=== PATIENT | male | born 1955 | race Caucasian/White ===

== ENCOUNTER → 2017-11-12 | Outpatient (CLI) | payer MEDICARE ==
--- NOTE | 2017-11-12 10:20 | US ---
EXAMINATION TYPE: US thyroid st tissue head/neck DATE OF EXAM: 11/12/2017 COMPARISON: NONE CLINICAL HISTORY: C73 Thyroid Cancer E89.0 Hypothyroid. History of thyroid CA and thyroidectomy GLAND SIZE: Right Lobe: Surgically absent cm Left Lobe: Surgically absent cm Isthmus Thickness: Surgically absent cm Bilateral neck scanned, no evidence of lymphadenopathy or residual thyroid tissue seen at this time. No local adenopathy is identified. IMPRESSION: Surgical absence of the thyroid gland with no residual soft tissue density in the thyroidectomy bed o r local adenopathy seen.
== END | disposition home or self-care (01) ==
LOC: RADUSWWP 09:23
PROVIDERS: ATTEND Internal Medicine Endocrinology, Diabetes & Metabolism
DX: E89.0 Postprocedural hypothyroidism (principal); Z90.89 Acquired absence of other organs; Z85.850 Personal history of malignant neoplasm of thyroid
CPT/HCPCS: 76536

== ENCOUNTER 2019-04-21 19:16 | Emergency (ER) | payer MEDICARE, BC ==
[2019-04-21] MEDS ORDERED: NITROGLYCERIN SL TABS 0.4 MG TAB SUBLINGUAL STA (19:48)
[2019-04-21] MEDS ORDERED: GLUCAGON 1 MG/ML VIAL IVP STA (19:48)
[2019-04-21] MEDS ORDERED: METOCLOPRAMIDE 5 MG/ML 2 ML VIAL IVP STA (19:52)
[2019-04-21] MEDS ORDERED: DIAZEPAM 5 MG/ML 2 ML INJ IVP STA (19:53)
--- NOTE | 2019-04-21 19:56 | ED ---
General Adult HPI - General Chief complaint: Skin/Abscess/Foreign Body Stated complaint: FB in throat Time Seen by Provider: 04/21/19 19:20 Source: patient, EMS, RN notes reviewed, old records reviewed Mode of arrival: EMS Limitations: no limitations - History of Present Illness Initial comments: This is a 63-year-old male who presents emergency department with past medical history significant for bypass surgery as well as Parkinson's. Patient states she was eating some pork today and he swallowed a piece of pork and ever since then he's been able to swallow even his saliva. Patient states she's never had any previous history of similar. Patient states she's never had any problems swallowing anything. She denies any difficulty breathing shortness of breath. Patient denies any chest pain. Patient is developmentally delayed and his guardian is his sister and she states that he is very accurate with his history however. Patient denies any abdominal pain. - Related Data Home Medications Medication Instructions Recorded Confirmed Ammonium Lactate Cream [Lac-Hydrin 1 applic TOPICAL DAILY PRN 04/21/19 04/21/19 12% Cream] Aspirin EC [Ecotrin Low Dose] 81 mg PO DAILY 04/21/19 04/21/19 Atorvastatin [Lipitor] 80 mg PO HS 04/21/19 04/21/19 Carbidopa/Levodopa [Sinemet CR 1 tab PO BID 04/21/19 04/21/19 50-200 mg] Cholecalciferol (Vitamin D3) 2,000 unit PO DAILY 04/21/19 04/21/19 [Vitamin D3] Divalproex [Depakote] 500 mg PO HS 04/21/19 04/21/19 Ergocalciferol [Vitamin D2] 50,000 unit PO Q30D 04/21/19 04/21/19 Folic Acid 1 mg PO HS 04/21/19 04/21/19 Isosorbide Mononitrate ER [Imdur] 90 mg PO DAILY 04/21/19 04/21/19 Metoprolol Tartrate [Lopressor] 50 mg PO BID 04/21/19 04/21/19 Multivitamins, Thera [Multivitamin 1 tab PO DAILY 04/21/19 04/21/19 (formulary)] Nitroglycerin Sl Tabs [Nitrostat] 0.4 mg SUBLINGUAL Q5M PRN 04/21/19 04/21/19 metFORMIN HCL 1,000 mg PO BID 04/21/19 04/21/19 Allergies Allergy/AdvReac Type Severity Reaction Status Date / Time No Known Allergies Allergy Verified 04/21/19 20:19 Review of Systems ROS Statement: Those systems with pertinent positive or pertinent negative responses have been documented in the HPI. ROS Other: All systems not noted in ROS Statement are negative. Past Medical History Additional Past Medical History / Comment(s): Parkisons History of Any Multi-Drug Resistant Organisms: Unobtainable Additional Past Surgical History / Comment(s): bypass x4 Past Psychological History: Unable to Obtain Smoking Status: Never smoker Past Alcohol Use History: Occasional Past Drug Use History: None Reported General Exam - General Exam Comments Initial Comments: GENERAL: Patient is well-developed and well-nourished. Patient is nontoxic and well- hydrated and is in mild distress. Patient is spitting up saliva. ENT: Neck is soft and supple. No significant lymphadenopathy is noted. Oropharynx is clear. Moist mucous membranes. Neck has full range of motion without eliciting any pain. EYES: The sclera were anicteric and conjunctiva were pink and moist. Extraocular movements were intact and pupils were equal round and reactive to light. Eyelids were unremarkable. PULMONARY: Unlabored respirations. Good breath sounds bilaterally. No audible rales rhonchi or wheezing was noted. CARDIOVASCULAR: There is a regular rate and rhythm without any murmurs gallops or rubs. ABDOMEN: Soft and nontender with normal bowel sounds. No palpable organomegaly was noted. There is no palpable pulsatile mass. SKIN: Skin is clear with no lesions or rashes and otherwise unremarkable. NEUROLOGIC: Patient is alert and oriented 3. Cranial nerves II through XII are grossly intact. Motor and sensory are also intact. Normal speech, volume and content. Symmetrical smile. MUSCULOSKELETAL: Normal extremities with adequate strength and full range of motion. PSYCHIATRIC: Normal psychiatric evaluation. Limitations: no limitations Course Vital Signs 04/21/19 19:18 Temperature 98.4 F Pulse Rate 99 Respiratory 17 Rate Blood Pressure 148/96 O2 Sat by Pulse 98 Oximetry Medical Decision Making - Medical Decision Making Patient was given Valium and glucagon Reglan and nitroglycerin shortly thereafter the patient vomited in the large piece of meat came up with it. Patient at that point and was able to swallow liquids and Jell-O and felt no sensation of a foreign body in the throat. Disposition Clinical Impression: Esophageal foreign body Disposition: HOME SELF-CARE Instructions (If sedation given, give patient instructions): Esophageal Foreign Body (ED) Is patient prescribed a controlled substance at d/c from ED?: No Referrals: Pb Person MD [STAFF PHYSICIAN] - 1-2 days Time of Disposition: 20:51
[2019-04-21 21:25] VITALS: BP 164/90; PULSE 89; RESP 18; TEMP 97.9
== END 2019-04-21 21:14 | disposition home or self-care (01) ==
LOC: EC 19:16 → EEVIPCON 19:16 → EC 21:14
DX: T18.128A Food in esophagus causing other injury, initial encounter (principal); G20 Parkinson's disease; Z95.1 Presence of aortocoronary bypass graft; Z79.82 Long term (current) use of aspirin; Z79.899 Other long term (current) drug therapy; X58.XXXA Exposure to other specified factors, initial encounter; Y93.89 Activity, other specified
CPT/HCPCS: 99284; 96374; 96375 ×2; J1610; J2765; J3360

== ENCOUNTER 2019-10-05 12:01 | Observation (INO) | payer MEDICARE, BC ==
--- NOTE | 2019-10-05 12:37 | ED ---
General Adult HPI - General Chief complaint: Fall Stated complaint: Weakness, fall Time Seen by Provider: 10/05/19 12:06 Source: EMS Mode of arrival: EMS Limitations: no limitations - History of Present Illness Initial comments: Dictation was produced using [employer] dictation software. please excuse any grammatical, word or spelling errors. This patient was cared for during a federal and state declared state of emergency secondary to Covid 19 Chief Complaint: 64-year-old male with mental delay presents after fall. History of Present Illness: 64-year-old male is currently a resident at [facility]. Patient fell out of bed today. Patient is a poor historian. Denies tripping. Patient states he does not have pain after the fall. Patient does take blood pressure medications. According to EMS patient also fell yesterday. Does take any and I coag relation medications. Chart review shows that he has a history of coronary artery disease, bypass grafting. Patient has no complaints at this time. He states he feels well. unable to obtain stated to patient's mental status PHYSICAL EXAM: General Impression: Alert and oriented x3, not in acute distress HEENT: Normocephalic atraumatic, extra-ocular movements intact, pupils equal and reactive to light bilaterally, mucous membranes moist. Cardiovascular: Heart regular rate and rhythm Chest: Able to complete full sentences, no retractions, no tachypnea Abdomen: abdomen soft, non-tender, non-distended, no organomegaly Musculoskeletal: Pulses present and equal in all extremities, no peripheral edema Motor: no focal deficits noted Neurological: CN II-XII grossly intact, no focal motor or sensory deficits noted Skin: Intact with no visualized rashes Psych: Normal affect and mood Rectal exam: No bleeding ED course: 64-year-old male past medical history of developmental delay and Parkinson's disease presents after fall. All signs upon arrival shows blood pre ssure 93/55, rest of vital signs within acceptable limits. Medications were reviewed. Patient has history of coronary artery disease, Parkinson's and hypertension. At this point is unclear what is causing patient's mildly depressed blood pressure. Lab data evaluation obtained. CBC unremarkable. Coag panel is unremarkable. Metabolic panel is unremarkable except there is a mild lactic acidosis 3.8. Urinalysis is unremarkable. Stool occult blood is negative. Brain CT, pelvis x-ray chest x-ray shows no traumatic injuries or acute processes. Patient reevaluated at bedside he is in stable medical condition. Considering patient has a lactic acidosis will have patient admitted to observation. At this point is not entirely clear what is causing patient's lactic acidemia. His likely sec ondary to dehydration. Patient vitals rechecked after some intravenous fluids with improvement. Discussed patient case with Dr. Clemons was went except patient's care. EKG interpretation: Ventricular rate 83, normal sinus rhythm, KS interval 146, QRS 88, QTc 413. No KS prolongation, no QTC prolongation, no ST or T-wave changes noted. No old EKG for comparison. Overall, this EKG is unremarkable - Related Data Home Medications Medication Instructions Recorded Confirmed Ammonium Lactate Cream [Lac-Hydrin 1 applic TOPICAL DAILY PRN 04/21/19 04/21/19 12% Cream] Aspirin EC [Ecotrin Low Dose] 81 mg PO DAILY 04/21/19 04/21/19 Atorvastatin [Lipitor] 80 mg PO HS 04/21/19 04/21/19 Carbidopa/Levodopa [Sinemet CR 1 tab PO BID 04/21/19 04/21/19 50-200 mg] Cholecalciferol (Vitamin D3) 2,000 unit PO DAILY 04/21/19 04/21/19 [Vitamin D3] Divalproex [Depakote] 500 mg PO HS 04/21/19 04/21/19 Ergocalciferol [Vitamin D2] 50,000 unit PO Q30D 04/21/19 04/21/19 Folic Acid 1 mg PO HS 04/21/19 04/21/19 Isosorbide Mononitrate ER [Imdur] 90 mg PO DAILY 04/21/19 04/21/19 Metoprolol Tartrate [Lopressor] 50 mg PO BID 04/21/19 04/21/19 Multivitamins, Thera [Multivitamin 1 tab PO DAILY 04/21/19 04/21/19 (formulary)] Nitroglycerin Sl Tabs [Nitrostat] 0.4 mg SUBLINGUAL Q5M PRN 04/21/19 04/21/19 metFORMIN HCL 1,000 mg PO BID 04/21/19 04/21/19 Allergies Allergy/AdvReac Type Severity Reaction Status Date / Time No Known Allergies Allergy Verified 04/21/19 20:19 Review of Systems ROS Statement: Those systems with pertinent positive or pertinent negative responses have been documented in the HPI. ROS Other: All systems not noted in ROS Statement are negative. Past Medical History Additional Past Medical History / Comment(s): Parkisons,developmental delays. History of Any Multi-Drug Resistant Organisms: Unobtainable Additional Past Surgical History / Comment(s): bypass x4 Past Psychological History: Unable to Obtain Smoking Status: Never smoker Past Alcohol Use History: Occasional Past Drug Use History: None Reported General Exam Limitations: no limitations Course Vital Signs 10/05/19 10/05/19 12:06 14:04 Temperature 98.1 F Pulse Rate 85 80 Respiratory 18 18 Rate Blood Pressure 93/55 102/65 O2 Sat by Pulse 98 100 Oximetry Medical Decision Making - Lab Data Result diagrams: 10/05/19 12:10/05/19 12:20 Lab Results 10/05/19 10/05/19 10/05/19 Range/Units 12:20 12:20 12:20 WBC 5.6 (3.8-10.6) k/uL RBC 4.71 (4.30-5.90) m/uL Hgb 12.9 L (13.0-17.5) gm/dL Hct 41.5 (39.0-53.0) % MCV 88.2 (80.0-100.0) fL MCH 27.3 (25.0-35.0) pg MCHC 31.0 (31.0-37.0) g/dL RDW 14.4 (11.5-15.5) % Plt Count 206 (150-450) k/uL Neutrophils % 74 % Lymphocytes % 15 % Monocytes % 6 % Eosinophils % 3 % Basophils % 1 % Neutrophils # 4.1 (1.3-7.7) k/uL Lymphocytes # 0.8 L (1.0-4.8) k/uL Monocytes # 0.3 (0-1.0) k/uL Eosinophils # 0.2 (0-0.7) k/uL Basophils # 0.1 (0-0.2) k/uL PT 10.8 (9.0-12.0) sec INR 1.1 (<1.2) APTT 26.5 (22.0-30.0) sec Sodium 139 (137-145) mmol/L Potassium 3.7 (3.5-5.1) mmol/L Chloride 104 (98-107) mmol/L Carbon Dioxide 24 (22-30) mmol/L Anion Gap 11 mmol/L BUN 15 (9-20) mg/dL Creatinine 0.52 L (0.66-1.25) mg/dL Est GFR (CKD-EPI)AfAm >90 (>60 ml/min/1.73 sqM) Est GFR (CKD-EPI)NonAf >90 (>60 ml/min/1.73 sqM) Glucose 125 H (74-99) mg/dL Plasma Lactic Acid Mal[place] (0.7-2.0) mmol/L Calcium 9.1 (8.4-10.2) mg/dL Magnesium 1.6 (1.6-2.3) mg/dL Total Bilirubin 0.8 (0.2-1.3) mg/dL AST 26 (17-59) U/L ALT 12 (4-49) U/L Alkaline Phosphatase 48 (38-126) U/L Total Protein 6.2 L (6.3-8.2) g/dL Albumin 3.5 (3.5-5.0) g/dL Urine Color Urine Appearance (Clear) Urine pH (5.0-8.0) Ur Specific [place] (1.001-1.035) Urine Protein (Negative) Urine Glucose (UA) (Negative) Urine Ketones (Negative) Urine Blood (Negative) Urine Nitrite (Negative) Urine Bilirubin (Negative) Urine Urobilinogen (<2.0) mg/dL Ur Leukocyte Esterase (Negative) Urine RBC (0-5) /hpf Urine WBC (0-5) /hpf Ur Squamous Epith Cells (0-4) /hpf Hyaline Casts (0-2) /lpf Urine Mucus (None) /hpf Stool Occult Blood (Negative) Blood Type Blood Type Confirm Blood Type Recheck Bld Type Recheck Status Antibody Screen Spec Expiration Date 10/05/19 10/05/19 10/05/19 Range/Units 12:20 12:20 13:07 WBC (3.8-10.6) k/uL RBC (4.30-5.90) m/uL Hgb (13.0-17.5) gm/dL Hct (39.0-53.0) % MCV (80.0-100.0) fL MCH (25.0-35.0) pg MCHC (31.0-37.0) g/dL RDW (11.5-15.5) % Plt Count (150-450) k/uL Neutrophils % % Lymphocytes % % Monocytes % % Eosinophils % % Basophils % % Neutrophils # (1.3-7.7) k/uL Lymphocytes # (1.0-4.8) k/uL Monocytes # (0-1.0) k/uL Eosinophils # (0-0.7) k/uL Basophils # (0-0.2) k/uL PT (9.0-12.0) sec INR (<1.2) APTT (22.0-30.0) sec Sodium (137-145) mmol/L Potassium (3.5-5.1) mmol/L Chloride (98-107) mmol/L Carbon Dioxide (22-30) mmol/L Anion Gap mmol/L BUN (9-20) mg/dL Creatinine (0.66-1.25) mg/dL Est GFR (CKD-EPI)AfAm (>60 ml/min/1.73 sqM) Est GFR (CKD-EPI)NonAf (>60 ml/min/1.73 sqM) Glucose (74-99) mg/dL Plasma Lactic Acid Malvin 3.8 H* (0.7-2.0) mmol/L Calcium (8.4-10.2) mg/dL Magnesium (1.6-2.3) mg/dL Total Bilirubin (0.2-1.3) mg/dL AST (17-59) U/L ALT (4-49) U/L Alkaline Phosphatase (38-126) U/L Total Protein (6.3-8.2) g/dL Albumin (3.5-5.0) g/dL Urine Color Urine Appearance (Clear) Urine pH (5.0-8.0) Ur Specific [place] (1.001-1.035) Urine Protein (Negative) Urine Glucose (UA) (Negative) Urine Ketones (Negative) Urine Blood (Negative) Urine Nitrite (Negative) Urine Bilirubin (Negative) Urine Urobilinogen (<2.0) mg/dL Ur Leukocyte Esterase (Negative) Urine RBC (0-5) /hpf Urine WBC (0-5) /hpf Ur Squamous Epith Cells (0-4) /hpf Hyaline Casts (0-2) /lpf Urine Mucus (None) /hpf Stool Occult Blood Negative (Negative) Blood Type Blood Type Confirm AB Positive Blood Type Recheck Bld Type Recheck Status Antibody Screen Spec Expiration Date 10/05/19 10/05/19 Range/Units 13:14 13:32 WBC (3.8-10.6) k/uL RBC (4.30-5.90) m/uL Hgb (13.0-17.5) gm/dL Hct (39.0-53.0) % MCV (80.0-100.0) fL MCH (25.0-35.0) pg MCHC (31.0-37.0) g/dL RDW (11.5-15.5) % Plt Count (150-450) k/uL Neutrophils % % Lymphocytes % % Monocytes % % Eosinophils % % Basophils % % Neutrophils # (1.3-7.7) k/uL Lymphocytes # (1.0-4.8) k/uL Monocytes # (0-1.0) k/uL Eosinophils # (0-0.7) k/uL Basophils # (0-0.2) k/uL PT (9.0-12.0) sec INR (<1.2) APTT (22.0-30.0) sec Sodium (137-145) mmol/L Potassium (3.5-5.1) mmol/L Chloride (98-107) mmol/L Carbon Dioxide (22-30) mmol/L Anion Gap mmol/L BUN (9-20) mg/dL Creatinine (0.66-1.25) mg/dL Est GFR (CKD-EPI)AfAm (>60 ml/min/1.73 sqM) Est GFR (CKD-EPI)NonAf (>60 ml/min/1.73 sqM) Glucose (74-99) mg/dL Plasma Lactic Acid Malvin (0.7-2.0) mmol/L Calcium (8.4-10.2) mg/dL Magnesium (1.6-2.3) mg/dL Total Bilirubin (0.2-1.3) mg/dL AST (17-59) U/L ALT (4-49) U/L Alkaline Phosphatase (38-126) U/L Total Protein (6.3-8.2) g/dL Albumin (3.5-5.0) g/dL Urine Color Yellow Urine Appearance Clear (Clear) Urine pH 6.0 (5.0-8.0) Ur Specific [place] 1.033 (1.001-1.035) Urine Protein 1+ H (Negative) Urine Glucose (UA) Negative (Negative) Urine Ketones Trace H (Negative) Urine Blood Negative (Negative) Urine Nitrite Negative (Negative) Urine Bilirubin Negative (Negative) Urine Urobilinogen 3.0 (<2.0) mg/dL Ur Leukocyte Esterase Negative (Negative) Urine RBC 1 (0-5) /hpf Urine WBC 1 (0-5) /hpf Ur Squamous Epith Cells <1 (0-4) /hpf Hyaline Casts 6 H (0-2) /lpf Urine Mucus Many H (None) /hpf Stool Occult Blood (Negative) Blood Type AB Positive Blood Type Confirm Blood Type Recheck No Previous Record Bld Type Recheck Status CABO Indicated Antibody Screen NEGATIVE Spec Expiration Date 10/08/20192 Disposition Clinical Impression: Lactic acidosis Disposition: ADMITTED IP TO THIS [facility] Condition: Fair Referrals: Pola Graves DO [Primary Care Provider] - 1-2 days Decision Time: 14:29
[2019-10-05 12:56] LABS: Basophils # (A) 0.1 k/uL (0-0.2); Basophils % (A) 1 %; Eosinophils # (A) 0.2 k/uL (0-0.7); Eosinophils % (A) 3 %; HCT 41.5 % (39.0-53.0); HGB 12.9 gm/dL (13.0-17.5); Lymphocytes # (A) 0.8 k/uL (1.0-4.8); Lymphocytes % (A) 15 %; MCH 27.3 pg (25.0-35.0); MCV 88.2 fL (80.0-100.0); Mean Platelet Volume 7.7; Monocytes # (A) 0.3 k/uL (0-1.0); Monocytes % (A) 6 %; Neutrophils # (A) 4.1 k/uL (1.3-7.7); Neutrophils % (A) 74 %; Platelet Count 206 k/uL (150-450); RBC 4.71 m/uL (4.30-5.90); RDW 14.4 % (11.5-15.5); WBC 5.6 k/uL (3.8-10.6)
[2019-10-05 13:09] LABS: ALT 12 U/L (4-49); AST 26 U/L (17-59); African American GFR (CKD) >90 (>60 ml/min/1.73 sqM); Albumin 3.5 g/dL (3.5-5.0); Alkaline Phosphatase 48 U/L (38-126); Anion Gap 11 mmol/L; Blood Urea Nitrogen 15 mg/dL (9-20); Calcium 9.1 mg/dL (8.4-10.2); Carbon Dioxide 24 mmol/L (22-30); Chloride 104 mmol/L (98-107); Glucose 125 mg/dL (74-99); Magnesium 1.6 mg/dL (1.6-2.3); Non-African American GFR(CKD) >90 (>60 ml/min/1.73 sqM); Potassium 3.7 mmol/L (3.5-5.1); Sodium 139 mmol/L (137-145); Total Bilirubin 0.8 mg/dL (0.2-1.3); Total Protein 6.2 g/dL (6.3-8.2)
--- NOTE | 2019-10-05 13:10 | XR ---
EXAMINATION TYPE: XR chest 1V portable DATE OF EXAM: 10/05/2019 COMPARISON: 09/24/2014 HISTORY: Weakness and fall TECHNIQUE: Single frontal view of the chest is obtained. FINDINGS: Chronic pleural parenchymal changes at the right costophrenic angle. There is no focal air space opacity, pleural effusion, or pneumothorax seen. Chronic parenchymal changes of the lungs. The cardiac silhouette size is within normal limits. Post CABG changes of the chest. The osseous struct ures are intact. Thoracic dextroscoliosis. IMPRESSION: Chronic changes with no acute process.
--- NOTE | 2019-10-05 13:11 | XR ---
EXAMINATION TYPE: XR pelvis AP view DATE OF EXAM: 10/05/2019 CLINICAL HISTORY: Pelvic pain after fall TECHNIQUE: A single AP view of the pelvis is obtained. COMPARISON: None. FINDINGS: There is no acute fracture/dislocation evident in the pelvis. The hip and sacroiliac join ts appear symmetric and demonstrate mild degenerative change. Vascular groove within the right acetab ulum. The overlying soft tissue appears unremarkable. IMPRESSION: There is no acute fracture or dislocation in the pelvis.
[2019-10-05 13:13] LABS: INR 1.1 (<1.2); Partial Thromboplastin Time 26.5 sec (22.0-30.0); Prothrombin Time 10.8 sec (9.0-12.0)
--- NOTE | 2019-10-05 13:31 | CT ---
EXAMINATION TYPE: CT brain wo con DATE OF EXAM: 10/05/2019 COMPARISON: None HISTORY: Weakness, fall CT DLP: 1188.4 mGycm Automated exposure control for dose reduction was used. TECHNIQUE: CT scan of the head is performed without contrast. FINDINGS: There is no acute intracranial hemorrhage or midline shift identified. There is diffuse v entricular and sulcal prominence consistent with diffuse age-related cerebral atrophy. There is are few areas of low-attenuation in the periventricular white matter most commonly related to chronic sma ll vessel ischemic change. The globes are intact. Mild mucosal thickening of the left maxillary sinu s. Subcentimeter possible polyp of the sphenoid sinus versus polypoid mucosal thickening Remaining pa ranasal sinuses and mastoid air cells are well aerated. Atherosclerosis is seen of the intracranial v asculature. IMPRESSION: No acute intracranial hemorrhage or midline shift. Age-related volume loss and mild mary en nonspecific white matter change.
[2019-10-05 13:51] LABS: Appearance,Urine Clear (Clear); Bilirubin,Urine Negative (Negative); Blood,Urine Negative (Negative); Color,Urine Yellow; Glucose,Urine (UA) Negative (Negative); Hyaline Casts,Urine 6 /lpf (0-2); Ketones,Urine Trace (Negative); Leukocyte Esterase,Urine Negative (Negative); Mucus,Urine Many /hpf; Nitrite,Urine Negative (Negative); Protein,Urine 1+ (Negative); RBC,Urine 1 /hpf (0-5); Specific Gravity,Urine 1.033 (1.001-1.035); Squamous Epithelial Cell,Urine <1 /hpf (0-4); WBC,Urine 1 /hpf (0-5)
[2019-10-05] MEDS ORDERED: NALOXONE 0.4 MG/ML 1 ML VIAL IV PRN (14:30)
[2019-10-05] MEDS ORDERED: ACETAMINOPHEN TAB 325 MG TAB PO PRN (14:30)
[2019-10-05] MEDS: SODIUM CHLORIDE 0.9% 1,000 ML IV SCH (15:33)
[2019-10-05] MEDS ORDERED: MELATONIN 3 MG TABLET PO PRN (17:31)
--- NOTE | 2019-10-05 17:35 | P.HPIM ---
History of Present Illness H&P Date: 10/05/19 Chief Complaint: fall Patient is a 64-year-old male with a history of coronary artery disease status post four-vessel bypass surgery and 2 stents, diabetes mellitus t ype 2, hypertension, dyslipidemia, cognitive delay with behavioral issues, and parkinsonism who presented to the ER via EMS from [facility] due to falls. On arrival to the ER his blood pressure was 93/55. Laboratory analysis showed a lactic acid of 3.8. Urinalysis and fecal occult blood were negative. CT brain showed no acute intracranial hemorrhage or midline shift. Pelvic x-ray showed no acute fracture or dislocation. Chest x-ray showed chronic changes with no acute process. Due to his elevated lactic acid he was given IV fluids and admitted. Patient seen and examined at bedside. He states that he is trying to get out of bed this morning and his legs felt weak and gave out. He fell to the floor and was unable to get up by himself. EMS was called and brought him to the [facility]. He reports that he also had a fall approximately 2 weeks ago with resulting bruising though did not need to go to the hospital at that time. He also reports that he has been having it increasing urinary frequency, no burning, no change in color, no blood in his urine. He denies any pain, cough, cold, fever, flu, or shortness breath. He denies any strokelike symptoms. History obtained from his sister who is his legal guardian, patient is a full code. She reports that he has been socializing with a woman who is known to consume alcohol [facility], and has been keeping unusual hours and staying up late. She feels as though he has been getting weaker. She is looking at get ting him into a more assisted living situation when COVID improves. She reports that she has parkinsonism symptoms have been progressing. He has issues with urinary incontinence that started approximately a year ago, they then got better were determined to be behavioral, and resumed about 2 months ago. Review of Systems Pertinent positives and negatives as discussed in HPI, a complete review of systems was performed and all other systems are negative as able to obtain from patient and sister Past Medical History Additional Past Medical History / Comment(s): Parkisons,developmental delay with behavioral issues, hypertension, diabetes mellitus, dyslipidemia, hypothyroidism, coronary artery disease, vitamin D deficiency, parkinsonism History of Any Multi-Drug Resistant Organisms: Unobtainable Additional Past Surgical History / Comment(s): Coronary artery bypass grafting 4, thyroidectomy, cardiac stenting 2 in 2009, esophageal foreign body removal Past Psychological History: Unable to Obtain Smoking Status: Never smoker Past Alcohol Use History: Occasional Past Drug Use History: None Reported - Past Family History Father Family Medical History: No Reported History Medications and Allergies Home Medications Medication Instructions Recorded Confirmed Type Aspirin EC [Ecotrin Low Dose] 81 mg PO DAILY@0730 04/21/19 10/05/19 History Atorvastatin [Lipitor] 80 mg PO HS@2100 04/21/19 10/05/19 History Carbidopa/Levodopa [Sinemet CR 1 tab PO BID@0730,1630 04/21/19 10/05/19 History 50-200 mg] Cholecalciferol (Vitamin D3) 2,000 unit PO DAILY@1630 04/21/19 10/05/19 History [Vitamin D3] Divalproex [Depakote] 500 mg PO HS@2100 04/21/19 10/05/19 History Ergocalciferol [Vitamin D2] 50,000 unit PO Q30D 04/21/19 10/05/19 History Folic Acid 1 mg PO DAILY@1630 04/21/19 10/05/19 History Isosorbide Mononitrate ER [Imdur] 90 mg PO DAILY@0730 04/21/19 10/05/19 History Metoprolol Tartrate [Lopressor] 50 mg PO BID@0730,2100 04/21/19 10/05/19 History Multivitamins, Thera [Multivitamin 1 tab PO DAILY@1600 04/21/19 10/05/19 History (formulary)] metFORMIN HCL 1,000 mg PO BID@0730,2100 04/21/19 10/05/19 History Levothyroxine Sodium [Synthroid] 175 mcg PO DAILY@0730 10/05/19 10/05/19 History Liraglutide [Victoza 3-Randell] 1.8 mg SQ DAILY@0800 10/05/19 10/05/19 History Allergies Allergy/AdvReac Type Severity Reaction Status Date / Time No Known Allergies Allergy Verified 04/21/19 20:19 Physical Exam Osteopathic Statement: *. No significant issues noted on an osteopathic structural exam other than those noted in the History and Physical/Consult. Vitals: Vital Signs Temp Pulse Pulse Resp BP BP Pulse Ox 10/05/19 16:41 98.7 F 85 16 123/75 98 10/05/19 15:43 81 16 114/67 98 10/05/19 14:04 80 18 102/65 100 10/05/19 12:06 98.1 F 85 18 93/55 98 Intake and Output 10/05/19 10/05/19 10/05/19 06:59 14:59 22:59 Other: Weight 108.862 kg General: non toxic, no distress, appears at stated age, normal weight Derm: no unusual rashes/lesions no unusual ecchymoses, warm, dry Head: atraumatic, normocephalic, symmetric Eyes: EOMI, no lid lag, anicteric sclera, pupils equal round reactive to light ENT: Nose and ears atraumatic, no thrush, no pharyngeal erythema Neck: No thyromegaly, no cervical lymphadenopathy, trachea midline, supple Mouth: no lip lesion, mucus membranes moist Cardiovascular: S1S2 reg, no murmur, positive posterior tibial pulse bilateral, no edema, capillary refill less than 2 seconds Lungs: CTA bilateral, no rhonchi, no rales , no accessory muscle use Abdominal: soft, nontender to palpation, no guarding, no appreciable organomegaly, normal bowel sounds Ext: no gross muscle atrophy, muscle strength 5 out of 5 in all 4 extremities grossly, no contractures, Neuro: CN II-XI grossly intact, light touch intact all 4 extremities, finger to nose poor, positive faint resting tremor, + mild cog wheel rigidity, hypophonia Psych: Alert, oriented to self and situation, flat affect Results CBC & Chem 7: 10/05/19 12:20 10/05/19 12:20 Labs: Abnormal Lab Results - Last 24 Hours (Table) 10/05/19 10/05/19 10/05/19 Range/Units 12:20 12:20 12:20 Hgb 12.9 L (13.0-17.5) gm/dL Lymphocytes # 0.8 L (1.0-4.8) k/uL Creatinine 0.52 L (0.66-1.25) mg/dL Glucose 125 H (74-99) mg/dL Plasma Lactic Acid Malvin 3.8 H* (0.7-2.0) mmol/L Total Protein 6.2 L (6.3-8.2) g/dL Urine Protein (Negative) Urine Ketones (Negative) Hyaline Casts (0-2) /lpf Urine Mucus (None) /hpf 10/05/19 Range/Units 13:32 Hgb (13.0-17.5) gm/dL Lymphocytes # (1.0-4.8) k/uL Creatinine (0.66-1.25) mg/dL Glucose (74-99) mg/dL Plasma Lactic Acid Malvin (0.7-2.0) mmol/L Total Protein (6.3-8.2) g/dL Urine Protein 1+ H (Negative) Urine Ketones Trace H (Negative) Hyaline Casts 6 H (0-2) /lpf Urine Mucus Many H (None) /hpf Chest x-ray: report reviewed Abdominal x-ray: report reviewed CT Scan - head: report reviewed Thrombosis Risk Factor Assmnt - DVT/VTE Prophylaxis DVT/VTE Prophylaxis: Mechanical Prophylaxis ordered Assessment and Plan Assessment: Generalized weakness with fall -Fall precautions -IV fluids -PT/OT evaluation -Pain control Lactic acidosis -Suspect secondary to medications and slight dehydration -Improved no need to continue to follow Diabetes mellitus type 2 -Hold oral medications -sliding-scale insulin -Check hemoglobin A1c History of hypertension now with hypotension -Lopressor decreased to 25 -Imdur decreased to 30 -Check orthostatic pressures Clinical dehydration -IV fluids Coronary artery disease -Aspirin, statin, Imdur, beta gissell Cognitive impairment with behavioral issues -Depakote Parkinsonism -Sinemet The patient is placed in observation with an anticipated less than 2 midnight s alia for evaluation of fall and generalized weakness Surrogate decision-maker: sister CODE STATUS:full DVT prophylaxis: SCDs Discussed with: Patient, sister, ED physician, nursing Anticipated discharge date: in AM Anticipated discharge place: [facility] with home health. A total of 65 minutes was spent on the care of this complex patient more than 50% of the time was spent in counseling and care coordination.
[2019-10-05 20:41] LABS: Glucose,Whole Blood 103 mg/dL (75-99)
[2019-10-05] MEDS: INSULIN ASPART (NovoLOG) 100 UNIT/ML VIAL SQ SCH (20:47)
[2019-10-05] MEDS: METOPROLOL TARTRATE 25 MG TAB PO SCH (20:53)
[2019-10-05] MEDS ORDERED: DIVALPROEX 500 MG TABLET.DR PO SCH (21:00)
[2019-10-05] MEDS ORDERED: ATORVASTATIN 80 MG TAB PO SCH (21:00)
[2019-10-06 02:34] LABS: Glucose,Whole Blood 70 mg/dL (75-99)
[2019-10-06 02:53] LABS: Glucose,Whole Blood 75 mg/dL (75-99)
[2019-10-06] MEDS: SODIUM CHLORIDE 0.9% 1,000 ML IV SCH ×2 (03:01→09:54)
[2019-10-06 07:18] LABS: Glucose,Whole Blood 81 mg/dL (75-99)
[2019-10-06] MEDS ORDERED: ASPIRIN 81 MG PO SCH (07:30)
[2019-10-06] MEDS ORDERED: LEVOTHYROXINE 88 MCG TAB PO SCH (07:30)
[2019-10-06] MEDS ORDERED: ISOSORBIDE MONONITRATE ER 30 MG TAB.ER.24H PO SCH (09:00)
[2019-10-06] MEDS: INSULIN ASPART (NovoLOG) 100 UNIT/ML VIAL SQ SCH ×3 (09:02→17:35)
[2019-10-06] MEDS: METOPROLOL TARTRATE 25 MG TAB PO SCH (09:46)
[2019-10-06] MEDS: CARBIDOPA-LEVODOPA ER 50-200MG 1 EACH TABLET.ER PO SCH ×2 (09:46→17:07)
[2019-10-06 11:29] LABS: Glucose,Whole Blood 102 mg/dL (75-99)
[2019-10-06 14:01] LABS: Hemoglobin A1C 6.1 % (4.0-6.0)
[2019-10-06 15:49] VITALS: BP 125/76; PULSE 80; RESP 16; TEMP 98.1
[2019-10-06] MEDS ORDERED: MULTIVITAMINS, THERA 1 EACH TAB PO SCH (16:00)
[2019-10-06] MEDS ORDERED: FOLIC ACID 1 MG TAB PO SCH (16:30)
--- NOTE | 2019-10-06 20:06 | P.DS ---
Providers Date of admission: 10/05/19 14:30 Expected date of discharge: 10/06/19 Attending physician: Adia Rice DO Primary care physician: Cooley Dickinson Hospital Course: Discharge Diagnosis: Generalized weakness with fall Lactic acidosis Diabetes mellitus type 2 with marginal blood sugars History of hypertension now with hypotension ( medication and dehydration induced) Clinical dehydration Coronary artery disease Cognitive impairment with behavioral issues Parkinsonism Hospital Course: Patient is a 64-year-old male with a history of coronary artery disease status post four-vessel bypass surgery and 2 stents, diabetes mellitus type 2, hypertension, dyslipidemia, cognitive delay with behavioral issues, and parkinsonism who presented to the ER via EMS from [facility] due to falls. On arrival to the ER his blood pressure was 93/55. Laboratory analysis showed a lactic acid of 3.8. Urinalysis and fecal occult blood were negative. CT brain showed no acute intracranial hemorrhage or midline shift. Pelvic x-ray showed no acute fracture or dislocation. Chest x-ray showed chronic changes with no acute process. Due to his elevated lactic acid he was given IV fluids and admitted. His lactic acidosis improved with fluid resuscitation. Due to his initial low blood pressures his Imdur and metoprolol were decreased and his blood pressure remained with a systolic approximately 120. His orthostatic vital signs were negative. His Victoza and metformin had been held and he still developed blood sugar of 70 at 3 in the morning and 81 at 7:15 in the morning. I suggested that he come off of his metformin and continue his Victoza. His blood sugars will continue to be monitored. Arrangements were made for home health. He was discharged in stable condition. Patient seen and examined at bedside. He complains of having some freezing and wanting to stay in the hospital. He denies pain, nausea, vomiting, or chest pain. Vital signs reviewed and stable. General: non toxic, no distress, appears at stated age Derm: warm, dry Head: atraumatic, normocephalic, symmetric Eyes: EOMI, no lid lag, anicteric sclera Mouth: no lip lesion, mucus membranes moist Cardiovascular: S1S2 reg, no murmur, positive posterior tibial pulse bilateral, Lungs: CTA bilateral, no rhonchi, no rales , no accessory muscle use Abdominal: soft, nontender to palpation, no guarding, no appreciable organomegaly Ext: no gross muscle atrophy, no edema, no contractures Neuro: , hypophonia, resting tremor Psych: Alert, oriented, flat affect A total of minutes of time were spent preparing this complex discharge summary . Patient Condition at Discharge: Fair Plan - Discharge Summary Discharge Rx Participant: No New Discharge Prescriptions: New RX: Isosorbide Mononitrate ER [Imdur] 30 mg PO DAILY #30 tab.er.24h RX: Metoprolol Tartrate [Lopressor] 25 mg PO BID #60 tab Continue RX: Divalproex [Depakote] 500 mg PO HS@2100 RX: Cholecalciferol (Vitamin D3) [Vitamin D3] 2,000 unit PO DAILY@1630 RX: Folic Acid 1 mg PO DAILY@1630 RX: Atorvastatin [Lipitor] 80 mg PO HS@2100 RX: Multivitamins, Thera [Multivitamin (formulary)] 1 tab PO DAILY@1600 RX: Ergocalciferol [Vitamin D2 (DRISDOL)] 50,000 unit PO Q30D RX: Carbidopa/Levodopa [Sinemet CR 50-200 mg] 1 tab PO BID@0730,1630 RX: Aspirin EC [Ecotrin Low Dose] 81 mg PO DAILY@0730 RX: Liraglutide [Victoza 3-Randell] 1.8 mg SQ DAILY@0800 RX: Levothyroxine Sodium [Synthroid] 175 mcg PO DAILY@0730 Discontinued RX: metFORMIN HCL 1,000 mg PO BID@729,2099 Isosorbide Mononitrate ER [Imdur] 90 mg PO DAILY@729 Metoprolol Tartrate [Lopressor] 50 mg PO BID@729,2099 Discharge Medication List RX: Aspirin EC [Ecotrin Low Dose] 81 mg PO DAILY@72904/21/19 [History] RX: Atorvastatin [Lipitor] 80 mg PO HS@209904/21/19 [History] RX: Carbidopa/Levodopa [Sinemet CR 50-200 mg] 1 tab PO BID@0730,1630 04/21/19 [History] RX: Cholecalciferol (Vitamin D3) [Vitamin D3] 2,000 unit PO DAILY@1630 04/21/19 [History] RX: Divalproex [Depakote] 500 mg PO HS@209904/21/19 [History] RX: Ergocalciferol [Vitamin D2 (DRISDOL)] 50,000 unit PO Q30D 04/21/19 [History] RX: Folic Acid 1 mg PO DAILY@1630 04/21/19 [History] RX: Multivitamins, Thera [Multivitamin (formulary)] 1 tab PO DAILY@1600 04/21/19 [History] RX: Levothyroxine Sodium [Synthroid] 175 mcg PO DAILY@0730 10/05/19 [History] RX: Liraglutide [Victoza 3-Randell] 1.8 mg SQ DAILY@0800 10/05/19 [History] RX: Isosorbide Mononitrate ER [Imdur] 30 mg PO DAILY #30 tab.er.24h 10/06/19 [Rx] RX: Metoprolol Tartrate [Lopressor] 25 mg PO BID #60 tab 10/06/19 [Rx] Follow up Appointment(s)/Referral(s): Pola Graves DO [Primary Care Provider] - 1-2 days Patient Instructions/Handouts: Lactic Acidosis (GEN) Activity/Diet/Wound Care/Special Instructions: Activity: As tolerated Diet: Carb consistent, heart healthy Special Instructions: [facility] has been referred and will evaluate within 24-48hrs after discharge. They can be reached at [phone]. Discharge Disposition: HOME WITH HOME HEALTH SERVICES
--- NOTE | 2019-10-13 13:14 | CDI ---
Date: 10.13.19 CDS/Wedding Planning Internship Name: Danika Morris Phone: If any questions, call Shayla Hester [employer] Operator at [phone] Patient Name: Kurt Jones Admit Date: 10.05.19 Discharge Date: 10.06.19 ATTENTION: The [facility] Coding Staff appreciate your assistance in clarifying documentation. Please respond to the clarification below the line at the bottom and electronically sign. The [facility] Coding staff will review the response and follow-up if needed. Please note: Queries are made part of the Legal Health Record. If you have any questions, please contact the [employer] Equipment Operator. Dear Dr. Rice You have dictated that in the diagnoses list - DM type 2 with marginal blood - Under hospital course of the discharge summary you have documented the following Blood sugars of 70 at 3 in morning and 81 at 7:15 in the morning. I suggested that he come off of his metformin and continue his Victoza would you please specify whether marginal is hyperglycemic or hypoglycemic Thank you for your kind consideration. This is not hypoglycemia, IE sugar is not less than 60 and patient without symptoms MTDD
== END 2019-10-06 18:00 | disposition home health service (06) ==
LOC: EC 12:01 → 4SSUR 14:30
PROVIDERS: ADMIT Internal Medicine; ATTEND Internal Medicine
DX: R53.1 Weakness (principal); R29.6 Repeated falls; E87.2 Acidosis; E11.9 Type 2 diabetes mellitus without complications; I10 Essential (primary) hypertension; I95.2 Hypotension due to drugs; T44.7X5A Adverse effect of beta-adrenoreceptor antagonists, initial encounter; T46.3X5A Adverse effect of coronary vasodilators, initial encounter; E86.0 Dehydration; I25.10 Atherosclerotic heart disease of native coronary artery without angina pectoris; G31.84 Mild cognitive impairment of uncertain or unknown etiology; R46.89 Other symptoms and signs involving appearance and behavior; G20 Parkinson's disease; R35.0 Frequency of micturition; R32 Unspecified urinary incontinence; E78.5 Hyperlipidemia, unspecified; E55.9 Vitamin D deficiency, unspecified; E89.0 Postprocedural hypothyroidism; Z79.899 Other long term (current) drug therapy; Z79.82 Long term (current) use of aspirin; Z79.84 Long term (current) use of oral hypoglycemic drugs; Z79.890 Hormone replacement therapy; Z95.1 Presence of aortocoronary bypass graft; Z95.5 Presence of coronary angioplasty implant and graft; Z87.828 Personal history of other (healed) physical injury and trauma; Z98.890 Other specified postprocedural states
CPT/HCPCS: 96361; 96360; 99285; 36415; 93005; 97116; 97162; 97535; 97166; 86900; 86901; 80053; 83605; 83735; 85025; 85610; 85730; 86850; 82272; 81001; 83036; 87635; 72170; 71045; 70450; G0378 ×2

== ENCOUNTER → 2019-10-28 | Outpatient (CLI) | payer MEDICARE, BC ==
--- NOTE | 2019-10-29 06:50 | MR ---
EXAMINATION TYPE: MR brain wo con DATE OF EXAM: 10/28/2019 COMPARISON: CT brain October 05, 2019. HISTORY: Confusion, ataxia, Parkinsons, R/O NPH TECHNIQUE: Multiplanar, multisequence imaging of the brain and brainstem is performed without IV cont rast. FINDINGS: Diffusion weighted images demonstrate no evidence of a recent infarct or other diffusion abnormality. There is no worrisome extra-axial fluid collection. There is diffuse ventricular and sulcal prominenc e greatest over the high bilateral frontal and parietal lobes. Scattered foci of T2 hyperintensity ar e seen throughout the superficial and deep white matter. Midline structures demonstrate normal morphology. The craniocervical junction appears within normal limits. Normal vascular flow voids are present. Dominant right vertebral artery with tortuous courses noted. Prominent Calcification along the anterior falx is redemonstrated. The visualized sinuses are clear and the globes are intact. IMPRESSION: Moderate diffuse cerebral atrophy greatest over the high bilateral frontal and parietal l obes. Mild to moderate chronic small vessel ischemic change. No hydrocephalus thought present.
== END | disposition home or self-care (01) ==
LOC: RADMRIMAIN 17:07
PROVIDERS: ATTEND Internal Medicine
DX: G31.9 Degenerative disease of nervous system, unspecified (principal); I67.82 Cerebral ischemia; R27.0 Ataxia, unspecified; R32 Unspecified urinary incontinence
CPT/HCPCS: 70551

== ENCOUNTER 2020-10-26 13:56 | Emergency (ER) | payer MEDICARE, BC ==
[2020-10-26 14:09] VITALS: TEMP 97.7
[2020-10-26] MEDS ORDERED: NITROGLYCERIN SL TABS 0.4 MG TAB SUBLINGUAL STA (14:49)
[2020-10-26] MEDS ORDERED: METOCLOPRAMIDE 5 MG/ML 2 ML VIAL IVP STA (14:49)
[2020-10-26] MEDS ORDERED: GLUCAGON 1 MG/ML VIAL IVP STA (14:49)
--- NOTE | 2020-10-26 14:55 | ED ---
General Adult HPI - General Chief complaint: ENT Stated complaint: Esophageal foreign body Time Seen by Provider: 10/26/20 14:09 Source: patient, family, EMS, RN notes reviewed Mode of arrival: EMS Limitations: no limitations - History of Present Illness Initial comments: Patient is a pleasant 65-year-old male presenting to the emergency department with family with concern for esophageal foreign body. Patient was eating fish at the time. Patient had difficulty finishing swallowing and has been spitting up since that time. No difficulty in breathing. Patient did have similar symptoms around a year and a half ago that improved with medications in the emergency department. - Related Data Home Medications Medication Instructions Recorded Confirmed Aspirin EC [Ecotrin Low Dose] 81 mg PO DAILY@0700 04/21/19 10/26/20 Atorvastatin [Lipitor] 80 mg PO HS@2100 04/21/19 10/26/20 Carbidopa/Levodopa [Sinemet CR 1 tab PO BID@0700,1900 04/21/19 10/26/20 50-200 mg] Folic Acid 1 mg PO DAILY@0704/21/19 10/26/20 Multivitamins, Thera [Multivitamin 1 tab PO DAILY@0700 04/21/19 10/26/20 (formulary)] Levothyroxine Sodium [Synthroid] 175 mcg PO DAILY@69910/05/19 10/26/20 Liraglutide [Victoza 3-Randell] 1.2 mg SQ FR@69910/05/19 10/26/20 Ammonium Lactate Cream [Lac-Hydrin 1 applic TOPICAL BID PRN 10/26/20 10/26/20 12% Cream] Cholecalciferol [Vitamin D3 (25 50 mcg PO DAILY@69910/26/20 10/26/20 Mcg = 1000 Iu)] Cyanocobalamin (Vitamin B-12) 1,000 mcg PO DAILY@69910/26/20 10/26/20 [Vitamin B-12] Divalproex [Depakote] 250 mg PO DAILY@69910/26/20 10/26/20 Isosorbide Mononitrate ER [Imdur] 30 mg PO DAILY@69910/26/20 10/26/20 Metoprolol Tartrate [Lopressor] 25 mg PO BID@0700,1900 10/26/20 10/26/20 metFORMIN HCL [Glucophage] 500 mg PO BID@0700,1600 10/26/20 10/26/20 Allergies Allergy/AdvReac Type Severity Reaction Status Date / Time No Known Allergies Allergy Verified 10/26/20 15:55 Review of Systems ROS Statement: Those systems with pertinent positive or pertinent negative responses have been documented in the HPI. ROS Other: All systems not noted in ROS Statement are negative. Constitutional: Denies: fever Eyes: Denies: eye pain ENT: Denies: ear pain Respiratory: Denies: dyspnea Cardiovascular: Denies: chest pain Endocrine: Denies: fatigue Gastrointestinal: Reports: as per HPI. Denies: abdominal pain Genitourinary: Denies: dysuria Musculoskeletal: Denies: back pain Skin: Denies: rash Neurological: Denies: weakness Past Medical History Additional Past Medical History / Comment(s): Parkisons,developmental delay with behavioral issues, hypertension, diabetes mellitus, dyslipidemia, hypothyroidism, coronary artery disease, vitamin D deficiency, parkinsonism History of Any Multi-Drug Resistant Organisms: Unobtainable Additional Past Surgical History / Comment(s): Coronary artery bypass grafting 4, thyroidectomy, cardiac stenting 2 in 2009, esophageal foreign body removal Past Psychological History: Unable to Obtain Past Alcohol Use History: Occasional Past Drug Use History: None Reported - Past Family History Father Family Medical History: No Reported History Mother History Unknown: Yes General Exam Limitations: no limitations General appearance: alert, in no apparent distress, other (Patient sitting upright in bed with occasional spitting up clear sputum) Head exam: Present: normocephalic Eye exam: Present: normal appearance ENT exam: Present: normal oropharynx Neck exam: Present: normal inspection Respiratory exam: Present: normal lung sounds bilaterally. Absent: respiratory distress Cardiovascular Exam: Present: regular rate, normal rhythm GI/Abdominal exam: Present: soft. Absent: tenderness Extremities exam: Present: normal inspection Neurological exam: Present: alert Psychiatric exam: Present: normal affect, normal mood Skin exam: Present: normal color Course Vital Signs 10/26/20 10/26/20 10/26/20 14:03 15:54 17:11 Temperature 97.7 F Pulse Rate 71 62 89 Respiratory 23 18 18 Rate Blood Pressure 111/85 153/90 119/60 O2 Sat by Pulse 100 96 96 Oximetry Medical Decision Making - Medical Decision Making Patient is feeling much better following medications. Patient is tolerating oral intake without difficulty and symptom-free and comfortable with discharge home. Disposition Clinical Impression: Esophageal foreign body Disposition: HOME SELF-CARE Condition: Stable Instructions (If sedation given, give patient instructions): Esophageal Foreign Body (ED) Additional Instructions: Clear liquid diet for the next 24 hours, soft diet following that. Please do follow-up with [facility] in the next day or 2 for recheck. Return for difficulty swallowing, difficulty breathing, worsening or changing symptoms, pain, or any other concerns. Is patient prescribed a controlled substance at d/c from ED?: No Referrals: Pola Graves DO [Primary Care Provider] - 1-2 days Radha Dang MD [STAFF PHYSICIAN] - 1-2 days Time of Disposition: 17:26
[2020-10-26 15:56] VITALS: RESP 18
[2020-10-26 17:13] VITALS: BP 119/60; PULSE 89
== END 2020-10-26 17:47 | disposition home or self-care (01) ==
LOC: EC 13:56
DX: T18.128A Food in esophagus causing other injury, initial encounter (principal); E03.9 Hypothyroidism, unspecified; E11.9 Type 2 diabetes mellitus without complications; E78.5 Hyperlipidemia, unspecified; I10 Essential (primary) hypertension; G20 Parkinson's disease; I25.10 Atherosclerotic heart disease of native coronary artery without angina pectoris; Z79.82 Long term (current) use of aspirin; Z79.84 Long term (current) use of oral hypoglycemic drugs; Z79.899 Other long term (current) drug therapy; Z95.1 Presence of aortocoronary bypass graft; Z95.5 Presence of coronary angioplasty implant and graft; Z79.890 Hormone replacement therapy
CPT/HCPCS: 99283; 96374; 96375; J1610; J2765

== ENCOUNTER 2021-01-04 06:45 | Day surgery (SDC) | payer MEDICARE, BC ==
[2021-01-02 08:45] VITALS: BMI 27.0
[~2021-01-04 06:45] MED LIST: LACTATED RINGERS 1,000 ML IV SCH
[2021-01-04 07:24] VITALS: TEMP 98
[2021-01-04] MEDS ORDERED: LIDOCAINE 1% INJ 10MG/ML (20 ML MDV) ONE (08:00)
[2021-01-04] MEDS ORDERED: PROPOFOL 10 MG/ML 20 ML VIAL IV ONE (08:00)
--- NOTE | 2021-01-04 08:16 | P.PCN ---
Date of Procedure: 01/04/21 Procedure(s) Performed: BRIEF HISTORY: Patient is a 65-year-old, pleasant, white male with history of Parkinson's scheduled for an upper endoscopy with possible dilation as a part of evaluation of intermittent dysphagia to solids.. PROCEDURE PERFORMED: Esophagogastroduodenoscopy with dilation. PREOPERATIVE DIAGNOSIS: Intermittent dysphagia to solids. IV sedation per anesthesia. PROCEDURE: After informed consent was obtained, the patient was brought into the endoscopy unit. IV sedation was administered by Anesthesia under continuous monitoring. Initially the Olympus GIF-140 video endoscope was inserted into the mouth. Esophagus intubated without any difficulty. It was gradually advanced into the stomach and duodenum and carefully examined. The bulb and the second part of the duodenum appeared normal. The scope at this time was withdrawn to the stomach, adequately insufflated with air, and upon careful examination, mucosa of the antrum, body, cardia and the fundus appeared normal. The scope was then withdrawn into the esophagus. The GE junction was located at 39 cm from the incisors. The esophagus appeared normal. In the proximal cervical esophagus at 18 cm from the incisors there was a circumferential esophageal Adjacent to an inlet patch area at this time the procedure with balloon dilation using 12-15 mm TTS balloon in a sequential fashion for 60 seconds. The patient tolerated the procedure well. IMPRESSION: 1. Proximal cervical esophageal web post dilation using 12-15 mm TTS balloon as described above. 2. Small hiatal hernia. RECOMMENDATIONS: The findings of this examination were discussed with the patient as well as his family. He was advised to be on a clear liquid diet for lunch today. Recommend a soft diet and. Follow up in office if he has recurrent symptoms.
[2021-01-04 08:28] LABS: Glucose,Whole Blood 97 mg/dL (75-99)
[2021-01-04 08:37] VITALS: BP 118/73; PULSE 56; RESP 18
== END 2021-01-04 09:10 | disposition home or self-care (01) ==
LOC: ORWHC2ENDO 06:45
PROVIDERS: ATTEND Internal Medicine Gastroenterology
DX: R13.10 Dysphagia, unspecified (principal); Q39.4 Esophageal web; K44.9 Diaphragmatic hernia without obstruction or gangrene; G20 Parkinson's disease; E11.9 Type 2 diabetes mellitus without complications; E07.9 Disorder of thyroid, unspecified; I25.10 Atherosclerotic heart disease of native coronary artery without angina pectoris; I10 Essential (primary) hypertension; E78.5 Hyperlipidemia, unspecified; Z95.1 Presence of aortocoronary bypass graft; Z95.5 Presence of coronary angioplasty implant and graft; Z79.890 Hormone replacement therapy; Z79.899 Other long term (current) drug therapy
CPT/HCPCS: 43249; J2001; J2704; C1726

== ENCOUNTER 2021-06-22 18:08 | Inpatient (IN) | payer MEDICARE, BC ==
--- NOTE | 2021-06-22 19:19 | ED ---
General Adult HPI - General Chief complaint: Weakness Stated complaint: Weakness Time Seen by Provider: 06/22/21 18:30 Source: patient, EMS Mode of arrival: EMS Limitations: no limitations - History of Present Illness Initial comments: Dictation was produced using [employer] dictation software. please excuse any grammatical, word or spelling errors. Chief Complaint: 58-year-old male past nuchal history of Parkinson's dementia, developmental delay presents via EMS from assisted living facility for MRI of the C-spine History of Present Illness: Patient is 66-year-old male. Patient is a poor historian. History of present illness obtained from nurse received report from EMS and [facility] assisted living facility staff. Patient allegedly has been having worsening weakness, ataxia and frequent falls over the last several weeks. Assisted living facility staff states that his weakness and frequent falls has increased significantly over the last 7 days. Patient is allegedly sent here per instruction by neurologist Dr. Mcdermott to come to the emergency department to get a stat MRI of the C-spine. No other details was noted with transfer documentation however they did leave a phone number to contact Dr. Mcdermott. Patient states he has some right knee pain. If the staff reports the patient at baseline is able to perform his activities of daily living however as of late he needs 24-hour care and assistance. The ROS documented in this emergency department record has been reviewed and confirmed by me. Those systems with pertinent positive or negative responses have been documented in the HPI. All other systems are other negative and/or noncontributory. PHYSICAL EXAM: General Impression: Alert and oriented x3, not in acute distress HEENT: Normocephalic atraumatic, extra-ocular movements intact, pupils equal and reactive to light bilaterally, mucous membranes moist. Cardiovascular: Heart regular rate and rhythm Chest: Able to complete full sentences, no retractions, no tachypnea Abdomen: abdomen soft, non-tender, non-distended, no organomegaly Musculoskeletal: Pulses present and equal in all extremities, no peripheral edema Right lower extremity: Palpatory tenderness to the anterior patella, no gross deformity Motor: no focal deficits noted Neurological: CN II-XII grossly intact, no focal motor or sensory deficits noted Skin: Intact with no visualized rashes Psych: Normal affect and mood ED course: 66-year-old male with history of developmental delay, Parkinson's disease presents to emergency department for alleged MRI of the C-spine and assessment for frequent falls and worsening weakness. Signs upon arrival are within acceptable limits. Patient is in no acute distress at the bedside. No obvious signs of traumatic injury. Message was left with [place] of neurology to speak with Dr. Mcdermott who was allegedly patient's neurologist. Pending call back. Dr. Rey Magallon called back at 7:25 PM. I spoke with him. He was last seen at the neurologist office approximately one month ago. He allegedly had EMG findings are concerning for a myelopathy. Initial plan was to perform MRI imaging earlier however patient's power of attorney at law currently resides in [place] preferred to do with the patient in [place] when those tests are performed. Dr. Mcdermott states that they will wait for a month until the power of attorney at law can arrive. The power of attorney at law is Sathya Zhao. Over the last week or so it is concerning that patient's symptoms increased significantly. Dr. Mcdermott was told by assisted living facility staff that patient is difficult to care for and ultimately patient was sent to the emergency department. Laboratory evaluation obtained. CBC, metabolic panel and covid [address] brain and C-spine are unremarkable. According to assisted living facility patient is outside of their capabilities care for him given that he needs 24-hour care. Patient likely will need acute rehabilitation or halfway placement. Weight is reasonable to admit patient with neurology consultation to determine the need for magnetic resonance imaging. At this point I do not believe that there is any strong indication to order emergently. - Related Data Home Medications Medication Instructions Recorded Confirmed Aspirin EC [Ecotrin Low Dose] 81 mg PO DAILY@0700 04/21/19 06/22/21 Atorvastatin [Lipitor] 80 mg PO DAILY@1900 04/21/19 06/22/21 Carbidopa/Levodopa [Sinemet CR 1 tab PO BID@0700,1400 04/21/19 06/22/21 50-200 mg] Folic Acid 1 mg PO DAILY@0700 04/21/19 06/22/21 Multivitamins, Thera [Multivitamin 1 tab PO DAILY@0700 04/21/19 06/22/21 (formulary)] Levothyroxine Sodium [Synthroid] 175 mcg PO DAILY@0800 10/05/1922 Ammonium Lactate Cream [Lac-Hydrin 1 applic TOPICAL BID PRN 10/26/20 06/22/21 12% Cream] Cholecalciferol [Vitamin D3 (25 50 mcg PO DAILY@69910/26/20 06/22/21 Mcg = 1000 Iu)] Cyanocobalamin (Vitamin B-12) 1,000 mcg PO DAILY@69910/26/20 06/22/21 [Vitamin B-12] Divalproex [Depakote] 250 mg PO DAILY@69910/26/20 06/22/21 Isosorbide Mononitrate ER [Imdur] 30 mg PO DAILY@69910/26/20 06/22/21 Metoprolol Tartrate [Lopressor] 25 mg PO BID@0700,1900 10/26/20 06/22/21 Acetaminophen [Tylenol] 500 mg PO Q4-6H PRN 06/22/21 06/22/21 Ascorbic Acid [Vitamin C] 1,000 mg PO DAILY@69906/22/21 06/22/21 Cetirizine HCl 10 mg PO DAILY@0706/22/21 06/22/21 Entacapone 200 mg PO DAILY@69906/22/21 06/22/21 Ibuprofen [Motrin] 600 mg PO Q6HR PRN 06/22/21 06/22/21 Loperamide HCl [Loperamide] 4 mg PO BID PRN 06/22/21 06/22/21 Mupirocin 2% Oint [Bactroban 2% 1 applic TOPICAL BID PRN 06/22/21 06/22/21 Oint] Selenium 200 mcg PO DAILY@69906/22/21 06/22/21 Sodium Chloride [Saline Nasal 2 spray EA NOSTRIL DIRECTED PRN 06/22/21 06/22/21 Raymond] Triamcinolone 0.1% Ointment 1 applic TOPICAL BID PRN 06/22/21 06/22/21 [Kenalog 0.1% Ointment] Zinc Gluconate [Zinc] 50 mg PO DAILY@0706/22/21 06/22/21 metFORMIN HCL ER [Glucophage XR] 250 mg PO DAILY@1200 06/22/21 06/22/21 Allergies Allergy/AdvReac Type Severity Reaction Status Date / Time No Known Allergies Allergy Verified 06/22/21 19:11 Review of Systems ROS Statement: Those systems with pertinent positive or pertinent negative responses have been documented in the HPI. ROS Other: All systems not noted in ROS Statement are negative. Past Medical History Past Medical History: Coronary Artery Disease (CAD), Cancer, Diabetes Mellitus, Hyperlipidemia, Hypertension, Thyroid Disorder Additional Past Medical History / Comment(s): Parkinson's ,developmental delay, hypothyroidism, coronary artery disease, vitamin D deficiency, Sister states Hx. of thyroid cancer. History of Any Multi-Drug Resistant Organisms: None Reported Past Surgical History: Coronary Bypass/CABG, Heart Catheterization With Stent Additional Past Surgical History / Comment(s): Coronary artery bypass grafting 4, thyroidectomy, cardiac stenting 2 in 2009, esophageal foreign body removal, Past Anesthesia/Blood Transfusion Reactions: No Reported Reaction Date of Last Stent Placement:: 2009 Past Psychological History: Anxiety Smoking Status: Never smoker Past Alcohol Use History: None Reported Past Drug Use History: None Reported - Past Family History Father Family Medical History: No Reported History Mother History Unknown: Yes Family Medical History: Coronary Artery Disease (CAD) Sister(s) Family Medical History: Cancer Additional Family Medical History / Comment(s): Breast Brother(s) Family Medical History: Cancer Additional Family Medical History / Comment(s): Prostate General Exam Limitations: no limitations Course Vital Signs 06/22/21 06/22/21 18:33 18:47 Temperature 97.8 F Pulse Rate 62 57 L Respiratory 18 18 Rate Blood Pressure 113/75 113/75 O2 Sat by Pulse 100 99 Oximetry Medical Decision Making - Lab Data Result diagrams: 06/22/21 19:30 06/22/21 19:30 Lab Results 06/22/21 06/22/21 06/22/21 Range/Units 19:30 19:30 19:30 WBC 6.3 (3.8-10.6) k/uL RBC 4.52 (4.30-5.90) m/uL Hgb 13.4 (13.0-17.5) gm/dL Hct 41.2 (39.0-53.0) % MCV 91.0 (80.0-100.0) fL MCH 29.7 (25.0-35.0) pg MCHC 32.6 (31.0-37.0) g/dL RDW 14.2 (11.5-15.5) % Plt Count 186 (150-450) k/uL MPV 7.6 Neutrophils % 64 % Lymphocytes % 22 % Monocytes % 7 % Eosinophils % 4 % Basophils % 1 % Neutrophils # 4.1 (1.3-7.7) k/uL Lymphocytes # 1.4 (1.0-4.8) k/uL Monocytes # 0.5 (0-1.0) k/uL Eosinophils # 0.3 (0-0.7) k/uL Basophils # 0.1 (0-0.2) k/uL Sodium 138 (137-145) mmol/L Potassium 3.9 (3.5-5.1) mmol/L Chloride 107 (98-107) mmol/L Carbon Dioxide 25 (22-30) mmol/L Anion Gap 6 mmol/L BUN 17 (9-20) mg/dL Creatinine 0.67 (0.66-1.25) mg/dL Est GFR (CKD-EPI)AfAm >90 (>60 ml/min/1.73 sqM) Est GFR (CKD-EPI)NonAf >90 (>60 ml/min/1.73 sqM) Glucose 104 H (74-99) mg/dL Calcium 9.4 (8.4-10.2) mg/dL Magnesium 1.8 (1.6-2.3) mg/dL Coronavirus (PCR) Not Detected (Not Detectd) Disposition Clinical Impression: Frequent falls Disposition: ADMITTED IP TO THIS [facility] Condition: Fair Referrals: Pola Graves DO [Primary Care Provider] - 1-2 days
[2021-06-22 19:40] LABS: Basophils # (A) 0.1 k/uL (0-0.2); Basophils % (A) 1 %; Eosinophils # (A) 0.3 k/uL (0-0.7); Eosinophils % (A) 4 %; HCT 41.2 % (39.0-53.0); HGB 13.4 gm/dL (13.0-17.5); Lymphocytes # (A) 1.4 k/uL (1.0-4.8); Lymphocytes % (A) 22 %; MCH 29.7 pg (25.0-35.0); MCHC 32.6 g/dL (31.0-37.0); Mean Platelet Volume 7.6; Monocytes # (A) 0.5 k/uL (0-1.0); Monocytes % (A) 7 %; Neutrophils # (A) 4.1 k/uL (1.3-7.7); Neutrophils % (A) 64 %; Platelet Count 186 k/uL (150-450); RBC 4.52 m/uL (4.30-5.90); RDW 14.2 % (11.5-15.5); WBC 6.3 k/uL (3.8-10.6)
[2021-06-22 19:49] LABS: African American GFR (CKD) >90 (>60 ml/min/1.73 sqM); Anion Gap 6 mmol/L; Blood Urea Nitrogen 17 mg/dL (9-20); Calcium 9.4 mg/dL (8.4-10.2); Carbon Dioxide 25 mmol/L (22-30); Chloride 107 mmol/L (98-107); Glucose 104 mg/dL (74-99); Magnesium 1.8 mg/dL (1.6-2.3); Non-African American GFR(CKD) >90 (>60 ml/min/1.73 sqM); Potassium 3.9 mmol/L (3.5-5.1); Sodium 138 mmol/L (137-145)
--- NOTE | 2021-06-22 20:09 | CT ---
EXAMINATION TYPE: CT brain andresine wo con DATE OF EXAM: 06/22/2021 COMPARISON: 10/05/2019 HISTORY: frequent falls CT DLP: 1435 mGycm Automated exposure control for dose reduction was used. TECHNIQUE: CT scan of the head and cervical spine are performed without contrast. FINDINGS: There is no acute intracranial hemorrhage, mass effect, or midline shift identified. The ventricles and sulci are within normal limits in size. The globes are intact and the visualized sin uses are clear. Cervical spine is visualized in its entirety from C1 through upper thoracic levels and demonstrates s atisfactory alignment without evidence of acute fracture or dislocation. Prevertebral soft tissue ap pears within normal limits. The C1-C2 articulation is unremarkable. There is moderate degenerative disease at the C5-6 and C6-7 levels. IMPRESSION: 1. There is no acute fracture or dislocation evident in the cervical spine. 2. No acute intracranial hemorrhage, mass effect, or midline shift is seen.
--- NOTE | 2021-06-22 20:16 | XR ---
Left knee HISTORY: Pain following trauma COMPARISON: None. TECHNIQUE: 3 views of the left knee were obtained. Findings: There is no fracture, dislocation, or focal intraosseous abnormality. There is no joint effusion. There is mild osteoarthritic change of the medial compartment and patellofemoral compartment. There is diffuse arteriovascular calcification. Pression: 1. No evidence of acute trauma. 2. Mild osteoarthritic changes described
[2021-06-22] MEDS ORDERED: NALOXONE 0.4 MG/ML 1 ML VIAL IV PRN (20:25)
[2021-06-23] MEDS: SODIUM CHLORIDE 0.9% 1,000 ML IV SCH ×2 (00:46→22:53)
--- NOTE | 2021-06-23 01:49 | P.HPIM ---
History of Present Illness H&P Date: 06/22/21 Chief Complaint: Patient transferred from assisted living due to 66-year-old male with Parkinson disease hypothyroidism hyperlipidemia Patient unable to provide any meaningful history. All he can say is call my sister , call my doc both numbers are provided in his chart. He reports right knee pain. Patient unable to provide any other meaningful history he denies any other symptoms or complaints. I attempted calling his sister no one was answering the phone. Further information is obtained by reviewing ER chart. Patient presented from assisted living facility transported by EMS for progressive weakness and frequent falling over the past few weeks. Seems like this has been getting worse over the past few days, patient neurologist was contacted who recommended stat MRI of the C-spine for which she was sent to our facility. ER was able to talk with patient neurologist who reported that last time patient seen was about a month ago, at that time EMG findings were concerning for myelopathy. For which MRI imaging of the spine was ordered however patient cou ld not perform that test as he was waiting for his power of contract attorney his sister to come back from [place] wanted to be with the patient when these tests are performed which everyone new at that time it would take a month.. However the neurologist was concerned due to symptoms progressing rapidly over the past week the neurologist recommended that the patient was transferred from the assisted living facility to the hospital to obtain a stat MRI of the spine Blood work in the ED pretty much overall was unremarkable Covid testing is negative CT of the brain and C-spine was performed no acute pathology. Patient admitted for neurology evaluation and MRI in the morning as we don't perform MRIs overnight Patient denies any saddle numbness or paresthesia he's not clear whether he can control his urine and bowel movement no however he indicated no issues he denies weakness in his lower extremities however he only complaint is he got pain in his right knee Review of Systems ROS unobtainable: due to mental status Past Medical History Past Medical History: Coronary Artery Disease (CAD), Cancer, Diabetes Mellitus, Hyperlipidemia, Hypertension, Thyroid Disorder Additional Past Medical History / Comment(s): Parkinson's ,developmental delay, hypothyroidism, coronary artery disease, vitamin D deficiency, Sister states Hx. of thyroid cancer. History of Any Multi-Drug Resistant Organisms: None Reported Past Surgical History: Coronary Bypass/CABG, Heart Catheterization With Stent Additional Past Surgical History / Comment(s): Coronary artery bypass grafting 4, thyroidectomy, cardiac stenting 2 in 2009, esophageal foreign body removal, Past Anesthesia/Blood Transfusion Reactions: No Reported Reaction Date of Last Stent Placement:: 2009 Past Psychological History: Anxiety Smoking Status: Never smoker Past Alcohol Use History: None Reported Past Drug Use History: None Reported - Past Family History Father Family Medical History: No Reported History Mother History Unknown: Yes Family Medical History: Coronary Artery Disease (CAD) Sister(s) Family Medical History: Cancer Additional Family Medical History / Comment(s): Breast Brother(s) Family Medical History: Cancer Additional Family Medical History / Comment(s): Prostate Medications and Allergies Home Medications Medication Instructions Recorded Confirmed Type Aspirin EC [Ecotrin Low Dose] 81 mg PO DAILY@0700 04/21/19 06/22/21 History Atorvastatin [Lipitor] 80 mg PO DAILY@189904/21/19 06/22/21 History Carbidopa/Levodopa [Sinemet CR 1 tab PO BID@0700,1400 04/21/19 06/22/21 History 50-200 mg] Folic Acid 1 mg PO DAILY@0700 04/21/19 06/22/21 History Multivitamins, Thera [Multivitamin 1 tab PO DAILY@0700 04/21/19 06/22/21 History (formulary)] Levothyroxine Sodium [Synthroid] 175 mcg PO DAILY@0800 10/05/19 06/22/21 History Ammonium Lactate Cream [Lac-Hydrin 1 applic TOPICAL BID PRN 10/26/20 06/22/21 History 12% Cream] Cholecalciferol [Vitamin D3 (25 50 mcg PO DAILY@0710/26/20 06/22/21 History Mcg = 1000 Iu)] Cyanocobalamin (Vitamin B-12) 1,000 mcg PO DAILY@0700 10/26/20 06/22/21 History [Vitamin B-12] Divalproex [Depakote] 250 mg PO DAILY@0710/26/20 06/22/21 History Isosorbide Mononitrate ER [Imdur] 30 mg PO DAILY@0710/26/20 06/22/21 History Metoprolol Tartrate [Lopressor] 25 mg PO BID@0700,1900 10/26/20 06/22/21 History Acetaminophen [Tylenol] 500 mg PO Q4-6H PRN 06/22/21 06/22/21 History Ascorbic Acid [Vitamin C] 1,000 mg PO DAILY@0700 06/22/21 06/22/21 History Cetirizine HCl 10 mg PO DAILY@0700 06/22/21 06/22/21 History Entacapone 200 mg PO DAILY@0700 06/22/21 06/22/21 History Ibuprofen [Motrin] 600 mg PO Q6HR PRN 06/22/21 06/22/21 History Loperamide HCl [Loperamide] 4 mg PO BID PRN 06/22/21 06/22/21 History Mupirocin 2% Oint [Bactroban 2% 1 applic TOPICAL BID PRN 06/22/21 06/22/21 History Oint] Selenium 200 mcg PO DAILY@0700 06/22/21 06/22/21 History Sodium Chloride [Saline Nasal 2 spray EA NOSTRIL DIRECTED PRN 06/22/21 06/22/21 History Strang] Triamcinolone 0.1% Ointment 1 applic TOPICAL BID PRN 06/22/21 06/22/21 History [Kenalog 0.1% Ointment] Zinc Gluconate [Zinc] 50 mg PO DAILY@0700 06/22/21 06/22/21 History metFORMIN HCL ER [Glucophage XR] 250 mg PO DAILY@1200 06/22/21 06/22/21 History Allergies Allergy/AdvReac Type Severity Reaction Status Date / Time No Known Allergies Allergy Verified 06/22/21 19:11 Physical Exam Vitals: Vital Signs Temp Pulse Resp BP Pulse Ox 06/22/21 21:40 76 16 135/75 98 06/22/21 20:47 72 16 147/71 98 06/22/21 19:47 76 18 138/89 98 06/22/21 18:47 57 L 18 113/75 99 06/22/21 18:33 97.8 F 62 18 113/75 100 Intake and Output 06/22/21 06/22/21 06/23/21 14:59 22:59 06:59 Other: Weight 86.183 kg Constitutional: No acute distress, pleasant cooperative Eyes: Anicteric sclerae, moist conjunctiva, Pupils equal round reactive to light ENMT: NC/AT Oropharynx clear, no erythema, or exudates Neck: Supple, FROM, no masses, or JVD No carotid bruits No thyromegaly Lungs: Clear to auscultation Clear to percussion Normal respiratory effort, no accessory muscle use Cardiovascular: Heart regular in rate and rhythm, however patient does have extra beats occasionally No murmurs, gallops, or rubs No peripheral edema Abdominal: Soft Nontender, no guarding, rebound or rigidity Abdomen moving with respiration Normoactive bowel sounds No hepatomegaly, No splenomegaly No palpable mass No abdominal wall hernia noted Skin: Normal temperature, tone, texture, turgor No induration No subcutaneous nodules No rash, lesions No ulcers Extremities: Right knee looks unremarkable no swelling no skin changes no erythema no tenderness to palpation, limited range of motion passive and active as patient resisting passive movement No digital cyanosis No clubbing Pedal pulses intact and symmetrical Radial pulses intact and symmetrical No calf tenderness Psychiatric: Alert and oriented to self and place Patient is slow to answer Neuro Muscles Strength 4/5 bilateral upper extremities, bilateral lower extremities are -3/5 Sensation to light touch grossly present throughout Cranial nerves II-XII grossly intact Lymphatics: no palpable cervical or supraclavicular , or inguinal lymph nodes Results CBC & Chem 7: 06/22/21 19:30 06/22/21 19:30 Labs: Abnormal Lab Results - Last 24 Hours (Table) 06/22/21 Range/Units 19:30 Glucose 104 H (74-99) mg/dL Assessment and Plan Assessment: Progressive weakness of the lower extremities concerning for myelopathy based on recent testing with EMG Patient neurologist recommending stat MRI of the spine which was ordered month ago however patient is waiting on his power of contract attorney to arrive from [place] to perform the test [facility] Rein and C-spine reviewed no acute pathology MRI of the spine in the morning, can't E performed overnight in our facility Chronic conditions Hypothyroid Parkinson disease Hypertension Hyperlipidemia Resume home medications Blood work overall unremarkable Patient is full code DVT prophylaxis heparin subcu 3 times a day Anticipated length of stay less than 2 midnights power of attorny ,patient sistergrace [phone] neurology Donovan Mcdermott [phone]
[2021-06-23] MEDS ORDERED: NON FORMULARY DRUG (Selenium [Selenium] 100 MCG Tablet) PO SCH (07:00)
[2021-06-23 07:37] LABS: Glucose,Whole Blood 97 mg/dL (75-99)
[2021-06-23] MEDS: INSULIN ASPART (NovoLOG) 100 UNIT/ML VIAL SQ SCH ×4 (08:52→21:35)
[2021-06-23] MEDS: ASPIRIN 81 MG PO SCH (09:20)
[2021-06-23] MEDS: METOPROLOL TARTRATE 25 MG TAB PO SCH ×2 (09:20→21:35)
[2021-06-23] MEDS: DIVALPROEX 250 MG TABLET.DR PO SCH (09:20)
[2021-06-23] MEDS: ISOSORBIDE MONONITRATE ER 30 MG TAB.ER.24H PO SCH (09:20)
[2021-06-23] MEDS: HEPARIN SODIUM,PORCINE/PF 5,000 UNIT/0.5 ML SYRINGE SQ SCH ×3 (09:20→23:29)
[2021-06-23] MEDS: CARBIDOPA-LEVODOPA ER 50-200MG 1 EACH TABLET.ER PO SCH ×2 (09:21→21:36)
[2021-06-23] MEDS: ENTACAPONE 200 MG TAB PO SCH (09:21)
[2021-06-23] MEDS: LEVOTHYROXINE 88 MCG TAB PO SCH ×2 (09:21→09:25)
[2021-06-23 12:24] LABS: Glucose,Whole Blood 89 mg/dL (75-99)
--- NOTE | 2021-06-23 12:33 | P.PN ---
Subjective Progress Note Date: 06/23/21 Principal diagnosis: falls patient still weak, the weakness has been progressing the last few weeks. Objective - Vital Signs Vital signs: Vital Signs Temp 98.1 F 06/23/21 08:00 Pulse 66 06/23/21 08:00 Resp 18 06/23/21 08:00 BP 168/96 06/23/21 08:00 Pulse Ox 96 06/23/21 08:00 Intake & Output 06/22/21 06/23/21 06/23/21 18:59 06:59 18:59 Weight 86.183 kg - Exam Constitutional: No acute distress, conversant, pleasant Eyes:Anicteric sclerae, moist conjunctiva, no lid-lag, PERRLA, ENMT: Oropharynx clear, no erythema, exudates Neck: Supple, FROM, no masses, or JVD, No carotid bruits, No thyromegaly Lungs: Clear to auscultation, Clear to percussion, Normal respiratory effort, no accessory muscle use Cardiovascular: Heart regular in rate and rhythm, No murmurs, gallops, or rubs, No peripheral edema Abdominal: Soft, Nontender, no guarding, rebound or rigidity, Normoactive bowel sounds, No hepatomegaly, No splenomegaly, No palpable mass Skin: Normal temperature, tone, texture, turgor, no induration, No subcutaneous nodules, No rash, lesions, No ulcers Extremities: No digital cyanosis, No clubbing, Pedal pulses intact and symmetrical, Radial pulses intact and symmetrical, No calf tenderness Psychiatric: Alert and oriented to person, place and time, appropriate affect, intact judgement Neuro: Muscles Strength 4+/5 in all 4 extremities, Sensation to light touch grossly present throughout, Cranial nerves II-XII grossly intact, no focal sensory deficits - Labs CBC & Chem 7: 06/22/21 19:30 06/22/21 19:30 Labs: Abnormal Lab Results - Last 24 Hours (Table) 06/22/21 Range/Units 19:30 Glucose 104 H (74-99) mg/dL Assessment and Plan Plan: Progressive weakness of the lower extremities concerning for myelopathy based on recent testing with EMG Continue with neurochecks Neurology consultation Awaiting MRI cervical, thoracic and lumbar spine. Chronic conditions Hypothyroid Parkinson disease Hypertension Hyperlipidemia Resume home medications Blood work overall unremarkable DVT prophylaxis heparin subcu 3 times a day power of attorny ,patient sister, grace [phone] neurology Donovan Mcdermott [phone]
[2021-06-23 17:08] LABS: Glucose,Whole Blood 81 mg/dL (75-99)
[2021-06-23 20:07] LABS: Glucose,Whole Blood 113 mg/dL (75-99)
[2021-06-23] MEDS: ATORVASTATIN 80 MG TAB PO SCH (21:36)
--- NOTE | 2021-06-23 22:40 | MR ---
EXAMINATION TYPE: MR cspine/tspine wo/w con DATE OF EXAM: 06/23/2021 COMPARISON: CT brain C-spine 06/22/2021 HISTORY: Myelopathy TECHNIQUE: Multiplanar, multisequence images of the lumbar spine is performed without and with IV contrast, util izing 8.5 mL intravenous Gadavist FINDINGS: T9 vertebral body wedging with high T2 signal surrounding a Schmorl's node. Postcontrast en hancement in this vertebral body suggests active inflammation. Remainder of the vertebral bodies demo nstrate normal height and alignment. The intervertebral discs demonstrate normal heights and hydratio n. The conus medullaris is normal in position and signal. The bone marrow signal intensity is other barnard within normal limits. No additional abnormal postcontrast enhancement. Disc osteophyte flexes at C5-C6 and C6-C7 in combination with ligamentum flavum hypertrophy/buckling result in moderate spinal canal stenosis. The osteophytes indent upon the anterior aspect of the spin al cord at these levels. No additional areas the cervical spine spine of significant spinal cord narr owing. There is multilevel varying degrees of neural foraminal stenosis throughout the cervical spine as well. Worse at C5-C6 and C6-C7 with at least moderate spinal canal stenosis. The thoracic spine demonstrates no evidence of significant spinal canal or neural foraminal stenosis. Postcontrast imaging demonstrates no abnormal enhancement. IMPRESSION: 1. Abnormal cord signal to suggest myelopathy. 2. C5-C6 and C6-C7 Moderate spinal canal stenosis secondary to disc osteophytes and ligamentum flavum buckling/hypertrophy. 3. T9 vertebral body acute Schmorl's node with reactive changes.
[2021-06-24 07:06] LABS: Glucose,Whole Blood 104 mg/dL (75-99)
[2021-06-24] MEDS: INSULIN ASPART (NovoLOG) 100 UNIT/ML VIAL SQ SCH ×4 (07:25→20:47)
[2021-06-24] MEDS: HEPARIN SODIUM,PORCINE/PF 5,000 UNIT/0.5 ML SYRINGE SQ SCH ×3 (08:28→23:58)
[2021-06-24] MEDS: CARBIDOPA-LEVODOPA ER 50-200MG 1 EACH TABLET.ER PO SCH ×2 (08:29→21:29)
[2021-06-24] MEDS: ASPIRIN 81 MG PO SCH (08:29)
[2021-06-24] MEDS: ENTACAPONE 200 MG TAB PO SCH (08:29)
[2021-06-24] MEDS: METOPROLOL TARTRATE 25 MG TAB PO SCH ×2 (08:29→21:29)
[2021-06-24] MEDS: DIVALPROEX 250 MG TABLET.DR PO SCH (08:29)
[2021-06-24] MEDS: ISOSORBIDE MONONITRATE ER 30 MG TAB.ER.24H PO SCH (08:29)
--- NOTE | 2021-06-24 08:57 | P.CNNES ---
History of Present Illness Consult date: 06/23/21 Requesting physician: Marty Puri Reason for Consult: Myelopathy History of Present Illness: Patient is a 66-year-old male came to the hospital by ambulance yesterday at 6:08 PM for evaluation of abnormal gait and falls. Patient apparently has history of Parkinson's dementia, developmental delays and resides in [facility]. Patient not able to provide much history. As per electronic medical records and ED report, patient apparently has been having worsening weakness, ataxia and frequent falls over the last several weeks. This has got worse in the last 7 days. Patient was allegedly sent here as per instructions from his neurologist Dr. Mcdermott to come to the emergency department to get a stat MRI of the cervical spine. Patient has been complaining of right knee pain. The staff has mentioned that patient at baseline is able to perform his activities of daily living however as of late, he needs 24 hour care and assistance. As per EMS flow sheet when they arrived patient was sitting at the table alert and oriented. Patient has history of Parkinson's and over the last 2 weeks he has increased issues with mobility. Staff has mentioned that it has gotten to the point that patient needs assistance standing. They stated he has multiple falls over last week. They have been in contact with his neurologist and he recommended the patient to be evaluated in the ER. Patient's vitals at the scene was blood pressure 132/62 pulse is 67 respiration 14 saturation 99%. Pat jonah's blood test shows normal CBC, Chem-7 and menard virus PCR negative. Patient's last hemoglobin A1c 6.1 on 10/05/2019. Computed tomography scan of the head showed no acute intracranial hemorrhage, mass effect or midline shift. I personally reviewed computed tomography scan of the head and agree with the findings. Computed tomography scan of the cervical spine showed no acute fracture or dislocation. Patient had a previous MRI of the brain without contrast on 10/29/2019 which revealed moderate diffuse cerebral atrophy, greatest over the high bilateral frontal and parietal lobes. Mild to moderate chronic small vessel ischemic change. No hydrocephalus thought present. Patient's home medications include Lipitor 80 mg, folic acid 1 mg, multivitamin, Sinemet CR 50/200 twice a day at 7 AM and 2 PM. Aspirin 81 mg levothyroxine, B12 1000 g orally daily, Depakote 250 mg daily Comtan 200 mg daily. Patient tells me that he has Parkinson's for one year, does not remember her name or his neurologist. He states he came to the hospital because of Parkinson's in his legs. He denies any headache. Complains of knee hurting. He states he has never smoked and does not drink alcohol. Patient tells me that he does not walk much. He has been using walker for the last few years. Maggy mckenzie tells me that he has 1 brother, 1 sister and another sister . Review of Systems As per mentioned in HPI. All other 14 point of review systems reviewed and unremarkable. Patient is not a good historian. Past Medical History Past Medical History: Coronary Artery Disease (CAD), Cancer, Diabetes Mellitus, Hyperlipidemia, Hypertension, Thyroid Disorder Additional Past Medical History / Comment(s): Parkinson's ,developmental delay, hypothyroidism, coronary artery disease, vitamin D deficiency, Sister states Hx. of thyroid cancer. History of Any Multi-Drug Resistant Organisms: None Reported Past Surgical History: Coronary Bypass/CABG, Heart Catheterization With Stent Additional Past Surgical History / Comment(s): Coronary artery bypass grafting 4, thyroidectomy, cardiac stenting 2 in 2009, esophageal foreign body removal, Past Anesthesia/Blood Transfusion Reactions: No Reported Reaction Date of Last Stent Placement:: 2009 Past Psychological History: Anxiety Smoking Status: Never smoker Past Alcohol Use History: None Reported Past Drug Use History: None Reported - Past Family History Father Family Medical History: No Reported History Mother History Unknown: Yes Family Medical History: Coronary Artery Disease (CAD) Sister(s) Family Medical History: Cancer Additional Family Medical History / Comment(s): Breast Brother(s) Family Medical History: Cancer Additional Family Medical History / Comment(s): Prostate Medications and Allergies Home Medications Medication Instructions Recorded Confirmed Type Aspirin EC [Ecotrin Low Dose] 81 mg PO DAILY@0700 04/21/19 06/22/21 History Atorvastatin [Lipitor] 80 mg PO DAILY@1900 04/21/19 06/22/21 History Carbidopa/Levodopa [Sinemet CR 1 tab PO BID@0700,1400 04/21/19 06/22/21 History 50-200 mg] Folic Acid 1 mg PO DAILY@0700 04/21/19 06/22/21 History Multivitamins, Thera [Multivitamin 1 tab PO DAILY@0700 19 02/10/22 History (formulary)] Levothyroxine Sodium [Synthroid] 175 mcg PO DAILY@79910/05/19 06/22/21 History Ammonium Lactate Cream [Lac-Hydrin 1 applic TOPICAL BID PRN 10/26/20 06/22/21 History 12% Cream] Cholecalciferol [Vitamin D3 (25 50 mcg PO DAILY@69910/26/20 06/22/21 History Mcg = 1000 Iu)] Cyanocobalamin (Vitamin B-12) 1,000 mcg PO DAILY@69910/26/20 06/22/21 History [Vitamin B-12] Divalproex [Depakote] 250 mg PO DAILY@69910/26/20 06/22/21 History Isosorbide Mononitrate ER [Imdur] 30 mg PO DAILY@69910/26/20 06/22/21 History Metoprolol Tartrate [Lopressor] 25 mg PO BID@0700,1900 10/26/20 06/22/21 History Acetaminophen [Tylenol] 500 mg PO Q4-6H PRN 06/22/21 06/22/21 History Ascorbic Acid [Vitamin C] 1,000 mg PO DAILY@69906/22/21 06/22/21 History Cetirizine HCl 10 mg PO DAILY@69906/22/21 06/22/21 History Entacapone 200 mg PO DAILY@69906/22/21 06/22/21 History Ibuprofen [Motrin] 600 mg PO Q6HR PRN 06/22/21 06/22/21 History Loperamide HCl [Loperamide] 4 mg PO BID PRN 06/22/21 06/22/21 History Mupirocin 2% Oint [Bactroban 2% 1 applic TOPICAL BID PRN 06/22/21 06/22/21 History Oint] Selenium 200 mcg PO DAILY@69906/22/21 06/22/21 History Sodium Chloride [Saline Nasal 2 spray EA NOSTRIL DIRECTED PRN 06/22/2103/03 History [place]] Triamcinolone 0.1% Ointment 1 applic TOPICAL BID PRN 06/22/21 06/22/21 History [Kenalog 0.1% Ointment] Zinc Gluconate [Zinc] 50 mg PO DAILY@0700 06/22/21 06/22/21 History metFORMIN HCL ER [Glucophage XR] 250 mg PO DAILY@1200 06/22/21 06/22/21 History Allergies Allergy/AdvReac Type Severity Reaction Status Date / Time No Known Allergies Allergy Verified 06/22/21 19:11 Physical Examination - Vital Signs Vital Signs: Vital Signs Temp Pulse Pulse Resp BP BP Pulse Ox 06/23/21 08:00 98.1 F 66 18 168/96 96 06/23/21 06:00 97.7 F 63 22 157/91 97 06/23/21 04:00 74 22 139/79 97 06/23/21 00:00 97.7 F 77 22 145/75 97 06/22/21 21:40 76 16 135/75 98 06/22/21 20:47 72 16 147/71 98 06/22/21 19:47 76 18 138/89 98 06/22/21 18:47 57 L 18 113/75 99 06/22/21 18:33 97.8 F 62 18 113/75 100 Intake and Output 06/22/21 06/23/21 06/23/21 22:59 06:59 14:59 Other: Weight 86.183 kg Patient is a young-looking elderly male, in no acute distress. Patient is alert awake, not very well oriented. He has developmental delays. Patient could not tell the current month. He states the year is 2001, could not tell what building he is in. He states that he lives in [facility]. Could not tell name of the current president. He knows his age and date of . Speech and language functions are normal. He could name knuckles, pen and glasses, although for earlobe, patient states "eardrum". He can repeat very well. Attention, concentration and fund of knowledge is limited. On cranial examination, pupils are round and reacting to light, visual husain are full on confrontation, extraocular muscles are intact with no nystagmus. Face is symmetric, tongue protrudes to the midline. Palatal elevation and sensation normal, hearing and shoulder shrug normal, facial sensation normal. Shoulder shrug normal. On muscle strength testing, there is no pronator drift and the strength is normal in arms and legs distally and proximally. His right ankle dorsiflexion appears slightly weak perhaps 5-and left peronei also appears possibly weak, although patient has difficulty with following instructions. Toe extension possible slightly weak. Deep tendon reflexes are 1 in the upper limbs, 2 at the knees, absent ankles and plantars are possibly upgoing. Sensory to touch is equal with no neglect. Cerebellar function showed no ataxia for [id number] testing. Tone is at least moderately increased. Patient appears obviously bradykinetic. No tremors were noted at rest or with posture or intention. Gait not checked. On general examination, there is no carotid bruit or murmur, S1-S2 audible. Abdomen is soft nontender. Chest is clear. Peripheral pulses are present. No edema. Results - Laboratory Findings CBC and BMP: 06/22/21 19:30 06/22/21 19:30 Abnormal Lab Findings: Abnormal Labs 06/22/21 19: Glucose 104 H Assessment and Plan Assessment: * 66-year-old male with history of developmental delays, Parkinson's disease, admitted for increased frequency of falls for the last few weeks, particularly in the last 7 days. Examination does reveal mild spasticity in the legs and evidence of Parkinson's, at least mild to moderate in degree. His falls partly could be related to Parkinson's as well. MRI of the cervical and thoracic spine revealed moderate spinal canal stenosis at C5 6 and C6 7. * Spinal stenosis * Parkinson's disease * Developmental delays * Coronary artery disease * Diabetes, hyperlipidemia and hypertension per electronic records. Plan: * Patient underwent MRI of the cervical and thoracic spine. It revealed abnormal cord signal to suggest myelopathy. C5-C6 and C6-C7 moderate spinal canal stenosis secondary to disc osteophyte and ligamentum flavum hypertrophy. T9 vertebral body acute Schmorl's node with reactive changes. I personally reviewed MRI of the cervical spine. There is definite evidence of spinal stenosis at C5-C6 level and C6-C7. On axial images, there is significant circumferential spinal stenosis at C5-C6, but at C6-C7 level, there is left paramedian disc bulge/protrusion producing significant spinal stenosis mainly on the left side of the spinal cord. * We will consult orthopedics spine for spinal stenosis. * Patient may need MRI of the lumbar spine as well. * We will check B12, folate, TSH, MMA, B6 and methylmalonic acid. * Patient has at least moderate parkinsonism. Continue Sinemet 50/100 twice a day. We will increase Comtan to 200 mg twice a day. Patient may need further optimizing patient in the dose of Sinemet. * Neurology will follow.
[2021-06-24 11:56] LABS: T4, Free (Free Thyroxine) 1.33 ng/dL (0.78-2.19)
[2021-06-24 12:13] LABS: Glucose,Whole Blood 152 mg/dL (75-99)
--- NOTE | 2021-06-24 14:02 | P.CNOR ---
History of Present Illness - [facility] Consult date: 06/24/21 Consult reason: neck pain History of present illness: 58-year-old male presented to the emergency department on recommendation from neurology secondary to EMG showing potential for myelopathy. The patient has a history of Parkinson's and hypothyroid. Upon evaluation patient the room is able answer questions but is not able to provide a very reliable history. He is sitting in a chair. He complains of no neck pain at this time. He states no pain radiating into his arms he states no pain radiating into his legs. He states he is not able to walk and he thinks that due to the Parkinson's but that has been for some time now. He denies any history of trauma. He denies any other symptoms at this time no perineal numbness or tingling no genital numbness or tingling no bowel or bladder issues he denies any fevers chills shortness of breath or chest pain at this time as well. Review of Systems Difficult to obtain but essentially negative 14 points review of systems completed and as stated in HPI, all other systems reviewed are negative. Constitutional: Reports as per HPI Past Medical History Past Medical History: Coronary Artery Disease (CAD), Cancer, Diabetes Mellitus, Hyperlipidemia, Hypertension, Thyroid Disorder Additional Past Medical History / Comment(s): Parkinson's ,developmental delay, hypothyroidism, coronary artery disease, vitamin D deficiency, Sister states Hx. of thyroid cancer. History of Any Multi-Drug Resistant Organisms: None Reported Past Surgical History: Coronary Bypass/CABG, Heart Catheterization With Stent Additional Past Surgical History / Comment(s): Coronary artery bypass grafting 4, thyroidectomy, cardiac stenting 2 in 2009, esophageal foreign body removal, Past Anesthesia/Blood Transfusion Reactions: No Reported Reaction Date of Last Stent Placement:: 2009 Past Psychological History: Anxiety Smoking Status: Never smoker Past Alcohol Use History: None Reported Past Drug Use History: None Reported - Past Family History Father Family Medical History: No Reported History Mother History Unknown: Yes Family Medical History: Coronary Artery Disease (CAD) Sister(s) Family Medical History: Cancer Additional Family Medical History / Comment(s): Breast Brother(s) Family Medical History: Cancer Additional Family Medical History / Comment(s): Prostate Medications and Allergies Home Medications Medication Instructions Recorded Confirmed Type Aspirin EC [Ecotrin Low Dose] 81 mg PO DAILY@0700 04/21/19 06/22/21 History Atorvastatin [Lipitor] 80 mg PO DAILY@1900 04/21/19 06/22/21 History Carbidopa/Levodopa [Sinemet CR 1 tab PO BID@0700,1400 04/21/19 06/22/21 History 50-200 mg] Folic Acid 1 mg PO DAILY@0700 04/21/19 06/22/21 History Multivitamins, Thera [Multivitamin 1 tab PO DAILY@0700 04/21/19 06/22/21 History (formulary)] Levothyroxine Sodium [Synthroid] 175 mcg PO DAILY@0800 10/05/19 06/22/21 History Ammonium Lactate Cream [Lac-Hydrin 1 applic TOPICAL BID PRN 10/26/20 06/22/21 History 12% Cream] Cholecalciferol [Vitamin D3 (25 50 mcg PO DAILY@0710/26/20 06/22/21 History Mcg = 1000 Iu)] Cyanocobalamin (Vitamin B-12) 1,000 mcg PO DAILY@0710/26/20 06/22/21 History [Vitamin B-12] Divalproex [Depakote] 250 mg PO DAILY@0710/26/20 06/22/21 History Isosorbide Mononitrate ER [Imdur] 30 mg PO DAILY@69910/26/20 06/22/21 History Metoprolol Tartrate [Lopressor] 25 mg PO BID@0700,1900 10/26/20 06/22/21 History Acetaminophen [Tylenol] 500 mg PO Q4-6H PRN 06/22/21 06/22/21 History Ascorbic Acid [Vitamin C] 1,000 mg PO DAILY@0706/22/21 06/22/21 History Cetirizine HCl 10 mg PO DAILY@0706/22/21 06/22/21 History Entacapone 200 mg PO DAILY@69906/22/21 06/22/21 History Ibuprofen [Motrin] 600 mg PO Q6HR PRN 06/22/21 06/22/21 History Loperamide HCl [Loperamide] 4 mg PO BID PRN 06/22/21 06/22/21 History Mupirocin 2% Oint [Bactroban 2% 1 applic TOPICAL BID PRN 06/22/21 06/22/21 History Oint] Selenium 200 mcg PO DAILY@0700 06/22/21 06/22/21 History Sodium Chloride [Saline Nasal 2 spray EA NOSTRIL DIRECTED PRN 06/22/21 History [place]] Triamcinolone 0.1% Ointment 1 applic TOPICAL BID PRN 06/22/21 06/22/21 History [Kenalog 0.1% Ointment] Zinc Gluconate [Zinc] 50 mg PO DAILY@0700 06/22/21 06/22/21 History metFORMIN HCL ER [Glucophage XR] 250 mg PO DAILY@1200 06/22/21 06/22/21 History Allergies Allergy/AdvReac Type Severity Reaction Status Date / Time No Known Allergies Allergy Verified 06/22/21 19:11 Physical Examination Osteopathic Statement: *. No significant issues noted on an osteopathic structural exam other than those noted in the History and Physical/Consult. PHYSICAL EXAMINATION: Vitals: Stable General: Awake, alert, appropriate for age, in no acute distress. HEENT: No unusual neck masses around region of lateral neck triangle, thyroid, supraclavicular groove. Extremities: Skin warm and dry without no acute lesions, coloration, temperature, skin intact, no tenderness or erythema. Integument: Intact Palpation: No tenderness to palpation cervical thoracic or lumbar spine POSTURAL and MUSCULO-SKELETAL EVALUATION: Overall symmetric appearance to bilateral upper extremities and lower extremities. He has difficulty with range of motion in his hips knees and ankles however he is able to move them passively and actively. Range of motion of neck does not cause any pain. He is able lift his arms and range her shou lders without pain. VASCULAR STATUS : Wrist Pulses: [2/4 bilateral radial and ulnar] Pedal Pulses: [2/4 bilateral DP and PT] Color: [Normal] Edema: [None] NEUROLOGIC EXAMINATION: Mental Status: Awake and alert, not fully oriented. Flat affect Cranial Nerves: I: Olfactory not tested. II: Visual acuity normal, no visual field deficit noted with confrontation. III,IV: Normal pupillary reflexes & intact extraocular movements without nystagmus. V,: Intact symmetrical facial sensation. VII: Intact symmetrical facial motor movement VIII: Hearing intact. IX,X: Intact gag, swallow, & normal voice. XI: Sternocleidomastoid, trapezius function intact. XII: Tongue midline with normal movements. Special Tests: L'hermitte's Sign: Absent Cubital percussion test: Absent Bilateral Millie-Tinel sign - Carpal region: Absent Bilateral Straight Leg Raising: Absent Bilateral Motor Exam (0-5/5, N/T) STRENGTH UPPER EXTREMITY Shoulder Abd (Not part of STEPHEN Motor score): RIGHT 4 minus LEFT 4- Elbow Flexors: RIGHT 4- LEFT 4- Elbow Extensor: RIGHT 4- LEFT 4- Wrrist Dorsiflexors: RIGHT 4- LEFT 4- Finger Abductor: RIGHT 4 LEFT 4 Magazine Supervisor: RIGHT 4-4 LEFT4- Global weakness in the upper extremities likely related to Parkinson's with tremor LOWER EXTREMITY Hip Flexor (Not part of STEPHEN Motor Score): RIGHT 4 LEFT 3 Knee Flexor: RIGHT 4 LEFT 3 Knee Extensor: RIGHT 4 LEFT 3 Ankle Dorsiflexion: RIGHT 3 LEFT 4 Ankle Plantarflexion: RIGHT 4 LEFT 4 EHL: RIGHT 3 LEFT 4 FHL: RIGHT 4 LEFT 4 Again Global weakness left lower tremor he seems weaker than the right lower extremity however REFLEXES Biecp: RIGHT [2] LEFT [2] Tricep: RIGHT [2] LEFT [2] Brachioradialis: RIGHT [2] LEFT [2] Patellar: RIGHT [2] LEFT [2] Achilles: RIGHT [2] LEFT [2] No hyperreflexia Pathological Reflexes Katz's: RIGHT [Absent] LEFT [Absent] Babinski: RIGHT [Absent] LEFT [Absent] Clonus: RIGHT [None] LEFT [None] SENSORY Pain and LT sense [Intact C5-T1 and L2-S1] Dermatomal deficit [None] Gait and Functional Evaluation: Ambulatory aids: Wheelchair or walker Romberg's test: Intact bilaterally. Hand and finger dexterity not intact bilaterally[]. Disdiadochokinesis examination positive bilaterally. Results MRI of the cervical thoracic and lumbar spine are reviewed. MRI of the cervical spine demonstrate spondylosis C5 6 C6 7 with severe disc desiccation at these levels. There is C5-C6 disc herniation with annular tear which is causing moderate to severe central stenosis. There is also central and foraminal stenosis C6-C7 which is related large disc bulge which is chronic. There is some facet hypertrophy and overgrowth causing stenosis as well. C2 3 3445. Within limits with no severe stenosis. There is mild cord signal change noted 56 and 67 which may suggest myelomalacia Thoracic spine service no acute stenotic lesions fractures or dislocations Lumbar spine: Pending - Labs Labs: Abnormal Lab Results - Last 24 Hours (Table) 06/23/21 06/24/21 06/24/21 Range/Units 20:06 07:04 09:44 POC Glucose (mg/dL) 113 H 104 H (75-99) mg/dL TSH 0.170 L (0.465-4.680) mIU/L 06/24/21 Range/Units 12:12 POC Glucose (mg/dL) 152 H (75-99) mg/dL TSH (0.465-4.680) mIU/L H & H 06/22/21 Range/Units 19:30 Hgb 13.4 (13.0-17.5) gm/dL Hct 41.2 (39.0-53.0) % Result Diagrams: 06/22/21 19:30 06/22/21 19:30 Assessment and Plan Assessment: 1. C5 6 C6 7 spondylosis with stenosis 2. Bilateral upper extremity and lower extremity weakness 3. Myelomalacia C5 6 C6 7 questionable myelopathy 4. History of Parkinson's disease with parkinsonian-like features 5. Complex medical patient Plan: Chart and clinical symptoms as well as MRI reviewed. While the patient does have stenosis C5-C6 C6 7 along with some myelomalacia he is really not showing any signs of myelopathy at this time there is no hyperreflexia there is no Adebayo's is no Babinski's is no clonus. He is showing weakness however in his upper extremities as well as his left lower extremity which could be related to the stenosis that he has his cervical spine. We will await MRI of lumbar spine to finalize imaging. I do not feel that the patient has the capacity to make the decision for surgical treatment at this time due to his Parkinson's. He can barely tell me his history. We will need to get in touch with family discussed with them if surgery or surgical intervention is something that they desire for him along with the patient to make an informed decision. In the meantime recommend Decadron if safe per medicine We will follow closely appreciated recommendations from neurology and medicine
--- NOTE | 2021-06-24 15:54 | P.PN ---
Subjective Progress Note Date: 06/24/21 Principal diagnosis: falls Feeling ok, still weak. No pain. No overnight events. Objective - Vital Signs Vital signs: Vital Signs Temp 97.8 F 06/24/21 12:28 Pulse 60 06/24/21 12:28 Resp 16 06/24/21 12:28 BP 98/57 06/24/21 12:28 Pulse Ox 94 L 06/24/21 12:28 Intake & Output 06/23/21 06/24/21 06/24/21 18:59 06:59 18:59 Weight 86.183 kg Other: Voiding Method Diaper # Voids 1 5 - Exam Constitutional: No acute distress, conversant, pleasant Eyes:Anicteric sclerae, moist conjunctiva, no lid-lag, PERRLA, ENMT: Oropharynx clear, no erythema, exudates Neck: Supple, FROM, no masses, or JVD, No carotid bruits, No thyromegaly Lungs: Clear to auscultation, Clear to percussion, Normal respiratory effort, no accessory muscle use Cardiovascular: Heart regular in rate and rhythm, No murmurs, gallops, or rubs, No peripheral edema Abdominal: Soft, Nontender, no guarding, rebound or rigidity, Normoactive bowel sounds, No hepatomegaly, No splenomegaly, No palpable mass Skin: Normal temperature, tone, texture, turgor, no induration, No subcutaneous nodules, No rash, lesions, No ulcers Extremities: No digital cyanosis, No clubbing, Pedal pulses intact and symmetrical, Radial pulses intact and symmetrical, No calf tenderness Psychiatric: Alert and oriented to person, place and time, appropriate affect, intact judgement Neuro: Muscles Strength 4+/5 in all 4 extremities, Sensation to light touch grossly present throughout, Cranial nerves II-XII grossly intact, no focal sensory deficits - Labs CBC & Chem 7: 06/22/21 19:30 06/22/21 19:30 Labs: Abnormal Lab Results - Last 24 Hours (Table) 06/23/21 06/24/21 06/24/21 Range/Units 20:06 07:04 09:44 POC Glucose (mg/dL) 113 H 104 H (75-99) mg/dL TSH 0.170 L (0.465-4.680) mIU/L 06/24/21 Range/Units 12:12 POC Glucose (mg/dL) 152 H (75-99) mg/dL TSH (0.465-4.680) mIU/L Assessment and Plan Plan: Progressive weakness of the lower extremities concerning for myelopathy based on recent testing with EMG MRI cervical, thoracic showing : Abnormal cord signal consistent with myelopathy, C5-C6/C6-C7 moderate spinal stenosis, T9 vertebral body acute SCHMORLS note with reactive changes. Lumbar spine MRI pending. Seen by neurology and ortho. Awaiting recommendations regarding possible surgery. Chronic conditions Hypothyroid Parkinson disease Hypertension Hyperlipidemia Resume home medications DVT prophylaxis heparin subcu 3 times a day power of attorny ,patient sistergrace [phone] neurology Donovan Mcdermott [phone]
[2021-06-24] MEDS: DEXAMETHASONE SOD PHOSPHATE 4 MG/ML 1 ML VIAL IVP SCH ×2 (16:26→23:58)
[2021-06-24 17:26] LABS: Glucose,Whole Blood 98 mg/dL (75-99)
[2021-06-24 19:13] LABS: Folate, Serum >20.00 ng/mL (4.40-31.00)
[2021-06-24 20:09] LABS: Glucose,Whole Blood 133 mg/dL (75-99)
[2021-06-24] MEDS: ATORVASTATIN 80 MG TAB PO SCH (21:29)
[2021-06-25] MEDS: LEVOTHYROXINE 88 MCG TAB PO SCH (06:03)
[2021-06-25 07:17] LABS: Glucose,Whole Blood 120 mg/dL (75-99)
[2021-06-25] MEDS: INSULIN ASPART (NovoLOG) 100 UNIT/ML VIAL SQ SCH ×4 (07:28→20:52)
[2021-06-25] MEDS: CARBIDOPA-LEVODOPA ER 50-200MG 1 EACH TABLET.ER PO SCH ×2 (09:04→20:04)
[2021-06-25] MEDS: HEPARIN SODIUM,PORCINE/PF 5,000 UNIT/0.5 ML SYRINGE SQ SCH ×3 (09:04→23:48)
[2021-06-25] MEDS: ASPIRIN 81 MG PO SCH (09:04)
[2021-06-25] MEDS: DIVALPROEX 250 MG TABLET.DR PO SCH (09:04)
[2021-06-25] MEDS: ENTACAPONE 200 MG TAB PO SCH ×3 (09:04→20:23)
[2021-06-25] MEDS: METOPROLOL TARTRATE 25 MG TAB PO SCH ×2 (09:04→20:04)
[2021-06-25] MEDS: DEXAMETHASONE SOD PHOSPHATE 4 MG/ML 1 ML VIAL IVP SCH ×3 (09:04→23:47)
[2021-06-25] MEDS: ISOSORBIDE MONONITRATE ER 30 MG TAB.ER.24H PO SCH (09:04)
--- NOTE | 2021-06-25 09:26 | P.PN ---
Subjective Progress Note Date: 06/24/21 This is a telemedicine neurology follow-up performed today on 06/24/2021. Patient is sitting in the chair, in no distress. He offers no complaints. No headache. Patient states the orthopedic surgery came to see the patient, not recommending surgery at this time. Patient denies any pain anywhere. No headache. Objective - Vital Signs Vital signs: Vital Signs Temp 97.6 F 06/25/21 05:00 Pulse 98 06/25/21 09:01 Resp 16 06/25/21 05:00 BP 138/85 06/25/21 09:01 Pulse Ox 99 06/25/21 09:01 Intake & Output 06/24/21 06/25/21 06/25/21 18:59 06:59 18:59 Other: Voiding Method Diaper Diaper Diaper # Voids 2 4 - Exam Patient is alert and awake. Speech is slow, but no aphasia. Patient continues to be bradykinetic. - Labs CBC & Chem 7: 06/22/21 19:30 06/22/21 19:30 Labs: Abnormal Lab Results - Last 24 Hours (Table) 06/24/21 06/24/21 06/24/21 Range/Units 09:44 09:44 12:12 POC Glucose (mg/dL) 152 H (75-99) mg/dL Hemoglobin A1c 6.3 H (0.0-6.0) % TSH 0.170 L (0.465-4.680) mIU/L 06/24/21 06/25/21 Range/Units 20:08 07:13 POC Glucose (mg/dL) 133 H 120 H (75-99) mg/dL Hemoglobin A1c (0.0-6.0) % TSH (0.465-4.680) mIU/L Assessment and Plan Assessment: * 66-year-old male with history of developmental delays, Parkinson's disease, admitted for increased frequency of falls for the last few weeks, particularly in the last 7 days. Examination does reveal mild spasticity in the legs and evidence of Parkinson's, at least moderate in degree. His falls partly could be related to Parkinson's as well. MRI of the cervical and thoracic spine revealed moderate spinal canal stenosis at C5 6 and C6 7. * Spinal stenosis * Parkinson's disease * Developmental delays * Coronary artery disease * Diabetes, hyperlipidemia and hypertension per electronic records. Plan: * Patient underwent MRI of the cervical and thoracic spine. It revealed abnormal cord signal to suggest myelopathy. C5-C6 and C6-C7 moderate spinal canal stenosis secondary to disc osteophyte and ligamentum flavum hypertrophy. T9 vertebral body acute Schmorl's node with reactive changes. I personally reviewed MRI of the cervical spine. There is definite evidence of spinal stenosis at C5-C6 level and C6-C7. On axial images, there is significant circumferential spinal stenosis at C5-C6, but at C6-C7 level, there is left paramedian disc bulge/protrusion producing significant spinal stenosis mainly on the left half side of the spinal cord. * Orthopedics spine input appreciated. * Await MRI of the lumbar spine as well. * B12 795, folate >20, RPR negative. TSH 0.170, which is slightly low. Free T4 normal 1.33. IM to address thyroid functions. MMA, B6 still pending. * Patient has at least moderate parkinsonism. Continue Sinemet CR 50/200 twice a day. We will increase Comtan to 200 mg 3 times a day. We will also add regular Sinemet 25/100 at 2 PM daily. * Neurology will follow.
[2021-06-25 12:20] LABS: Glucose,Whole Blood 147 mg/dL (75-99)
--- NOTE | 2021-06-25 14:30 | P.PN ---
Subjective Progress Note Date: 06/25/21 Principal diagnosis: falls Patient still with weakness, no changes. He was sitting eating lunch. No overnight events. Objective - Vital Signs Vital signs: Vital Signs Temp 97.6 F 06/25/21 05:00 Pulse 98 06/25/21 09:01 Resp 16 06/25/21 05:00 BP 138/85 06/25/21 09:01 Pulse Ox 99 06/25/21 09:01 Intake & Output 06/24/21 06/25/21 06/25/21 18:59 06:59 18:59 Intake Total 360 Balance 360 Intake: Oral 360 Other: Voiding Method Diaper Diaper Diaper # Voids 2 4 - Exam Constitutional: No acute distress, conversant, pleasant Eyes:Anicteric sclerae, moist conjunctiva, no lid-lag, PERRLA, ENMT: Oropharynx clear, no erythema, exudates Neck: Supple, FROM, no masses, or JVD, No carotid bruits, No thyromegaly Lungs: Clear to auscultation, Clear to percussion, Normal respiratory effort, no accessory muscle use Cardiovascular: Heart regular in rate and rhythm, No murmurs, gallops, or rubs, No peripheral edema Abdominal: Soft, Nontender, no guarding, rebound or rigidity, Normoactive bowel sounds, No hepatomegaly, No splenomegaly, No palpable mass Skin: Normal temperature, tone, texture, turgor, no induration, No subcutaneous nodules, No rash, lesions, No ulcers Extremities: No digital cyanosis, No clubbing, Pedal pulses intact and symmetrical, Radial pulses intact and symmetrical, No calf tenderness Psychiatric: Alert and oriented to person, place and time, appropriate affect, intact judgement Neuro: Muscles Strength 4+/5 in all 4 extremities, Sensation to light touch grossly present throughout, Cranial nerves II-XII grossly intact, no focal sensory deficits - Labs CBC & Chem 7: 06/22/21 19:30 06/22/21 19:30 Labs: Abnormal Lab Results - Last 24 Hours (Table) 06/24/21 06/24/21 06/25/21 Range/Units 09:44 20:08 07:13 POC Glucose (mg/dL) 133 H 120 H (75-99) mg/dL Hemoglobin A1c 6.3 H (0.0-6.0) % 06/25/21 Range/Units 12:18 POC Glucose (mg/dL) 147 H (75-99) mg/dL Hemoglobin A1c (0.0-6.0) % Assessment and Plan Plan: Progressive weakness of the lower extremities concerning for myelopathy based on recent testing with EMG MRI cervical, thoracic showing : Abnormal cord signal consistent with myelopathy, C5-C6/C6-C7 moderate spinal stenosis, T9 vertebral body acute SCHMORLS note with reactive changes. Lumbar spine MRI pending. Seen by neurology and ortho. Awaiting recommendations regarding possible surgery. Chronic conditions Hypothyroid Parkinson disease Hypertension Hyperlipidemia Resume home medications DVT prophylaxis heparin subcu 3 times a day power of attorny ,patient sistergrace [phone] neurology Donovan Mcdremott [phone]
[2021-06-25 14:33] VITALS: RESP 18
[2021-06-25] MEDS: CARBIDOPA-LEVODOPA 25-100 MG 1 EACH TAB PO SCH (14:39)
--- NOTE | 2021-06-25 14:57 | P.PN ---
<Clemente Griffin - Last Filed: 06/25/21 14:54> Subjective Progress Note Date: 06/25/21 Principal diagnosis: Cervical spondylosis This patient was seen at bedside this morning resting with sitting up in chair. Patient says he is having some left knee pain at this time. Patient denies any neck pain/arm pain at this time. Patient denies arm weakness. He is patient saying he would like to go for a walk currently. Rest of history is difficult to obtain due to patient's complex medical history. Patient denies chest pain, fever, shortness breath, nausea, vomiting, change in vision, loss of carmelita wel/bladder control. Objective - Vital Signs Vital signs: Vital Signs Temp 97.6 F 06/25/21 05:00 Pulse 98 06/25/21 09:01 Resp 16 06/25/21 05:00 BP 138/85 06/25/21 09:01 Pulse Ox 99 06/25/21 09:01 Intake & Output 06/24/21 06/25/21 06/25/21 18:59 06:59 18:59 Intake Total 360 Balance 360 Intake: Oral 360 Other: Voiding Method Diaper Diaper Diaper # Voids 2 4 - Exam NO CHANGES FROM EXAM FROM YESTERDAY, 06/24/2021 Vitals: Stable General: Awake, alert, appropriate for age, in no acute distress. HEENT: No unusual neck masses around region of lateral neck triangle, thyroid, supraclavicular groove. Extremities: Skin warm and dry without no acute lesions, coloration, temperature, skin intact, no tenderness or erythema. Integument: Intact Palpation: No tenderness to palpation cervical thoracic or lumbar spine POSTURAL and MUSCULO-SKELETAL EVALUATION: Overall symmetric appearance to bilateral upper extremities and lower extremities. He has difficulty with range of motion in his hips knees and ankles however he is able to move them passively and actively. Range of motion of neck does not cause any pain. He is able lift his arms and range her shoulders without pain. VASCULAR STATUS : Wrist Pulses: [2/4 bilateral radial and ulnar] Pedal Pulses: [2/4 bilateral DP and PT] Color: [Normal] Edema: [None] NEUROLOGIC EXAMINATION: Mental Status: Awake and alert, not fully oriented. Flat affect Cranial Nerves: I: Olfactory not tested. II: Visual acuity normal, no visual field deficit noted with confrontation. III,IV: Normal pupillary reflexes & intact extraocular movements without nystagmus. V,: Intact symmetrical facial sensation. VII: Intact symmetrical facial motor movement VIII: Hearing intact. IX,X: Intact gag, swallow, & normal voice. XI: Sternocleidomastoid, trapezius function intact. XII: Tongue midline with normal movements. Special Tests: L'hermitte's Sign: Absent Cubital percussion test: Absent Bilateral Millie-Tinel sign - Carpal region: Absent Bilateral Straight Leg Raising: Absent Bilateral Motor Exam (0-5/5, N/T) STRENGTH UPPER EXTREMITY Shoulder Abd (Not part of STEPHEN Motor score): RIGHT 4 minus LEFT 4- Elbow Flexors: RIGHT 4- LEFT 4- Elbow Extensor: RIGHT 4- LEFT 4- Wrrist Dorsiflexors: RIGHT 4- LEFT 4- Finger Abductor: RIGHT 4 LEFT 4 [employer]: RIGHT 4-4 LEFT4- Global weakness in the upper extremities likely related to Parkinson's with tremor LOWER EXTREMITY Hip Flexor (Not part of STEPHEN Motor Score): RIGHT 4 LEFT 3 Knee Flexor: RIGHT 4 LEFT 3 Knee Extensor: RIGHT 4 LEFT 3 Ankle Dorsiflexion: RIGHT 3 LEFT 4 Ankle Plantarflexion: RIGHT 4 LEFT 4 EHL: RIGHT 3 LEFT 4 FHL: RIGHT 4 LEFT 4 Again Global weakness left lower tremor he seems weaker than the right lower e xtremity however REFLEXES Biecp: RIGHT [2] LEFT [2] Tricep: RIGHT [2] LEFT [2] Brachioradialis: RIGHT [2] LEFT [2] Patellar: RIGHT [2] LEFT [2] Achilles: RIGHT [2] LEFT [2] No hyperreflexia Pathological Reflexes Katz's: RIGHT [Absent] LEFT [Absent] Babinski: RIGHT [Absent] LEFT [Absent] Clonus: RIGHT [None] LEFT [None] SENSORY Pain and LT sense [Intact C5-T1 and L2-S1] Dermatomal deficit [None] Gait and Functional Evaluation: Ambulatory aids: Wheelchair or walker Romberg's test: Intact bilaterally. Hand and finger dexterity not intact bilaterally[]. Disdiadochokinesis examination positive bilaterally. - Labs CBC & Chem 7: 06/22/21 19:30 06/22/21 19:30 Labs: Abnormal Lab Results - Last 24 Hours (Table) 06/24/21 06/24/21 06/25/21 Range/Units 09:44 20:08 07:13 POC Glucose (mg/dL) 133 H 120 H (75-99) mg/dL Hemoglobin A1c 6.3 H (0.0-6.0) % 06/25/21 Range/Units 12:18 POC Glucose (mg/dL) 147 H (75-99) mg/dL Hemoglobin A1c (0.0-6.0) % Assessment and Plan Assessment: Cervical spondylosis - Parkinson's Plan: 1. C5 to C6, C6 to C7 spinal stenosis - Patient stable at bedside this morning. At this time we do not recommend any emergent orthopedic surgical intervention. We will await lumbar spine MRI before proceeding with any potential intervention. We will manage conservatively now with pain medications. Patient not complaining of any neck pain/arm/pain/arm weakness. We will continue to follow patient while in hospital. We will contact patient's guardian (sister) over the phone to discuss findings of MRI and plan. 2. Multiple medical comorbdities; Parkinison's 3. Pain Management - Tylenol if necessary 4. DVT ppx - Heparin; Aspirin 5. GI ppx 6. Appreciate medical management Time with Patient: Less than 30 <Wali Schumacher - Last Filed: 06/25/21 16:03> Objective - Vital Signs Vital signs: Vital Signs Temp 98 F 06/25/21 13:00 Pulse 76 06/25/21 13:00 Resp 18 06/25/21 13:00 BP 114/70 06/25/21 13:00 Pulse Ox 97 06/25/21 13:00 Intake & Output 06/24/21 06/25/21 06/25/21 18:59 06:59 18:59 Intake Total 360 Balance 360 Intake: Oral 360 Other: Voiding Method Diaper Diaper Diaper # Voids 2 4 - Labs CBC & Chem 7: 06/22/21 19:30 06/22/21 19:30 Labs: Abnormal Lab Results - Last 24 Hours (Table) 06/24/21 06/24/21 06/25/21 Range/Units 09:44 20:08 07:13 POC Glucose (mg/dL) 133 H 120 H (75-99) mg/dL Hemoglobin A1c 6.3 H (0.0-6.0) % 06/25/21 Range/Units 12:18 POC Glucose (mg/dL) 147 H (75-99) mg/dL Hemoglobin A1c (0.0-6.0) %
--- NOTE | 2021-06-25 16:03 | P.PN ---
Progress Note - Text Progress Note Date: 06/25/21 Patient seen and examined. Spoke with patient's guardian and sister over the phone. Discussed different options for them including surgical and nonsurgical options. At this time she would like to pursue nonsurgical options as she does not feel that surgery is warranted. I agree he has 2 levels of stenosis however I do not feel this is causing his severe symptoms. We will attempt conservative measures medications as well as adjustments to his Parkinson's medications via medicine. She agreed with this and was comfortable with this plan.
[2021-06-25 17:37] LABS: Glucose,Whole Blood 120 mg/dL (75-99)
[2021-06-25] MEDS: ATORVASTATIN 80 MG TAB PO SCH (20:04)
[2021-06-25 20:50] LABS: Glucose,Whole Blood 187 mg/dL (75-99)
[2021-06-26] MEDS: LEVOTHYROXINE 88 MCG TAB PO SCH (06:07)
[2021-06-26 07:49] LABS: Glucose,Whole Blood 85 mg/dL (75-99)
[2021-06-26] MEDS: INSULIN ASPART (NovoLOG) 100 UNIT/ML VIAL SQ SCH ×4 (07:57→20:43)
[2021-06-26] MEDS: ENTACAPONE 200 MG TAB PO SCH ×3 (07:59→20:43)
[2021-06-26] MEDS: DEXAMETHASONE SOD PHOSPHATE 4 MG/ML 1 ML VIAL IVP SCH ×3 (08:04→23:30)
[2021-06-26] MEDS: ISOSORBIDE MONONITRATE ER 30 MG TAB.ER.24H PO SCH (08:04)
[2021-06-26] MEDS: METOPROLOL TARTRATE 25 MG TAB PO SCH ×2 (08:04→20:42)
[2021-06-26] MEDS: HEPARIN SODIUM,PORCINE/PF 5,000 UNIT/0.5 ML SYRINGE SQ SCH ×3 (08:05→23:30)
[2021-06-26] MEDS: DIVALPROEX 250 MG TABLET.DR PO SCH (08:05)
[2021-06-26] MEDS: ASPIRIN 81 MG PO SCH (08:05)
[2021-06-26] MEDS: CARBIDOPA-LEVODOPA ER 50-200MG 1 EACH TABLET.ER PO SCH ×2 (08:05→20:42)
--- NOTE | 2021-06-26 09:50 | P.PN ---
Subjective Progress Note Date: 06/25/21 This is a telemedicine neurology follow-up performed today on 06/25/2021. Patient is sitting in the chair, in no distress. He offers no complaints. No headache. Patient is awaiting MRI of the lumbar spine. Objective - Vital Signs Vital signs: Vital Signs Temp 97.6 F 06/25/21 05:00 Pulse 98 06/25/21 09:01 Resp 16 06/25/21 05:00 BP 138/85 06/25/21 09:01 Pulse Ox 99 06/25/21 09:01 Intake & Output 06/24/21 06/25/21 06/25/21 18:59 06:59 18:59 Intake Total 360 Balance 360 Intake: Oral 360 Other: Voiding Method Diaper Diaper Diaper # Voids 2 4 - Exam Patient is alert and awake. Speech is slow, but no aphasia. Patient continues to be bradykinetic. - Labs CBC & Chem 7: 06/22/21 19:30 06/22/21 19:30 Labs: Abnormal Lab Results - Last 24 Hours (Table) 06/24/21 06/24/21 06/25/21 Range/Units 09:44 20:08 07:13 POC Glucose (mg/dL) 133 H 120 H (75-99) mg/dL Hemoglobin A1c 6.3 H (0.0-6.0) % 06/25/21 Range/Units 12:18 POC Glucose (mg/dL) 147 H (75-99) mg/dL Hemoglobin A1c (0.0-6.0) % Assessment and Plan Assessment: * 66-year-old male with history of developmental delays, Parkinson's disease, admitted for increased frequency of falls for the last few weeks, particularly in the last 7 days. Examination does reveal mild spasticity in the legs and evidence of Parkinson's, at least moderate in degree. His falls partly could be related to Parkinson's as well. MRI of the cervical and thoracic spine revealed moderate spinal canal stenosis at C5 6 and C6 7. * Cervical Spinal stenosis * Parkinson's disease * Developmental delays * Coronary artery disease * Diabetes, hyperlipidemia and hypertension per electronic records. Plan: * Patient underwent MRI of the cervical and thoracic spine. It revealed abnormal cord signal to suggest myelopathy. C5-C6 and C6-C7 moderate spinal canal stenosis secondary to disc osteophyte and ligamentum flavum hypertrophy. T9 vertebral body acute Schmorl's node with reactive changes. I personally reviewed MRI of the cervical spine. There is definite evidence of spinal stenosis at C5-C6 level and C6-C7. On axial images, there is significant circumferential spinal stenosis at C5-C6, but at C6-C7 level, there is left paramedian disc bulge/protrusion producing significant spinal stenosis mainly on the left half side of the spinal cord. * Orthopedics spine input appreciated. * Await MRI of the lumbar spine as well. * B12 795, folate >20, RPR negative. TSH 0.170, which is slightly low. Free T4 normal 1.33. IM to address thyroid functions. MMA, B6 still pending. * Patient has at least moderate parkinsonism. Continue Sinemet CR 50/200 twice a day. We will increase Comtan to 200 mg 3 times a day. We will also add regular Sinemet 25/100 at 2 PM daily. * I discussed with patient's sister in detail about his Parkinson's, and the medications that I have it adjusted. Also we discussed about results of MRI o f the cervical spine. * Dr. Elmo He will resume neurology service in the morning.
[2021-06-26 12:08] LABS: Glucose,Whole Blood 116 mg/dL (75-99)
[2021-06-26] MEDS: CARBIDOPA-LEVODOPA 25-100 MG 1 EACH TAB PO SCH (13:25)
--- NOTE | 2021-06-26 16:35 | P.PN ---
Subjective Progress Note Date: 06/26/21 I am seeing the patient for the first time during this admission. and per patient's nurse there is no change in patient's condition. MRI L-spine is schedule today. Please refer to Dr. Aj's note for further details. Orthopedic team is on board and they discussed with family member and it was agreed to pursue nonsurgical route first. Objective - Vital Signs Vital signs: Vital Signs Temp 97.7 F 06/26/21 12:21 Pulse 58 L 06/26/21 12:21 Resp 18 06/26/21 12:21 BP 128/78 06/26/21 12:21 Pulse Ox 100 06/26/21 12:21 Intake & Output 06/25/21 06/26/21 06/26/21 18:59 06:59 18:59 Intake Total 860 710 Balance 860 710 Intake: Oral 860 710 Other: Voiding Method Diaper Toilet Diaper # Voids 3 3 - Exam GENERAL: The patient is lying in bed and is not in acute distress. NEUROLOGICAL: Higher mental function: The patient is awake, alert, oriented to self, place and time. Patient is following commands but is somewhat slow in responding to questions. Has hypophonia. No aphasia and no neglect. Cranial nerves: The pupils are round, equal and reactive to light. Visual husain are full to confrontation throughout. Extraocular movement is intact no nystagmus is noted. The facial strength is normal throughout. Tongue is midline and moved [id number] without any difficulty. No dysarthria is noted. Shoulder shrug is normal bilaterally. Motor: Gait is deferred. The strength is able to raise bilateral uppers without focal deficits while lower is limited because of knee pain and was able to lift above gravity (right > left). Increase tone in bilateral uppers. - Labs CBC & Chem 7: 06/22/21 19:30 06/22/21 19:30 Labs: Abnormal Lab Results - Last 24 Hours (Table) 06/25/21 06/25/21 06/26/21 Range/Units 17:36 20:44 12:06 POC Glucose (mg/dL) 120 H 187 H 116 H (75-99) mg/dL Assessment and Plan Assessment: * 66-year-old male with history of developmental delays, Parkinson's disease, admitted for increased frequency of falls for the last few weeks, particularly in the last 7 days. Examination does reveal mild spasticity in the legs and evidence of Parkinson's, at least moderate in degree. His falls partly could be related to Parkinson's as well. MRI of the cervical and thoracic spine revealed moderate spinal canal stenosis at C5 6 and C6 7. * Cervical Spinal stenosis * Parkinson's disease * Developmental delays * Coronary artery disease * Diabetes, hyperlipidemia and hypertension per electronic records. Plan: * Patient underwent MRI of the cervical and thoracic spine. It revealed abnormal cord signal to suggest myelopathy. C5-C6 and C6-C7 moderate spinal canal stenosis secondary to disc osteophyte and ligamentum flavum hypertrophy. T9 vertebral body acute Schmorl's node with reactive changes. Per Dr. Aj, there is definite evidence of spinal stenosis at C5-C6 level and C6-C7. On axial images, there is significant circumferential spinal stenosis at C5-C6, but at C6-C7 level, there is left paramedian disc bulge/protrusion producing significant spinal stenosis mainly on the left half side of the spinal cord. * Orthopedics team in on board and they are pursuing nonsurgical route and per note they discussed it with family member. * MRI of the lumbar spine: Is pending. * B12 795, folate >20, RPR negative. TSH 0.170, which is slightly low. Free T4 normal 1.33. IM to address thyroid functions. MMA, B6 still pending. * Patient has at least moderate parkinsonism. Continue Sinemet CR 50/[address] Aj increased Comtan to 200 mg 3 times a day and added regular Sinemet 25/100 at 2 PM daily. * PT and OT are consulted. * Will defer the rest of medical management to the primary team. * Upon discharge, the patient needs to follow-up with his neurologist within 1-2 weeks. The plan is discussed with the patient's nurse and primary team. Elmo He M.D. Neuro-Hospitalist Time with Patient: Less than 30
[2021-06-26 17:14] LABS: Glucose,Whole Blood 145 mg/dL (75-99)
--- NOTE | 2021-06-26 17:33 | P.PN ---
Subjective Progress Note Date: 06/26/21 (delayed charting seen at 1215) Principal diagnosis: weakness Patient is a 66-year-old male with a history of Parkinson's disease, hypothyroidism, dyslipidemia who presented at the direction of his outpatient neurologist. About a month ago he had had an EMG done which was concerning for myelopathy. The patient became progressively weak over the last week and the recommendations from his neurologist was for him to be transferred to the ER to obtain an MRI of the spine. In the ER he underwent an extensive evaluation. Blood work was essentially unremarkable, COVID-19 testing was negative, CT of the brain and cervical spine showed no acute pathology. X-ray of the knee showed no acute process with mild osteoarthritic changes. Orthopedics spine and neurology were consulted. He underwent a cervical and thoracic spine MRI which showed C5 6 and C6 7 and moderate spinal canal stenosis secondary to disc osteophyte and ligamentum flavum buckling. T9 vertebral body showed Schmorl's node. Ortho spine spoke with legal guardian who opted for conservatie treatment. Patient seen and examined at bedside. Continues to complain of left knee pain and weakness. Denies any headache or shortness of breath. General: chronically ill appearing, no distress, appears at stated age Derm: warm, dry Head: atraumatic, normocephalic, symmetric Eyes: EOMI, no lid lag, anicteric sclera Mouth: no lip lesion, mucus membranes moist Cardiovascular: S1S2 reg, no murmur, positive posterior tibial pulse bilateral, Lungs: Decreased bs bilateral, no rhonchi, no rales, no accessory muscle use Abdominal: soft, nontender to palpation, no guarding, no appreciable organomegaly Ext: no gross muscle atrophy, no edema, no contractures Neuro: CN II-XI grossly intact, no focal neuro deficits Psych: Alert, oriented X 3, appropriate affect Assessment: Bilateral Lower extremity weakness Developmental Delay Parkinsondisease Mechanical Falls Cervical spinal stenosis- moderate C-5/6 and C6/7 Hypothyroidism HLD Plan: - orthospine recs appreciated - L-spine MRI pending - Neuro recs appreciated B12, folate, RPR- slightly unremarkable TSH mildly low- recommend clos outpatinet follow-up -PT/OT recs - outpatient neurology follow-up - ASA, lipitor - Decadron - entacapone was increased (first new dose 06/26), carbidope/levodopa - anticipate home in AM if L-spine MRI is unremarkable Objective - Vital Signs Vital signs: Vital Signs Temp 97.7 F 06/26/21 12:21 Pulse 58 L 06/26/21 12:21 Resp 18 06/26/21 12:21 BP 128/78 06/26/21 12:21 Pulse Ox 100 06/26/21 12:21 Intake & Output 06/25/21 06/26/21 06/26/21 18:59 06:59 18:59 Intake Total 999 921 9943 Balance 963 184 6749 Intake: Oral 207 649 0543 Other: Voiding Method Diaper Toilet Diaper # Voids 3 4 - Labs CBC & Chem 7: 06/22/21 19:30 06/22/21 19:30 Labs: Abnormal Lab Results - Last 24 Hours (Table) 06/25/21 06/25/21 06/26/21 Range/Units 17:36 20:44 12:06 POC Glucose (mg/dL) 120 H 187 H 116 H (75-99) mg/dL 06/26/21 Range/Units 17:13 POC Glucose (mg/dL) 145 H (75-99) mg/dL
[2021-06-26 19:55] LABS: Glucose,Whole Blood 192 mg/dL (75-99)
[2021-06-26] MEDS: ATORVASTATIN 80 MG TAB PO SCH (20:42)
--- NOTE | 2021-06-26 21:28 | MR ---
EXAMINATION TYPE: MR lumbar spine wo/w con DATE OF EXAM: 06/26/2021 COMPARISON: None HISTORY: weakness CONTRAST: Standard multiplanar, multisequence MRI departmental protocol images were obtained without contrast a nd with 8.5 mL intravenous Gadavist gadolinium contrast. Multiplanar multiecho imaging of the lumbar spine without and with IV contrast. The lumbar vertebrae have normal alignment. Disc spaces are fairly normal for age. There is no compre ssion fracture. There is mild posterior disc bulging at L4-5 and L5-S1. The lumbar nerve roots appear fairly normal. There is mild left-sided L5-S1 neural foraminal narrowing due to facet arthropathy an d disc space narrowing. The sacroiliac joints are intact. There is no lumbar paraspinal mass. I see no focal bone destruction . The contrast images show no pathologic enhancement. IMPRESSION: Small posterior disc herniations at L4-5 and L5-S1. No spinal stenosis. Mild left-sided L5-S1 neural foraminal narrowing. No fracture.
[2021-06-27] MEDS: LEVOTHYROXINE 88 MCG TAB PO SCH (05:45)
[2021-06-27 07:11] LABS: Glucose,Whole Blood 89 mg/dL (75-99)
[2021-06-27] MEDS: INSULIN ASPART (NovoLOG) 100 UNIT/ML VIAL SQ SCH ×2 (07:33→14:05)
[2021-06-27] MEDS: DEXAMETHASONE SOD PHOSPHATE 4 MG/ML 1 ML VIAL IVP SCH (07:56)
[2021-06-27] MEDS: ASPIRIN 81 MG PO SCH (07:56)
[2021-06-27] MEDS: CARBIDOPA-LEVODOPA ER 50-200MG 1 EACH TABLET.ER PO SCH (07:56)
[2021-06-27] MEDS: HEPARIN SODIUM,PORCINE/PF 5,000 UNIT/0.5 ML SYRINGE SQ SCH (07:56)
[2021-06-27] MEDS: ENTACAPONE 200 MG TAB PO SCH (07:57)
[2021-06-27] MEDS: DIVALPROEX 250 MG TABLET.DR PO SCH (07:57)
[2021-06-27] MEDS: ISOSORBIDE MONONITRATE ER 30 MG TAB.ER.24H PO SCH (07:57)
[2021-06-27] MEDS: METOPROLOL TARTRATE 25 MG TAB PO SCH (09:25)
[2021-06-27 11:12] LABS: Glucose,Whole Blood 128 mg/dL (75-99)
[2021-06-27 11:25] VITALS: BP 116/65; PULSE 54; TEMP 97.7
[2021-06-27] MEDS: CARBIDOPA-LEVODOPA 25-100 MG 1 EACH TAB PO SCH (14:07)
[2021-06-27] MEDS ORDERED: ACETAMINOPHEN TAB 325 MG TAB PO PRN (14:15)
--- NOTE | 2021-06-27 14:25 | P.PN ---
Subjective Progress Note Date: 06/27/21 The patient is seen at bedside and he feels about the same. He denies of any new neurological problems. Objective - Vital Signs Vital signs: Vital Signs Temp 97.7 F 06/27/21 11:24 Pulse 54 L 06/27/21 11:24 Resp 18 06/27/21 11:24 BP 116/65 06/27/21 11:24 Pulse Ox 99 06/27/21 11:24 Intake & Output 06/26/21 06/27/21 06/27/21 18:59 06:59 18:59 Intake Total 2150 860 Balance 2150 860 Intake: Oral 2150 860 Other: Voiding Method Toilet Toilet Diaper Diaper # Voids 4 5 - Exam GENERAL: The patient is lying in bed and is not in acute distress. NEUROLOGICAL: Higher mental function: The patient is awake, alert, oriented to self, place and time. Patient is following commands but is slow in responding to questions (but appears more responsive today compared to yesterday). Has hypophonia. No aphasia and no neglect. Cranial nerves: The pupils are round, equal and reactive to light. Visual husain are full to confrontation throughout. Extraocular movement is intact no nystagmus is noted. The facial strength is normal throughout. Has mask-like face Tongue is midline and moved [id number] without any difficulty. No dysarthria is noted. Shoulder shrug is normal bilaterally. Motor: Gait is deferred. The strength is able to raise bilateral uppers without focal deficits while lower is limited because of knee pain and was able to lift above gravity (right > left). Increase tone in bilateral uppers. - Labs CBC & Chem 7: 06/22/21 19:30 06/22/21 19:30 Labs: Abnormal Lab Results - Last 24 Hours (Table) 06/26/21 06/26/21 06/27/21 Range/Units 17:13 19:45 11:10 POC Glucose (mg/dL) 145 H 192 H 128 H (75-99) mg/dL Assessment and Plan Assessment: * 66-year-old male with history of developmental delays, Parkinson's disease, admitted for increased frequency of falls for the last few weeks, particularly in the last 7 days. Examination does reveal mild spasticity in the legs and evidence of Parkinson's, at least moderate in degree. His falls partly could be related to Parkinson's as well. MRI of the cervical and thoracic spine revealed moderate spinal canal stenosis at C5 6 and C6 7. * Cervical Spinal stenosis * Parkinson's disease * Bilateral knee pain * Developmental delays * Coronary artery disease * Diabetes, hyperlipidemia and hypertension per electronic records. Plan: * MRI of the cervical and thoracic spine. It revealed abnormal cord signal to suggest myelopathy. C5-C6 and C6-C7 moderate spinal canal stenosis secondary to disc osteophyte and ligamentum flavum hypertrophy. T9 vertebral body acute Schmorl's node with reactive changes. Per Dr. Aj, there is definite evidence of spinal stenosis at C5-C6 level and C6-C7. On axial images, there is significant circumferential spinal stenosis at C5-C6, but at C6-C7 level, there is left paramedian disc bulge/protrusion producing significant spinal stenosis mainly on the left half side of the spinal cord. * Orthopedics team in on board and they are pursuing nonsurgical route and per note they discussed it with family member. * MRI of the lumbar spine: Is reported as small posterior disc herniation at L4-L5 and L5-S1. No spinal stenosis. Mild left sided L5-S1 neural foraminal narrowing. No fracture. * B12 795, folate >20, RPR negative. MMA <0.10. TSH 0.170, which is slightly low. Free T4 normal 1.33. B6: 9. * Patient has at least moderate parkinsonism. Continue Sinemet CR 50/[address] Aj increased Comtan to 200 mg 3 times a day and added regular Sinemet 25/100 at 2 PM daily. * PT and OT are consulted. * Regarding knee pain will defer work-up/management to the primary team. * Will defer the rest of medical management to the primary team. * Upon discharge, the patient needs to follow-up with his neurologist within 1-2 weeks. The plan is discussed with the patient's nurse and primary team. There is no further neurological work-up. Elmo He M.D. Neuro-Hospitalist Time with Patient: Less than 30
--- NOTE | 2021-06-27 15:56 | P.PN ---
Subjective Progress Note Date: 06/27/21 Principal diagnosis: Cervical spondylosis This patient was seen at bedside this morning resting with sitting up in chair. Patient says he is having some left knee pain at this time. Patient denies any neck pain/arm pain at this time. Patient denies arm weakness. Patient says he is ready to be discharged. Rest of history is difficult to obtain due to patient's complex medical history. Patient denies chest pain, fever, shortness breath, nausea, vomiting, change in vision, loss of bowel/bladder control. Objective - Vital Signs Vital signs: Vital Signs Temp 97.7 F 06/27/21 11:24 Pulse 54 L 06/27/21 11:24 Resp 18 06/27/21 11:24 BP 116/65 06/27/21 11:24 Pulse Ox 99 06/27/21 11:24 Intake & Output 06/26/21 06/27/21 06/27/21 18:59 06:59 18:59 Intake Total 2150 860 Balance 2150 860 Intake: Oral 2150 860 Other: Voiding Method Toilet Toilet Diaper Diaper # Voids 4 5 - Exam Vitals: Stable General: Awake, alert, appropriate for age, in no acute distress. HEENT: No unusual neck masses around region of lateral neck triangle, thyroid, supraclavicular groove. Extremities: Skin warm and dry without no acute lesions, coloration, temperature, skin intact, no tenderness or erythema. Integument: Intact Palpation: No tenderness to palpation cervical thoracic or lumbar spine POSTURAL and MUSCULO-SKELETAL EVALUATION: Overall symmetric appearance to bilateral upper extremities and lower extremities. He has difficulty with range of motion in his hips knees and ankles however he is able to move them passively and actively. Range of motion of neck does not cause any pain. He is able lift his arms and range her shoulders without pain. VASCULAR STATUS : Wrist Pulses: [2/4 bilateral radial and ulnar] Pedal Pulses: [2/4 bilateral DP and PT] Color: [Normal] Edema: [None] NEUROLOGIC EXAMINATION: Mental Status: Awake and alert, not fully oriented. Flat affect Cranial Nerves: I: Olfactory not tested. II: Visual acuity normal, no visual field deficit noted with confrontation. III,IV: Normal pupillary reflexes & intact extraocular movements without nystagmus. V,: Intact symmetrical facial sensation. VII: Intact symmetrical facial motor movement VIII: Hearing intact. IX,X: Intact gag, swallow, & normal voice. XI: Sternocleidomastoid, trapezius function intact. XII: Tongue midline with normal movements. Special Tests: L'hermitte's Sign: Absent Cubital percussion test: Absent Bilateral Millie-Tinel sign - Carpal region: Absent Bilateral Straight Leg Raising: Absent Bilateral Motor Exam (0-5/5, N/T) STRENGTH UPPER EXTREMITY Shoulder Abd (Not part of STEPHEN Motor score): RIGHT 4 minus LEFT 4- Elbow Flexors: RIGHT 4- LEFT 4- Elbow Extensor: RIGHT 4- LEFT 4- Wrrist Dorsiflexors: RIGHT 4- LEFT 4- Finger Abductor: RIGHT 4 LEFT 4 Vest Backer: RIGHT 4-4 LEFT4- Global weakness in the upper extremities likely related to Parkinson's with t remor LOWER EXTREMITY Hip Flexor (Not part of STEPHEN Motor Score): RIGHT 4 LEFT 3 Knee Flexor: RIGHT 4 LEFT 3 Knee Extensor: RIGHT 4 LEFT 3 Ankle Dorsiflexion: RIGHT 3 LEFT 4 Ankle Plantarflexion: RIGHT 4 LEFT 4 EHL: RIGHT 3 LEFT 4 FHL: RIGHT 4 LEFT 4 Again Global weakness left lower tremor he seems weaker than the right lower extremity however REFLEXES Biecp: RIGHT [2] LEFT [2] Tricep: RIGHT [2] LEFT [2] Brachioradialis: RIGHT [2] LEFT [2] Patellar: RIGHT [2] LEFT [2] Achilles: RIGHT [2] LEFT [2] No hyperreflexia Pathological Reflexes Katz's: RIGHT [Absent] LEFT [Absent] Babinski: RIGHT [Absent] LEFT [Absent] Clonus: RIGHT [None] LEFT [None] SENSORY Pain and LT sense [Intact C5-T1 and L2-S1] Dermatomal deficit [None] Gait and Functional Evaluation: Ambulatory aids: Wheelchair or walker Romberg's test: Intact bilaterally. Hand and finger dexterity not intact bilaterally[]. Disdiadochokinesis examination positive bilaterally. - Labs CBC & Chem 7: 06/22/21 19:30 06/22/21 19:30 Labs: Abnormal Lab Results - Last 24 Hours (Table) 06/26/21 06/26/21 06/27/21 Range/Units 17:13 19:45 11:10 POC Glucose (mg/dL) 145 H 192 H 128 H (75-99) mg/dL Assessment and Plan Assessment: Cervical spondylosis - Parkinson's Plan: 1. C5 to C6, C6 to C7 spinal stenosis; L4-L5 & L5-S1 disc herniation - Patient stable at bedside this morning. At this time we do not recommend any emergent orthopedic surgical intervention. We will manage conservatively now with pain medications. Patient not complaining of any neck pain/arm/pain/arm weakness. Patient stable for discharge from orthopedic standpoint. Orthopedics is signing off at this time. Please do not hesitate to contact us for any further questions. Recommend follow up in outpatient setting. 2. Multiple medical comorbdities; Parkinison's 3. Pain Management - Tylenol if necessary 4. DVT ppx - Heparin; Aspirin 5. GI ppx 6. Appreciate medical management Time with Patient: Less than 30
--- NOTE | 2021-06-27 17:47 | P.DS ---
Providers Date of admission: 06/24/21 13:13 Expected date of discharge: 06/27/21 Attending physician: Julien Whyte MD Consults: 06/22/21 20:26 Consult Physician Routine Consulting Provider: Holly Aj Consult Reason/Comments: myelopathy Do you want consulting provider notified?: Yes Primary care physician: [place] Hospital Course: Discharge Diagnosis: Bilateral Upper and Lower extremity weakness Cervical spinal stenosis- moderate C-5/6 and C6/7, Myelomalacia c5/6/7 with possible myelopathy Developmental Delay Parkinson's disease Mechanical Falls Hypothyroidism HLD Diabetes- A1C 6.3 Hospital Course: Patient is a 66-year-old male with a history of Parkinson's disease, hypothyroidism, dyslipidemia who presented at the direction of his outpatient neurologist. About a month ago he had had an EMG done which was concerning for myelopathy. The patient became progressively weak over the last week and the recommendations from his neurologist was for him to be transferred to the ER to obtain an MRI of the spine. In the ER he underwent an extensive evaluation. Blood work was essentially unremarkable, COVID-19 testing was negative, CT of the brain and cervical spine showed no acute pathology. X-ray of the knee showed no acute process with mild osteoarthritic changes. Orthopedics spine and neurology were consulted. He underwent a cervical and thoracic spine MRI which showed C5 6 and C6 7 and moderate spinal canal stenosis secondary to disc osteophyte and ligamentum flavum buckling. T9 vertebral body showed Schmorl's node. Ortho spine spoke with legal guardian who opted for conservatie treatment. Patient was started on steroids. His entacapone was increase to three times d aily. His weakness improved. He was seen by PT/OT and his Adult [facility] felt they could manage him with home health and guardian was in agreement. He will complete a steroid taper. He'll follow-up with Dr. Schumacher in 2-4 weeks. He will follow-up with his neurologist. He was also noted to have a slightly depressed TSH however with his weakness was determined to keep his levothyroxine dose the same. He'll follow-up with his primary care in 1-2 days. Patient seen and examined at bedside. Left knee pain was better with ambulation with PT/OT. No chest pain, no shortness of breath, wants to stay one more day, we explained why he could not. Vital signs reviewed and stable. General: non toxic, no distress, appears at stated age Derm: warm, dry Head: atraumatic, normocephalic, symmetric Eyes: EOMI, no lid lag, anicteric sclera Mouth: no lip lesion, mucus membranes moist Cardiovascular: S1S2 reg, no murmur, positive posterior tibial pulse bilateral, Lungs: CTA bilateral, no rhonchi, no rales , no accessory muscle use Abdominal: soft, nontender to palpation, no guarding, no appreciable organomegaly Ext: no gross muscle atrophy, no edema, no contractures Neuro: CN II-XI grossly intact, b/l LE weakness, no tremors Psych: Alert, oriented to self and situation, flat affect A total of 45 minutes of time were spent preparing this complex discharge summary . Patient Condition at Discharge: Fair Plan - Discharge Summary Discharge Rx Participant: No New Discharge Prescriptions: New Carbidopa-Levodopa 25-100 mg [Sinemet 25-100 mg] 1 each PO DAILY@1400 #30 tab Entacapone [Comtan] 200 mg PO TID #90 tab Dexamethasone [Decadron] 4 mg PO DIRECTED #30 tablet Continue Folic Acid 1 mg PO DAILY@0700 Atorvastatin [Lipitor] 80 mg PO DAILY@1900 Multivitamins, Thera [Multivitamin (formulary)] 1 tab PO DAILY@0700 Carbidopa/Levodopa [Sinemet CR 50-200 mg] 1 tab PO BID@0700,1400 Aspirin EC [Ecotrin Low Dose] 81 mg PO DAILY@0700 Levothyroxine Sodium [Synthroid] 175 mcg PO DAILY@0800 Cyanocobalamin (Vitamin B-12) [Vitamin B-12] 1,000 mcg PO DAILY@0700 Metoprolol Tartrate [Lopressor] 25 mg PO BID@0700,1900 Isosorbide Mononitrate ER [Imdur] 30 mg PO DAILY@0700 Divalproex [Depakote] 250 mg PO DAILY@0700 Triamcinolone 0.1% Ointment [Kenalog 0.1% Ointment] 1 applic TOPICAL BID PRN PRN Reason: Skin Irritation Mupirocin 2% Oint [Bactroban 2% Oint] 1 applic TOPICAL BID PRN PRN Reason: Skin Irritation Ibuprofen [Motrin] 600 mg PO Q6HR PRN PRN Reason: Pain Acetaminophen [Tylenol] 500 mg PO Q4-6H PRN PRN Reason: Fever And/ Or Pain Ascorbic Acid [Vitamin C] 1,000 mg PO DAILY@0700 metFORMIN HCL ER [Glucophage XR] 250 mg PO DAILY@1200 Ammonium Lactate Cream [Lac-Hydrin 12% Cream] 1 applic TOPICAL BID PRN PRN Reason: DRY SKIN ON FEET Cholecalciferol [Vitamin D3 (25 Mcg = 1000 Iu)] 50 mcg PO DAILY@0700 Sodium Chloride [Saline Nasal Astatula] 2 spray EA NOSTRIL DIRECTED PRN PRN Reason: Allergy Symptoms Loperamide HCl [Loperamide] 4 mg PO BID PRN PRN Reason: Diarrhea Selenium 200 mcg PO DAILY@0700 Cetirizine HCl 10 mg PO DAILY@0700 Discontinued Zinc Gluconate [Zinc] 50 mg PO DAILY@0700 Entacapone 200 mg PO DAILY@0700 Discharge Medication List Aspirin EC [Ecotrin Low Dose] 81 mg PO DAILY@0700 04/21/19 [History] Atorvastatin [Lipitor] 80 mg PO DAILY@1900 04/21/19 [History] Carbidopa/Levodopa [Sinemet CR 50-200 mg] 1 tab PO BID@0700,1400 04/21/19 [History] Folic Acid 1 mg PO DAILY@0700 04/21/19 [History] Multivitamins, Thera [Multivitamin (formulary)] 1 tab PO DAILY@0700 04/21/19 [History] Levothyroxine Sodium [Synthroid] 175 mcg PO DAILY@0800 10/05/19 [History] Ammonium Lactate Cream [Lac-Hydrin 12% Cream] 1 applic TOPICAL BID PRN 10/26/20 [History] Cholecalciferol [Vitamin D3 (25 Mcg = 1000 Iu)] 50 mcg PO DAILY@0710/26/20 [History] Cyanocobalamin (Vitamin B-12) [Vitamin B-12] 1,000 mcg PO DAILY@0710/26/20 [History] Divalproex [Depakote] 250 mg PO DAILY@0710/26/20 [History] Isosorbide Mononitrate ER [Imdur] 30 mg PO DAILY@0710/26/20 [History] Metoprolol Tartrate [Lopressor] 25 mg PO BID@0700,1900 10/26/20 [History] Acetaminophen [Tylenol] 500 mg PO Q4-6H PRN 06/22/21 [History] Ascorbic Acid [Vitamin C] 1,000 mg PO DAILY@0700 06/22/21 [History] Cetirizine HCl 10 mg PO DAILY@0700 06/22/21 [History] Ibuprofen [Motrin] 600 mg PO Q6HR PRN 06/22/21 [History] Loperamide HCl [Loperamide] 4 mg PO BID PRN 06/22/21 [History] Mupirocin 2% Oint [Bactroban 2% Oint] 1 applic TOPICAL BID PRN 06/22/21 [History] Selenium 200 mcg PO DAILY@0700 06/22/21 [History] Sodium Chloride [Saline Nasal Astatula] 2 spray EA NOSTRIL DIRECTED PRN 06/22/21 [History] Triamcinolone 0.1% Ointment [Kenalog 0.1% Ointment] 1 applic TOPICAL BID PRN 06/22/21 [History] metFORMIN HCL ER [Glucophage XR] 250 mg PO DAILY@1200 06/22/21 [History] Carbidopa-Levodopa 25-100 mg [Sinemet 25-100 mg] 1 each PO DAILY@1400 #30 tab 06/27/21 [Rx] Dexamethasone [Decadron] 4 mg PO DIRECTED #30 tablet 06/27/21 [Rx] Entacapone [Comtan] 200 mg PO TID #90 tab 06/27/21 [Rx] Follow up Appointment(s)/Referral(s): Pola Graves DO [Primary Care Provider] - 1-2 days [facility], [NON-STAFF] - 1 Week Wali Schumacher DO [Doctor of Osteopathic Medicine] - 2 Weeks (2-4 weeks) Patient Instructions/Handouts: Fall Prevention (DC) Activity/Diet/Wound Care/Special Instructions: Activity: as tolerated with assistance fall precautions Diet: carb consistent Special Instructions: neurology Donovan Mcdermott [phone] follow-up in 1-2 weeks [facility] - [id number], [place] [address] nurse to arrange Wheel chair van transport at time of d/c. - bill to go to guardian Discharge Disposition: TRANSFER TO SNF/ECF
== END 2021-06-27 17:12 | DRG 552 ==
LOC: EC 18:08 → 6NMEDSUR 20:25 → 5NMEDONC 06-23 01:42 → OBSVTOIN 06-24 13:13
PROVIDERS: ADMIT Internal Medicine; ATTEND Internal Medicine
DX: M47.12 Other spondylosis with myelopathy, cervical region (principal); G95.89 Other specified diseases of spinal cord; M50.023 Cervical disc disorder at C6-C7 level with myelopathy; M48.02 Spinal stenosis, cervical region; M48.04 Spinal stenosis, thoracic region; M51.44 Schmorl's nodes, thoracic region; F89 Unspecified disorder of psychological development; Z20.822 Contact with and (suspected) exposure to COVID-19; M25.78 Osteophyte, vertebrae; M50.223 Other cervical disc displacement at C6-C7 level; I25.10 Atherosclerotic heart disease of native coronary artery without angina pectoris; I10 Essential (primary) hypertension; Z79.84 Long term (current) use of oral hypoglycemic drugs; E11.9 Type 2 diabetes mellitus without complications; E89.0 Postprocedural hypothyroidism; F02.80 Dementia in other diseases classified elsewhere, unspecified severity, without behavioral disturbance, psychotic disturbance, mood disturbance, and anxiety; R29.6 Repeated falls; G20 Parkinson's disease; E78.5 Hyperlipidemia, unspecified; F41.9 Anxiety disorder, unspecified; Z79.82 Long term (current) use of aspirin; Z79.890 Hormone replacement therapy; Z79.899 Other long term (current) drug therapy; Z82.49 Family history of ischemic heart disease and other diseases of the circulatory system; Z85.850 Personal history of malignant neoplasm of thyroid; Z91.81 History of falling; Z95.1 Presence of aortocoronary bypass graft; Z95.5 Presence of coronary angioplasty implant and graft
CPT/HCPCS: 36415; 70450; 72125; 72156; 72157; 72158; 80048; 82607; 82746; 83036; 83735; 83921; 84207; 84439; 84443; 85025; 86780; 87635; 99285

== ENCOUNTER 2021-07-29 12:45 | Inpatient (IN) | payer MEDICARE, BC ==
--- NOTE | 2021-07-29 14:01 | XR ---
EXAMINATION TYPE: XR chest 2V DATE OF EXAM: 07/29/2021 COMPARISON: Chest x-ray October 05, 2019 HISTORY: Increased weakness. TECHNIQUE: Frontal and lateral views of the chest are obtained. FINDINGS: Low lung volumes and chronic parenchymal changes bilaterally redemonstrated. Overlying daria rnal wires and mediastinal clips again seen. There is no suspicious new focal air space opacity, pleu ral effusion, or pneumothorax seen. The cardiac silhouette size remains within normal limits. Underl brian scoliosis is present. IMPRESSION: No acute process. No significant change from prior.
[2021-07-29 14:06] LABS: INR 1.2 (<1.2); Partial Thromboplastin Time 26.3 sec (22.0-30.0); Prothrombin Time 12.7 sec (9.0-12.0)
[2021-07-29 14:10] LABS: Basophils % (A) 0 %; Eosinophils % (A) 1 %; HCT 46.8 % (39.0-53.0); HGB 14.8 gm/dL (13.0-17.5); Lymphocytes # (A) 0.4 k/uL (1.0-4.8); Lymphocytes % (A) 8 %; MCH 29.4 pg (25.0-35.0); MCHC 31.7 g/dL (31.0-37.0); MCV 92.8 fL (80.0-100.0); Mean Platelet Volume 7.3; Monocytes # (A) 0.3 k/uL (0-1.0); Monocytes % (A) 6 %; Neutrophils # (A) 3.8 k/uL (1.3-7.7); Neutrophils % (A) 84 %; Platelet Count 201 k/uL (150-450); RBC 5.04 m/uL (4.30-5.90); WBC 4.6 k/uL (3.8-10.6)
--- NOTE | 2021-07-29 14:11 | XR ---
EXAMINATION TYPE: XR knee complete bilateral DATE OF EXAM: 07/29/2021 CLINICAL HISTORY: Bilateral pain after fall injury. TECHNIQUE: Three views of the bilateral knees are obtained. COMPARISON: Right knee x-ray June 22, 2021 FINDINGS: There is no acute fracture/dislocation evident in either knee. Tricompartment degenerative changes greater in the left knee lateral tibial femoral compartment with advanced narrowing and mode rate spurring is present. There is asymmetric mild to moderate narrowing and spurring left patellofem oral compartment versus opposite right side. Posterior arteriovascular calcification the right knee i s seen. There are clips in the left knee from prior venous harvesting. IMPRESSION: There is no acute fracture or dislocation in either knee.
[2021-07-29 14:15] LABS: ALT 34 U/L (4-49); AST 31 U/L (17-59); African American GFR (CKD) >90 (>60 ml/min/1.73 sqM); Albumin 3.1 g/dL (3.5-5.0); Alkaline Phosphatase 59 U/L (38-126); Anion Gap 6 mmol/L; Blood Urea Nitrogen 27 mg/dL (9-20); Calcium 8.2 mg/dL (8.4-10.2); Carbon Dioxide 21 mmol/L (22-30); Chloride 108 mmol/L (98-107); Glucose 117 mg/dL (74-99); Magnesium 1.6 mg/dL (1.6-2.3); Non-African American GFR(CKD) >90 (>60 ml/min/1.73 sqM); Potassium 3.2 mmol/L (3.5-5.1); Sodium 135 mmol/L (137-145); Total Bilirubin 0.7 mg/dL (0.2-1.3); Total Protein 5.9 g/dL (6.3-8.2)
--- NOTE | 2021-07-29 14:29 | ED ---
General Adult HPI - General Chief complaint: Weakness Stated complaint: Weakness Time Seen by Provider: 07/29/21 13:08 Source: patient, EMS, RN notes reviewed, old records reviewed Mode of arrival: EMS Limitations: no limitations - History of Present Illness Initial comments: 66-year-old male presents from assisted living facility for evaluation of weak ness and fall. Patient was waiting to the bathroom, fell onto his knees. He is complaining of knee pain. The history is somewhat difficult to obtain. There was no head trauma. No loss consciousness. Patient denies chest pain or abdominal pain. Denies fever. Denies vomiting or diarrhea. He has a history of Parkinson's. - Related Data Home Medications Medication Instructions Recorded Confirmed Aspirin EC [Ecotrin Low Dose] 81 mg PO DAILY@0700 04/21/19 06/22/21 Atorvastatin [Lipitor] 80 mg PO DAILY@1900 04/21/19 06/22/21 Carbidopa/Levodopa [Sinemet CR 1 tab PO BID@0700,1400 04/21/19 06/22/21 50-200 mg] Folic Acid 1 mg PO DAILY@0700 04/21/19 06/22/21 Multivitamins, Thera [Multivitamin 1 tab PO DAILY@0700 04/21/19 06/22/21 (formulary)] Levothyroxine Sodium [Synthroid] 175 mcg PO DAILY@0800 10/05/19 06/22/21 Ammonium Lactate Cream [Lac-Hydrin 1 applic TOPICAL BID PRN 10/26/20 06/22/21 12% Cream] Cholecalciferol [Vitamin D3 (25 50 mcg PO DAILY@0710/26/20 06/22/21 Mcg = 1000 Iu)] Cyanocobalamin (Vitamin B-12) 1,000 mcg PO DAILY@0700 10/26/20 06/22/21 [Vitamin B-12] Divalproex [Depakote] 250 mg PO DAILY@0700 10/26/20 06/22/21 Isosorbide Mononitrate ER [Imdur] 30 mg PO DAILY@0700 10/26/20 06/22/21 Metoprolol Tartrate [Lopressor] 25 mg PO BID@0700,1900 10/26/20 06/22/21 Acetaminophen [Tylenol] 500 mg PO Q4-6H PRN 06/22/21 06/22/21 Ascorbic Acid [Vitamin C] 1,000 mg PO DAILY@0700 06/22/21 06/22/21 Cetirizine HCl 10 mg PO DAILY@0700 06/22/21 06/22/21 Ibuprofen [Motrin] 600 mg PO Q6HR PRN 06/22/21 06/22/21 Loperamide HCl [Loperamide] 4 mg PO BID PRN 06/22/21 06/22/21 Mupirocin 2% Oint [Bactroban 2% 1 applic TOPICAL BID PRN 06/22/21 06/22/21 Oint] Selenium 200 mcg PO DAILY@0700 06/22/21 06/22/21 Sodium Chloride [Saline Nasal 2 spray EA NOSTRIL DIRECTED PRN 06/22/21 [place]] Triamcinolone 0.1% Ointment 1 applic TOPICAL BID PRN 06/22/21 06/22/21 [Kenalog 0.1% Ointment] metFORMIN HCL ER [Glucophage XR] 250 mg PO DAILY@1200 06/22/21 06/22/21 Previous Rx's Medication Instructions Recorded Carbidopa-Levodopa 25-100 mg 1 each PO DAILY@1400 #30 tab 06/27/21 [Sinemet 25-100 mg] Dexamethasone [Decadron] 4 mg PO DIRECTED #30 tablet 06/27/21 Entacapone [Comtan] 200 mg PO TID #90 tab 06/27/21 Allergies Allergy/AdvReac Type Severity Reaction Status Date / Time No Known Allergies Allergy Verified 07/29/21 14:57 Review of Systems ROS Statement: Those systems with pertinent positive or pertinent negative responses have been documented in the HPI. ROS Other: All systems not noted in ROS Statement are negative. Past Medical History Past Medical History: Coronary Artery Disease (CAD), Cancer, Diabetes Mellitus, Hyperlipidemia, Hypertension, Thyroid Disorder Additional Past Medical History / Comment(s): Parkinson's ,developmental delay, hypothyroidism, coronary artery disease, vitamin D deficiency, Sister states Hx. of thyroid cancer. History of Any Multi-Drug Resistant Organisms: None Reported Past Surgical History: Coronary Bypass/CABG, Heart Catheterization With Stent Additional Past Surgical History / Comment(s): Coronary artery bypass grafting 4, thyroidectomy, cardiac stenting 2 in 2009, esophageal foreign body removal, Past Anesthesia/Blood Transfusion Reactions: No Reported Reaction Date of Last Stent Placement:: 2009 Past Psychological History: Anxiety Smoking Status: Never smoker Past Alcohol Use History: None Reported Past Drug Use History: None Reported - Past Family History Father Family Medical History: No Reported History Mother History Unknown: Yes Family Medical History: Coronary Artery Disease (CAD) Sister(s) Family Medical History: Cancer Additional Family Medical History / Comment(s): Breast Brother(s) Family Medical History: Cancer Additional Family Medical History / Comment(s): Prostate General Exam Limitations: no limitations General appearance: alert, in no apparent distress Head exam: Present: atraumatic, normocephalic Eye exam: Present: normal appearance ENT exam: Present: normal exam Neck exam: Present: normal inspection. Absent: tenderness, meningismus Respiratory exam: Present: normal lung sounds bilaterally. Absent: respiratory distress Cardiovascular Exam: Present: regular rate, normal rhythm GI/Abdominal exam: Present: soft. Absent: distended, tenderness, guarding Extremities exam: Present: tenderness (Minimal tenderness over the bilateral anterior knees), normal capillary refill. Absent: joint swelling Neurological exam: Present: alert. Absent: motor sensory deficit Psychiatric exam: Present: flat affect Skin exam: Present: warm, dry, intact, cyanosis, diaphoretic Course Vital Signs 07/29/21 12:47 Temperature 98.5 F Pulse Rate 80 Respiratory 16 Rate Blood Pressure 103/68 O2 Sat by Pulse 95 Oximetry EKG Findings - EKG Comments: EKG Findings:: EKG: Sinus rhythm with frequent PVC rate of 82, NV interval 150, QRS duration 106, QTC [address] segment elevation. Medical Decision Making - Medical Decision Making I did discuss the patient's condition at length with his sister was his legal guardian. She states that he had been doing well but has progressed and is unable to ambulate without significant assistance. I feel this patient could benefit from a neurology consultation regarding his Parkinson's and the possibility of placement for higher level of assistance. Laboratory testing as far is essentially unremarkable. Chest x-ray as well as x-rays of the bilateral knees are negative for acute findings. - Lab Data Result diagrams: 07/29/21 13:27 07/29/21 13:27 Lab Results 07/29/21 07/29/21 07/29/21 Range/Units 13:27 13:27 13:27 WBC 4.6 (3.8-10.6) k/uL RBC 5.04 (4.30-5.90) m/uL Hgb 14.8 (13.0-17.5) gm/dL Hct 46.8 (39.0-53.0) % MCV 92.8 (80.0-100.0) fL MCH 29.4 (25.0-35.0) pg MCHC 31.7 (31.0-37.0) g/dL RDW 15.0 (11.5-15.5) % Plt Count 201 (150-450) k/uL MPV 7.3 Neutrophils % 84 % Lymphocytes % 8 % Monocytes % 6 % Eosinophils % 1 % Basophils % 0 % Neutrophils # 3.8 (1.3-7.7) k/uL Lymphocytes # 0.4 L (1.0-4.8) k/uL Monocytes # 0.3 (0-1.0) k/uL Eosinophils # 0.0 (0-0.7) k/uL Basophils # 0.0 (0-0.2) k/uL PT 12.7 H (9.0-12.0) sec INR 1.2 H (<1.2) APTT 26.3 (22.0-30.0) sec Sodium 135 L (137-145) mmol/L Potassium 3.2 L (3.5-5.1) mmol/L Chloride 108 H (98-107) mmol/L Carbon Dioxide 21 L (22-30) mmol/L Anion Gap 6 mmol/L BUN 27 H (9-20) mg/dL Creatinine 0.70 (0.66-1.25) mg/dL Est GFR (CKD-EPI)AfAm >90 (>60 ml/min/1.73 sqM) Est GFR (CKD-EPI)NonAf >90 (>60 ml/min/1.73 sqM) Glucose 117 H (74-99) mg/dL Plasma Lactic Acid [place] (0.7-2.0) mmol/L Calcium 8.2 L (8.4-10.2) mg/dL Magnesium 1.6 (1.6-2.3) mg/dL Total Bilirubin 0.7 (0.2-1.3) mg/dL AST 31 (17-59) U/L ALT 34 (4-49) U/L Alkaline Phosphatase 59 (38-126) U/L Total Protein 5.9 L (6.3-8.2) g/dL Albumin 3.1 L (3.5-5.0) g/dL 07/29/21 Range/Units 13:27 WBC (3.8-10.6) k/uL RBC (4.30-5.90) m/uL Hgb (13.0-17.5) gm/dL Hct (39.0-53.0) % MCV (80.0-100.0) fL MCH (25.0-35.0) pg MCHC (31.0-37.0) g/dL RDW (11.5-15.5) % Plt Count (150-450) k/uL MPV Neutrophils % % Lymphocytes % % Monocytes % % Eosinophils % % Basophils % % Neutrophils # (1.3-7.7) k/uL Lymphocytes # (1.0-4.8) k/uL Monocytes # (0-1.0) k/uL Eosinophils # (0-0.7) k/uL Basophils # (0-0.2) k/uL PT (9.0-12.0) sec INR (<1.2) APTT (22.0-30.0) sec Sodium (137-145) mmol/L Potassium (3.5-5.1) mmol/L Chloride (98-107) mmol/L Carbon Dioxide (22-30) mmol/L Anion Gap mmol/L BUN (9-20) mg/dL Creatinine (0.66-1.25) mg/dL Est GFR (CKD-EPI)AfAm (>60 ml/min/1.73 sqM) Est GFR (CKD-EPI)NonAf (>60 ml/min/1.73 sqM) Glucose (74-99) mg/dL Plasma Lactic Acid [place] 1.5 (0.7-2.0) mmol/L Calcium (8.4-10.2) mg/dL Magnesium (1.6-2.3) mg/dL Total Bilirubin (0.2-1.3) mg/dL AST (17-59) U/L ALT (4-49) U/L Alkaline Phosphatase (38-126) U/L Total Protein (6.3-8.2) g/dL Albumin (3.5-5.0) g/dL Disposition Clinical Impression: Frequent falls, Parkinsons disease, Generalized weakness Disposition: ADMITTED IP TO THIS HOSP Condition: Stable Is patient prescribed a controlled substance at d/c from ED?: No Referrals: Trip Islas MD [Primary Care Provider] - 1-2 days Time of Disposition: 15:00
[2021-07-29] MEDS ORDERED: HYDROcodone/APAP 5-325MG 1 EACH TAB PO STA (14:46)
[2021-07-29] MEDS ORDERED: NALOXONE 0.4 MG/ML 1 ML VIAL IV PRN (14:57)
[2021-07-29] MEDS: SODIUM CHLORIDE 0.9% 1,000 ML IV SCH ×2 (15:05→15:17)
[2021-07-29 15:32] LABS: Appearance,Urine Clear (Clear); Bilirubin,Urine Negative (Negative); Blood,Urine Negative (Negative); Color,Urine Dark Yellow; Glucose,Urine (UA) Negative (Negative); Hyaline Casts,Urine 19 /lpf (0-2); Ketones,Urine Trace (Negative); Leukocyte Esterase,Urine Negative (Negative); Mucus,Urine Many /hpf; Nitrite,Urine Negative (Negative); Protein,Urine 1+ (Negative); RBC,Urine <1 /hpf (0-5); Specific Gravity,Urine 1.038 (1.001-1.035); WBC,Urine 1 /hpf (0-5)
[2021-07-29] MEDS ORDERED: AMMONIUM LACTATE 12% CREAM 140 GM TUBE TOPICAL PRN (16:01)
[2021-07-29] MEDS ORDERED: TRIAMCINOLONE ACET 0.1% OINTMENT 15 GM TUBE TOPICAL PRN (16:01)
[2021-07-29] MEDS ORDERED: LOPERAMIDE 2 MG CAP PO PRN (16:01)
[2021-07-29] MEDS ORDERED: LACTULOSE 20 GM/30 ML CUP PO PRN (16:03)
[2021-07-29] MEDS ORDERED: ONDANSETRON 4 MG/2 ML VIAL IVP PRN (16:03)
[2021-07-29] MEDS ORDERED: CALCIUM CARBONATE 500 MG CHEWABLE PO PRN (16:03)
[2021-07-29] MEDS ORDERED: MELATONIN 3 MG TABLET PO PRN (16:03)
--- NOTE | 2021-07-29 16:04 | P.HPIM ---
History of Present Illness H&P Date: 07/29/21 Chief Complaint: Fall History of presenting complaint: This is a 66-year-old patient who follows with Dr. Islas. Chronic stable medical conditions include CAD with history of bypass and stent, diabetes, hypertension, hyperlipidemia, Parkinson's, hypothyroid vitamin D deficiency. Patient's had thyroid cancer with thyroidectomy. Patient has underlying intellectual disability. Does use a walker to get about. His sister Farrah is POA. Patient is a resident of [facility] Patient was sent in because as reported by the [facility] informed them that patient been having increasing weakness due to his Parkinson's final resulting in a fall today. Patient fell on his knees in the bathroom and with the help of the staff is able to get into a wheelchair. Did not hit his head. No chest pain or palpitation. Sometimes gets dizzy on standing up. No fever no chills. No urinary symptoms. Appetite is fair. Review of systems: GEN.: Tired EYES: None HEENT: None NECK: None RESPIRATORY: None CARDIOVASCULAR: None GASTROINTESTINAL: None GENITOURINARY: None MUSCULOSKELETAL: Joint pains LYMPHATICS: None HEMATOLOGICAL: None PSYCHIATRY: Bit forgetful NEUROLOGICAL: Uses a walker Past medical history to include: CAD with history of bypass and stent, diabetes, hyperlipidemia, hypertension, thyroid cancer with thyroidectomy now hypothyroid, Parkinson's disease, developmental delay vitamin D deficiency Social history: Lives at [facility]. No smoking or alcohol. Does use a walker. POA: Sister Farrah Family history: Breast cancer Physical examination: VITAL SIGNS: 98.5, 80, 16, 103/68, 95% room air] GENERAL: BMI 26.4, sitting in bed, awake. EYES: Pupils equal. Conjunctiva normal. HEENT: External appearance of nose and ears normal, oral cavity grossly normal some loss of muscles on the temporal. NECK: JVD not raised; masses not palpable. HEART: First and second heart sounds are normal; no edema. LUNGS: Respiratory rate normal; clear to auscultation. ABDOMEN: Soft, nontender, liver spleen not palpable, no masses palpable. PSYCH: [Patient is able to answer simple questions l. MUSCULOSKELETAL:No Clubbing/cyanosis;muscles-grossly intact NEUROLOGICAL: Cranial nerves grossly intact; no facial asymmetry, power and sensation grossly intact. Speaks in a monotone. Bradykinesia. LYMPHATICS: No lymph nodes palpable in the axilla and neck INVESTIGATIONS, reviewed in the clinical context: White count 4.6 hemoglobin 14.8 platelets 201 sodium 135 potassium 3.2 BUN 27 creatinine 0.7 Albumin 3.1 UA positive for ketones trace EKG tracing personally reviewed by me-normal sinus rhythm with PVCs Chest x-ray film personally reviewed by me-possible atelectasis Assessment and plan: -Idiopathic Parkinson's disease with acute exacerbation. Patient has been progressively getting weak over the last few weeks. Not resulting in a fall. Will increase Sinemet 25/100 to 3 times a day. [place] 200 mg 3 times a day -Chronic gait dysfunction secondary to Parkinson's disease PT OT. Fall precautions -Rule out orthostatic -Essential hypertension Lopressor 25 mg twice a day -Hypothyroid from prior thyroidectomy for thyroid cancer Synthroid 175 g a day. Check TSH -CAD with a prior history of bypass and stent Lopressor. Aspirin 81 mg a day -Diabetes mellitus type 2 -Hyperlipidemia -Developmental delay -Power of commonwealth attorney: Sister./Farrah Increase Sinemet to 3 times a day. Resume home medications. Fall precautions. PT OT. Consult neurology. Subcu Lovenox for DVT prophylaxis. Given the complexity and severity of patient's condition expect the patient to be in the hospital at least for 2 overnights - Past Medical History Past Medical History: Coronary Artery Disease (CAD), Cancer, Diabetes Mellitus, Hyperlipidemia, Hypertension, Thyroid Disorder Additional Past Medical History / Comment(s): Parkinson's ,developmental delay, hypothyroidism, coronary artery disease, vitamin D deficiency, Sister states Hx. of thyroid cancer. History of Any Multi-Drug Resistant Organisms: None Reported Past Surgical History: Coronary Bypass/CABG, Heart Catheterization With Stent Additional Past Surgical History / Comment(s): Coronary artery bypass grafting 4, thyroidectomy, cardiac stenting 2 in 2009, esophageal foreign body removal, Past Anesthesia/Blood Transfusion Reactions: No Reported Reaction Date of Last Stent Placement:: 2009 Past Psychological History: Anxiety Smoking Status: Never smoker Past Alcohol Use History: None Reported Past Drug Use History: None Reported - Past Family History Father Family Medical History: No Reported History Mother History Unknown: Yes Family Medical History: Coronary Artery Disease (CAD) Sister(s) Family Medical History: Cancer Additional Family Medical History / Comment(s): Breast Brother(s) Family Medical History: Cancer Additional Family Medical History / Comment(s): Prostate Medications and Allergies Home Medications Medication Instructions Recorded Confirmed Type Aspirin EC [Ecotrin Low Dose] 81 mg PO DAILY@0704/21/19 07/29/21 History Folic Acid 1 mg PO DAILY@0704/21/19 07/29/21 History Multivitamins, Thera [Multivitamin 1 tab PO DAILY@0704/21/19 07/29/21 History (formulary)] Levothyroxine Sodium [Synthroid] 175 mcg PO DAILY@0810/05/19 07/29/21 History Ammonium Lactate Cream [Lac-Hydrin 1 applic TOPICAL BID PRN 10/26/20 07/29/21 History 12% Cream] Cholecalciferol [Vitamin D3 (25 50 mcg PO DAILY@69910/26/20 07/29/21 History Mcg = 1000 Iu)] Cyanocobalamin (Vitamin B-12) 1,000 mcg PO DAILY@69910/26/20 07/29/21 History [Vitamin B-12] Divalproex [Depakote] 250 mg PO DAILY@0710/26/20 07/29/21 History Isosorbide Mononitrate ER [Imdur] 30 mg PO DAILY@0710/26/20 07/29/21 History Metoprolol Tartrate [Lopressor] 25 mg PO BID@0700,1900 10/26/20 07/29/21 History Acetaminophen [Tylenol] 500 mg PO Q4-6H PRN 06/22/21 07/29/21 History Ascorbic Acid [Vitamin C] 1,000 mg PO DAILY@0706/22/21 07/29/21 History Cetirizine HCl 10 mg PO DAILY@69906/22/21 07/29/21 History Ibuprofen [Motrin] 600 mg PO Q6HR PRN 06/22/21 07/29/21 History Loperamide HCl [Loperamide] 4 mg PO BID PRN 06/22/21 07/29/21 History Mupirocin 2% Oint [Bactroban 2% 1 applic TOPICAL BID PRN 06/22/21 07/29/21 History Oint] Selenium 200 mcg PO DAILY@0700 06/22/21 07/29/21 History Sodium Chloride [Saline Nasal 2 spray EA NOSTRIL DIRECTED PRN 06/22/21 07/29/21 History [place]] Triamcinolone 0.1% Ointment 1 applic TOPICAL BID PRN 06/22/21 07/29/21 History [Kenalog 0.1% Ointment] Atorvastatin [Lipitor] 40 mg PO HS@1900 07/29/21 07/29/21 History Carbidopa-Levodopa 25-100 mg 1 tab PO DAILY@1400 07/29/21 07/29/21 History [Sinemet 25-100 mg] Entacapone [Comtan] 200 mg PO TID@0700,1400,1900 07/29/21 07/29/21 History Zinc 50 mg PO DAILY@0700 07/29/21 07/29/21 History Allergies Allergy/AdvReac Type Severity Reaction Status Date / Time No Known Allergies Allergy Verified 07/29/21 14:57 Physical Exam Vitals: Vital Signs Temp Pulse Resp BP Pulse Ox 07/29/21 15:16 87 17 102/66 94 L 07/29/21 12:47 98.5 F 80 16 103/68 95 Intake and Output 07/29/21 07/29/21 07/29/21 06:59 14:59 22:59 Other: Weight 90.718 kg Results CBC & Chem 7: 07/29/21 13:27 07/29/21 13:27 Labs: Abnormal Lab Results - Last 24 Hours (Table) 07/29/21 07/29/21 07/29/21 Range/Units 13:27 13:27 13:27 Lymphocytes # 0.4 L (1.0-4.8) k/uL PT 12.7 H (9.0-12.0) sec INR 1.2 H (<1.2) Sodium (137-145) mmol/L Potassium (3.5-5.1) mmol/L Chloride (98-107) mmol/L Carbon Dioxide (22-30) mmol/L BUN (9-20) mg/dL Glucose (74-99) mg/dL Calcium (8.4-10.2) mg/dL Total Protein (6.3-8.2) g/dL Albumin (3.5-5.0) g/dL Ur Specific [place] 1.038 H (1.001-1.035) Urine Protein 1+ H (Negative) Urine Ketones Trace H (Negative) Hyaline Casts 19 H (0-2) /lpf Urine Mucus Many H (None) /hpf 07/29/21 Range/Units 13:27 Lymphocytes # (1.0-4.8) k/uL PT (9.0-12.0) sec INR (<1.2) Sodium 135 L (137-145) mmol/L Potassium 3.2 L (3.5-5.1) mmol/L Chloride 108 H (98-107) mmol/L Carbon Dioxide 21 L (22-30) mmol/L BUN 27 H (9-20) mg/dL Glucose 117 H (74-99) mg/dL Calcium 8.2 L (8.4-10.2) mg/dL Total Protein 5.9 L (6.3-8.2) g/dL Albumin 3.1 L (3.5-5.0) g/dL Ur Specific [place] (1.001-1.035) Urine Protein (Negative) Urine Ketones (Negative) Hyaline Casts (0-2) /lpf Urine Mucus (None) /hpf
[2021-07-29] MEDS: ENOXAPARIN 40 MG/0.4 ML SYRINGE SQ SCH (17:04)
[2021-07-29] MEDS: CARBIDOPA-LEVODOPA 25-100 MG 1 EACH TAB PO SCH (20:09)
[2021-07-29] MEDS: METOPROLOL TARTRATE 25 MG TAB PO SCH (20:10)
[2021-07-29] MEDS: ATORVASTATIN 40 MG TAB PO SCH (20:10)
[2021-07-29] MEDS: ENTACAPONE 200 MG TAB PO SCH (20:58)
[2021-07-30] MEDS ORDERED: NON FORMULARY DRUG (Selenium [Selenium] 100 MCG Tablet) PO SCH (07:00)
[2021-07-30] MEDS: CYANOCOBALAMIN 500 MCG TAB PO SCH (08:29)
[2021-07-30] MEDS: ENTACAPONE 200 MG TAB PO SCH ×3 (08:29→19:58)
[2021-07-30] MEDS: CARBIDOPA-LEVODOPA 25-100 MG 1 EACH TAB PO SCH ×2 (08:29→15:17)
[2021-07-30] MEDS: CHOLECALCIFEROL 25 MCG (1000 IU) TABLET PO SCH (08:30)
[2021-07-30] MEDS: LEVOTHYROXINE 88 MCG TAB PO SCH (08:30)
[2021-07-30] MEDS: FOLIC ACID 1 MG TAB PO SCH (08:30)
[2021-07-30] MEDS: ENOXAPARIN 40 MG/0.4 ML SYRINGE SQ SCH (08:30)
[2021-07-30] MEDS: ASCORBIC ACID 500 MG TAB PO SCH (08:30)
[2021-07-30] MEDS: ASPIRIN 81 MG PO SCH (08:30)
[2021-07-30] MEDS: MULTIVITAMINS, THERA 1 EACH TAB PO SCH (08:30)
[2021-07-30] MEDS: METOPROLOL TARTRATE 25 MG TAB PO SCH ×2 (08:30→19:57)
[2021-07-30] MEDS: ZINC SULFATE 220 MG CAP PO SCH (08:30)
[2021-07-30] MEDS: ISOSORBIDE MONONITRATE ER 30 MG TAB.ER.24H PO SCH (08:30)
[2021-07-30] MEDS: DIVALPROEX 250 MG TABLET.DR PO SCH (08:32)
[2021-07-30] MEDS: CARBIDOPA-LEVODOPA ER 50-200MG 1 EACH TABLET.ER PO SCH ×2 (11:02→22:34)
[2021-07-30] MEDS: ACETAMINOPHEN TAB 500 MG TAB PO PRN ×2 (11:05→15:18)
--- NOTE | 2021-07-30 11:36 | P.CNNES ---
History of Present Illness Consult date: 07/30/21 Requesting physician: Alec Giordano Reason for Consult: generalized weakness, parkinson's disease and inablility to ambulate History of Present Illness: This is a 66-year-old gentleman with medical history of Parkinson's disease, developed elderly, cervical and thoracic spinal stenosis and possible myelopathy, bilateral knee pain, coronary artery disease, diabetes, hypertension, hyperlipidemia who presented emergency department on 07/29/2021 for generalized weakness or falls. Patient is known to our neurology team and we've seen the patient last month in our hospital because of recurrent falls. On last visit which was a month ago, we recommended to continue sinement CR 50/200 twice a day and added the regular Sinemet 25/100 at 2 PM daily as well as Comtan 200mg tab three times daily added. But I don't see that patient is on Sinement CR 50/200 on EMR. Of note he was evaluated by our team last month for his falls were felt possibly due to Parkinson's as well as is a cervical and thoracic abnormality. Patient had MRI of the cervical and the thoracic spine which revealed the cervical and thoracic spondylosis and possible abnormal cord signal to suggest myelopathy. Orthopedic the was on board and that they decided not to pursue any surgical route and they discussed that with the family. Patient also had MRI lumbar spine and the patient had some small posterior disc herniation at the L4-L5 L5- S1 and mild left L5-S1 neuroforaminal narrowing. Was recommended to continue sintiment CR 50/200 twice a day and added the regular Sinemet 25/100 at 2 PM daily as well as Comtan 200mg tab three times daily added. Please refer to our notes for further details. Some of the current workup in our facility consisted of: Potassium 3.2, sodium is 135, creatinine is 0.7, serum glucose is 117, calcium is 8.2, AST and ADLs within normal limits, Plasma-Lyte gasping is 1.5 Urinalysis is negative for urinary tract infection. Other labs were reviewed. Review of Systems Review of system: The 12 point system was reviewed and apparent positive and negative per HPI. Past Medical History Past Medical History: Coronary Artery Disease (CAD), Cancer, Diabetes Mellitus, Hyperlipidemia, Hypertension, Thyroid Disorder Additional Past Medical History / Comment(s): Parkinson's ,developmental delay, hypothyroidism, coronary artery disease, vitamin D deficiency, Sister states Hx. of thyroid cancer. History of Any Multi-Drug Resistant Organisms: None Reported Past Surgical History: Coronary Bypass/CABG, Heart Catheterization With Stent Additional Past Surgical History / Comment(s): Coronary artery bypass grafting 4, thyroidectomy, cardiac stenting 2 in 2009, esophageal foreign body removal, Past Anesthesia/Blood Transfusion Reactions: No Reported Reaction Date of Last Stent Placement:: 2009 Past Psychological History: Anxiety Additional Psychological History / Comment(s): Intellectual Disability. Smoking Status: Never smoker Past Alcohol Use History: None Reported Past Drug Use History: None Reported - Past Family History Father Family Medical History: No Reported History Mother History Unknown: Yes Family Medical History: Coronary Artery Disease (CAD) Sister(s) Family Medical History: Cancer Additional Family Medical History / Comment(s): Breast Brother(s) Family Medical History: Cancer Additional Family Medical History / Comment(s): Prostate Medications and Allergies Home Medications Medication Instructions Recorded Confirmed Type Aspirin EC [Ecotrin Low Dose] 81 mg PO DAILY@0704/21/19 07/29/21 History Folic Acid 1 mg PO DAILY@69904/21/19 07/29/21 History Multivitamins, Thera [Multivitamin 1 tab PO DAILY@69904/21/19 07/29/21 History (formulary)] Levothyroxine Sodium [Synthroid] 175 mcg PO DAILY@0810/05/19 07/29/21 History Ammonium Lactate Cream [Lac-Hydrin 1 applic TOPICAL BID PRN 10/26/20 07/29/21 History 12% Cream] Cholecalciferol [Vitamin D3 (25 50 mcg PO DAILY@69910/26/20 07/29/21 History Mcg = 1000 Iu)] Cyanocobalamin (Vitamin B-12) 1,000 mcg PO DAILY@0710/26/20 07/29/21 History [Vitamin B-12] Divalproex [Depakote] 250 mg PO DAILY@69910/26/20 07/29/21 History Isosorbide Mononitrate ER [Imdur] 30 mg PO DAILY@0700 10/26/20 07/29/21 History Metoprolol Tartrate [Lopressor] 25 mg PO BID@0700,1900 10/26/20 07/29/21 History Acetaminophen [Tylenol] 500 mg PO Q4-6H PRN 06/22/21 07/29/21 History Ascorbic Acid [Vitamin C] 1,000 mg PO DAILY@0700 06/22/21 07/29/21 History Cetirizine HCl 10 mg PO DAILY@0700 06/22/21 07/29/21 History Ibuprofen [Motrin] 600 mg PO Q6HR PRN 06/22/21 07/29/21 History Loperamide HCl [Loperamide] 4 mg PO BID PRN 06/22/21 07/29/21 History Mupirocin 2% Oint [Bactroban 2% 1 applic TOPICAL BID PRN 06/22/21 07/29/21 History Oint] Selenium 200 mcg PO DAILY@0700 06/22/21 07/29/21 History Sodium Chloride [Saline Nasal 2 spray EA NOSTRIL DIRECTED PRN 06/22/21 07/29/21 History [place]] Triamcinolone 0.1% Ointment 1 applic TOPICAL BID PRN 06/22/21 07/29/21 History [Kenalog 0.1% Ointment] Atorvastatin [Lipitor] 40 mg PO HS@1900 07/29/21 07/29/21 History Carbidopa-Levodopa 25-100 mg 1 tab PO DAILY@1400 07/29/21 07/29/21 History [Sinemet 25-100 mg] Entacapone [Comtan] 200 mg PO TID@0700,1400,1900 07/29/21 07/29/21 History Zinc 50 mg PO DAILY@0700 07/29/21 07/29/21 History Allergies Allergy/AdvReac Type Severity Reaction Status Date / Time No Known Allergies Allergy Verified 07/29/21 14:57 Physical Examination - Vital Signs Vital Signs: Vital Signs Temp Pulse Pulse Resp BP BP Pulse Ox 07/30/21 08:00 97.4 F L 72 18 114/69 94 L 07/30/21 02:30 16 07/30/21 02:00 98.4 F 64 16 120/72 97 07/29/21 20:07 85 16 117/75 95 07/29/21 15:16 87 17 102/66 94 L 07/29/21 12:47 98.5 F 80 16 103/68 95 Intake and Output 07/29/21 07/30/21 07/30/21 22:59 06:59 14:59 Other: # Bowel Movements 1 Weight 90.718 kg GENERAL: The patient is lying in bed and is not in acute distress. CHEST: The heart rate is regular rate rhythm. No murmurs to auscultation. LUNG: Clear to auscultation bilaterally no wheezing noted throughout. Not labored breathing. ABDOMEN/GI: Bowel sounds present in all 4 quadrants. No tenderness to palpation throughout. NEUROLOGICAL: Higher mental function: The patient is awake, alert, oriented to self. He stated he was in the hospital but did not know name. He correctly stated the month but stated the year is in . He is mildly slow to respond. Patient is following commands. No aphasia and no neglect. Cranial nerves: The pupils are round, equal and reactive to light. Visual husain are full to confrontation throughout. Extraocular movement is intact no nystagmus is noted. Facial sensation is normal to touch throughout. The facial strength is normal throughout. Hearing is moderately decreased bilaterally to hand rub. Tongue is midline and moved [id number] without any difficulty. No dysarthria is noted. Shoulder shrug is normal bilaterally. Motor: The strength is lifting all extremities above gravity and no drift noted. Has increased tone over bilateral wrist and elbow that is moderate in severity. Otherwise normal bulk. Cerebellum: Normal finger to nose heel to ivory bilaterally. Sensation: Sensation is normal to touch throughout. Reflexes (right/left): 2+ throughout. Plantars are mute bilaterally. Results - Laboratory Findings CBC and BMP: 07/29/21 13:27 07/29/21 13:27 Abnormal Lab Findings: Abnormal Labs 07/29/21 07/29/21 07/29/21 13:27 13:27 13:27 Lymphocytes # 0.4 L PT 12.7 H INR 1.2 H Sodium Potassium Chloride Carbon Dioxide BUN Glucose Calcium Total Protein Albumin Ur Specific [place] 1.038 H Urine Protein 1+ H Urine Ketones Trace H Hyaline Casts 19 H Urine Mucus Many H 07/29/21 13:27 Lymphocytes # PT INR Sodium 135 L Potassium 3.2 L Chloride 108 H Carbon Dioxide 21 L BUN 27 H Glucose 117 H Calcium 8.2 L Total Protein 5.9 L Albumin 3.1 L Ur Specific [place] Urine Protein Urine Ketones Hyaline Casts Urine Mucus Assessment and Plan Assessment: Recurrent falls: Seems due to Parkinson's (since it appears undermedicated and did not received sinement CR 50/200 twice a day which can worsen his Parkison's). Cannot rule out possibility of a component of his and cervical/thoracic spondylosis and possible myelopathy (patient had extensive testing by our team about a month ago). Cervical and thoracic spinal stenosis and possible myelopathy and orthopedic team decided medical management. Parkinson's disease Developemental delay Bilateral knee pain History of coronary artery disease Diabetes mellitus History of hypertension and is normotensive History of hyperlipidemia Plan: Continue sinement CR 50/200 twice a day and added the regular Sinemet 25/100 at 2 PM daily as well as Comtan 200mg tab three times daily TSH is ordered by the primary team is pending I ordered orthostatic vitals PT and OT is consulted Every 4 hours neuro checks Patient is on fall precaution I'll not repeat any imaging of his back since he had MRI of the cervical tho racic and lumbar last month. We'll defer the rest of the medical management to the primary team The plan is discussed with the Primary attending. Thank you for the consultation Elmo He M.D. Neuro-hospitalist Time with Patient: Greater than 30
--- NOTE | 2021-07-30 17:19 | P.PN ---
Progress Note - Text Progress Note Date: 07/30/21 Chief Complaint: Fall History of presenting complaint: This is a 66-year-old patient who follows with Dr. Islas. Chronic stable medical conditions include CAD with history of bypass and stent, diabetes, hypertension, hyperlipidemia, Parkinson's, hypothyroid vitamin D deficiency. Patient's had thyroid cancer with thyroidectomy. Patient has underlying intellectual disability. Does use a walker to get about. His sister Farrah is POA. Patient is a resident of [facility] Patient was sent in because as reported by the EMS [facility] informed them that patient been having increasing weakness due to his Parkinson's final resulting in a fall today. Patient fell on his knees in the bathroom and with the help of the staff is able to get into a wheelchair. Did not hit his head. No chest pain or palpitation. Sometimes gets dizzy on standing up. No fever no chills. No urinary symptoms. Appetite is fair. Admitted with Parkinson's disease exacerbation. July 30: Discussed with Dr. He from neurology. Apparently on last admission patient was discharged on Sinemet twice daily. Patient being put back on that dose. PTOT consulted. Eating about 35%. Active Medications Acetaminophen (Acetaminophen Tab 500 Mg Tab) 500 mg PO Q4H PRN PRN Reason: Fever and/ or Pain Last Admin: 07/30/21 15:18 Dose: 500 mg Documented by: Ascorbic Acid (Ascorbic Acid 500 Mg Tab) 1,000 mg PO DAILY@0700 [facility] Last Admin: 07/30/21 08:30 Dose: 1,000 mg Documented by: Aspirin (Aspirin 81 Mg) 81 mg PO DAILY@0700 [facility] Last Admin: 07/30/21 08:30 Dose: 81 mg Documented by: Atorvastatin Calcium (Atorvastatin 40 Mg Tab) 40 mg PO HS@1900 [facility] Last Admin: 07/29/21 20:10 Dose: 40 mg Documented by: Calcium Carbonate/Glycine (Calcium Carbonate 500 Mg Chewable) 1,000 mg PO Q4HR PRN PRN Reason: Dyspepsia Carbidopa/Levodopa (Carbidopa-Levodopa Er 50-200mg 1 Each Tablet.Er) 1 each PO BID [facility] Last Admin: 07/30/21 11:02 Dose: 1 each Documented by: Carbidopa/Levodopa (Carbidopa-Levodopa 25-100 Mg 1 Each Tab) 1 each PO DAILY @1400 [facility] Last Admin: 07/30/21 15:17 Dose: 1 each Documented by: Cholecalciferol (Cholecalciferol 25 Mcg (1000 Iu) Tablet) 50 mcg PO DAILY@0700 [facility] Last Admin: 07/30/21 08:30 Dose: 50 mcg Documented by: Cyanocobalamin (Cyanocobalamin 500 Mcg Tab) 1,000 mcg PO DAILY@0700 [facility] Last Admin: 07/30/21 08:29 Dose: 1,000 mcg Documented by: Divalproex Sodium (Divalproex 250 Mg Tablet.Dr) 250 mg PO DAILY@0700 [facility] Last Admin: 07/30/21 08:32 Dose: 250 mg Documented by: Enoxaparin Sodium (Enoxaparin 40 Mg/0.4 Ml Syringe) 40 mg SQ DAILY [facility] Last Admin: 07/30/21 08:30 Dose: 40 mg Documented by: Entacapone (Entacapone 200 Mg Tab) 200 mg PO TID@0700,1400,1900 [facility] Last Admin: 07/30/21 15:17 Dose: 200 mg Documented by: Folic Acid (Folic Acid 1 Mg Tab) 1 mg PO DAILY@0700 [facility] Last Admin: 07/30/21 08:30 Dose: 1 mg Documented by: Sodium Chloride (Saline 0.9%) 1,000 mls @ 75 mls/hr IV .[id number] [facility] Last Admin: 07/29/21 15:17 Dose: 75 mls/hr Documented by: Isosorbide Mononitrate (Isosorbide Mononitrate Er 30 Mg Tab.Er.24h) 30 mg PO DAILY@0700 [facility] Last Admin: 07/30/21 08:30 Dose: 30 mg Documented by: Lactic Acid (Ammonium Lactate 12% Cream 140 Gm Tube) 1 applic TOPICAL BID PRN; Protocol PRN Reason: DRY SKIN ON FEET Lactulose (Lactulose 20 Gm/30 Ml Cup) 20 gm PO DAILY PRN PRN Reason: Constipation Levothyroxine Sodium (Levothyroxine 88 Mcg Tab) 176 mcg PO DAILY@0800 [facility] Last Admin: 07/30/21 08:30 Dose: 176 mcg Documented by: Loperamide HCl (Loperamide 2 Mg Cap) 4 mg PO BID PRN PRN Reason: Diarrhea Melatonin (Melatonin 3 Mg Tablet) 3 mg PO HS PRN PRN Reason: Insomnia Metoprolol Tartrate (Metoprolol Tartrate 25 Mg Tab) 25 mg PO BID@0700,1900 [facility] Last Admin: 07/30/21 08:30 Dose: 25 mg Documented by: Multivitamins (Multivitamins, Thera 1 Each Tab) 1 each PO DAILY@0700 [facility] Last Admin: 07/30/21 08:30 Dose: 1 each Documented by: Naloxone HCl (Naloxone 0.4 Mg/Ml 1 Ml Vial) 0.2 mg IV Q2M PRN PRN Reason: Opioid Reversal Ondansetron HCl (Ondansetron 4 Mg/2 Ml Vial) 4 mg IVP Q8HR PRN PRN Reason: Nausea And Vomiting Triamcinolone Acetonide (Triamcinolone Acet 0.1% Ointment 15 Gm Tube) 1 applic TOPICAL BID PRN; Protocol PRN Reason: Skin Irritation Zinc Sulfate (Zinc Sulfate 220 Mg Cap) 220 mg PO DAILY@0700 [facility] Last Admin: 07/30/21 08:30 Dose: 220 mg Documented by: Past medical history to include: CAD with history of bypass and stent, diabetes, hyperlipidemia, hypertension, thyroid cancer with thyroidectomy now hypothyroid, Parkinson's disease, developmental delay vitamin D deficiency Social history: Lives at [facility]. No smoking or alcohol. Does use a walker. POA: Sister Farrah Family history: Breast cancer Physical examination: VITAL SIGNS: 97.9, 77, 18, 115/70, 95% room air GENERAL: Reclining in bed, awake, comfortable EYES: Pupils equal. Conjunctiva normal. HEENT: External appearance of nose and ears normal, oral cavity grossly normal some loss of muscles on the temporal. NECK: JVD not raised; masses not palpable. HEART: First and second heart sounds are normal; no edema. LUNGS: Respiratory rate normal; clear to auscultation. ABDOMEN: Soft, nontender, liver spleen not palpable, no masses palpable. PSYCH: [Patient is able to answer simple questions l. MUSCULOSKELETAL:No Clubbing/cyanosis;muscles-grossly intact NEUROLOGICAL: Cranial nerves grossly intact; no facial asymmetry, power and sensation grossly intact. Speaks in a monotone. Bradykinesia. INVESTIGATIONS, reviewed in the clinical context: White count 4.6 hemoglobin 14.8 platelets 201 sodium 135 potassium 3.2 BUN 27 creatinine 0.7 Albumin 3.1 UA positive for ketones trace EKG tracing personally reviewed by me-normal sinus rhythm with PVCs Chest x-ray film personally reviewed by me-possible atelectasis Assessment and plan: -Idiopathic Parkinson's disease with acute exacerbation. Patient has been progressively getting weak over the last few weeks. Patient was discharged on Sinemet twice daily. Only receiving once a day at home. Change Sinemet 25/100 to 3 times a day. [place] 200 mg 3 times a day. PTOT. -Chronic gait dysfunction secondary to Parkinson's disease PT OT. Fall precautions -Rule out orthostatic -Essential hypertension Lopressor 25 mg twice a day -Hypothyroid from prior thyroidectomy for thyroid cancer Synthroid 175 g a day. Check TSH -CAD with a prior history of bypass and stent Lopressor. Aspirin 81 mg a day -Diabetes mellitus type 2 -Hyperlipidemia -Developmental delay -Power of admitted attorneys: Sister./Farrah Discussed with Dr. He from neurology. Sinemet changed to 3 times a day. Other medications to continue. PTOT. Follow -
[2021-07-30] MEDS: ATORVASTATIN 40 MG TAB PO SCH (19:58)
[2021-07-30] MEDS: SODIUM CHLORIDE 0.9% 1,000 ML IV SCH (22:35)
[2021-07-31 07:05] LABS: African American GFR (CKD) >90 (>60 ml/min/1.73 sqM); Anion Gap 1 mmol/L; Blood Urea Nitrogen 14 mg/dL (9-20); Carbon Dioxide 27 mmol/L (22-30); Chloride 111 mmol/L (98-107); Glucose 103 mg/dL (74-99); Non-African American GFR(CKD) >90 (>60 ml/min/1.73 sqM); Potassium 3.2 mmol/L (3.5-5.1); Sodium 139 mmol/L (137-145)
[2021-07-31] MEDS: ASCORBIC ACID 500 MG TAB PO SCH (08:01)
[2021-07-31] MEDS: CYANOCOBALAMIN 500 MCG TAB PO SCH (08:01)
[2021-07-31] MEDS: ISOSORBIDE MONONITRATE ER 30 MG TAB.ER.24H PO SCH (08:01)
[2021-07-31] MEDS: ZINC SULFATE 220 MG CAP PO SCH (08:01)
[2021-07-31] MEDS: ASPIRIN 81 MG PO SCH (08:01)
[2021-07-31] MEDS: METOPROLOL TARTRATE 25 MG TAB PO SCH ×2 (08:02→20:45)
[2021-07-31] MEDS: FOLIC ACID 1 MG TAB PO SCH (08:02)
[2021-07-31] MEDS: DIVALPROEX 250 MG TABLET.DR PO SCH (08:02)
[2021-07-31] MEDS: CHOLECALCIFEROL 25 MCG (1000 IU) TABLET PO SCH (08:02)
[2021-07-31] MEDS: ENOXAPARIN 40 MG/0.4 ML SYRINGE SQ SCH (08:03)
[2021-07-31] MEDS: CARBIDOPA-LEVODOPA ER 50-200MG 1 EACH TABLET.ER PO SCH ×2 (08:03→20:47)
[2021-07-31] MEDS: ENTACAPONE 200 MG TAB PO SCH ×3 (08:03→18:18)
[2021-07-31] MEDS: MULTIVITAMINS, THERA 1 EACH TAB PO SCH (08:03)
[2021-07-31] MEDS: LEVOTHYROXINE 88 MCG TAB PO SCH (08:04)
[2021-07-31] MEDS: SODIUM CHLORIDE 0.9% 1,000 ML IV SCH ×2 (08:07→20:47)
[2021-07-31] MEDS: CARBIDOPA-LEVODOPA 25-100 MG 1 EACH TAB PO SCH (13:04)
[2021-07-31] MEDS: ACETAMINOPHEN TAB 500 MG TAB PO PRN ×2 (13:07→20:51)
[2021-07-31] MEDS ORDERED: POTASSIUM CHLORIDE ER 20 MEQ TAB.ER PO STA (15:43)
--- NOTE | 2021-07-31 15:48 | P.PN ---
Progress Note - Text Progress Note Date: 07/31/21 Chief Complaint: Fall History of presenting complaint: This is a 66-year-old patient who follows with Dr. Islas. Chronic stable medical conditions include CAD with history of bypass and stent, diabetes, hypertension, hyperlipidemia, Parkinson's, hypothyroid vitamin D deficiency. Patient's had thyroid cancer with thyroidectomy. Patient has underlying intellectual disability. Does use a walker to get about. His sister Farrah is POA. Patient is a resident of [facility] Patient was sent in because as reported by the EMS [facility] informed them that patient been having increasing weakness due to his Parkinson's final resulting in a fall today. Patient fell on his knees in the bathroom and with the help of the staff is able to get into a wheelchair. Did not hit his head. No chest pain or palpitation. Sometimes gets dizzy on standing up. No fever no chills. No urinary symptoms. Appetite is fair. Admitted with Parkinson's disease exacerbation. July 30: Discussed with Dr. He from neurology. Apparently on last admission patient was discharged on Sinemet twice daily. Patient being put back on that dose. PTOT consulted. Eating about 35%. July 31: Patient is requiring maximal assist. Oral intake fair. Will discuss with neurology. If further adjustment needed. Active Medications Acetaminophen (Acetaminophen Tab 500 Mg Tab) 500 mg PO Q4H PRN PRN Reason: Fever and/ or Pain Last Admin: 07/31/21 13:07 Dose: 500 mg Documented by: Ascorbic Acid (Ascorbic Acid 500 Mg Tab) 1,000 mg PO DAILY@0700 [facility] Last Admin: 07/31/21 08:01 Dose: 1,000 mg Documented by: Aspirin (Aspirin 81 Mg) 81 mg PO DAILY@0700 [facility] Last Admin: 07/31/21 08:01 Dose: 81 mg Documented by: Atorvastatin Calcium (Atorvastatin 40 Mg Tab) 40 mg PO HS@1900 [facility] Last Admin: 07/30/21 19:58 Dose: 40 mg Documented by: Calcium Carbonate/Glycine (Calcium Carbonate 500 Mg Chewable) 1,000 mg PO Q4HR PRN PRN Reason: Dyspepsia Carbidopa/Levodopa (Carbidopa-Levodopa Er 50-200mg 1 Each Tablet.Er) 1 each PO BID [facility] Last Admin: 07/31/21 08:03 Dose: 1 each Documented by: Carbidopa/Levodopa (Carbidopa-Levodopa 25-100 Mg 1 Each Tab) 1 each PO DAILY@1400 [facility] Last Admin: 07/31/21 13:04 Dose: 1 each Documented by: Cholecalciferol (Cholecalciferol 25 Mcg (1000 Iu) Tablet) 50 mcg PO DAILY@0700 [facility] Last Admin: 07/31/21 08:02 Dose: 50 mcg Documented by: Cyanocobalamin (Cyanocobalamin 500 Mcg Tab) 1,000 mcg PO DAILY@0700 [facility] Last Admin: 07/31/21 08:01 Dose: 1,000 mcg Documented by: Divalproex Sodium (Divalproex 250 Mg Tablet.Dr) 250 mg PO DAILY@0700 [facility] Last Admin: 07/31/21 08:02 Dose: 250 mg Documented by: Enoxaparin Sodium (Enoxaparin 40 Mg/0.4 Ml Syringe) 40 mg SQ DAILY [facility] Last Admin: 07/31/21 08:03 Dose: 40 mg Documented by: Entacapone (Entacapone 200 Mg Tab) 200 mg PO TID@0700,1400,1900 [facility] Last Admin: 07/31/21 13:04 Dose: 200 mg Documented by: Folic Acid (Folic Acid 1 Mg Tab) 1 mg PO DAILY@0700 [facility] Last Admin: 07/31/21 08:02 Dose: 1 mg Documented by: Sodium Chloride (Saline 0.9%) 1,000 mls @ 75 mls/hr IV .[id number] [facility] Last Admin: 07/31/21 08:07 Dose: 75 mls/hr Documented by: Isosorbide Mononitrate (Isosorbide Mononitrate Er 30 Mg Tab.Er.24h) 30 mg PO DAILY@0700 [facility] Last Admin: 07/31/21 08:01 Dose: 30 mg Documented by: Lactic Acid (Ammonium Lactate 12% Cream 140 Gm Tube) 1 applic TOPICAL BID PRN; Protocol PRN Reason: DRY SKIN ON FEET Lactulose (Lactulose 20 Gm/30 Ml Cup) 20 gm PO DAILY PRN PRN Reason: Constipation Levothyroxine Sodium (Levothyroxine 88 Mcg Tab) 176 mcg PO DAILY@0800 [facility] Last Admin: 07/31/21 08:04 Dose: 176 mcg Documented by: Loperamide HCl (Loperamide 2 Mg Cap) 4 mg PO BID PRN PRN Reason: Diarrhea Melatonin (Melatonin 3 Mg Tablet) 3 mg PO HS PRN PRN Reason: Insomnia Metoprolol Tartrate (Metoprolol Tartrate 25 Mg Tab) 25 mg PO BID@0700,1900 [facility] Last Admin: 07/31/21 08:02 Dose: 25 mg Documented by: Multivitamins (Multivitamins, Thera 1 Each Tab) 1 each PO DAILY@0700 [facility] Last Admin: 07/31/21 08:03 Dose: 1 each Documented by: Naloxone HCl (Naloxone 0.4 Mg/Ml 1 Ml Vial) 0.2 mg IV Q2M PRN PRN Reason: Opioid Reversal Ondansetron HCl (Ondansetron 4 Mg/2 Ml Vial) 4 mg IVP Q8HR PRN PRN Reason: Nausea And Vomiting Triamcinolone Acetonide (Triamcinolone Acet 0.1% Ointment 15 Gm Tube) 1 applic TOPICAL BID PRN; Protocol PRN Reason: Skin Irritation Zinc Sulfate (Zinc Sulfate 220 Mg Cap) 220 mg PO DAILY@0700 [facility] Last Admin: 07/31/21 08:01 Dose: 220 mg Documented by: Past medical history to include: CAD with history of bypass and stent, diabetes, hyperlipidemia, hypertension, thyroid cancer with thyroidectomy now hypothyroid, Parkinson's disease, developmental delay vitamin D deficiency Social history: Lives at [facility]. No smoking or alcohol. Does use a walker. POA: Sister Farrah Family history: Breast cancer Physical examination: VITAL SIGNS: 98, 57, 17, 122.72, 97% room air GENERAL: Reclining in bed, awake, comfortable EYES: Pupils equal. Conjunctiva normal. HEENT: External appearance of nose and ears normal, oral cavity grossly normal some loss of muscles on the temporal. NECK: JVD not raised; masses not palpable. HEART: First and second heart sounds are normal; no edema. LUNGS: Respiratory rate normal; clear to auscultation. ABDOMEN: Soft, nontender, liver spleen not palpable, no masses palpable. PSYCH: [Patient is able to answer simple questions l. MUSCULOSKELETAL:No Clubbing/cyanosis;muscles-grossly intact NEUROLOGICAL: Cranial nerves grossly intact; no facial asymmetry, power and sensation grossly intact. Speaks in a monotone. Bradykinesia. INVESTIGATIONS, reviewed in the clinical context: July 31: Potassium 3.2 creatinine 0.58 TSH: 0.355 White count 4.6 hemoglobin 14.8 platelets 201 sodium 135 potassium 3.2 BUN 27 creatinine 0.7 Albumin 3.1 UA positive for ketones trace EKG tracing personally reviewed by me-normal sinus rhythm with PVCs Chest x-ray film personally reviewed by me-possible atelectasis Assessment and plan: -Idiopathic Parkinson's disease with acute exacerbation. Patient has been progressively getting weak over the last few weeks. Patient was discharged on Sinemet twice daily. Only receiving once a day at home.: Was told to respond Sinemet 25/100 to 3 times a day. [place] 200 mg 3 times a day. PTOT. -Chronic gait dysfunction secondary to Parkinson's disease PT OT. Fall precautions -Rule out orthostatic -Essential hypertension Lopressor 25 mg twice a day -Hypothyroid from prior thyroidectomy for thyroid cancer: Uncontrolled with over replacement. Decrease Synthroid 137 g a day. -CAD with a prior history of bypass and stent Lopressor. Aspirin 81 mg a day -Hyperlipidemia Lipitor 40 mg daily at bedtime -Developmental delay -Power of energy attorney: Sister./Farrah Patient is requiring maximum assist. We will discuss with neurology. Cutback Synthroid to 137 g.
--- NOTE | 2021-07-31 16:19 | EEG ---
ELECTROENCEPHALOGRAM REPORT DATE OF SERVICE: 07/31/2021 PREAMBLE: This is a 66-year-old male with Parkinson's disease, generalized weakness, came with a fall. This study is performed to evaluate for any epileptiform activity. EEG FINDINGS: This is a 21-channel digital EEG recorded with video competent, utilizing 10/20 international system with referential and bipolar montages. Background consists of moderately well developed, poorly regulated, mixed frequencies of theta, intermixed with 2 hertz low-amplitude delta activity. Background does not seem to be reactive to eye opening or closing. Photic driving response was not seen. Hyperventilation was not done. Different stages of sleep were not clearly seen. No focal or generalized epileptiform activity was seen. EKG channel showed no obvious arrhythmia. IMPRESSION: This is an abnormal EEG due to background slowing of moderate degree. This is suggestive of generalized cerebral dysfunction as can be seen with toxic metabolic encephalopathy or related to diffuse structural brain abnormality. No epileptiform activity was seen. MMODL / IJN: [id number] /
[2021-07-31] MEDS: ATORVASTATIN 40 MG TAB PO SCH (18:18)
[2021-07-31 20:28] LABS: Glucose,Whole Blood 138 mg/dL (75-99)
[2021-08-01] MEDS: LEVOTHYROXINE 137 MCG TAB PO SCH (05:24)
[2021-08-01 07:08] LABS: Glucose,Whole Blood 143 mg/dL (75-99)
[2021-08-01] MEDS: ENOXAPARIN 40 MG/0.4 ML SYRINGE SQ SCH (07:32)
[2021-08-01] MEDS: CARBIDOPA-LEVODOPA ER 50-200MG 1 EACH TABLET.ER PO SCH ×2 (07:32→20:04)
[2021-08-01] MEDS: FOLIC ACID 1 MG TAB PO SCH (07:33)
[2021-08-01] MEDS: CHOLECALCIFEROL 25 MCG (1000 IU) TABLET PO SCH (07:33)
[2021-08-01] MEDS: ZINC SULFATE 220 MG CAP PO SCH (07:33)
[2021-08-01] MEDS: ASPIRIN 81 MG PO SCH (07:33)
[2021-08-01] MEDS: CYANOCOBALAMIN 500 MCG TAB PO SCH (07:33)
[2021-08-01] MEDS: ASCORBIC ACID 500 MG TAB PO SCH (07:33)
[2021-08-01] MEDS: DIVALPROEX 250 MG TABLET.DR PO SCH (07:33)
[2021-08-01] MEDS: ISOSORBIDE MONONITRATE ER 30 MG TAB.ER.24H PO SCH (07:33)
[2021-08-01] MEDS: MULTIVITAMINS, THERA 1 EACH TAB PO SCH (07:33)
[2021-08-01] MEDS: ENTACAPONE 200 MG TAB PO SCH ×3 (07:33→20:04)
[2021-08-01] MEDS: METOPROLOL TARTRATE 25 MG TAB PO SCH ×2 (07:34→19:58)
[2021-08-01] MEDS ORDERED: Potassium Replacement Protocol 1 EACH MISC MISCELLANE PRN (09:54)
--- NOTE | 2021-08-01 11:11 | P.PN ---
Subjective Progress Note Date: 07/31/21 Patient initially seen by Dr. Elmo He. Please refer to his note for details. Patient is a 66-year-old male with history of Parkinson's disease, developmental delay, came to the hospital because of a fall. Patient's sister is his guardian. Patient is also known to me from previous admission to the hospital. Patient has history of Parkinson's disease. Patient also has significant cervical spina l stenosis. Patient at present is laying comfortably in the bed, offers no complaints. Objective - Vital Signs Vital signs: Vital Signs Temp 98.0 F 07/31/21 14:00 Pulse 57 L 07/31/21 14:00 Resp 17 07/31/21 14:00 BP 122/72 07/31/21 14:00 Pulse Ox 97 07/31/21 14:00 Intake & Output 07/30/21 07/31/21 07/31/21 18:59 06:59 18:59 Intake Total 1560 Balance 1560 Intake: Oral 1560 Other: # Voids 3 5 3 # Bowel Movements 1 1 2 - Exam Patient is alert and awake. Speech and language functions appears normal. Detail testing deferred. Detail cognitive function testing deferred. Patient speaks with low volume. Muscle strength is normal in the arms and legs distally and proximally except hip flexion which is 4+ bilaterally. Tone is moderately increased in the arms bilaterally. Reflexes are (right/left) biceps 1/1, brachioradialis 0/trace, knee 3/2+, ankles 1/1 and plantar is up on the right whereas flat on the left. Gait deferred. - Labs CBC & Chem 7: 07/29/21 13:27 07/31/21 06:06 Labs: Abnormal Lab Results - Last 24 Hours (Table) 07/31/21 Range/Units 06:06 Potassium 3.2 L (3.5-5.1) mmol/L Chloride 111 H (98-107) mmol/L Creatinine 0.58 L (0.66-1.25) mg/dL Glucose 103 H (74-99) mg/dL Calcium 8.0 L (8.4-10.2) mg/dL Assessment and Plan Assessment: Recurrent falls, likely multifactorial: Patient has at least moderate Parkinsonism, also has significant cervical spondylosis with some myelopathy, which may be the cause of the falls. Patient was suboptimally treated as per Dr. He's note. Patient had extensive testing by our team about a month ago. Cervical and thoracic spinal stenosis and possible myelopathy and orthopedic team decided medical management. Parkinson's disease Developemental delay Bilateral knee pain History of coronary artery disease Diabetes mellitus History of hypertension and is normotensive History of hyperlipidemia Plan: Continue sinement CR 50/200 twice a day and added the regular Sinemet 25/100 at 2 PM daily as well as Comtan 200mg tab three times daily Patient's previous workup revealed B12 795, folate > 20, RPR negative. Methylmalonic acid normal <0.10. Vitamin B6 is 9 (5-50). TSH is normal now 0.355. MRI lumbar spine from 06/26/2021 showed small posterior disc herniation at L4 5 and L5-S1. No spinal stenosis. Mild left-sided L5-S1 neural foraminal narrowing. MRI of cervical spine from 06/23/2021 showed abnormal cord signal to suggest myelopathy. I think there is a typographical error, as there should be "no abnormal cord signal to suggest myelopathy". At C5-C6 and C6-C7 moderate spinal canal stenosis secondary to disc osteophyte and ligamentum flavum buckling/hypertrophy. On my review, there is definite evidence of spinal stenosis at C5-C6 and C6-C7 levels. There is left paramedian disc bulge/protrusion producing significant spinal stenosis mainly on the left half side of the spinal cord. Orthopedic surgery recommended medical management. MRI of thoracic spine 06/23/2021 showed T9 vertebral body acute Schmorl's node with reactive changes. No significant spinal stenosis. Check orthostatic vitals PT and OT is consulted Patient is on fall precaution. Patient probably will remain in fall risk due to the reasons mentioned above.
[2021-08-01 11:47] LABS: Glucose,Whole Blood 133 mg/dL (75-99)
[2021-08-01] MEDS ORDERED: POTASSIUM CHLORIDE ER 20 MEQ TAB.ER PO STA (12:49)
[2021-08-01] MEDS: CARBIDOPA-LEVODOPA 25-100 MG 1 EACH TAB PO SCH (13:05)
--- NOTE | 2021-08-01 15:46 | P.PN ---
Progress Note - Text Progress Note Date: 08/01/21 Chief Complaint: Fall History of presenting complaint: This is a 66-year-old patient who follows with Dr. Islas. Chronic stable medical conditions include CAD with history of bypass and stent, diabetes, hypertension, hyperlipidemia, Parkinson's, hypothyroid vitamin D deficiency. Patient's had thyroid cancer with thyroidectomy. Patient has underlying intellectual disability. Does use a walker to get about. His sister Farrah is POA. Patient is a resident of [facility] Patient was sent in because as reported by the EMS [facility] informed them that patient been having increasing weakness due to his Parkinson's final resulting in a fall today. Patient fell on his knees in the bathroom and with the help of the staff is able to get into a wheelchair. Did not hit his head. No chest pain or palpitation. Sometimes gets dizzy on standing up. No fever no chills. No urinary symptoms. Appetite is fair. Admitted with Parkinson's disease exacerbation. July 30: Discussed with Dr. He from neurology. Apparently on last admission patient was discharged on Sinemet twice daily. Patient being put back on that dose. PTOT consulted. Eating about 35%. July 31: Patient is requiring maximal assist. Oral intake fair. Will discuss with neurology. If further adjustment needed. August 01: Patient still requiring full assist. Dose of Sinemet adjusted by Dr. Moulton. PTOT on the case. Patient also cervical canal stenosis. Was seen by orthopedics on last admission. No intervention. Will need rehab Active Medications Acetaminophen (Acetaminophen Tab 500 Mg Tab) 500 mg PO Q4H PRN PRN Reason: Fever and/ or Pain Last Admin: 07/31/21 20:51 Dose: 500 mg Documented by: Ascorbic Acid (Ascorbic Acid 500 Mg Tab) 1,000 mg PO DAILY@0700 [facility] Last Admin: 08/01/21 07:33 Dose: 1,000 mg Documented by: Aspirin (Aspirin 81 Mg) 81 mg PO DAILY@0700 [facility] Last Admin: 08/01/21 07:33 Dose: 81 mg Documented by: Atorvastatin Calcium (Atorvastatin 40 Mg Tab) 40 mg PO HS@1900 [facility] Last Admin: 07/31/21 18:18 Dose: 40 mg Documented by: Calcium Carbonate/Glycine (Calcium Carbonate 500 Mg Chewable) 1,000 mg PO Q4HR PRN PRN Reason: Dyspepsia Carbidopa/Levodopa (Carbidopa-Levodopa Er 50-200mg 1 Each Tablet.Er) 1 each PO BID [facility] Last Admin: 08/01/21 07:32 Dose: 1 each Documented by: Carbidopa/Levodopa (Carbidopa-Levodopa 25-100 Mg 1 Each Tab) 1 each PO BID@0800,1400 [facility] Last Admin: 08/01/21 13:05 Dose: 1 each Documented by: Cholecalciferol (Cholecalciferol 25 Mcg (1000 Iu) Tablet) 50 mcg PO DAILY@0700 [facility] Last Admin: 08/01/21 07:33 Dose: 50 mcg Documented by: Cyanocobalamin (Cyanocobalamin 500 Mcg Tab) 1,000 mcg PO DAILY@0700 [facility] Last Admin: 08/01/21 07:33 Dose: 1,000 mcg Documented by: Divalproex Sodium (Divalproex 250 Mg Tablet.Dr) 250 mg PO DAILY@0700 [facility] Last Admin: 08/01/21 07:33 Dose: 250 mg Documented by: Enoxaparin Sodium (Enoxaparin 40 Mg/0.4 Ml Syringe) 40 mg SQ DAILY [facility] Last Admin: 08/01/21 07:32 Dose: 40 mg Documented by: Entacapone (Entacapone 200 Mg Tab) 200 mg PO TID@0700,1400,1900 [facility] Last Admin: 08/01/21 13:05 Dose: 200 mg Documented by: Folic Acid (Folic Acid 1 Mg Tab) 1 mg PO DAILY@0700 [facility] Last Admin: 08/01/21 07:33 Dose: 1 mg Documented by: Sodium Chloride (Saline 0.9%) 1,000 mls @ 75 mls/hr IV .[id number] [facility] Last Admin: 07/31/21 20:47 Dose: 75 mls/hr Documented by: Isosorbide Mononitrate (Isosorbide Mononitrate Er 30 Mg Tab.Er.24h) 30 mg PO DAILY@0700 [facility] Last Admin: 08/01/21 07:33 Dose: 30 mg Documented by: Lactic Acid (Ammonium Lactate 12% Cream 140 Gm Tube) 1 applic TOPICAL BID PRN; Protocol PRN Reason: DRY SKIN ON FEET Lactulose (Lactulose 20 Gm/30 Ml Cup) 20 gm PO DAILY PRN PRN Reason: Constipation Levothyroxine Sodium (Levothyroxine 137 Mcg Tab) 137 mcg PO DAILY@0630 [facility] Last Admin: 08/01/21 05:24 Dose: 137 mcg Documented by: Loperamide HCl (Loperamide 2 Mg Cap) 4 mg PO BID PRN PRN Reason: Diarrhea Melatonin (Melatonin 3 Mg Tablet) 3 mg PO HS PRN PRN Reason: Insomnia Metoprolol Tartrate (Metoprolol Tartrate 25 Mg Tab) 25 mg PO BID@0700,1900 [facility] Last Admin: 08/01/21 07:34 Dose: Not Given Documented by: Miscellaneous Information (Potassium Replacement Protocol 1 Each Misc) 1 each MISCELLANE DAILY PRN; Protocol PRN Reason: Per Protocol Multivitamins (Multivitamins, Thera 1 Each Tab) 1 each PO DAILY@0700 [facility] Last Admin: 08/01/21 07:33 Dose: 1 each Documented by: Naloxone HCl (Naloxone 0.4 Mg/Ml 1 Ml Vial) 0.2 mg IV Q2M PRN PRN Reason: Opioid Reversal Ondansetron HCl (Ondansetron 4 Mg/2 Ml Vial) 4 mg IVP Q8HR PRN PRN Reason: Nausea And Vomiting Triamcinolone Acetonide (Triamcinolone Acet 0.1% Ointment 15 Gm Tube) 1 applic TOPICAL BID PRN; Protocol PRN Reason: Skin Irritation Zinc Sulfate (Zinc Sulfate 220 Mg Cap) 220 mg PO DAILY@0700 [facility] Last Admin: 08/01/21 07:33 Dose: 220 mg Documented by: Past medical history to include: CAD with history of bypass and stent, diabetes, hyperlipidemia, hypertension, thyroid cancer with thyroidectomy now hypothyroid, Parkinson's disease, developmental delay vitamin D deficiency Social history: Lives at [facility]. No smoking or alcohol. Does use a walker. POA: Sister Farrah Family history: Breast cancer Physical examination: VITAL SIGNS: 97.8, 53, 18, 105/66, 96% room air GENERAL: Reclining in chair, awake, comfortable EYES: Pupils equal. Conjunctiva normal. HEENT: External appearance of nose and ears normal, oral cavity grossly normal some loss of muscles on the temporal. NECK: JVD not raised; masses not palpable. HEART: First and second heart sounds are normal; no edema. LUNGS: Respiratory rate normal; clear to auscultation. ABDOMEN: Soft, nontender, liver spleen not palpable, no masses palpable. PSYCH: [Patient is able to answer simple questions l. MUSCULOSKELETAL:No Clubbing/cyanosis;muscles-grossly intact NEUROLOGICAL: Cranial nerves grossly intact; no facial asymmetry, power and sensation grossly intact. Speaks in a monotone. Bradykinesia. INVESTIGATIONS, reviewed in the clinical context: July 31: Potassium 3.2 creatinine 0.58 TSH: 0.355 White count 4.6 hemoglobin 14.8 platelets 201 sodium 135 potassium 3.2 BUN 27 creatinine 0.7 Albumin 3.1 UA positive for ketones trace EKG tracing personally reviewed by me-normal sinus rhythm with PVCs Chest x-ray film personally reviewed by me-possible atelectasis Assessment and plan: -Idiopathic Parkinson's disease with acute exacerbation. Patient has been progressively getting weak over the last few weeks. Patient was discharged on Sinemet twice daily. Only receiving once a day at home.: Slow to respond Sinemet ER 50/200 twice a day. Sinemet 25/100 added at 8 AM and 2 PM. [place] 200 mg 3 times a day. PTOT. -Chronic gait dysfunction secondary to Parkinson's disease PT OT. Fall precautions -Rule out orthostatic -Essential hypertension Lopressor 25 mg twice a day -Hypothyroid from prior thyroidectomy for thyroid cancer: Uncontrolled with over replacement. Decrease Synthroid 137 g a day. -CAD with a prior history of bypass and stent Lopressor. Aspirin 81 mg a day -Hyperlipidemia Lipitor 40 mg daily at bedtime -Developmental delay -Power of internal communications specialist: Sister./Farrah Discussed with Dr. Moulton. Dose of Sinemet adjusted. PTOT. Patient will need inpatient rehab. Likely DC tomorrow.
[2021-08-01 16:35] LABS: Glucose,Whole Blood 171 mg/dL (75-99)
[2021-08-01] MEDS: SODIUM CHLORIDE 0.9% 1,000 ML IV SCH (17:40)
[2021-08-01] MEDS: ATORVASTATIN 40 MG TAB PO SCH (20:04)
[2021-08-01 21:26] LABS: Glucose,Whole Blood 142 mg/dL (75-99)
[2021-08-02] MEDS: SODIUM CHLORIDE 0.9% 1,000 ML IV SCH (02:20)
[2021-08-02 04:20] VITALS: RESP 17
[2021-08-02] MEDS: LEVOTHYROXINE 137 MCG TAB PO SCH (06:05)
[2021-08-02 06:54] LABS: Glucose,Whole Blood 98 mg/dL (75-99)
[2021-08-02 07:22] VITALS: BP 145/81; PULSE 54; TEMP 97.7
[2021-08-02] MEDS: ASPIRIN 81 MG PO SCH (07:34)
[2021-08-02] MEDS: ENOXAPARIN 40 MG/0.4 ML SYRINGE SQ SCH (07:34)
[2021-08-02] MEDS: ENTACAPONE 200 MG TAB PO SCH ×2 (07:34→13:57)
[2021-08-02] MEDS: ASCORBIC ACID 500 MG TAB PO SCH (07:34)
[2021-08-02] MEDS: CHOLECALCIFEROL 25 MCG (1000 IU) TABLET PO SCH (07:34)
[2021-08-02] MEDS: ISOSORBIDE MONONITRATE ER 30 MG TAB.ER.24H PO SCH (07:35)
[2021-08-02] MEDS: DIVALPROEX 250 MG TABLET.DR PO SCH (07:35)
[2021-08-02] MEDS: CARBIDOPA-LEVODOPA 25-100 MG 1 EACH TAB PO SCH ×2 (07:35→13:57)
[2021-08-02] MEDS: CYANOCOBALAMIN 500 MCG TAB PO SCH (07:35)
[2021-08-02] MEDS: ZINC SULFATE 220 MG CAP PO SCH (07:35)
[2021-08-02] MEDS: MULTIVITAMINS, THERA 1 EACH TAB PO SCH (07:35)
[2021-08-02] MEDS: CARBIDOPA-LEVODOPA ER 50-200MG 1 EACH TABLET.ER PO SCH (07:35)
[2021-08-02] MEDS: FOLIC ACID 1 MG TAB PO SCH (07:35)
--- NOTE | 2021-08-02 09:35 | P.PN ---
Subjective Progress Note Date: 08/01/21 08/01/2021: Patient is laying comfortably in the bed. Offers no complaints. Denies headache. No numbness or tingling. 07/31/2021: Patient initially seen by Dr. Elmo He. Please refer to his note for details. Patient is a 66-year-old male with history of Parkinson's disease, developmental delay, came to the hospital because of a fall. Patient's sister is his guardian. Patient is also known to me from previous admission to the hospital. Patient has history of Parkinson's disease. Patient also has significant cervical spinal stenosis. Patient at present is laying comfortably in the bed, offers no complaints. Objective - Vital Signs Vital signs: Vital Signs Temp 97.7 F 08/02/21 07:21 Pulse 54 L 08/02/21 07:21 Resp 17 08/02/21 07:21 BP 145/81 08/02/21 07:21 Pulse Ox 97 08/02/21 07:21 Intake & Output 08/01/21 08/02/21 08/02/21 18:59 06:59 18:59 Intake Total 480 Output Total 700 Balance -220 Intake: Oral 480 Output: Urine 700 Other: Voiding Method Diaper # Voids 5 # Bowel Movements 0 - Exam Patient was sleeping, on waking up, did become slightly more alert and awake. Speech and language functions appears normal. Detail testing deferred. Detail cognitive function testing deferred. Patient speaks with low volume. Muscle strength is normal in the arms and legs distally and proximally except hip flexion which is 4+ bilaterally. Tone is mild to moderately increased in the arms bilaterally. Reflexes are (right/left) biceps 1/1, brachioradialis 0/trace, knee 3/2+, ankles 1/1 and plantar is up on the right whereas flat on the left. Gait deferred. - Labs CBC & Chem 7: 07/29/21 13:27 08/02/21 05:29 Labs: Abnormal Lab Results - Last 24 Hours (Table) 08/01/21 08/01/21 08/01/21 Range/Units 11:44 16:32 21:15 POC Glucose (mg/dL) 133 H 171 H 142 H (75-99) mg/dL Assessment and Plan Assessment: Recurrent falls, likely multifactorial: Patient has at least moderate Parkinsonism, also has significant cervical spondylosis with some myelopathy, which may be the cause of the falls. Patient was suboptimally treated as per Dr. He's note. Patient had extensive testing by our team about a month ago. Cervical and thoracic spinal stenosis and possible myelopathy and orthopedic team decided medical management. Parkinson's disease Developemental delay Bilateral knee pain History of coronary artery disease Diabetes mellitus History of hypertension and is normotensive History of hyperlipidemia Plan: Continue sinement CR 50/200 twice a day. Increase regular Sinemet 25/100, twice a day at 8 AM and 2 PM daily. Continue Comtan 200mg tab three times daily Patient's previous workup revealed B12 795, folate > 20, RPR negative. Methylmalonic acid normal <0.10. Vitamin B6 is 9 (5-50). TSH is normal now 0.355. MRI lumbar spine from 06/26/2021 showed small posterior disc herniation at L4 5 and L5-S1. No spinal stenosis. Mild left-sided L5-S1 neural foraminal narrowing. MRI of cervical spine from 06/23/2021 showed abnormal cord signal to suggest myelopathy. I think there is a typographical error, as there should be "no abnormal cord signal to suggest myelopathy". At C5-C6 and C6-C7 moderate spinal canal stenosis secondary to disc osteophyte and ligamentum flavum buckling/hypertrophy. On my review, there is definite evidence of spinal stenosis at C5-C6 and C6-C7 levels. There is left paramedian disc bulge/ protrusion producing significant spinal stenosis mainly on the left half side of the spinal cord. Orthopedic surgery recommended medical management. MRI of thoracic spine 06/23/2021 showed T9 vertebral body acute Schmorl's node with reactive changes. No significant spinal stenosis. Check orthostatic vitals PT and OT is consulted Patient is on fall precaution. Patient probably will remain in fall risk due to the reasons mentioned above.
[2021-08-02] MEDS: METOPROLOL TARTRATE 25 MG TAB PO SCH (09:38)
[2021-08-02] MEDS: ACETAMINOPHEN TAB 500 MG TAB PO PRN (09:58)
[2021-08-02] MEDS ORDERED: POTASSIUM CHLORIDE ER 20 MEQ TAB.ER PO STA (10:32)
[2021-08-02 11:28] LABS: Glucose,Whole Blood 221 mg/dL (75-99)
[2021-08-02] MEDS ORDERED: INSULIN ASPART (NovoLOG) 100 UNIT/ML VIAL SQ SCH (12:30)
[2021-08-02 13:52] VITALS: BMI 26.4
--- NOTE | 2021-08-02 14:40 | P.DS ---
Providers Date of admission: 07/29/21 14:57 Expected date of discharge: 08/02/21 Attending physician: Ed Leyva Consults: 07/29/21 14:57 Consult Physician Routine Consulting Provider: Elmo He Consult Reason/Comments: Generalized weakness, Parkinson's, and inability to ambulate Do you want consulting provider notified?: Yes Primary care physician: Trip Islas [facility] Course: Chief Complaint: Fall History of presenting complaint: This is a 66-year-old patient who follows with Dr. Islas. Chronic stable medical conditions include CAD with history of bypass and stent, diabetes, hypertension, hyperlipidemia, Parkinson's, hypothyroid vitamin D deficiency. Patient's had thyroid cancer with thyroidectomy. Patient has underlying intellectual disability. Does use a walker to get about. His sister Farrah is POA. Patient is a resident of [facility] Patient was sent in because as reported by the EMS [facility] informed them that patient been having increasing weakness due to his Parkinson's final resulting in a fall today. Patient fell on his knees in the bathroom and with the help of the staff is able to get into a wheelchair. Did not hit his head. No chest pain or palpitation. Sometimes gets dizzy on standing up. No fever no chills. No urinary symptoms. Appetite is fair. Admitted with Parkinson's disease exacerbation. Patient has known cervical spinal stenosis with some myelopathy. Has been seen by orthopedics previously. TSH was low at has dose of Synthroid was cut back. Dose of Sinemet was adjusted by neurology. Seen by PTOT. August 02: Patient cleared by neurology for DC. Patient will go to rehab today.. Patient to follow-up with his neurologist. Oral intake good. Discussion and discharge planning more than 35 minutes Past medical history to include: CAD with history of bypass and stent, diabetes, hyperlipidemia, hypertension, thyroid cancer with thyroidectomy now hypothyroid, Parkinson's disease, developmental delay vitamin D deficiency Social history: Lives at [facility]. No smoking or alcohol. Does use a walker. POA: Sister Farrah Family history: Breast cancer Physical examination: VITAL SIGNS: 97.7, 54, 17, 145/781, 97% room air GENERAL: Reclining in bed, awake, comfortable EYES: Pupils equal. Conjunctiva normal. HEENT: External appearance of nose and ears normal, oral cavity grossly normal some loss of muscles on the temporal. NECK: JVD not raised; masses not palpable. HEART: First and second heart sounds are normal; no edema. LUNGS: Respiratory rate normal; clear to auscultation. ABDOMEN: Soft, nontender, liver spleen not palpable, no masses palpable. PSYCH: [Patient is able to answer simple questions l. MUSCULOSKELETAL:No Clubbing/cyanosis;muscles-grossly intact NEUROLOGICAL: Cranial nerves grossly intact; no facial asymmetry, power and sensation grossly intact. Speaks in a monotone. Bradykinesia. INVESTIGATIONS, reviewed in the clinical context: COVID 19: Not detected July 31: Potassium 3.2 creatinine 0.58 TSH: 0.355 White count 4.6 hemoglobin 14.8 platelets 201 sodium 135 potassium 3.2 BUN 27 creatinine 0.7 Albumin 3.1 UA positive for ketones trace EKG tracing personally reviewed by me-normal sinus rhythm with PVCs Chest x-ray film personally reviewed by me-possible atelectasis Assessment and plan: -Idiopathic Parkinson's disease with acute exacerbation. Patient has been progressively getting weak over the last few weeks. Patient was discharged on Sinemet twice daily. Only receiving once a day at home.: Slow to respond Sinemet ER 50/200 twice a day. Sinemet 25/100 added at 8 AM and 2 PM. [place] 200 mg 3 times a day. PTOT. -Chronic gait dysfunction secondary to Parkinson's disease PT OT. Fall precautions -Essential hypertension Lopressor 25 mg twice a day -Hypothyroid from prior thyroidectomy for thyroid cancer: Uncontrolled with over replacement. Decrease Synthroid 137 g a day. -CAD with a prior history of bypass and stent Lopressor. Aspirin 81 mg a day -Hyperlipidemia Lipitor 40 mg daily at bedtime -Developmental delay -Power of knocker off: Sister./Farrah Disposition: Inpatient rehab/[place] Plan - Discharge Summary Discharge Rx Participant: Yes New Discharge Prescriptions: New Lactulose [Cephulac] 20 gm PO DAILY PRN ml PRN Reason: Constipation Melatonin 3 mg PO HS PRN tablet PRN Reason: Insomnia Carbidopa-Levodopa 25-100 mg [Sinemet 25-100 mg] 1 each PO BID@0800,1400 tab Carbidopa-Levodopa ER 50-200Mg [Sinemet CR 50-200 mg] 1 each PO BID tab Levothyroxine Sodium [Synthroid] 137 mcg PO DAILY@0630 tab Calcium Carbonate [Tums] 1,000 mg PO Q4HR PRN PRN Reason: Dyspepsia Continue Folic Acid 1 mg PO DAILY@0700 Multivitamins, Thera [Multivitamin (formulary)] 1 tab PO DAILY@0700 Aspirin EC [Ecotrin Low Dose] 81 mg PO DAILY@0700 Cyanocobalamin (Vitamin B-12) [Vitamin B-12] 1,000 mcg PO DAILY@0700 Metoprolol Tartrate [Lopressor] 25 mg PO BID@0700,1900 Isosorbide Mononitrate ER [Imdur] 30 mg PO DAILY@0700 Divalproex [Depakote] 250 mg PO DAILY@0700 Triamcinolone 0.1% Ointment [Kenalog 0.1% Ointment] 1 applic TOPICAL BID PRN PRN Reason: Skin Irritation Mupirocin 2% Oint [Bactroban 2% Oint] 1 applic TOPICAL BID PRN PRN Reason: Skin Irritation Ibuprofen [Motrin] 600 mg PO Q6HR PRN PRN Reason: Pain Acetaminophen [Tylenol] 500 mg PO Q4-6H PRN PRN Reason: Fever And/ Or Pain Ascorbic Acid [Vitamin C] 1,000 mg PO DAILY@0700 Entacapone [Comtan] 200 mg PO TID@0700,1400,1900 Ammonium Lactate Cream [Lac-Hydrin 12% Cream] 1 applic TOPICAL BID PRN PRN Reason: DRY SKIN ON FEET Cholecalciferol [Vitamin D3 (25 Mcg = 1000 Iu)] 50 mcg PO DAILY@0700 Loperamide HCl [Loperamide] 4 mg PO BID PRN PRN Reason: Diarrhea Selenium 200 mcg PO DAILY@0700 Atorvastatin [Lipitor] 40 mg PO HS@1900 Discontinued Levothyroxine Sodium [Synthroid] 175 mcg PO DAILY@0800 Carbidopa-Levodopa 25-100 mg [Sinemet 25-100 mg] 1 tab PO DAILY@1400 Sodium Chloride [Saline Nasal [place]] 2 spray EA NOSTRIL DIRECTED PRN PRN Reason: Allergy Symptoms Cetirizine HCl 10 mg PO DAILY@0700 Zinc 50 mg PO DAILY@0700 Discharge Medication List Aspirin EC [Ecotrin Low Dose] 81 mg PO DAILY@0700 04/21/19 [History] Folic Acid 1 mg PO DAILY@0700 04/21/19 [History] Multivitamins, Thera [Multivitamin (formulary)] 1 tab PO DAILY@0704/21/19 [History] Ammonium Lactate Cream [Lac-Hydrin 12% Cream] 1 applic TOPICAL BID PRN 10/26/20 [History] Cholecalciferol [Vitamin D3 (25 Mcg = 1000 Iu)] 50 mcg PO DAILY@0710/26/20 [History] Cyanocobalamin (Vitamin B-12) [Vitamin B-12] 1,000 mcg PO DAILY@69910/26/20 [History] Divalproex [Depakote] 250 mg PO DAILY@69910/26/20 [History] Isosorbide Mononitrate ER [Imdur] 30 mg PO DAILY@69910/26/20 [History] Metoprolol Tartrate [Lopressor] 25 mg PO BID@0700,189910/26/20 [History] Acetaminophen [Tylenol] 500 mg PO Q4-6H PRN 06/22/21 [History] Ascorbic Acid [Vitamin C] 1,000 mg PO DAILY@69906/22/21 [History] Ibuprofen [Motrin] 600 mg PO Q6HR PRN 06/22/21 [History] Loperamide HCl [Loperamide] 4 mg PO BID PRN 06/22/21 [History] Mupirocin 2% Oint [Bactroban 2% Oint] 1 applic TOPICAL BID PRN 06/22/21 [History] Selenium 200 mcg PO DAILY@69906/22/21 [History] Triamcinolone 0.1% Ointment [Kenalog 0.1% Ointment] 1 applic TOPICAL BID PRN 06/22/21 [History] Atorvastatin [Lipitor] 40 mg PO HS@189907/29/21 [History] Entacapone [Comtan] 200 mg PO TID@0700,1400,0 07/29/21 [History] Calcium Carbonate [Tums] 1,000 mg PO Q4HR PRN 08/02/21 [Rx] Carbidopa-Levodopa 25-100 mg [Sinemet 25-100 mg] 1 each PO BID@0800,1400 tab 08/02/21 [Rx] Carbidopa-Levodopa ER 50-200Mg [Sinemet CR 50-200 mg] 1 each PO BID tab 08/02/21 [Rx] Lactulose [Cephulac] 20 gm PO DAILY PRN ml 08/02/21 [Rx] Levothyroxine Sodium [Synthroid] 137 mcg PO DAILY@0630 tab 08/02/21 [Rx] Melatonin 3 mg PO HS PRN tablet 08/02/21 [Rx] Follow up Appointment(s)/Referral(s): neurologist-dr norris [Other] - 1 Week [facility] [place], [NON-STAFF] - As Needed [facility], [NON-STAFF] - As Needed Trip Islas MD [Primary Care Provider] - As Needed
== END 2021-08-02 14:45 | DRG 57 ==
LOC: SUPCPDRO 12:45 → EC 12:45 → 5NMEDONC 14:57 → 4SSUR 21:25
PROVIDERS: ADMIT Hospitalist; ATTEND Hospitalist
DX: G20 Parkinson's disease (principal); M47.12 Other spondylosis with myelopathy, cervical region; M47.14 Other spondylosis with myelopathy, thoracic region; M48.02 Spinal stenosis, cervical region; M48.04 Spinal stenosis, thoracic region; M51.26 Other intervertebral disc displacement, lumbar region; Z20.822 Contact with and (suspected) exposure to COVID-19; M46.92 Unspecified inflammatory spondylopathy, cervical region; I10 Essential (primary) hypertension; I25.10 Atherosclerotic heart disease of native coronary artery without angina pectoris; K59.00 Constipation, unspecified; E11.9 Type 2 diabetes mellitus without complications; F79 Unspecified intellectual disabilities; R29.6 Repeated falls; E55.9 Vitamin D deficiency, unspecified; E78.5 Hyperlipidemia, unspecified; R26.9 Unspecified abnormalities of gait and mobility; E89.0 Postprocedural hypothyroidism; F41.9 Anxiety disorder, unspecified; G47.00 Insomnia, unspecified; W19.XXXA Unspecified fall, initial encounter; Z79.82 Long term (current) use of aspirin; Z79.890 Hormone replacement therapy; Z79.899 Other long term (current) drug therapy; Z80.3 Family history of malignant neoplasm of breast; Z82.49 Family history of ischemic heart disease and other diseases of the circulatory system; Z85.3 Personal history of malignant neoplasm of breast; Z85.850 Personal history of malignant neoplasm of thyroid; Z95.1 Presence of aortocoronary bypass graft; Z95.5 Presence of coronary angioplasty implant and graft; Z79.84 Long term (current) use of oral hypoglycemic drugs; Z80.42 Family history of malignant neoplasm of prostate
CPT/HCPCS: 36415; 71046; 80048; 80053; 81001; 83605; 83735; 84132; 84443; 85025; 85610; 85730; 87635; 93005; 94760; 95816; 96372; 99285

== ENCOUNTER → 2021-09-26 | Outpatient (CLI) | payer MEDICARE, BC ==
[2021-09-26 12:14] LABS: African American GFR (CKD) >90 (>60 ml/min/1.73 sqM); Blood Urea Nitrogen 16 mg/dL (9-20); Non-African American GFR(CKD) >90 (>60 ml/min/1.73 sqM)
--- NOTE | 2021-09-27 07:11 | CT ---
EXAMINATION TYPE: CT chest w con DATE OF EXAM: 09/26/2021 COMPARISON: Chest x-ray September 06, 2021. No prior CT or PET CT at this institution. HISTORY: lung ca history of. CT DLP: 383.2 mGycm. Automated Exposure Control for Dose Reduction was Utilized. TECHNIQUE: CT scan of the thorax is performed following with IV Contrast, patient injected with 100 mL of Isovue 300. FINDINGS: LUNGS: Somewhat irregular small partially calcified nodules in the posterior right upper lung with ad ditional more rounded 9 mm posterior right upper lobe nodule axial image 19. Scattered irregular part ially calcified anterior mid to lower lung nodules bilaterally. Small posterior calcified left basila r nodules. No pleural effusion or pneumothorax bilaterally. Focal anterior right basilar linear scarr ing with right-sided volume loss. No pleural effusion or pneumothorax seen bilaterally. MEDIASTINUM: There are no greater than 1 cm hilar or mediastinal lymph nodes. No cardiomegaly or p ericardial effusion is seen. Post-CABG changes with mediastinal clips and sternal wires. Enlarged ma in pulmonary artery is 3.2 cm consistent with underlying pulmonary hypertension/31. Descending aorta measures up to 4.1 cm in diameter. Thyroid gland hypoplastic or surgically absent. Correlate clinical ly. OTHER: Underlying scoliosis with multilevel spurring in the spine. IMPRESSION: Chronic changes without acute pulmonary process. Partially calcified irregular small nodu les bilaterally favoring posttreatment change or product of old granulomatous disease. There is one m ore concerning 9 mm round noncalcified posterior right upper lobe nodule. Correlation with old outsid e CT and/or PET/CT is advised otherwise PET/CT follow-up recommended to further evaluate.
== END | disposition home or self-care (01) ==
LOC: RADCTMAIN 11:14
PROVIDERS: ATTEND Internal Medicine Critical Care Medicine
DX: R91.8 Other nonspecific abnormal finding of lung field (principal); Z85.118 Personal history of other malignant neoplasm of bronchus and lung
CPT/HCPCS: 82565; 84520; 71260; 36415; Q9967

== ENCOUNTER → 2021-10-06 | Outpatient (CLI) | payer MEDICARE, BC ==
--- NOTE | 2021-10-10 06:18 | PE ---
EXAMINATION TYPE: PET CT fusion skull to thigh DATE OF EXAM: 10/06/2021 COMPARISON: Chest CT September 26, 2021 HISTORY: Abnormal CT, solitary pulmonary nodule. History of thyroid cancer 2009. TECHNIQUE: Following the intravenous administration of 12.21 mCi of F-18 FDG, whole body images are performed from the skull base to the midthigh. Images are reviewed on the computer in the coronal, a xial, and sagittal planes. Reconstructed rotating images are created on independent workstation and reviewed on the computer. A localization and attenuation correction CT is performed in conjunction with the PET scan. Blood glucose level equals 83. SCAN: Initial Scan FINDINGS: SKULL BASE AND NECK: No areas of abnormal hypermetabolic uptake. CHEST, MEDIASTINUM, AND HILAR REGION: Redemonstration of some scattered small calcified bilateral pul monary nodules with additional 8 mm round right upper lung nodule axial image 69 that is ametabolic. No areas of abnormal hypermetabolic uptake throughout the thorax. ABDOMEN AND PELVIS: Normal excretion. No adrenal masses. No areas of abnormal hypermetabolic uptake. OSSEOUS STRUCTURES: No areas of abnormal hypermetabolic uptake. OTHER CT: Mild calcified plaque bilateral carotid bulb level. Post-CABG changes with sternal wires an d mediastinal clips. Enlarged prostate consistent with BPH. Large fat-containing right inguinal herni a. Scoliotic curvature in the spine. IMPRESSION: No abnormal hypermetabolic uptake in the 8 to 9 mm noncalcified round right upper lung pu lmonary nodule. No abnormal hypermetabolic uptake to suggest malignancy throughout the body. Consider follow-up CT in 6-12 months time to document stability of noncalcified pulmonary nodule.
== END | disposition home or self-care (01) ==
LOC: RADPETMAIN 15:45
PROVIDERS: ATTEND Internal Medicine Critical Care Medicine
DX: R91.1 Solitary pulmonary nodule (principal); Z85.850 Personal history of malignant neoplasm of thyroid
CPT/HCPCS: 78815; A9552

== ENCOUNTER 2023-02-26 12:23 | Emergency (ER) | payer MEDICARE, BC ==
--- NOTE | 2023-02-26 18:37 | ED ---
General Adult HPI - General Chief complaint: Psychiatric Symptoms Stated complaint: mental health evaluation Time Seen by Provider: 02/26/23 18:05 Source: patient, RN notes reviewed, old records reviewed Mode of arrival: ambulatory Limitations: no limitations - History of Present Illness Initial comments: This is a 67-year-old male who presents emergency Department with his guardian regarding gives all the history. The guardian is also his sister. Patient is brought in today because he is becoming more violent with staff and normally he is very defiant but never physically defiant or abuse. Patient had a fall on was sent to another hospital had a CAT scan was kept overnight had a repeat CAT scan in the morning there was nothing seen so he was sent home patient started becoming more aggressive towards staff he was sent back to that same facility and had a third CAT scan again that was negative and that occurred yesterday. Patient primary medical care doctor wanted the patient to come to the emergency department to have a psychiatric evaluation because the symptoms are also just since he hit his head. Patient denies any fever chills. - Related Data Home Medications Medication Instructions Recorded Confirmed Aspirin EC [Ecotrin Low Dose] 81 mg PO DAILY@0704/21/19 07/29/21 Folic Acid 1 mg PO DAILY@69904/21/19 07/29/21 Multivitamins, Thera [Multivitamin 1 tab PO DAILY@69904/21/19 07/29/21 (formulary)] Ammonium Lactate Cream [Lac-Hydrin 1 applic TOPICAL BID PRN 10/26/20 07/29/21 12% Cream] Cholecalciferol [Vitamin D3 (25 50 mcg PO DAILY@69910/26/20 07/29/21 Mcg = 1000 Iu)] Cyanocobalamin (Vitamin B-12) 1,000 mcg PO DAILY@69910/26/20 07/29/21 [Vitamin B-12] Divalproex [Depakote] 250 mg PO DAILY@69910/26/20 07/29/21 Isosorbide Mononitrate ER [Imdur] 30 mg PO DAILY@69910/26/20 07/29/21 Metoprolol Tartrate [Lopressor] 25 mg PO BID@0700,1900 10/26/20 07/29/21 Acetaminophen [Tylenol] 500 mg PO Q4-6H PRN 06/22/21 07/29/21 Ascorbic Acid [Vitamin C] 1,000 mg PO DAILY@0700 06/22/21 07/29/21 Ibuprofen [Motrin] 600 mg PO Q6HR PRN 06/22/21 07/29/21 Loperamide HCl [Loperamide] 4 mg PO BID PRN 06/22/21 07/29/21 Mupirocin 2% Oint [Bactroban 2% 1 applic TOPICAL BID PRN 06/22/21 07/29/21 Oint] Selenium 200 mcg PO DAILY@0700 06/22/21 07/29/21 Triamcinolone 0.1% Ointment 1 applic TOPICAL BID PRN 06/22/21 07/29/21 [Kenalog 0.1% Ointment] Atorvastatin [Lipitor] 40 mg PO HS@1900 07/29/21 07/29/21 Entacapone [Comtan] 200 mg PO TID@0700,1400,1900 07/29/21 07/29/21 Previous Rx's Medication Instructions Recorded Calcium Carbonate [Tums] 1,000 mg PO Q4HR PRN 08/02/21 Carbidopa-Levodopa 25-100 mg 1 each PO BID@0800,1400 tab 08/02/21 [Sinemet 25-100 mg] Carbidopa-Levodopa ER 50-200Mg 1 each PO BID tab 08/02/21 [Sinemet CR 50-200 mg] Lactulose [Cephulac] 20 gm PO DAILY PRN ml 08/02/21 Levothyroxine Sodium [Synthroid] 137 mcg PO DAILY@0630 tab 08/02/21 Melatonin 3 mg PO HS PRN tablet 08/02/21 Allergies Allergy/AdvReac Type Severity Reaction Status Date / Time No Known Allergies Allergy Verified 02/26/23 12:27 Review of Systems ROS Statement: Those systems with pertinent positive or pertinent negative responses have been documented in the HPI. ROS Other: All systems not noted in ROS Statement are negative. Past Medical History Past Medical History: Coronary Artery Disease (CAD), Cancer, Diabetes Mellitus, Hyperlipidemia, Hypertension, Thyroid Disorder Additional Past Medical History / Comment(s): Parkinson's ,developmental delay, hypothyroidism, coronary artery disease, vitamin D deficiency, Sister states Hx. of thyroid cancer. History of Any Multi-Drug Resistant Organisms: None Reported Past Surgical History: Coronary Bypass/CABG, Heart Catheterization With Stent Additional Past Surgical History / Comment(s): Coronary artery bypass grafting 4, thyroidectomy, cardiac stenting 2 in 2009, esophageal foreign body removal, Past Anesthesia/Blood Transfusion Reactions: No Reported Reaction Date of Last Stent Placement:: 2009 Past Psychological History: Anxiety Smoking Status: Never smoker Past Alcohol Use History: None Reported Past Drug Use History: None Reported - Past Family History Father Family Medical History: No Reported History Mother History Unknown: Yes Family Medical History: Coronary Artery Disease (CAD) Sister(s) Family Medical History: Cancer Additional Family Medical History / Comment(s): Breast Brother(s) Family Medical History: Cancer Additional Family Medical History / Comment(s): Prostate General Exam - General Exam Comments Initial Comments: GENERAL: Patient is well-developed and well-nourished. Patient is nontoxic and well- hydrated and is in no acute distress. ENT: Neck is soft and supple. No significant lymphadenopathy is noted. Oropharynx is clear. Moist mucous membranes. Neck has full range of motion without eliciting any pain. EYES: The sclera were anicteric and conjunctiva were pink and moist. Extraocular movements were intact and pupils were equal round and reactive to light. Eyelids were unremarkable. PULMONARY: Unlabored respirations. Good breath sounds bilaterally. No audible rales rhonchi or wheezing was noted. CARDIOVASCULAR: There is a regular rate and rhythm without any murmurs gallops or rubs. ABDOMEN: Soft and nontender with normal bowel sounds. SKIN: Skin is clear with no lesions or rashes and otherwise unremarkable. NEUROLOGIC: Patient is alert and oriented 1. Cranial nerves II through XII are grossly intact. Motor and sensory are also intact. Normal speech, volume and content. Symmetrical smile. MUSCULOSKELETAL: Normal extremities with adequate strength and full range of motion. LYMPHATICS: No significant lymphadenopathy is noted PSYCHIATRIC: Difficult to assess because of his long-standing mental disability Limitations: no limitations Course Vital Signs 02/26/23 02/26/23 12:27 18:00 Temperature 97.5 F L 97.8 F Pulse Rate 51 L 69 Respiratory 16 18 Rate Blood Pressure 146/80 153/81 O2 Sat by Pulse 98 98 Oximetry Medical Decision Making - Medical Decision Making Was pt. sent in by a medical professional or institution (, PA, CLINICAL OB, urgent care, hospital, or fci...) When possible be specific @ -No Did you speak to anyone other than the patient for history (EMS, parent, family, police, friend...)? What history was obtained from this source @ -Sister gave all of the history Did you review nursing and triage notes (agree or disagree)? Why? @ -I reviewed and agree with nursing and triage notes Were old charts reviewed (outside hosp., previous admission, EMS record, old EKG, old radiological studies, urgent care reports/EKG's, fci records)? Report findings @ -No old charts were reviewed Differential Diagnosis (chest pain, altered mental status, abdominal pain women, abdominal pain men, vaginal bleeding, weakness, fever, dyspnea, syncope, headache, dizziness, GI bleed, back pain, seizure, CVA, palpatations, mental health, musculoskeletal)? @ -Differential Mental Health Depression, anxiety, bipolar, psychosis, schizophrenia, borderline personality, situational depression, adjustment disorder, behavioral disorder, brain tumor, malingering, substance abuse, encephalopathy, medication reaction, dementia, hypothyroidism, degenerative neurologic disorder, lupus.... This is not meant to be all-inclusive list EKG interpreted by me (3pts min.). @ -As above X-rays interpreted by me (1pt min.). @ -None done CT interpreted by me (1pt min.). @ -None done U/S interpreted by me (1pt. min.). @ -None done What testing was considered but not performed or refused? (CT, X-rays, U/S, labs)? Why? @ -None What meds were considered but not given or refused? Why? @ -None Did you discuss the management of the patient with other professionals (professionals i.e. , PA, CLINICAL OB, lab, RT, psych nurse, addiction social worker, religion teacher, teacher, commissioned fire officer, child welfare caseworker)? Give summary @ -No Was smoking cessation discussed for >3mins.? @ -No Was critical care preformed (if so, how long)? @ -No Were there social determinants of health that impacted care today? How? (Homelessness, low income, unemployed, alcoholism, drug addiction, transportation, low edu. Level, literacy, decrease access to med. care, [facility], rehab)? @ -No Was there de-escalation of care discussed even if they declined (Discuss DNR or withdrawal of care, Hospice)? DNR status @ -No What co-morbidities impacted this encounter? (DM, HTN, Smoking, COPD, CAD, Cancer, CVA, ARF, Chemo, Hep., AIDS, mental health diagnosis, sleep apnea, morbid obesity)? @ -None Was patient admitted / discharged? Hospital course, mention meds given and route, prescriptions, significant lab abnormalities, going to OR and other pertinent info. @ -Patient needs to be admitted for psychiatric purposes and will be transferred out because we are not a geriatric psych facility and we have no beds at this time Undiagnosed new problem with uncertain prognosis? @ -No Drug Therapy requiring intensive monitoring for toxicity (Heparin, Nitro, Insulin, Cardizem)? @ -No Were any procedures done? @ -No Diagnosis/symptom? @ -Mood disorder Acute, or Chronic, or Acute on Chronic? @ -Acute Uncomplicated (without systemic symptoms) or Complicated (systemic symptoms)? @ -Complicated Side effects of treatment? @ -No Exacerbation, Progression, or Severe Exacerbation? @ -No Poses a threat to life or bodily function? How? (Chest pain, [place], [place], pneumonia, PE, COPD, DKA, ARF, appy, cholecystitis, CVA, Diverticulitis, Homicidal, Suicidal, threat to staff... and all critical care pts) @ -No Disposition Clinical Impression: Mood disorder Disposition: TRANSFER TO PSYCH HOSP/UNIT Referrals: Trip Islas MD [Primary Care Provider] - 1-2 days Time of Disposition: 19:40
[2023-02-26 19:45] LABS: Basophils # (A) 0.1 k/uL (0-0.2); Basophils % (A) 1 %; Eosinophils # (A) 0.1 k/uL (0-0.7); Eosinophils % (A) 1 %; HCT 47.3 % (39.0-53.0); HGB 15.3 gm/dL (13.0-17.5); Lymphocytes # (A) 1.3 k/uL (1.0-4.8); Lymphocytes % (A) 18 %; MCH 29.7 pg (25.0-35.0); MCHC 32.4 g/dL (31.0-37.0); MCV 91.8 fL (80.0-100.0); Mean Platelet Volume 7.4; Monocytes # (A) 0.6 k/uL (0-1.0); Monocytes % (A) 8 %; Neutrophils # (A) 5.1 k/uL (1.3-7.7); Neutrophils % (A) 71 %; Platelet Count 189 k/uL (150-450); RBC 5.16 m/uL (4.30-5.90); RDW 13.5 % (11.5-15.5); WBC 7.2 k/uL (3.8-10.6)
[2023-02-26 20:00] LABS: ALT 12 U/L (4-49); AST 30 U/L (17-59); African American GFR (CKD) >90 (>60 ml/min/1.73 sqM); Albumin 4.3 g/dL (3.5-5.0); Alkaline Phosphatase 59 U/L (38-126); Anion Gap 9 mmol/L; Blood Urea Nitrogen 19 mg/dL (9-20); Calcium 9.9 mg/dL (8.4-10.2); Carbon Dioxide 23 mmol/L (22-30); Chloride 108 mmol/L (98-107); Glucose 91 mg/dL (74-99); Non-African American GFR(CKD) >90 (>60 ml/min/1.73 sqM); Potassium 4.3 mmol/L (3.5-5.1); Sodium 140 mmol/L (137-145); Total Bilirubin 0.9 mg/dL (0.2-1.3)
[2023-02-26 20:44] LABS: Appearance,Urine Clear (Clear); Bilirubin,Urine Negative (Negative); Blood,Urine Negative (Negative); Color,Urine Dark Yellow; Glucose,Urine (UA) Negative (Negative); Ketones,Urine Trace (Negative); Leukocyte Esterase,Urine Negative (Negative); Nitrite,Urine Negative (Negative); PH, Urine 5.5 (5.0-8.0); Protein,Urine Negative (Negative); Specific Gravity,Urine 1.026 (1.001-1.035); Urobilinogen,Urine <2.0 mg/dL (<2.0)
[2023-02-27 02:10] LABS: Amphetamine Screen,Urine Not Detected (NotDetected); Barbiturate Screen,Urine Not Detected (NotDetected); Benzodiazepines Screen,Urine Not Detected (NotDetected); Cocaine Screen,Urine Not Detected (NotDetected); Methadone Screen, Urine Not Detected (NotDetected); Opiate Screen,Urine Not Detected (NotDetected); Oxycodone Screen, Urine Not Detected (NotDetected); Phencyclidine Screen,Urine Not Detected (NotDetected); Tricyclic Antidepressant,Urine Not Detected (NotDetected); Urn Cannabinoid Scrn Not Detected (NotDetected)
[2023-02-27] MEDS ORDERED: LOPERAMIDE 2 MG CAP PO PRN (10:46)
[2023-02-27] MEDS ORDERED: DOCUSATE 100 MG CAP PO PRN (10:46)
[2023-02-27] MEDS ORDERED: MELATONIN 5 MG TABLET PO PRN (10:46)
[2023-02-27] MEDS ORDERED: methocarbamoL 750 MG TAB PO PRN (10:46)
[2023-02-27] MEDS ORDERED: ACETAMINOPHEN TAB 325 MG TAB PO PRN (10:46)
[2023-02-27] MEDS ORDERED: LORATADINE 10 MG TAB PO SCH (19:00)
[2023-02-27] MEDS ORDERED: DIVALPROEX 500 MG TABLET.DR PO SCH (19:00)
[2023-02-27] MEDS ORDERED: ATORVASTATIN 40 MG TAB PO SCH (19:00)
[2023-02-27] MEDS: CARBIDOPA-LEVODOPA ER 50-200MG 1 EACH TABLET.ER PO SCH (20:49)
[2023-02-27] MEDS: METOPROLOL TARTRATE 12.5 MG TAB PO SCH (20:49)
[2023-02-27] MEDS: CARBIDOPA-LEVODOPA 25-100 MG 1 EACH TAB PO SCH (20:56)
[2023-02-28] MEDS: METOPROLOL TARTRATE 12.5 MG TAB PO SCH (06:55)
[2023-02-28] MEDS ORDERED: ASCORBIC ACID 500 MG TAB PO SCH (07:00)
[2023-02-28] MEDS ORDERED: CYANOCOBALAMIN 500 MCG TAB PO SCH (07:00)
[2023-02-28] MEDS ORDERED: CLOPIDOGREL 75 MG TAB PO SCH (07:00)
[2023-02-28] MEDS ORDERED: LEVOTHYROXINE 100 MCG TAB PO SCH (07:00)
[2023-02-28] MEDS ORDERED: ASPIRIN 81 MG PO SCH (07:00)
[2023-02-28] MEDS ORDERED: CHOLECALCIFEROL 25 MCG (1000 IU) TABLET PO SCH (07:00)
[2023-02-28] MEDS ORDERED: FOLIC ACID 1 MG TAB PO SCH (07:00)
[2023-02-28] MEDS ORDERED: ENTACAPONE 200 MG TAB PO SCH (07:00)
[2023-02-28] MEDS ORDERED: ISOSORBIDE MONONITRATE ER 30 MG TAB.ER.24H PO SCH (07:00)
[2023-02-28 07:20] VITALS: TEMP 98
[2023-02-28] MEDS: CARBIDOPA-LEVODOPA 25-100 MG 1 EACH TAB PO SCH (09:04)
[2023-02-28 10:35] VITALS: BP 124/69; PULSE 102; RESP 20
== END 2023-02-28 10:18 ==
LOC: EC 12:23
DX: F39 Unspecified mood [affective] disorder (principal); E11.9 Type 2 diabetes mellitus without complications; E78.5 Hyperlipidemia, unspecified; I25.10 Atherosclerotic heart disease of native coronary artery without angina pectoris; I10 Essential (primary) hypertension; F41.9 Anxiety disorder, unspecified; Z79.899 Other long term (current) drug therapy; Z79.82 Long term (current) use of aspirin; Z20.822 Contact with and (suspected) exposure to COVID-19
CPT/HCPCS: 36415; 80053; 80306; 81003; 82075; 85025; 87635; 99285

== ENCOUNTER 2023-04-02 20:36 | Emergency (ER) | payer MEDICARE, BC ==
[2023-04-02 20:50] VITALS: RESP 16; TEMP 98.3
--- NOTE | 2023-04-02 21:24 | ED ---
Fall HPI - General Chief Complaint: Fall Stated Complaint: Right hip injury Time Seen by Provider: 04/02/23 20:37 Source: patient, EMS, RN notes reviewed Mode of arrival: EMS - History of Present Illness Initial Comments: Patient is a 67-year-old male presented ER with chief complaint of a fall. She has a past medical history significant for Parkinson's. Most HPI is provided by EMS. Patient was at work and found down by coworkers. Coworkers lifted him into a chair and called EMS. Patient denies loss of consciousness, blood thinners, other injuries. - Related Data Home Medications Medication Instructions Recorded Confirmed Aspirin EC [Ecotrin Low Dose] 81 mg PO DAILY@0700 04/21/19 02/26/23 Folic Acid 1 mg PO DAILY@0700 04/21/19 02/26/23 Multivitamins, Thera [Multivitamin 1 tab PO DAILY@0700 04/21/19 02/26/23 (formulary)] Cholecalciferol [Vitamin D3 (25 50 mcg PO DAILY@0700 10/26/20 02/26/23 Mcg = 1000 Iu)] Cyanocobalamin (Vitamin B-12) 1,000 mcg PO DAILY@0700 10/26/20 02/26/23 [Vitamin B-12] Isosorbide Mononitrate ER [Imdur] 30 mg PO DAILY@0700 10/26/20 02/26/23 Metoprolol Tartrate [Lopressor] 12.5 mg PO BID@0700,1900 10/26/20 02/26/23 Ascorbic Acid [Vitamin C] 1,000 mg PO DAILY@0700 06/22/21 02/26/23 Loperamide HCl [Loperamide] 4 mg PO BID PRN 06/22/21 02/26/23 Mupirocin 2% Oint [Bactroban 2% 1 applic TOPICAL BID PRN 06/22/21 02/26/23 Oint] Atorvastatin [Lipitor] 40 mg PO HS@1900 07/29/21 02/26/23 Entacapone [Comtan] 200 mg PO BID@0700,1200 07/29/21 02/26/23 Acetaminophen [Tylenol Arthritis] 650 mg PO Q8H PRN 02/26/23 02/26/23 Carbidopa-Levodopa 25-100 mg 1 tab PO BID@0800,1400 02/26/23 02/26/23 [Sinemet 25-100 mg] Carbidopa-Levodopa ER 50-200Mg 1 tab PO BID@0700,1200 02/26/23 02/26/23 [Sinemet CR 50-200 mg] Cetirizine HCl 10 mg PO DAILY@1900 02/26/23 02/26/23 Clopidogrel [Plavix] 75 mg PO DAILY@0700 02/26/23 02/26/23 Divalproex Sodium [Depakote] 500 mg PO DAILY@1900 02/26/23 02/26/23 Docusate [Colace] 100 mg PO BID PRN 02/26/23 02/26/23 Levothyroxine Sodium [Synthroid] 175 mcg PO DAILY@0700 02/26/23 02/26/23 Melatonin [Melatonin ER] 10 mg PO HS PRN 02/26/23 02/26/23 Menthol [Biofreeze] 1 applic TOPICAL QID PRN 02/26/23 02/26/23 Miconazole 2% Powder 1 applic TOPICAL BID@0700,1900 02/26/23 02/26/23 Nitroglycerin Sl Tabs [Nitrostat] 0.4 mg SUBLINGUAL Q5M PRN 02/26/23 02/26/23 Sodium Chloride [[place]] 2 spray EA NOSTRIL DAILY PRN 02/26/23 02/26/23 Triamcinolone 0.1% Cream [Kenalog 1 applicatio TOPICAL BID PRN 02/26/23 02/26/23 0.1% Cream] methocarbamoL [Robaxin-750] 750 mg PO Q8H PRN 02/26/23 02/26/23 Allergies Allergy/AdvReac Type Severity Reaction Status Date / Time No Known Allergies Allergy Verified 02/26/23 20:24 Review of Systems ROS Statement: Those systems with pertinent positive or pertinent negative responses have been documented in the HPI. ROS Other: All systems not noted in ROS Statement are negative. Past Medical History Past Medical History: Coronary Artery Disease (CAD), Cancer, Diabetes Mellitus, Hyperlipidemia, Hypertension, Thyroid Disorder Additional Past Medical History / Comment(s): Parkinson's ,developmental delay, hypothyroidism, coronary artery disease, vitamin D deficiency, Sister states Hx. of thyroid cancer. History of Any Multi-Drug Resistant Organisms: None Reported Past Surgical History: Coronary Bypass/CABG, Heart Catheterization With Stent Additional Past Surgical History / Comment(s): Coronary artery bypass grafting 4, thyroidectomy, cardiac stenting 2 in 2009, esophageal foreign body removal, Past Anesthesia/Blood Transfusion Reactions: No Reported Reaction Date of Last Stent Placement:: 2009 Past Psychological History: Anxiety Smoking Status: Never smoker Past Alcohol Use History: None Reported Past Drug Use History: None Reported - Past Family History Father Family Medical History: No Reported History Mother History Unknown: Yes Family Medical History: Coronary Artery Disease (CAD) Sister(s) Family Medical History: Cancer Additional Family Medical History / Comment(s): Breast Brother(s) Family Medical History: Cancer Additional Family Medical History / Comment(s): Prostate General Exam Limitations: no limitations General appearance: alert, in no apparent distress Eye exam: Present: normal appearance, PERRL, EOMI. Absent: scleral icterus, conjunctival injection, periorbital swelling Pupils: Present: normal accommodation Neck exam: Present: normal inspection. Absent: tenderness, meningismus, lymphadenopathy Respiratory exam: Present: normal lung sounds bilaterally. Absent: respiratory distress, wheezes, rales, rhonchi, stridor Cardiovascular Exam: Present: regular rate, normal rhythm, normal heart sounds. Absent: systolic murmur, diastolic murmur, rubs, gallop, clicks GI/Abdominal exam: Present: soft, normal bowel sounds. Absent: distended, tenderness, guarding, rebound, rigid Extremities exam: Present: other (right LE held in internal rotation. There is ecchymosis and significant swelling noted by greater trochanter. 2+ dorsalis pedis pulse. intact senation) Psychiatric exam: Present: normal affect, normal mood Skin exam: Present: warm, dry, intact, normal color. Absent: rash Course Vital Signs 04/02/23 04/02/23 20:37 23:02 Temperature 98.3 F Pulse Rate 59 L 57 L Respiratory 16 16 Rate Blood Pressure 130/78 107/66 O2 Sat by Pulse 98 95 Oximetry Medical Decision Making - Medical Decision Making Was pt. sent in by a medical professional or institution (, PA, [facility], urgent care, hospital, or care home...) When possible be specific @ -No Did you speak to anyone other than the patient for history (EMS, parent, family, police, friend...)? What history was obtained from this source @ -EMS Did you review nursing and triage notes (agree or disagree)? Why? @ -I reviewed and agree with nursing and triage notes Were old charts reviewed (outside hosp., previous admission, EMS record, old EKG, old radiological studies, urgent care reports/EKG's, care home records)? Report findings @ -No old charts were reviewed Differential Diagnosis (chest pain, altered mental status, abdominal pain women, abdominal pain men, vaginal bleeding, weakness, fever, dyspnea, syncope, headache, dizziness, GI bleed, back pain, seizure, CVA, palpatations, mental health, musculoskeletal)? @ -Differential Musculoskeletal: Muscular strain, contusion, ligament sprain, fracture, arthritis, septic arthritis, bursitis, cellulitis, muscle spasm, nerve compression, DVT, arterial occlusion, herpes zoster, electrolyte abnormality, tumor.... This is not meant to be in all inclusive list EKG interpreted by me (3pts min.). @ -None X-rays interpreted by me (1pt min.). @ -Right hip x-ray shows no acute fractures or dislocations. CT interpreted by me (1pt min.). @ - CT brain C-spine shows no acute intracranial process. U/S interpreted by me (1pt. min.). @ -None done What testing was considered but not performed or refused? (CT, X-rays, U/S, labs)? Why? @ -None What meds were considered but not given or refused? Why? @ -I offered the patient pain medication but he stated his pain was 5/10 and he was fine. Did you discuss the management of the patient with other professionals (professionals i.e. , PA, [facility], lab, RT, psych nurse, social media project manager, rn otolaryngology, teacher, contact officer, human services case manager)? Give summary @ -No Was smoking cessation discussed for >3mins.? @ -No Was critical care preformed (if so, how long)? @ -No Were there social determinants of health that impacted care today? How? (Homelessness, low income, unemployed, alcoholism, drug addiction, transportation, low edu. Level, literacy, decrease access to med. care, skilled nursing, rehab)? @ -Resident at nursing home care facility Was there de-escalation of care discussed even if they declined (Discuss DNR or withdrawal of care, Hospice)? DNR status @ -No What co-morbidities impacted this encounter? (DM, HTN, Smoking, COPD, CAD, Cancer, CVA, ARF, Chemo, Hep., AIDS, mental health diagnosis, sleep apnea, morbid obesity)? @ -Parkinson's disease and mental health Was patient admitted / discharged? Hospital course, mention meds given and route, prescriptions, significant lab abnormalities, going to OR and other pertinent info. @ -Discharge. X-rays obtained in the ER for hip showed no acute fractures or dislocations. CT brain C-spine showed no acute intracranial processes. On reevaluation, patient was able to ambulate. He'll be discharged back to long- term care facility with follow-up to PCP. I discussed with the patient's family to ice and use [id number] analgesics for pain control. Patient expressed understanding and agreement with care plan. Undiagnosed new problem with uncertain prognosis? @ -No Drug Therapy requiring intensive monitoring for toxicity (Heparin, Nitro, Insulin, Cardizem)? @ -No Were any procedures done? @ -No Diagnosis/symptom? @ -Hip contusion Acute, or Chronic, or Acute on Chronic? @ -Acute Uncomplicated (without systemic symptoms) or Complicated (systemic symptoms)? @ -Uncomplicated Side effects of treatment? @ -No Exacerbation, Progression, or Severe Exacerbation? @ -No Poses a threat to life or bodily function? How? (Chest pain, [place], [place], pneumonia, PE, COPD, DKA, ARF, appy, cholecystitis, CVA, Diverticulitis, Homicidal, Suicidal, threat to staff... and all critical care pts) @ -No - Radiology Data Radiology results: report reviewed, image reviewed Disposition Clinical Impression: Fall, Contusion of right hip Disposition: HOME SELF-CARE Condition: Stable Additional Instructions: Please return to the Emergency Department if symptoms worsen or any other concerns. Is patient prescribed a controlled substance at d/c from ED?: No Referrals: Trip Islas MD [Primary Care Provider] - 1-2 days Time of Disposition: 22:39
--- NOTE | 2023-04-02 21:26 | XR ---
EXAMINATION TYPE: XR Hip RT and AP Pelvis DATE OF EXAM: 04/02/2023 9:01 PM CLINICAL INDICATION:Male, 67 years old with history of pain; PH[facility] COMPARISON: None. TECHNIQUE: XR Hip RT and AP Pelvis; hip was examined in the frontal and lateral projections and a AP pelvis. FINDINGS: No evidence for acute process, joint dislocation or significant soft tissue swelling. Osteo phyte formation of the superior acetabulum of the hip. IMPRESSION: 1. No evidence for acute process. 2. Mild hip osteoarthrosis. 3. Poor evaluation of the left hip due to rotation.
[2023-04-02] MEDS ORDERED: LITHIUM CARBONATE 300 MG CAP PO ONE (21:30)
--- NOTE | 2023-04-02 21:31 | CT ---
EXAMINATION TYPE: CT brain cspine wo con CT DLP: 1494.9 mGycm, Automated exposure control for dose reduction was used. DATE OF EXAM: 04/02/2023 9:19 PM COMPARISON: 10/05/2019, 06/22/2021 CLINICAL INDICATION:Male, 67 years old with history of pain; FALL TECHNIQUE: Brain: Multiple axial CT images of the brain were obtained without IV contrast. Cspine: Axial CT images from the skull base to the inferior aspect of T2 we obtained without intraven ous contrast. Coronal and sagittal reformatted images were also reviewed. FINDINGS: Brain: Extra-axial spaces: No abnormal extra-axial fluid collections. Ventricular system: Within normal limits Cerebral parenchyma: No acute intraparenchymal hemorrhage or mass effect. The trujillo-white junction is well differentiated. Cerebellum: Unremarkable. Mass effect: No evidence of midline shift. Intracranial vasculature: Atherosclerotic calcifications of the intracranial vessels. Soft tissues: Normal. Calvarium/osseous structures: No depressed skull fracture. Paranasal sinuses and mastoid air cells: Clear. Visualized orbits: Orbital contents are intact. Cervical spine: Fracture: None. Osseous structures: Fixation hardware C5-C6 and C7. The C7 screws anteriorly are not flush with the a nterior aspect of the vertebral body. Multilevel degenerative disc disease changes with endplate spur ring and disc osteophyte complex's. Vertebral alignment: Within normal limits. Spinal canal/Neural Foramina: No evidence of significant spinal canal narrowing. No evidence for sign ificant neural foraminal stenosis. Neck soft tissues: Prevertebral soft tissues are within normal limits. Other: The airway is patent. The lung apices are clear. Atherosclerosis of the carotid bifurcations. IMPRESSION: 1. No acute intracranial process. 2. No evidence of cervical spine fracture. 3. Mild multilevel degenerative disc disease. 4. Fixation hardware in the C7 vertebral body appears to have pulled back from the anterior aspect o f the vertebral bodies. Correlate with post procedural imaging for position stability/loosening.
[2023-04-02 23:23] VITALS: BP 107/66; PULSE 57
== END 2023-04-02 23:56 | disposition home or self-care (01) ==
LOC: EC 20:36
DX: S70.01XA Contusion of right hip, initial encounter (principal); E03.9 Hypothyroidism, unspecified; E11.9 Type 2 diabetes mellitus without complications; E78.5 Hyperlipidemia, unspecified; I10 Essential (primary) hypertension; I25.10 Atherosclerotic heart disease of native coronary artery without angina pectoris; Z79.02 Long term (current) use of antithrombotics/antiplatelets; Z79.890 Hormone replacement therapy; Z79.899 Other long term (current) drug therapy; Z95.5 Presence of coronary angioplasty implant and graft; Z95.1 Presence of aortocoronary bypass graft; W01.0XXA Fall on same level from slipping, tripping and stumbling without subsequent striking against object, initial encounter
CPT/HCPCS: 70450; 72125; 73502; 99284

== ENCOUNTER 2023-08-30 08:05 | Day surgery (SDC) | payer MEDICARE, BC ==
[2023-08-29 09:58] VITALS: BMI 24.4
[2023-08-30] MEDS: LACTATED RINGERS 1,000 ML IV ONE (08:30)
[2023-08-30 08:55] LABS: Glucose,Whole Blood 58 mg/dL (70-110)
[2023-08-30] MEDS: DEXTROSE 50% SYRINGE 50 ML IVP ONE (09:01)
[2023-08-30 09:13] VITALS: RESP 16; TEMP 97.1
[2023-08-30] MEDS ORDERED: PROPOFOL 10 MG/ML 20 ML VIAL IV ONE (09:14)
[2023-08-30] MEDS ORDERED: ePHEDrine 50 MG/ML 1 ML VIAL ONE (09:14)
--- NOTE | 2023-08-30 09:44 | P.PCN ---
Date of Procedure: 08/30/23 Procedure(s) Performed: BRIEF HISTORY: Patient is a 68-year-old pleasant White male scheduled for an elective colonoscopy as a part of Evaluation of chronic intermittent diarrhea for the last 2 years duration. PROCEDURE PERFORMED: Colonoscopy with random biopsies PREOPERATIVE DIAGNOSIS: Chronic intermittent diarrhea IV sedation per Anesthesia. PROCEDURE: After informed consent was obtained, the patient, was brought into the endoscopy unit. IV sedation was administered by Anesthesia under continuous monitoring. Digital rectal examination was normal. Initially the Olympus CF-160 flexible video colonoscope was then inserted in the rectum, gradually advanced into the cecum without any difficulty. Careful examination was performed as the scope was gradually being withdrawn. Ileocecal valve and the appendiceal orifice were visualized and appeared normal. Prep was Fair.. Mucosa of the cecum, a scending colon,Appeared normal. In the transverse colon there was a 3-4 mm sessile polyp that was removed by cold biopsy. Rest of the transverse colon, descending colon, sigmoid colon, and rectum appeared normal. Random biopsies were done from ascending and descending colon to evaluate for microscopic/collagenous colitis.Retroflexion was performed in the rectum and no lesions were seen. The patient tolerated the procedure well. IMPRESSION: 3 mm transverse colon polyp status post cold by cold biopsy Rest of the colon appeared normal RECOMMENDATIONS: Findings of this examination were discussed with the patient As well as his family. He was advised to follow with the biopsies are loose. In office in 3-4 weeks
[2023-08-30 10:02] LABS: Glucose,Whole Blood 96 mg/dL (70-110)
[2023-08-30 10:44] VITALS: BP 111/58; PULSE 71
== END 2023-08-30 10:40 | disposition home or self-care (01) ==
LOC: ORWHC2ENDO 08:05
PROVIDERS: ATTEND Internal Medicine Gastroenterology
DX: D12.3 Benign neoplasm of transverse colon (principal); I25.10 Atherosclerotic heart disease of native coronary artery without angina pectoris; I10 Essential (primary) hypertension; E78.5 Hyperlipidemia, unspecified; I48.0 Paroxysmal atrial fibrillation; E11.9 Type 2 diabetes mellitus without complications; E07.9 Disorder of thyroid, unspecified; F03.94 Unspecified dementia, unspecified severity, with anxiety; Z95.5 Presence of coronary angioplasty implant and graft; Z79.890 Hormone replacement therapy; Z79.82 Long term (current) use of aspirin; Z79.899 Other long term (current) drug therapy; Z98.890 Other specified postprocedural states
CPT/HCPCS: 88305; 45380; J2704

== ENCOUNTER 2023-11-19 08:34 | Inpatient (IN) | payer MEDICARE, BC ==
--- NOTE | 2023-11-19 08:49 | ED ---
General Adult HPI - General Chief complaint: Syncope Stated complaint: Synope Time Seen by Provider: 11/19/23 08:36 Source: patient, EMS, RN notes reviewed Mode of arrival: EMS Limitations: no limitations - History of Present Illness Initial comments: Patient is a 68-year-old male presenting to the emergency department from [facility] home for syncopal episode. Patient was found unresponsive in his wheelchair, this reportedly lasted around 5 minutes. Patient states he feels fine and has no complaints. Patient is unclear why he is here. Patient does not recall syncopal episode. Patient reportedly has also been a little bit confused over the past couple of days. - Related Data Home Medications Medication Instructions Recorded Confirmed Aspirin EC [Ecotrin Low Dose] 81 mg PO DAILY@0700 04/21/19 11/19/23 Folic Acid 1 mg PO DAILY@0700 04/21/19 11/19/23 Multivitamins, Thera [Multivitamin 1 tab PO DAILY@0700 04/21/19 11/19/23 (formulary)] Cholecalciferol [Vitamin D3 (25 50 mcg PO DAILY@0700 10/26/20 11/19/23 Mcg = 1000 Iu)] Isosorbide Mononitrate ER [Imdur] 30 mg PO DAILY@00 10/26/20 11/19/23 Ascorbic Acid [Vitamin C] 1,000 mg PO DAILY@0700 06/22/21 11/19/23 Atorvastatin [Lipitor] 40 mg PO HS@1900 07/29/21 11/19/23 Carbidopa-Levodopa 25-100 mg 1 tab PO BID@0700,1700 02/26/23 11/19/23 [Sinemet 25-100 mg] Carbidopa-Levodopa ER 50-200Mg 1 tab PO BID@0700,1200 02/26/23 11/19/23 [Sinemet CR 50-200 mg] Cetirizine HCl 10 mg PO HS@1900 02/26/23 11/19/23 Citalopram Hydrobromide [CeleXA] 10 mg PO HS@1900 08/29/23 11/19/23 Donepezil HCl [Aricept] 10 mg PO DAILY@0700 08/29/23 11/19/23 Levothyroxine Sodium [Synthroid] 150 mcg PO DAILY@0700 08/29/23 11/19/23 Acetaminophen Tab [Tylenol Tab] 1,000 mg PO Q6H PRN 11/19/23 11/19/23 Bismuth Subsalicylate 524 mg PO Q30M PRN MDD 8 doses 11/19/23 11/19/23 [Pepto-Bismol] Cholestyramine/Aspartame 4 gm PO AC-TID PRN 11/19/23 11/19/23 [Cholestyramine Light Packet] Cough Drops 1 lozenge PO DIRECTED 11/19/23 11/19/23 Loperamide [Imodium] 2 - 4 mg PO DIRECTED PRN MDD 4 11/19/23 11/19/23 caps Melatonin 10 mg PO HS PRN 11/19/23 11/19/23 Nitroglycerin Sl Tabs [Nitrostat] 0.4 mg SUBLINGUAL Q5M PRN 11/19/23 11/19/23 Psyllium Husk (with Sugar) [Fiber 1 tsp PO BID@0700,1600 11/19/23 11/19/23 Powder] QUEtiapine FUMARATE [SEROquel] 200 mg PO HS@1700 11/19/23 11/19/23 Sodium Chloride [Blackgum [place]] 2 spray EA NOSTRIL DIRECTED PRN 11/19/23 11/19/23 guaiFENesin-DM 100-10MG/5ML 10 ml PO QID PRN 11/19/23 11/19/23 [Robitussin DM] Allergies Allergy/AdvReac Type Severity Reaction Status Date / Time No Known Allergies Allergy Verified 11/19/23 11:24 Review of Systems ROS Statement: Those systems with pertinent positive or pertinent negative responses have been documented in the HPI. ROS Other: All systems not noted in ROS Statement are negative. Constitutional: Denies: fever Eyes: Denies: eye pain ENT: Denies: ear pain Respiratory: Denies: cough, dyspnea Cardiovascular: Denies: chest pain Endocrine: Denies: fatigue Gastrointestinal: Denies: abdominal pain Neurological: Denies: headache, weakness Past Medical History Past Medical History: Coronary Artery Disease (CAD), Cancer, Dementia, Diabetes Mellitus, Hyperlipidemia, Hypertension, Thyroid Disorder Additional Past Medical History / Comment(s): Parkinson's, developmental delay, vitamin D deficiency, thyroid CA, diet controlled DM (since weight loss) History of Any Multi-Drug Resistant Organisms: None Reported Past Surgical History: Coronary Bypass/CABG, Heart Catheterization With Stent Additional Past Surgical History / Comment(s): 4 vessel CABG, thyroidectomy, cardiac stenting 2 in 2009, esophageal foreign body removal Past Anesthesia/Blood Transfusion Reactions: No Reported Reaction Date of Last Stent Placement:: 2009 Past Psychological History: Anxiety Smoking Status: Never smoker Past Alcohol Use History: None Reported Past Drug Use History: None Reported - Past Family History Father Family Medical History: No Reported History Mother History Unknown: Yes Family Medical History: Coronary Artery Disease (CAD) Sister(s) Family Medical History: Cancer Additional Family Medical History / Comment(s): Breast Brother(s) Family Medical History: Cancer Additional Family Medical History / Comment(s): Prostate General Exam Limitations: altered mental status General appearance: alert, in no apparent distress Head exam: Present: atraumatic, normocephalic Eye exam: Present: normal appearance, PERRL, EOMI ENT exam: Present: normal oropharynx Neck exam: Present: normal inspection. Absent: tenderness, meningismus Respiratory exam: Present: normal lung sounds bilaterally Cardiovascular Exam: Present: regular rate, normal rhythm GI/Abdominal exam: Present: soft. Absent: tenderness, guarding Extremities exam: Present: normal inspection, full ROM. Absent: tenderness Neurological exam: Present: alert, CN II-XII intact. Absent: motor sensory deficit Expanded Neurological exam: Present: protecting the airway Patient oriented to: Present: person, place. Absent: time Speech: Present: fluid speech Cranial nerves: EOM's Intact: Normal Motor strength exam: RUE: 5, LUE: 5, RLE: 5, LLE: 5 Eye Response: (4) open spontaneously Motor Response: (6) obeys commands Verbal Response: (4) confused conversation Psychiatric exam: Present: flat affect Skin exam: Present: normal color Course Vital Signs 11/19/23 11/19/23 08:35 11:08 Temperature 97.6 F Pulse Rate 60 58 L Respiratory 16 16 Rate Blood Pressure 95/63 135/80 O2 Sat by Pulse 98 96 Oximetry EKG Findings - EKG Results: EKG: interpreted by ERMD, sinus rhythm, normal axis, normal QRS, normal ST/T EKG shows: bradycardia Medical Decision Making - Medical Decision Making Was pt. sent in by a medical professional or institution (BERTRAM Burgos, FUR CUTTING MACHINE OPERATOR, urgent care, hospital, or skilled nursing...) When possible be specific @ -Patient sent from [facility] home Did you speak to anyone other than the patient for history (EMS, parent, family, police, friend...)? What history was obtained from this source @ -EMS helps provide history as patient is a poor historian and does not recall the events Did you review nursing and triage notes (agree or disagree)? Why? @ -I reviewed and agree with nursing and triage notes Were old charts reviewed (outside hosp., previous admission, EMS record, old EKG, old radiological studies, urgent care reports/EKG's, skilled nursing records)? Report findings @ -No old charts were reviewed Differential Diagnosis (chest pain, altered mental status, abdominal pain women, abdominal pain men, vaginal bleeding, weakness, fever, dyspnea, syncope, headache, dizziness, GI bleed, back pain, seizure, CVA, palpatations, mental health, musculoskeletal)? @ -Differential Syncope: Valvular disease, hypertrophic cardiomyopathy, pulmonary embolism, tamponade, tachycardia, bradycardia, [place], hypovolemia, hemorrhage, dissection, anemia, intracranial hemorrhage, seizure, hypoglycemia, carbon monoxide poisoning, this is not meant to be an all-inclusive list. EKG interpreted by me (3pts min.). @ -As above X-rays interpreted by me (1pt min.). @ -Chest x-ray shows no acute process. Postoperative changes. CT interpreted by me (1pt min.). @ -CT scan of the brain does not reveal acute abnormality. U/S interpreted by me (1pt. min.). @ -None done What testing was considered but not performed or refused? (CT, X-rays, U/S, labs)? Why? @ -None What meds were considered but not given or refused? Why? @ -None Did you discuss the management of the patient with other professionals (professionals i.e. BERTRAM Burgos, FUR CUTTING MACHINE OPERATOR, lab, RT, psych nurse, social media community manager, side show entertainer, teacher, eeo officer, comp field case manager)? Give summary @ -[facility], Dr. Jett who will admit covering Dr. Leyva, who admits for Dr. Sanchez Was smoking cessation discussed for >3mins.? @ -No Was critical care preformed (if so, how long)? @ -31 minutes critical care time provided Were there social determinants of health that impacted care today? How? (Homelessness, low income, unemployed, alcoholism, drug addiction, transportation, low edu. Level, literacy, decrease access to med. care, longterm, r ehab)? @ -No Was there de-escalation of care discussed even if they declined (Discuss DNR or withdrawal of care, Hospice)? DNR status @ -No What co-morbidities impacted this encounter? (DM, HTN, Smoking, COPD, CAD, Cancer, CVA, ARF, Chemo, Hep., AIDS, mental health diagnosis, sleep apnea, morbid obesity)? @ -History of cardiac disease Was patient admitted / discharged? Hospital course, mention meds given and route, prescriptions, significant lab abnormalities, going to OR and other pertinent info. @ -Patient reevaluated and resting comfortably in bed. Patient and family are updated on results and plan. Patient will be admitted with cardiac consult. Heparin started. Admission orders written. Undiagnosed new problem with uncertain prognosis? @ -No Drug Therapy requiring intensive monitoring for toxicity (Heparin, Nitro, Insulin, Cardizem)? @ -Heparin drip Were any procedures done? @ -No Diagnosis/symptom? @ -Syncope, non-ST elevation myocardial infarction Acute, or Chronic, or Acute on Chronic? @ -Acute, acute Uncomplicated (without systemic symptoms) or Complicated (systemic symptoms)? @ -Default Side effects of treatment? @ -No Exacerbation, Progression, or Severe Exacerbation? @ -No Poses a threat to life or bodily function? How? (Chest pain, [place], [place], pneumonia, PE, COPD, DKA, ARF, appy, cholecystitis, CVA, Diverticulitis, Homicidal, Suicidal, threat to staff... and all critical care pts) @ -Threat to cardiac function - Lab Data Result diagrams: 11/19/23 08:47 11/19/23 08:47 Lab Results 11/19/23 11/19/23 11/19/23 Range/Units 08:47 08:47 08:47 WBC 7.6 (3.8-10.6) k/uL RBC 4.85 (4.30-5.90) m/uL Hgb 13.9 (13.0-17.5) gm/dL Hct 44.6 (39.0-53.0) % MCV 91.9 (80.0-100.0) fL MCH 28.6 (25.0-35.0) pg MCHC 31.1 (31.0-37.0) g/dL RDW 15.0 (11.5-15.5) % Plt Count 168 (150-450) k/uL MPV 7.6 Neutrophils % 77 % Lymphocytes % 12 % Monocytes % 6 % Eosinophils % 4 % Basophils % 1 % Neutrophils # 5.8 (1.3-7.7) k/uL Lymphocytes # 0.9 L (1.0-4.8) k/uL Monocytes # 0.4 (0-1.0) k/uL Eosinophils # 0.3 (0-0.7) k/uL Basophils # 0.1 (0-0.2) k/uL PT 12.4 (10.0-12.5) sec INR 1.2 H (<1.2) APTT 26.3 (22.0-30.0) sec Sodium 139 (137-145) mmol/L Potassium 4.4 (3.5-5.1) mmol/L Chloride 110 H (98-107) mmol/L Carbon Dioxide 23 (22-30) mmol/L Anion Gap 6 mmol/L BUN 15 (9-20) mg/dL Creatinine 0.60 L (0.66-1.25) mg/dL Est GFR (CKD-EPI)AfAm >90 (>60 ml/min/1.73 sqM) Est GFR (CKD-EPI)NonAf >90 (>60 ml/min/1.73 sqM) Glucose 119 H (74-99) mg/dL Calcium 9.0 (8.4-10.2) mg/dL Magnesium 1.8 (1.6-2.3) mg/dL Total Bilirubin 0.9 (0.2-1.3) mg/dL AST 33 (17-59) U/L ALT 8 (4-49) U/L Alkaline Phosphatase 62 (38-126) U/L Troponin I (0.000-0.034) ng/mL Total Protein 6.1 L (6.3-8.2) g/dL Albumin 3.3 L (3.5-5.0) g/dL Urine Color Urine Appearance (Clear) Urine pH (5.0-8.0) Ur Specific [place] (1.001-1.035) Urine Protein (Negative) Urine Glucose (UA) (Negative) Urine Ketones (Negative) Urine Blood (Negative) Urine Nitrite (Negative) Urine Bilirubin (Negative) Urine Urobilinogen (<2.0) mg/dL Ur Leukocyte Esterase (Negative) Urine RBC (0-5) /hpf Urine WBC (0-5) /hpf 11/19/23 11/19/23 Range/Units 08:47 09:37 WBC (3.8-10.6) k/uL RBC (4.30-5.90) m/uL Hgb (13.0-17.5) gm/dL Hct (39.0-53.0) % MCV (80.0-100.0) fL MCH (25.0-35.0) pg MCHC (31.0-37.0) g/dL RDW (11.5-15.5) % Plt Count (150-450) k/uL MPV Neutrophils % % Lymphocytes % % Monocytes % % Eosinophils % % Basophils % % Neutrophils # (1.3-7.7) k/uL Lymphocytes # (1.0-4.8) k/uL Monocytes # (0-1.0) k/uL Eosinophils # (0-0.7) k/uL Basophils # (0-0.2) k/uL PT (10.0-12.5) sec INR (<1.2) APTT (22.0-30.0) sec Sodium (137-145) mmol/L Potassium (3.5-5.1) mmol/L Chloride (98-107) mmol/L Carbon Dioxide (22-30) mmol/L Anion Gap mmol/L BUN (9-20) mg/dL Creatinine (0.66-1.25) mg/dL Est GFR (CKD-EPI)AfAm (>60 ml/min/1.73 sqM) Est GFR (CKD-EPI)NonAf (>60 ml/min/1.73 sqM) Glucose (74-99) mg/dL Calcium (8.4-10.2) mg/dL Magnesium (1.6-2.3) mg/dL Total Bilirubin (0.2-1.3) mg/dL AST (17-59) U/L ALT (4-49) U/L Alkaline Phosphatase (38-126) U/L Troponin I 0.401 H* (0.000-0.034) ng/mL Total Protein (6.3-8.2) g/dL Albumin (3.5-5.0) g/dL Urine Color Colorless Urine Appearance Clear (Clear) Urine pH 6.0 (5.0-8.0) Ur Specific [place] 1.009 (1.001-1.035) Urine Protein Negative (Negative) Urine Glucose (UA) Negative (Negative) Urine Ketones Negative (Negative) Urine Blood Small H (Negative) Urine Nitrite Negative (Negative) Urine Bilirubin Negative (Negative) Urine Urobilinogen <2.0 (<2.0) mg/dL Ur Leukocyte Esterase Negative (Negative) Urine RBC 2 (0-5) /hpf Urine WBC 1 (0-5) /hpf Disposition Clinical Impression: Syncope, NSTEMI (non-ST elevated myocardial infarction) Disposition: ADMITTED IP TO THIS [facility] Condition: Serious Is patient prescribed a controlled substance at d/c from ED?: No Referrals: Alex Elizabeth MD [Primary Care Provider] - 1-2 days Time of Disposition: 12:06
[2023-11-19 09:07] LABS: Basophils # (A) 0.1 k/uL (0-0.2); Basophils % (A) 1 %; Eosinophils # (A) 0.3 k/uL (0-0.7); Eosinophils % (A) 4 %; HCT 44.6 % (39.0-53.0); HGB 13.9 gm/dL (13.0-17.5); Lymphocytes # (A) 0.9 k/uL (1.0-4.8); Lymphocytes % (A) 12 %; MCH 28.6 pg (25.0-35.0); MCHC 31.1 g/dL (31.0-37.0); MCV 91.9 fL (80.0-100.0); Mean Platelet Volume 7.6; Monocytes # (A) 0.4 k/uL (0-1.0); Monocytes % (A) 6 %; Neutrophils # (A) 5.8 k/uL (1.3-7.7); Neutrophils % (A) 77 %; Platelet Count 168 k/uL (150-450); RBC 4.85 m/uL (4.30-5.90); WBC 7.6 k/uL (3.8-10.6)
[2023-11-19 09:16] LABS: INR 1.2 (<1.2); Partial Thromboplastin Time 26.3 sec (22.0-30.0); Prothrombin Time 12.4 sec (10.0-12.5)
[2023-11-19 09:31] LABS: ALT 8 U/L (4-49); African American GFR (CKD) >90 (>60 ml/min/1.73 sqM); Albumin 3.3 g/dL (3.5-5.0); Anion Gap 6 mmol/L; Blood Urea Nitrogen 15 mg/dL (9-20); Carbon Dioxide 23 mmol/L (22-30); Chloride 110 mmol/L (98-107); Glucose 119 mg/dL (74-99); Non-African American GFR(CKD) >90 (>60 ml/min/1.73 sqM); Sodium 139 mmol/L (137-145); Total Bilirubin 0.9 mg/dL (0.2-1.3); Total Protein 6.1 g/dL (6.3-8.2)
[2023-11-19 09:38] LABS: AST 33 U/L (17-59); Alkaline Phosphatase 62 U/L (38-126); Magnesium 1.8 mg/dL (1.6-2.3); Potassium 4.4 mmol/L (3.5-5.1)
[2023-11-19 10:15] LABS: Appearance,Urine Clear (Clear); Bilirubin,Urine Negative (Negative); Blood,Urine Small (Negative); Color,Urine Colorless; Glucose,Urine (UA) Negative (Negative); Ketones,Urine Negative (Negative); Leukocyte Esterase,Urine Negative (Negative); Nitrite,Urine Negative (Negative); Protein,Urine Negative (Negative); RBC,Urine 2 /hpf (0-5); Specific Gravity,Urine 1.009 (1.001-1.035); Urobilinogen,Urine <2.0 mg/dL (<2.0); WBC,Urine 1 /hpf (0-5)
--- NOTE | 2023-11-19 10:16 | CT ---
EXAMINATION TYPE: CT brain wo con CT DLP: 1227.4 mGycm, Automated exposure control for dose reduction was used. DATE OF EXAM: 11/19/2023 10:09 AM COMPARISON: CT brain C-spine 04/02/2023, 06/22/2021 CLINICAL INDICATION:Male, 68 years old with history of syncope, Syncope TECHNIQUE: Brain: Multiple axial CT images of the brain were obtained without IV contrast. . Coronal and sagitta l reformats reviewed. FINDINGS: Brain: Extra-axial spaces: No abnormal extra-axial fluid collections. Anterior falx calcifications. Ventricular system: Within normal limits Cerebral parenchyma: Cerebral atrophy. No acute intraparenchymal hemorrhage or mass effect. The trujillo -white junction is well differentiated. Scattered hypoattenuating areas are seen within the periventr icular white matter. Cerebellum: Unremarkable. Mass effect: No evidence of midline shift. Intracranial vasculature: Atherosclerotic calcifications of the intracranial vessels. Soft tissues: Normal. Calvarium/osseous structures: No depressed skull fracture. Paranasal sinuses and mastoid air cells: Clear Visualized orbits: Orbital contents are intact. IMPRESSION: 1. No acute intracranial process. 2. Nonspecific white matter changes, likely secondary to chronic small vessel ischemic disease.
[2023-11-19] MEDS: SODIUM CHLORIDE 0.9% 1,000 ML IV STA (10:22)
--- NOTE | 2023-11-19 11:40 | XR ---
EXAMINATION TYPE: XR chest 2V DATE OF EXAM: 11/19/2023 10:12 AM CLINICAL INDICATION:Male, 68 years old with history of syncope; COMPARISON: Chest radiographs from 07/29/2021. TECHNIQUE: XR chest 2V Frontal view of the chest. FINDINGS: Lungs/Pleura: There is flattening of the diaphragm with increased lucency of the lungs. No evidence o f pneumothorax, pleural effusion or focal consolidation. Pulmonary vascularity: Unremarkable. Heart/mediastinum: Cardiomediastinal silhouette is unremarkable. Musculoskeletal: Multiple level degenerative disc disease changes seen throughout the spine. Midline sternotomy wires are noted. Other findings: None IMPRESSION: Chronic changes without acute pulmonary process. No significant change from prior.
[2023-11-19] MEDS: CARBIDOPA-LEVODOPA ER 50-200MG 1 EACH TABLET.ER PO STA (11:49)
[2023-11-19] MEDS ORDERED: HEPARIN SODIUM 1,000 UN/ML (10ML VL) IV PRN (12:00)
[2023-11-19] MEDS ORDERED: NITROGLYCERIN SL TABS 0.4 MG TAB SUBLINGUAL PRN (12:08)
[2023-11-19] MEDS: ASPIRIN 81 MG PO STA (12:08)
[2023-11-19] MEDS: HEPARIN SOD,PORK IN 0.45% NACL 25,000 UNIT in 0.45% NACL 1 250ML.BAG IV SCH (12:09)
[2023-11-19] MEDS ORDERED: CHOLESTYRAMINE (WITH SUGAR) 4 GM PACKET PO PRN (12:10)
[2023-11-19] MEDS ORDERED: ACETAMINOPHEN TAB 500 MG TAB PO PRN (12:10)
[2023-11-19] MEDS ORDERED: guaiFENesin-DM 100-10MG/5ML 10 ML CUP PO PRN (12:10)
[2023-11-19] MEDS: HEPARIN SODIUM 1,000 UN/ML (10ML VL) IV ONE (12:12)
[2023-11-19] MEDS: NITROGLYCERIN OINT 1 INCH/GM PACKET TOPICAL SCH (12:15)
[2023-11-19] MEDS: COUGH PO SCH (12:25)
--- NOTE | 2023-11-19 12:58 | P.HPIM ---
History of Present Illness H&P Date: 11/19/23 History of Presenting Illness: Patient is a very pleasant 68-year-old male with a past medical history of Lewy body dementia, Parkinson's disease, developmental delay, thyroid cancer status post thyroidectomy, and CAD status post CABG x 4 in 2007 followed by stenting x 2 in 2009, occluded stent in 2021 resulting in Rotablator procedure and placement of a third stent. Patient follows with Dr. Alisha Rivera [facility]. He presented to the hospital from [facility] assisted [facility] after a report of syncopal episode. Per patient's sister at bedside patient was in wheelchair being taken down to dining room by staff when he suddenly slumped over in the wheelchair and was unconscious lasting approximately 5 minutes and EMS was called for transfer to the hospital. Upon awakening patient was at baseline mentation with no reported postictal episode, no evidence of biting tongue or involuntary loss of bowel or bladder. Patient currently denies having any complaints at this time with the exception of feeling hungry. He denies having any headache, lightheadedness, dizziness, chest pain, palpitations, shortness of breath, or experiencing any numbness/tingling/weakness in his extremities. On arrival to our facility, patient underwent evaluation in the emergency department. Vital signs upon arrival show blood pressure 95/63, heart rate 60, respiratory rate 16, temp 97.6 F, and SpO2 of 98% on room air. EKG was completed showing sinus bradycardia at 59 bpm with no noted T wave or ST abnormalities showing no signs of acute ischemia upon personal review and interpretation. CT brain showing nonspecific white matter changes consistent with chronic small vessel ischemic disease but negative for acute intracranial process. Chest x-ray showing chronic changes with flattening of the diaphragm and increased lucency of the lungs but negative for acute cardiopulmonary process. Labs were completed and reviewed. CBC was unremarkable. Coagulation profile showing slightly elevated INR of 1.2 otherwise normal findings. BMP wilbur wing hyperchloremia with chloride of 110 and glucose of 119. Magnesium was 1.8. Liver profile unremarkable with the exception of low albumin of 3.3. Troponin was elevated at 0.401. Patient was started on heparin infusion for treatment of NSTEMI and admitted under our services with consultation to cardiology. Review of systems: Pertinent positives and negatives as discussed in HPI, a complete review of systems was performed and all other systems are negative. Physical exam: Vital signs reviewed and stable. General: Nontoxic, no distress and appears stated age. Derm: Skin warm and dry, normal coloration for ethnicity. Head: Atraumatic, normocephalic and symmetric. Eyes: EOMs intact, no lid lag, and anicteric sclera Mouth: no lip lesions, mucus membranes moist Cardiovascular: regular rate and rhythm with normal S1S2, soft systolic murmur, positive posterior tibial pulses bilaterally, and cap refill < 2 seconds. Lungs: Respirations even, regular, and unlabored on room air. Lungs CTA bilate rally, no rhonchi, no rales, no wheezing, and no accessory muscle usage. Abdominal: soft, nontender to palpation, no guarding, no appreciable organomegaly Ext: ROM intact. No gross muscle atrophy, no edema, no contractures Neuro: Speech clear, face symmetrical and CN II-XII grossly intact with no noted focal neuro deficits Psych: Alert and oriented. Appropriate and pleasant affect. Assessment and Plan of Care: NSTEMI Syncopal episode History of CAD status post CABG x 4 followed by stenting -Cardiology consulted, appreciate recommendations -Continue low-dose heparin infusion at 12 units/kg/h with close monitoring of PTT for goal therapeutic range of 44 to 79 seconds. -Telemetry monitoring -Trend troponins -Cardiac diet, NPO at midnight -Continue cardiac medication regimen with aspirin 81 mg daily, atorvastatin 40 mg nightly, and isosorbide mononitrate 30 mg daily. -Obtain records from [facility], request for records was sent by ED secretary receptionist -Echocardiogram. Lewy body dementia Parkinson's disease Developmental delay Provide safe and supportive care with assistance and redirection as needed. Patient to continue daily medication regimen with carbidopa levodopa 75-300 mg twice daily, Celexa 10 mg nightly, Aricept 10 mg daily, and Seroquel 200 mg nigh tly. Hypothyroidism, surgically induced status post total thyroidectomy secondary to thyroid cancer Continue daily medication regimen with levothyroxine 150 mcg daily. Data and imaging reviewed: As stated above in HPI The patient is admitted with an anticipated greater than 2 midnight stay for evaluation of NSTEMI CODE STATUS: Full code DVT prophylaxis: Heparin Discussed with: Patient, patient's sister/guardian at bedside, and ED physician. Anticipated discharge date: Pending clinical course Anticipated discharge place: Return to alf/assisted living facility ([facility]) Patient was seen independently by Nurse Practitioner. This document was prepared using [email or web address] dictation software. Please allow for errors in pattern perforating machine operator while rare they do occur. .I reviewed the documentation as provided by the TALITA above, who is the original author of this note. I agree with the documented assessment and plan, with the following changes: none Past Medical History Past Medical History: Coronary Artery Disease (CAD), Cancer, Dementia, Diabetes Mellitus, Hyperlipidemia, Hypertension, Thyroid Disorder Additional Past Medical History / Comment(s): Parkinson's, developmental delay, vitamin D deficiency, thyroid CA, diet controlled DM (since weight loss) History of Any Multi-Drug Resistant Organisms: None Reported Past Surgical History: Coronary Bypass/CABG, Heart Catheterization With Stent Additional Past Surgical History / Comment(s): 4 vessel CABG, thyroidectomy, cardiac stenting 2 in 2009, esophageal foreign body removal Past Anesthesia/Blood Transfusion Reactions: No Reported Reaction Date of Last Stent Placement:: 2009 Past Psychological History: Anxiety Smoking Status: Never smoker Past Alcohol Use History: None Reported Past Drug Use History: None Reported - Past Family History Father Family Medical History: No Reported History Mother History Unknown: Yes Family Medical History: Coronary Artery Disease (CAD) Sister(s) Family Medical History: Cancer Additional Family Medical History / Comment(s): Breast Brother(s) Family Medical History: Cancer Additional Family Medical History / Comment(s): Prostate Medications and Allergies Home Medications Medication Instructions Recorded Confirmed Type Aspirin EC [Ecotrin Low Dose] 81 mg PO DAILY@69904/21/19 11/19/23 History Folic Acid 1 mg PO DAILY@69904/21/19 11/19/23 History Multivitamins, Thera [Multivitamin 1 tab PO DAILY@69904/21/19 11/19/23 History (formulary)] Cholecalciferol [Vitamin D3 (25 50 mcg PO DAILY@69910/26/20 11/19/23 History Mcg = 1000 Iu)] Isosorbide Mononitrate ER [Imdur] 30 mg PO DAILY@69910/26/20 11/19/23 History Ascorbic Acid [Vitamin C] 1,000 mg PO DAILY@69906/22/21 11/19/23 History Atorvastatin [Lipitor] 40 mg PO HS@0 07/29/21 11/19/23 History Carbidopa-Levodopa 25-100 mg 1 tab PO BID@0700,1700 02/26/23 11/19/23 History [Sinemet 25-100 mg] Carbidopa-Levodopa ER 50-200Mg 1 tab PO BID@0700,1200 02/26/23 11/19/23 History [Sinemet CR 50-200 mg] Cetirizine HCl 10 mg PO HS@1900 02/26/23 11/19/23 History Citalopram Hydrobromide [CeleXA] 10 mg PO HS@1900 08/29/23 11/19/23 History Donepezil HCl [Aricept] 10 mg PO DAILY@0700 08/29/23 11/19/23 History Levothyroxine Sodium [Synthroid] 150 mcg PO DAILY@0700 08/29/23 11/19/23 History Acetaminophen Tab [Tylenol] 1,000 mg PO Q6H PRN 11/19/23 11/19/23 History Bismuth Subsalicylate 524 mg PO Q30M PRN MDD 8 doses 11/19/23 11/19/23 History [Pepto-Bismol] Cholestyramine/Aspartame 4 gm PO AC-TID PRN 11/19/23 11/19/23 History [Cholestyramine Light Packet] Cough Drops 1 lozenge PO DIRECTED 11/19/23 11/19/23 History Loperamide [Imodium] 2 - 4 mg PO DIRECTED PRN MDD 4 11/19/23 11/19/23 History caps Melatonin 10 mg PO HS PRN 11/19/23 11/19/23 History Nitroglycerin Sl Tabs [Nitrostat] 0.4 mg SUBLINGUAL Q5M PRN 11/19/23 11/19/23 History Psyllium Husk (with Sugar) [Fiber 1 tsp PO BID@0700,1600 11/19/23 11/19/23 History Powder] QUEtiapine FUMARATE [SEROquel] 200 mg PO HS@1700 11/19/23 11/19/23 History Sodium Chloride [[place]] 2 spray EA NOSTRIL DIRECTED PRN 11/19/23 11/19/23 History guaiFENesin-DM 100-10MG/5ML 10 ml PO QID PRN 11/19/23 11/19/23 History [Robitussin DM] Allergies Allergy/AdvReac Type Severity Reaction Status Date / Time No Known Allergies Allergy Verified 11/19/23 11:24 Physical Exam Vitals: Vital Signs Temp Pulse Resp BP Pulse Ox 11/19/23 11:08 58 L 16 135/80 96 11/19/23 08:35 97.6 F 60 16 95/63 98 Intake and Output 11/18/23 11/19/23 11/19/23 22:59 06:59 14:59 Other: Weight 77.111 kg Results CBC & Chem 7: 11/21/23 10:27 11/21/23 10:51 Labs: Abnormal Lab Results - Last 24 Hours (Table) 11/19/23 11/19/23 11/19/23 Range/Units 08:47 08:47 08:47 Lymphocytes # 0.9 L (1.0-4.8) k/uL INR 1.2 H (<1.2) Chloride 110 H (98-107) mmol/L Creatinine 0.60 L (0.66-1.25) mg/dL Glucose 119 H (74-99) mg/dL Troponin I (0.000-0.034) ng/mL Total Protein 6.1 L (6.3-8.2) g/dL Albumin 3.3 L (3.5-5.0) g/dL Urine Blood (Negative) 11/19/23 11/19/23 Range/Units 08:47 09:37 Lymphocytes # (1.0-4.8) k/uL INR (<1.2) Chloride (98-107) mmol/L Creatinine (0.66-1.25) mg/dL Glucose (74-99) mg/dL Troponin I 0.401 H* (0.000-0.034) ng/mL Total Protein (6.3-8.2) g/dL Albumin (3.5-5.0) g/dL Urine Blood Small H (Negative)
[2023-11-19] MEDS: CARBIDOPA-LEVODOPA 25-100 MG 1 EACH TAB PO SCH (18:01)
[2023-11-19] MEDS: QUEtiapine 200 MG TAB PO SCH (18:01)
[2023-11-19] MEDS: CITALOPRAM HYDROBROMIDE 10 MG TAB PO SCH (18:17)
[2023-11-19] MEDS: LORATADINE 10 MG TAB PO SCH (18:17)
[2023-11-19] MEDS: ATORVASTATIN 40 MG TAB PO SCH (18:17)
[2023-11-20] MEDS: CHOLECALCIFEROL 25 MCG (1000 IU) TABLET PO SCH (07:48)
[2023-11-20] MEDS: ASCORBIC ACID 500 MG TAB PO SCH (07:48)
[2023-11-20] MEDS: FOLIC ACID 1 MG TAB PO SCH (07:49)
[2023-11-20] MEDS: DONEPEZIL 10 MG TAB PO SCH (07:49)
[2023-11-20] MEDS: LEVOTHYROXINE 75 MCG TAB PO SCH (07:49)
[2023-11-20] MEDS: ISOSORBIDE MONONITRATE ER 30 MG TAB.ER.24H PO SCH (07:50)
[2023-11-20] MEDS: ASPIRIN 81 MG PO SCH (08:06)
[2023-11-20] MEDS: CARBIDOPA-LEVODOPA ER 50-200MG 1 EACH TABLET.ER PO SCH (08:07)
[2023-11-20] MEDS ORDERED: ASPIRIN 325 MG TAB PO SCH (09:00)
--- NOTE | 2023-11-20 09:40 | P.CRDCN ---
History of Present Illness History of present illness: HISTORY OF PRESENT ILLNESS: This is a 68-year-old male with a past medical history significant for Lewy body dementia, Parkinson's disease, developmental delay, thyroid cancer with previous thyroidectomy, and coronary artery disease with previous four-vessel CABG in 2007, stenting x 2 in 2009, and occluded stent in 2021 resulting in Rotablator procedure and placement of an additional stent. Patient follows in the office with Dr. Iverson at [facility]. We have been asked to see the patient in consultation for syncope and elevated troponins. Patient examined at the bedside in the emergency room. Patient is a poor historian. There is no family present. Apparently the patient was at his assisted living facility when he was being wheeled down to the dining room in his wheelchair by staff when he slumped over and was out for approximately 5 minutes. The patient does not remember this event. He currently denies any chest pain or pressure. He denies any shortness of breath. The patient is alert and oriented but is slow to respond to questioning. Patient's vital signs are stable. He appears to be resting comfortably at the time of examination and has no complaints. DIAGNOSTICS: - EKG reveals sinus mechanism with no signs of acute ischemia - Chest xray chronic changes without acute pulmonary process. - Laboratory data: WBC 7.6. Hemoglobin 13.9. Platelet count 168. Sodium 139. Potassium 4.4. BUN 15. Creatinine 0.60. Magnesium 1.8. Troponin 0.401. 0.307. 0.331. - Current home cardiac medications include aspirin 81 mg daily, for Lipitor 40 mg at night, Imdur 30 mg daily. REVIEW OF SYSTEMS: At the time of my exam: CONSTITUTIONAL: Denies fever or chills. HEENT: Denies blurred vision, vision changes, or eye pain. Denies hemoptysis CARDIOVASCULAR: Denies chest pain. Denies orthopnea. Denies PND. Denies palpitations RESPIRATORY: Denies shortness of breath. GASTROINTESTINAL: Denies abdominal pain. Denies nausea or vomiting. HEMATOLOGIC: Denies bleeding disorders. GENITOURINARY: Denies any blood in urine. SKIN: Denies pruitis. Denies rash. PHYSICAL EXAM: VITAL SIGNS: Reviewed. GENERAL: Well-developed in no acute distress. HEENT: Head is normocephalic. Pupils are equal, round. Sclerae anicteric. Mucous membranes of the mouth are moist. Neck supple. No JVD or thyromegaly LUNGS: Respirations even and unlabored. Lungs essentially clear to auscultation bilaterally. HEART: Regular rate and rhythm. S1 and S2 heard. ABDOMEN: Soft. Nondistended. Nontender. EXTREMITIES: Normal range of motion. No clubbing or cyanosis. Peripheral pulses intact. No lower extremity edema NEUROLOGIC: Awake and alert. ASSESSMENT: Syncope Elevated troponins, flat, of unclear significance, non-STEMI unlikely History of CAD with previous four-vessel CABG in 2007 with subsequent stenting, most recently in 2021 Hyperlipidemia History of Parkinson's disease History of Lewy body dementia History of developmental delay History of thyroid cancer with previous thyroidectomy PLAN: Patient with elevated troponins of unclear significance. Non-STEMI is unlikely. We will continue with IV heparin for an additional 24 hours and obtain 2D echo to assess cardiac structure and function Resume home cardiac medications Continue telemetry monitoring Continue with medical management at this time. No plans for cardiac catheterization. Further recommendations pending patient course Patient to follow-up postdischarge with his primary reduction plant supervisor at [facility] Nurse practitioner note has been reviewed by physician. Signing provider agrees with the documented findings, assessment, and plan of care documented by HOSE TENDER as a scribe. Past Medical History Past Medical History: Coronary Artery Disease (CAD), Cancer, Dementia, Diabetes Mellitus, Hyperlipidemia, Hypertension, Thyroid Disorder Additional Past Medical History / Comment(s): Parkinson's, developmental delay, vitamin D deficiency, thyroid CA, diet controlled DM (since weight loss) History of Any Multi-Drug Resistant Organisms: None Reported Past Surgical History: Coronary Bypass/CABG, Heart Catheterization With Stent Additional Past Surgical History / Comment(s): 4 vessel CABG, thyroidectomy, cardiac stenting 2 in 2009, esophageal foreign body removal Past Anesthesia/Blood Transfusion Reactions: No Reported Reaction Date of Last Stent Placement:: 2009 Past Psychological History: Anxiety Smoking Status: Never smoker Past Alcohol Use History: None Reported Past Drug Use History: None Reported - Past Family History Father Family Medical History: No Reported History Mother History Unknown: Yes Family Medical History: Coronary Artery Disease (CAD) Sister(s) Family Medical History: Cancer Additional Family Medical History / Comment(s): Breast Brother(s) Family Medical History: Cancer Additional Family Medical History / Comment(s): Prostate Medications and Allergies Home Medications Medication Instructions Recorded Confirmed Type Aspirin EC [Ecotrin Low Dose] 81 mg PO DAILY@0700 04/21/19 11/19/23 History Folic Acid 1 mg PO DAILY@0700 04/21/19 11/19/23 History Multivitamins, Thera [Multivitamin 1 tab PO DAILY@0700 04/21/19 11/19/23 History (formulary)] Cholecalciferol [Vitamin D3 (25 50 mcg PO DAILY@00 10/26/20 11/19/23 History Mcg = 1000 Iu)] Isosorbide Mononitrate ER [Imdur] 30 mg PO DAILY@00 10/26/20 11/19/23 History Ascorbic Acid [Vitamin C] 1,000 mg PO DAILY@0700 06/22/21 11/19/23 History Atorvastatin [Lipitor] 40 mg PO HS@1900 07/29/21 11/19/23 History Carbidopa-Levodopa 25-100 mg 1 tab PO BID@0700,1700 02/26/23 11/19/23 History [Sinemet 25-100 mg] Carbidopa-Levodopa ER 50-200Mg 1 tab PO BID@0700,1200 02/26/23 11/19/23 History [Sinemet CR 50-200 mg] Cetirizine HCl 10 mg PO HS@1900 02/26/23 11/19/23 History Citalopram Hydrobromide [CeleXA] 10 mg PO HS@1900 08/29/23 11/19/23 History Donepezil HCl [Aricept] 10 mg PO DAILY@0700 08/29/23 11/19/23 History Levothyroxine Sodium [Synthroid] 150 mcg PO DAILY@0700 08/29/23 11/19/23 History Acetaminophen Tab [Tylenol Tab] 1,000 mg PO Q6H PRN 11/19/23 11/19/23 History Bismuth Subsalicylate 524 mg PO Q30M PRN MDD 8 doses 11/19/23 11/19/23 History [Pepto-Bismol] Cholestyramine/Aspartame 4 gm PO AC-TID PRN 11/19/23 11/19/23 History [Cholestyramine Light Packet] Cough Drops 1 lozenge PO DIRECTED 11/19/23 11/19/23 History Loperamide [Imodium] 2 - 4 mg PO DIRECTED PRN MDD 4 11/19/23 11/19/23 History caps Melatonin 10 mg PO HS PRN 11/19/23 11/19/23 History Nitroglycerin Sl Tabs [Nitrostat] 0.4 mg SUBLINGUAL Q5M PRN 11/19/23 11/19/23 History Psyllium Husk (with Sugar) [Fiber 1 tsp PO BID@0700,1600 11/19/23 11/19/23 History Powder] QUEtiapine FUMARATE [SEROquel] 200 mg PO HS@1700 11/19/23 11/19/23 History Sodium Chloride [[place]] 2 spray EA NOSTRIL DIRECTED PRN 11/19/23 11/19/23 History guaiFENesin-DM 100-10MG/5ML 10 ml PO QID PRN 11/19/23 11/19/23 History [Robitussin DM] Allergies Allergy/AdvReac Type Severity Reaction Status Date / Time No Known Allergies Allergy Verified 11/19/23 11:24 Physical Exam Vitals: Vital Signs Temp Pulse Resp BP Pulse Ox 11/20/23 07:51 93 14 152/86 98 11/20/23 06:00 65 18 141/76 97 11/20/23 04:00 54 L 18 110/74 96 11/20/23 02:00 63 18 145/88 96 11/20/23 00:00 60 18 107/67 96 11/19/23 23:00 58 L 18 105/76 96 11/19/23 20:00 73 18 97/82 95 11/19/23 18:33 98 16 124/89 96 11/19/23 16:00 90 16 146/85 97 11/19/23 13:30 71 16 141/110 97 11/19/23 11:08 58 L 16 135/80 96 11/19/23 08:35 97.6 F 60 16 95/63 98 Intake and Output 11/19/23 11/20/23 11/20/23 22:59 06:59 14:59 Intake Total 68.01 Balance 68.01 Intake: Intake, IV Titration 68.01 Amount Heparin Sod,Pork in 0.45% 68.01 NaCl 25,000 unit In 0.45 % NaCl 1 250ml.bag @ 12 UNITS/KG/HR 9.253 mls/hr IV .Q24H [facility] Rx#: [id number] Results 11/19/23 08:47 11/19/23 08:47 Cardiac Enzymes 11/19/23 11/19/23 11/19/23 Range/Units 08:47 08:47 14:03 AST 33 (17-59) U/L Troponin I 0.401 H* 0.307 H* (0.000-0.034) ng/mL 11/19/23 Range/Units 18:36 AST (17-59) U/L Troponin I 0.331 H* (0.000-0.034) ng/mL Coagulation 11/19/23 11/19/23 Range/Units 08:47 18:36 PT 12.4 (10.0-12.5) sec APTT 26.3 55.3 H (22.0-30.0) sec CBC 11/19/23 Range/Units 08:47 WBC 7.6 (3.8-10.6) k/uL RBC 4.85 (4.30-5.90) m/uL Hgb 13.9 (13.0-17.5) gm/dL Hct 44.6 (39.0-53.0) % Plt Count 168 (150-450) k/uL Comprehensive Metabolic Panel 11/19/23 Range/Units 08:47 Sodium 139 (137-145) mmol/L Potassium 4.4 (3.5-5.1) mmol/L Chloride 110 H (98-107) mmol/L Carbon Dioxide 23 (22-30) mmol/L BUN 15 (9-20) mg/dL Creatinine 0.60 L (0.66-1.25) mg/dL Glucose 119 H (74-99) mg/dL Calcium 9.0 (8.4-10.2) mg/dL AST 33 (17-59) U/L ALT 8 (4-49) U/L Alkaline Phosphatase 62 (38-126) U/L Total Protein 6.1 L (6.3-8.2) g/dL Albumin 3.3 L (3.5-5.0) g/dL Current Medications Generic Name Dose Route Start Last Admin Trade Name Freq PRN Reason Stop Dose Admin Acetaminophen 1,000 mg 11/19/23 12:10 Acetaminophen Tab 500 Mg Tab PO Q6H PRN Pain or Fever > 100.5 Ascorbic Acid 1,000 mg 11/20/23 07:00 11/20/23 07:48 Ascorbic Acid 500 Mg Tab PO 1,000 mg DAILY@07 [facility] Administration Aspirin 81 mg 11/20/23 09:00 11/20/23 08:06 Aspirin 81 Mg PO 81 mg DAILY [facility] Administration Atorvastatin Calcium 40 mg 11/19/23 19:00 11/19/23 18:17 Atorvastatin 40 Mg Tab PO 40 mg HS@1900 [facility] Administration Carbidopa/Levodopa 1 each 11/19/23 17:00 11/20/23 07:49 Carbidopa-Levodopa 25-100 Mg 1 Each Tab PO 1 each BID@0700,1700 [facility] Administration Carbidopa/Levodopa 1 each 11/20/23 07:00 11/20/23 08:07 Carbidopa-Levodopa Er 50-200mg 1 Each Tablet.Er PO 1 each BID@0700,1200 [facility] Administration Cholecalciferol 50 mcg 11/20/23 07:00 11/20/23 07:48 Cholecalciferol 25 Mcg (1000 Iu) Tablet PO 50 mcg DAILY@07 [facility] Administration Cholestyramine Resin 4 gm 11/19/23 12:10 Cholestyramine (With Sugar) 4 Gm Packet PO AC-TID PRN Diarrhea Citalopram Hydrobromide 10 mg 11/19/23 19:00 11/19/23 18:17 Citalopram Hydrobromide 10 Mg Tab PO 10 mg HS@1900 [facility] Administration Donepezil HCl 10 mg 11/20/23 07:00 11/20/23 07:49 Donepezil 10 Mg Tab PO 10 mg DAILY@07 [facility] Administration Folic Acid 1 mg 11/20/23 07:00 11/20/23 07:49 Folic Acid 1 Mg Tab PO 1 mg DAILY@07 [facility] Administration Guaifenesin/Dextromethorphan 10 ml 11/19/23 12:10 Guaifenesin-Dm 100-10mg/5ml 10 Ml Cup PO QID PRN Cough Heparin Sodium (Porcine) 0 unit 11/19/23 12:00 Heparin Sodium 1,000 Un/Ml (10ml Vl) IV PER PROTOCOL PRN Low PTT Protocol Heparin Sodium/Sodium Chloride 250 mls @ 9.253 mls/hr 07/09/24 12:00 11/19/23 19:30 25,000 unit/ Sodium Chloride IV 12 units/kg/hr .Q24H [facility] 9.253 mls/hr Titration Protocol 12 UNITS/KG/HR Isosorbide Mononitrate 30 mg 11/20/23 07:00 11/20/23 07:50 Isosorbide Mononitrate Er 30 Mg Tab.Er.24h PO 30 mg DAILY@0700 [facility] Administration Levothyroxine Sodium 150 mcg 11/20/23 07:00 11/20/23 07:49 Levothyroxine 75 Mcg Tab PO 150 mcg DAILY@0700 [facility] Administration Loratadine 10 mg 11/19/23 19:00 11/19/23 18:17 Loratadine 10 Mg Tab PO 10 mg HS@1900 [facility] Administration Nitroglycerin 0.4 mg 11/19/23 12:08 Nitroglycerin Sl Tabs 0.4 Mg Tab SUBLINGUAL Q5M PRN Chest Pain Nitroglycerin 1 inch 11/19/23 12:15 11/20/23 06:16 Nitroglycerin Oint 1 Inch/Gm Packet TOPICAL 1 inch Q6HR [facility] Administration Quetiapine Fumarate 200 mg 11/19/23 17:00 11/19/23 18:01 Quetiapine 200 Mg Tab PO 200 mg HS@1700 [facility] Administration Intake and Output 11/19/23 11/20/23 11/20/23 22:59 06:59 14:59 Intake Total 68.01 Balance 68.01 Intake: Intake, IV Titration 68.01 Amount Heparin Sod,Pork in 0.45% 68.01 NaCl 25,000 unit In 0.45 % NaCl 1 250ml.bag @ 12 UNITS/KG/HR 9.253 mls/hr IV .Q24H [facility] Rx#: [id number] 11/19/23 08:47 11/19/23 08:47
[2023-11-20 11:59] LABS: INR 1.1 (<1.2); Prothrombin Time 12.2 sec (10.0-12.5)
[2023-11-20 12:01] LABS: Basophils # (A) 0.1 k/uL (0-0.2); Basophils % (A) 1 %; Eosinophils # (A) 0.2 k/uL (0-0.7); Eosinophils % (A) 3 %; HCT 41.4 % (39.0-53.0); HGB 13.1 gm/dL (13.0-17.5); Lymphocytes # (A) 1.1 k/uL (1.0-4.8); Lymphocytes % (A) 14 %; MCH 28.6 pg (25.0-35.0); MCHC 31.6 g/dL (31.0-37.0); MCV 90.7 fL (80.0-100.0); Monocytes # (A) 0.5 k/uL (0-1.0); Monocytes % (A) 6 %; Neutrophils # (A) 5.8 k/uL (1.3-7.7); Neutrophils % (A) 75 %; Platelet Count 175 k/uL (150-450); RBC 4.57 m/uL (4.30-5.90); RDW 14.9 % (11.5-15.5); WBC 7.7 k/uL (3.8-10.6)
[2023-11-20 12:02] LABS: African American GFR (CKD) >90 (>60 ml/min/1.73 sqM); Anion Gap 3 mmol/L; Blood Urea Nitrogen 16 mg/dL (9-20); Calcium 9.2 mg/dL (8.4-10.2); Carbon Dioxide 28 mmol/L (22-30); Chloride 108 mmol/L (98-107); Glucose 106 mg/dL (74-99); Magnesium 1.8 mg/dL (1.6-2.3); Non-African American GFR(CKD) >90 (>60 ml/min/1.73 sqM); Potassium 3.8 mmol/L (3.5-5.1); Sodium 139 mmol/L (137-145)
--- NOTE | 2023-11-20 14:20 | CA ---
Transthoracic Echo Report Name: Kurt Sage Age: 68 Gender: M : 1955 Exam Date: 11/20/2023 10:42 Exam Location: [place] [facility] Ht (in): 74 Wt (lb): 170 Ordering Physician: Marty Sampson DO Attending/Referring Phys: Imaging Science Professor Mary Grace Ramírez RDCS Procedure CPT: Indications: NSTEMI, syncope Cardiac Hx: Technical Quality: Fair Contrast 1: Total Dose (mL): Contrast 2: Total Dose (mL): MEASUREMENTS (Male / Female) Normal Values 2D ECHO LV Diastolic Diameter PLAX 5.0 cm 4.2 - 5.9 / 3.9 - 5.3 cm LV Systolic Diameter PLAX 3.4 cm IVS Diastolic Thickness 1.1 cm 0.6 - 1.0 / 0.6 - 0.9 cm LVPW Diastolic Thickness 1.0 cm 0.6 - 1.0 / 0.6 - 0.9 cm LV Relative Wall Thickness 0.4 LVOT Diameter 2.4 cm LV Diastolic Volume MOD BP 155.3 cm??? 67 - 155 / 56 - 104 cm??? LV Systolic Volume MOD BP 63.0 cm??? 22 - 58 / 19 - 49 cm??? LV Ejection Fraction MOD BP 59.4 % >= 55 % LV Cardiac Index MOD BP 3275.1 cm???/min???m??? LV Diastolic Volume MOD 4C 161.8 cm??? LV Systolic Volume MOD 4C 62.3 cm??? LV Ejection Fraction MOD 4C 61.5 % LV Cardiac Index MOD 4C 3531.8 cm???/min???m??? LV Diastolic Length 4C 9.2 cm LV Systolic Length 4C 8.4 cm LV Diastolic Volume MOD 2C 134.1 cm??? LV Systolic Volume MOD 2C 54.7 cm??? LV Ejection Fraction MOD 2C 59.2 % LV Cardiac Index MOD 2C 2816.8 cm???/min???m??? LV Diastolic Length 2C 8.3 cm LV Systolic Length 2C 7.1 cm LA Volume 84.1 cm??? 18 - 58 / 22 - 52 cm??? LA Volume Index 42.0 cm???/m??? 16 - 28 cm???/m??? DOPPLER AV Peak Velocity 170.3 cm/s AV Peak Gradient 11.6 mmHg AV Mean Velocity 122.1 cm/s AV Mean Gradient 6.6 mmHg AV Velocity Time Integral 34.3 cm LVOT Peak Velocity 121.0 cm/s LVOT Peak Gradient 5.9 mmHg LVOT Velocity Time Integral 23.7 cm LVOT Stroke Volume 110.0 cm??? LVOT Stroke Volume Index 54.2 ml/m??? LVOT Cardiac Index 3903.4 cm???/min???m??? AV Area Cont Eq vti 3.2 cm??? AV Area Cont Eq pk 3.3 cm??? MV Area PHT 3.9 cm??? Mitral E Point Velocity 54.4 cm/s Mitral A Point Velocity 84.2 cm/s Mitral E to A Ratio 0.6 MV Deceleration Time 192.5 ms TR Peak Velocity 233.6 cm/s TR Peak Gradient 21.8 mmHg Right Atrial Pressure 10.0 mmHg Pulmonary Artery Systolic Pressu 31.8 mmHg Right Ventricular Systolic Press 31.8 mmHg PV Peak Velocity 86.1 cm/s PV Peak Gradient 3.0 mmHg FINDINGS Left Ventricle Left ventricular ejection fraction is estimated at 55-60 %. Mildly increased septal wall thickness. Mildly increased left ventricular systolic volume. No obvious regional wall motion abnormalities. Right Ventricle Mild right ventricular dilatation wiith normal function. Right ventricular systolic pressure within normal limits. Right Atrium Right atrium not well visualized. Left Atrium Severely increased left atrial volume. Mildly increased left atrial area. Mitral Valve Mitral valve thickened. No evidence for mitral valve prolapse. No mitral stenosis. Mild mitral regurgitation. Aortic Valve Trileaflet aortic valve. No aortic stenosis. Mild aortic regurgitation. Tricuspid Valve Structurally normal tricuspid valve. No tricuspid stenosis. Mild tricuspid regurgitation. Pulmonic Valve Pulmonic valve not well visualized. No pulmonic stenosis. No pulmonic regurgitation. Pericardium No pericardial effusion. Aorta Aortic annulus normal. Ascending aorta not well visualized. CONCLUSIONS Left ventricular ejection fraction 55-60% Mildly increased left ventricular wall thickness RVSP 32 Moderately dilated left atrium Mild mitral regurgitation Mild aortic regurgitation Previewed by: Dr. Abdias Murphy DO (Electronically Signed) Final Date: 20 November 2023 14:19
[2023-11-20 15:53] LABS: Chol/HDL Ratio 2.27 Ratio; LDL Cholesterol,Calculated 45.5 mg/dL (0.0-131.0); VLDL Calculation 15.46 mg/dL (5.00-40.00)
--- NOTE | 2023-11-20 15:57 | P.PN ---
Subjective Progress Note Date: 11/20/23 Hospital course Patient is a very pleasant 68-year-old male with a past medical history of Lewy body dementia, Parkinson's disease, developmental delay, thyroid cancer status post thyroidectomy, and CAD status post CABG x 4 in 2007 followed by stenting x 2 in 2009, occluded stent in 2021 resulting in Rotablator procedure and placement of a third stent. Patient follows with Dr. Alisha Rivera [facility]. He presented to the hospital from [facility] assisted living [facility] after a report of syncopal episode. Per patient's sister at bedside patient was in wheelchair being taken down to dining room by staff when he suddenly slumped over in the wheelchair and was unconscious lasting approximately 5 minutes and EMS was called for transfer to the hospital. Upon awakening patient was at baseline mentation with no reported postictal episode, no evidence of biting tongue or involuntary loss of bowel or bladder. Patient currently denies having any complaints at this time with the exception of feeling hungry. He denies having any headache, lightheadedness, dizziness, chest pain, palpitations, shortness of breath, or experiencing any numbness/tingling/weakness in his extremities. On arrival to our facility, patient underwent evaluation in the emergency department. Vital signs upon arrival show blood pressure 95/63, heart rate 60, respiratory rate 16, temp 97.6 F, and SpO2 of 98% on room air. EKG was completed showing sinus bradycardia at 59 bpm with no noted T wave or ST abnormalities showing no signs of acute ischemia upon personal review and interpretation. CT brain showing nonspecific white matter changes consistent with chronic small vessel ischemic disease but negative for acute intracranial process. Chest x-ray showing chronic changes with flattening of the diaphragm and increased lucency of the lungs but negative for acute cardiopulmonary process. Labs were completed and reviewed. CBC was unremarkable. Coagulation profile showing slightly elevated INR of 1.2 otherwise normal findings. BMP showing hyperchloremia with chloride of 110 and glucose of 119. Magnesium was 1.8. Liver profile unremarkable with the exception of low albumin of 3.3. Troponin was elevated at 0.401. Patient was started on heparin infusion for treatment of NSTEMI and admitted under our services with consultation to cardiology. Patient seen by cardiology who said the elevated troponin is of no clinical significance. I reviewed patient's records from his commercial credit specialist office which showed that patient had a echocardiogram done on 09/20/2021 that showed an EF of 55%. Patient also has multiple heart caths with a large heart cath done and 12/01/2021. He has had a total of 3 stents placed. Patient also does have a history of four-vessel CABG done on 01/29/2008. Patient had an echocardiogram done while in the hospital that is similar to his previous echocardiogram. Subjective Patient is a poor historian. His sister was at bedside. Sister's was also there. Patient currently denying any acute complaints. Per sister patient has been rapidly declining since his diagnosis of Parkinson's disease. She states that prior to his diagnosis he was independent. Patient sister also states that the patient used to be morbidly obese and he is lost significant weight over the past few years. She states that they have been restricting his diet so this weight loss was intentional. Physical exam General examination -patient appears chronically debilitated Heart - + S1S2 no murmurs Lungs - Clear to auscultation Abdomen soft NT ND +ve BS Extremities - No edema SUPPLY SPECIALIST - Moving all 4 extremities spontaneously Psych - Calm and cooperative, blank facies Assessment and plan Non-ST elevation [place] Syncopal episode History of coronary artery disease status post CABG and PCI Per cardiology the elevated troponin is of no clinical significance. Cardiology is recommending 24 hours of heparin drip Echocardiogram ordered When patient initially came in his blood pressure was on the low side. I suspect the likely etiology is dehydration. Patient does have a history of Par kinson's disease and may not be drinking adequately. Resume heparin drip and monitor PTT. Patient's PTT this morning is 55. Will continue heparin drip at 12 units/kg/h Echocardiogram reviewed and showed left ventricular ejection fraction 55 to 60%. Lewy body dementia Parkinson's disease Developmental delay Will continue with his Parkinson medications which include Sinemet, Celexa and Aricept and Seroquel Hypothyroidism Continue levothyroxine DVT prophylaxis: Heparin drip Disposition: Anticipate patient will return back to his assisted living facility tomorrow after completing 24 hours of heparin drip Objective - Vital Signs Vital signs: Vital Signs Temp 98.1 F 11/20/23 11:00 Pulse 72 11/20/23 15:10 Resp 16 11/20/23 15:10 BP 159/93 11/20/23 15:10 Pulse Ox 96 11/20/23 15:10 FiO2 Intake & Output 11/19/23 11/20/23 11/20/23 18:59 06:59 18:59 Intake Total 68.01 170.409 Balance 68.01 170.409 Weight 77.111 kg Intake: Intake, IV Titration 68.01 170.409 Amount Heparin Sod,Pork in 0.45% 68.01 170.409 NaCl 25,000 unit In 0.45 % NaCl 1 250ml.bag @ 12 UNITS/KG/HR 9.253 mls/hr IV .Q24H [facility] Rx#: [id number] - Labs CBC & Chem 7: 11/20/23 10:46 11/20/23 10:46 Labs: Abnormal Lab Results - Last 24 Hours (Table) 11/19/23 11/19/23 11/20/23 Range/Units 18:36 18:36 10:46 APTT 55.3 H (22.0-30.0) sec Chloride 108 H (98-107) mmol/L Glucose 106 H (74-99) mg/dL Troponin I 0.331 H* (0.000-0.034) ng/mL
[2023-11-21 06:03] LABS: Glucose,Whole Blood 92 mg/dL (70-110)
[2023-11-21] MEDS: HEPARIN SODIUM,PORCINE 5,000 UNIT/ML 1 ML VIAL SQ SCH (09:37)
[2023-11-21] MEDS: SODIUM CHLORIDE 0.9% 1,000 ML IV SCH (09:37)
[2023-11-21] MEDS: MIDODRINE 5 MG TAB PO SCH (09:37)
[2023-11-21] MEDS: CLOPIDOGREL 75 MG TAB PO SCH (09:37)
[2023-11-21 11:29] LABS: Basophils % (A) 1 %; Eosinophils # (A) 0.2 k/uL (0-0.7); Eosinophils % (A) 3 %; HGB 13.1 gm/dL (13.0-17.5); Lymphocytes % (A) 16 %; MCH 29.2 pg (25.0-35.0); MCHC 31.9 g/dL (31.0-37.0); MCV 91.3 fL (80.0-100.0); Mean Platelet Volume 8.2; Monocytes # (A) 0.5 k/uL (0-1.0); Monocytes % (A) 7 %; Neutrophils # (A) 4.6 k/uL (1.3-7.7); Neutrophils % (A) 72 %; Platelet Count 159 k/uL (150-450); RBC 4.49 m/uL (4.30-5.90); RDW 14.9 % (11.5-15.5); WBC 6.4 k/uL (3.8-10.6)
[2023-11-21 11:39] LABS: African American GFR (CKD) >90 (>60 ml/min/1.73 sqM); Anion Gap 4 mmol/L; Blood Urea Nitrogen 15 mg/dL (9-20); Calcium 9.2 mg/dL (8.4-10.2); Carbon Dioxide 28 mmol/L (22-30); Chloride 106 mmol/L (98-107); Glucose 93 mg/dL (74-99); Non-African American GFR(CKD) >90 (>60 ml/min/1.73 sqM); Potassium 4.3 mmol/L (3.5-5.1); Sodium 138 mmol/L (137-145)
--- NOTE | 2023-11-21 13:04 | P.PN ---
Subjective HISTORY OF PRESENT ILLNESS: This is a 68-year-old male with a past medical history significant for Lewy body dementia, Parkinson's disease, developmental delay, thyroid cancer with previous thyroidectomy, and coronary artery disease with previous four-vessel CABG in 2007, stenting x 2 in 2009, and occluded stent in 2021 resulting in Rotablator procedure and placement of an additional stent. Patient follows in the office with Dr. Iverson at [facility]. We have been asked to see the patient in consultation for syncope and elevated troponins. Patient examined at the bedside in the emergency room. Patient is a poor historian. There is no family present. Apparently the patient was at his assisted living facility when he was being wheeled down to the dining room in his wheelchair by staff when he slumped over and was out for approximately 5 minutes. The patient does not remember this event. He currently denies any chest pain or pressure. He denies any shortness of breath. The patient is alert and oriented but is slow to respond to questioning. Patient's vital signs are stable. He appears to be resting comfortably at the time of examination and has no complaints. DIAGNOSTICS: - EKG reveals sinus mechanism with no signs of acute ischemia - Chest xray chronic changes without acute pulmonary process. - Laboratory data: WBC 7.6. Hemoglobin 13.9. Platelet count 168. Sodium 139. Potassium 4.4. BUN 15. Creatinine 0.60. Magnesium 1.8. Troponin 0.401. 0.307. 0.331. - Current home cardiac medications include aspirin 81 mg daily, for Lipitor 40 mg at night, Imdur 30 mg daily. 11/21/2023 Patient examined this morning at the bedside. Patient denies chest pain or pressure. Denies SOB. Echocardiogram completed revealing ejection fraction 55 to 60%, no wall motion abnormalities noted, mild MR, mild AR, mild TR. PHYSICAL EXAM: VITAL SIGNS: Reviewed. GENERAL: Well-developed in no acute distress. HEENT: Head is normocephalic. Pupils are equal, round. Sclerae anicteric. Mucous membranes of the mouth are moist. Neck supple. No JVD or thyromegaly LUNGS: Respirations even and unlabored. Lungs essentially clear to auscultation bilaterally. HEART: Regular rate and rhythm. S1 and S2 heard. ABDOMEN: Soft. Nondistended. Nontender. EXTREMITIES: Normal range of motion. No clubbing or cyanosis. Peripheral pulses intact. No lower extremity edema NEUROLOGIC: Awake and alert. ASSESSMENT: Syncope of unclear etiology Hypotension Elevated troponins, flat, of unclear significance, non-STEMI less likely History of CAD with previous four-vessel CABG in 2007 with subsequent stenting, most recently in 2021 Hyperlipidemia History of Parkinson's disease History of Lewy body dementia History of developmental delay History of thyroid cancer with previous thyroidectomy PLAN: Discontinue IV heparin. Begin subcu heparin Patient hypotensive this morning. Begin IV fluids at 100 cc an hour Hold Imdur for today Initially was going to add Plavix to patient medical regimen. However, after discussing patient's case with his sister this afternoon she states the patient was taken off Plavix by his primary human service specialist due to frequent falls. Continue with aspirin 81mg daily. Start midodrine 5 mg 3 times a day Anticipate discharge home tomorrow if patient's blood pressure remained stable. Patient to follow-up postdischarge with his primary human service specialist at [facility] Nurse practitioner note has been reviewed by physician. Signing provider agrees with the documented findings, assessment, and plan of care documented by ELECTRICIAN BUS as a scribe. Objective - Vital Signs Vital signs: Vital Signs Temp 97.5 F L 11/21/23 08:49 Pulse 66 11/21/23 08:49 Resp 17 11/21/23 08:49 BP 105/37 11/21/23 09:43 Pulse Ox 93 L 11/21/23 08:49 FiO2 Intake & Output 11/20/23 11/21/23 11/21/23 18:59 06:59 18:59 Intake Total 170.409 298.896 Balance 170.409 298.896 Weight 55.5 kg Intake: Intake, IV Titration 170.409 180.896 Amount Heparin Sod,Pork in 0.45% 170.409 180.896 NaCl 25,000 unit In 0.45 % NaCl 1 250ml.bag @ 12 UNITS/KG/HR 9.253 mls/hr IV .Q24H [facility] Rx#: [id number] Oral 118 Other: Voiding Method Diaper Diaper # Bowel Movements 1 - Labs CBC & Chem 7: 11/21/23 10:27 11/21/23 10:51 Labs: Abnormal Lab Results - Last 24 Hours (Table) 11/21/23 Range/Units 10:51 Creatinine 0.61 L (0.66-1.25) mg/dL
--- NOTE | 2023-11-21 14:41 | P.PN ---
Subjective Progress Note Date: 11/21/23 Hospital course Patient is a very pleasant 68-year-old male with a past medical history of Lewy body dementia, Parkinson's disease, developmental delay, thyroid cancer status post thyroidectomy, and CAD status post CABG x 4 in 2007 followed by stenting x 2 in 2009, occluded stent in 2021 resulting in Rotablator procedure and placement of a third stent. Patient follows with Dr. Alisha Rivera [facility]. He presented to the hospital from [facility] assisted living [facility] after a report of syncopal episode. Per patient's sister at bedside patient was in wheelchair being taken down to dining room by staff when he suddenly slumped over in the wheelchair and was unconscious lasting approximately 5 minutes and EMS was called for transfer to the hospital. Upon awakening patient was at baseline mentation with no reported postictal episode, no evidence of biting tongue or involuntary loss of bowel or bladder. Patient currently denies having any complaints at this time with the exception of feeling hungry. He denies having any headache, lightheadedness, dizziness, chest pain, palpitations, shortness of breath, or experiencing any numbness/tingling/weakness in his extremities. On arrival to our facility, patient underwent evaluation in the emergency department. Vital signs upon arrival show blood pressure 95/63, heart rate 60, respiratory rate 16, temp 97.6 F, and SpO2 of 98% on room air. EKG was completed showing sinus bradycardia at 59 bpm with no noted T wave or ST abnormalities showing no signs of acute ischemia upon personal review and interpretation. CT brain showing nonspecific white matter changes consistent with chronic small vessel ischemic disease but negative for acute intracranial process. Chest x-ray showing chronic changes with flattening of the diaphragm and increased lucency of the lungs but negative for acute cardiopulmonary process. Labs were completed and reviewed. CBC was unremarkable. Coagulation profile showing slightly elevated INR of 1.2 otherwise normal findings. BMP showing hyperchloremia with chloride of 110 and glucose of 119. Magnesium was 1.8. Liver profile unremarkable with the exception of low albumin of 3.3. Troponin was elevated at 0.401. Patient was started on heparin infusion for treatment of NSTEMI and admitted under our services with consultation to cardiology. Patient seen by cardiology who said the elevated troponin is of no clinical significance. I reviewed patient's records from his director transportation office which showed that patient had a echocardiogram done on 09/20/2021 that showed an EF of 55%. Patient also has multiple heart caths with a large heart cath done and 12/01/2021. He has had a total of 3 stents placed. Patient also does have a history of four-vessel CABG done on 01/29/2008. Patient had an echocardiogram done while in the hospital that is similar to his previous echocardiogram. On 11/21/2023 patient was hypotensive in the morning. Patient was started on normal saline 100 cc an hour. Cardiology also started the patient on midodrine 5 mg 3 times daily. Subjective Patient is a poor historian due to Parkinson's disease. Patient's sister was at bedside. Sister is wondering what caused the syncopal episode. I told her that it is likely due to dehydration since when he came in his blood pressure was on the low side. This morning patient blood pressure was also on the low side. Cardiology started the patient on normal saline 100 cc an hour and also midodrine 5 mg p.o. 3 times daily. Physical exam General examination -patient appears chronically debilitated Heart - + S1S2 no murmurs Lungs - Clear to auscultation Abdomen soft NT ND +ve BS Extremities - No edema MUSIC ARRANGER - Moving all 4 extremities spontaneously Psych - Calm and cooperative, blank facies Assessment and plan Non-ST elevation [place] Syncopal episode History of coronary artery disease status post CABG and PCI Hypotension likely due to dehydration Per cardiology the elevated troponin is of no clinical significance. Patient completed 24 hours of heparin drip Echocardiogram shows normal EF When patient initially came in his blood pressure was on the low side. I suspect the likely etiology is dehydration. Patient does have a history of Parkinson's disease and may not be drinking adequately. Sister said that she will inform the staff at his assisted living facility to ensure that the patient drinks at least 3 L/day. This morning patient is hypotensive. He was started on normal saline 100 cc an hour. He was also started on midodrine 5 mg 3 times daily If patient continues to have hypotensive episodes will need to consider stopping his Imdur. Will resume aspirin Lewy body dementia Parkinson's disease Developmental delay Will continue with his Parkinson medications which include Sinemet, Celexa and Aricept and Seroquel Hypothyroidism Continue levothyroxine DVT prophylaxis: Heparin Disposition: Anticipate patient will return back to his assisted living facility tomorrow if blood pressure is stable Objective - Vital Signs Vital signs: Vital Signs Temp 97.5 F L 11/21/23 11:00 Pulse 54 L 11/21/23 11:00 Resp 16 11/21/23 11:00 BP 122/70 11/21/23 11:00 Pulse Ox 97 11/21/23 11:00 FiO2 Intake & Output 11/20/23 11/21/23 11/21/23 18:59 06:59 18:59 Intake Total 170.409 416.896 Balance 170.409 416.896 Weight 55.5 kg Intake: Intake, IV Titration 170.409 180.896 Amount Heparin Sod,Pork in 0.45% 170.409 180.896 NaCl 25,000 unit In 0.45 % NaCl 1 250ml.bag @ 12 UNITS/KG/HR 9.253 mls/hr IV .Q24H [facility] Rx#: [id number] Oral 236 Other: Voiding Method Diaper Diaper # Bowel Movements 1 - Labs CBC & Chem 7: 11/21/23 10:27 11/21/23 10:51 Labs: Abnormal Lab Results - Last 24 Hours (Table) 11/21/23 Range/Units 10:51 Creatinine 0.61 L (0.66-1.25) mg/dL
[2023-11-21 16:16] LABS: Glucose,Whole Blood 82 mg/dL (70-110)
[2023-11-22 10:08] VITALS: RESP 16
[2023-11-22 12:31] VITALS: BP 163/78; PULSE 50; TEMP 97.3
--- NOTE | 2023-11-22 12:59 | P.PN ---
Subjective HISTORY OF PRESENT ILLNESS: This is a 68-year-old male with a past medical history significant for Lewy body dementia, Parkinson's disease, developmental delay, thyroid cancer with previous thyroidectomy, and coronary artery disease with previous four-vessel CABG in 2007, stenting x 2 in 2009, and occluded stent in 2021 resulting in Rotablator procedure and placement of an additional stent. Patient follows in the office with Dr. Iverson at [facility]. We have been asked to see the patient in consultation for syncope and elevated troponins. Patient examined at the bedside in the emergency room. Patient is a poor historian. There is no family present. Apparently the patient was at his assisted living facility when he was being wheeled down to the dining room in his wheelchair by staff when he slumped over and was out for approximately 5 minutes. The patient does not remember this event. He currently denies any chest pain or pressure. He denies any shortness of breath. The patient is alert and oriented but is slow to respond to questioning. Patient's vital signs are stable. He appears to be resting comfortably at the time of examination and has no complaints. DIAGNOSTICS: - EKG reveals sinus mechanism with no signs of acute ischemia - Chest xray chronic changes without acute pulmonary process. - Laboratory data: WBC 7.6. Hemoglobin 13.9. Platelet count 168. Sodium 139. Potassium 4.4. BUN 15. Creatinine 0.60. Magnesium 1.8. Troponin 0.401. 0.307. 0.331. - Current home cardiac medications include aspirin 81 mg daily, for Lipitor 40 mg at night, Imdur 30 mg daily. 11/21/2023 Patient examined this morning at the bedside. Patient denies chest pain or pressure. Denies SOB. Echocardiogram completed revealing ejection fraction 55 to 60%, no wall motion abnormalities noted, mild MR, mild AR, mild TR. 11/22/2023 Patient examined this morning at bedside. Patient currently denies chest pain or pressure. He denies shortness of breath. Patient's blood pressures are improved today with a systolic on the higher side between [id number]. PHYSICAL EXAM: VITAL SIGNS: Reviewed. GENERAL: Well-developed in no acute distress. HEENT: Head is normocephalic. Pupils are equal, round. Sclerae anicteric. Mucous membranes of the mouth are moist. Neck supple. No JVD or thyromegaly LUNGS: Respirations even and unlabored. Lungs essentially clear to auscultation bilaterally. HEART: Regular rate and rhythm. S1 and S2 heard. ABDOMEN: Soft. Nondistended. Nontender. EXTREMITIES: Normal range of motion. No clubbing or cyanosis. Peripheral pulses intact. No lower extremity edema NEUROLOGIC: Awake and alert. ASSESSMENT: Syncope of unclear etiology Hypotension Elevated troponins, flat, of unclear significance, non-STEMI less likely History of CAD with previous four-vessel CABG in 2007 with subsequent stenting, most recently in 2021 Hyperlipidemia History of Parkinson's disease History of Lewy body dementia History of developmental delay History of thyroid cancer with previous thyroidectomy PLAN: Discontinue IV fluids Discontinue midodrine Continue additional cardiac medications Initially was going to add Plavix to patient medical regimen. However, after discussing patient's case with his sister yesterday she states the patient was taken off Plavix by his primary geosciences professor due to frequent falls. Continue with aspirin 81mg daily. Patient to follow-up postdischarge with his primary geosciences professor at [facility] We will sign off. Please reconsult if needed. Nurse practitioner note has been reviewed by physician. Signing provider agrees with the documented findings, assessment, and plan of care documented by SUPPLY CHAIN SYSTEMS MANAGER as a scribe. Objective - Vital Signs Vital signs: Vital Signs Temp 97.3 F L 11/22/23 12:31 Pulse 50 L 11/22/23 12:31 Resp 16 11/22/23 12:31 BP 163/78 11/22/23 12:31 Pulse Ox 99 11/22/23 12:31 FiO2 Intake & Output 11/21/23 11/22/23 11/22/23 18:59 06:59 18:59 Intake Total 1046.896 480 658 Output Total 2500 1900 1350 Balance -1453.104 -1420 -692 Weight 62 kg Intake: Intake, IV Titration 180.896 Amount Heparin Sod,Pork in 0.45% 180.896 NaCl 25,000 unit In 0.45 % NaCl 1 250ml.bag @ 12 UNITS/KG/HR 9.253 mls/hr IV .Q24H [facility] Rx#: [id number] Oral [id number] Output: Urine 2500 1900 1350 Other: Voiding Method Diaper External Catheter # Bowel Movements 1 - Labs CBC & Chem 7: 11/21/23 10:27 11/21/23 10:51
[2023-11-22 13:39] VITALS: BMI 17.5
--- NOTE | 2023-11-22 14:28 | P.DS ---
Providers Date of admission: 11/19/23 12:09 Expected date of discharge: 11/22/23 Attending physician: Karthik Rudd MD Primary care physician: Alex Elizabeth MD Hospital Course: 68-year-old male with a past medical history of Lewy body dementia, Parkinson's disease, developmental delay, thyroid cancer status post thyroidectomy, and CAD status post CABG x 4 in 2007 followed by stenting x 2 in 2009, occluded stent in 2021 resulting in Rotablator procedure and placement of a third stent. Patient follows with Dr. Alisha Rivera [facility]. He presented to the hospital from [facility] [place] after a report of syncopal episode. Per patient's sister at bedside patient was in wheelchair being taken down to dining room by staff when he suddenly slumped over in the wheelchair and was unconscious lasting approximately 5 minutes and EMS was called for transfer to the hospital. Upon awakening patient was at baseline mentation with no reported postictal episode, no evidence of biting tongue or involuntary loss of bowel or bladder. Patient currently denies having any complaints at this time with the exception of feeling hungry. He denies having any headache, lightheadedness, dizziness, chest pain, palpitations, shortness of breath, or experiencing any numbness/tingling/weakness in his extremities. On arrival to our facility, patient underwent evaluation in the emergency department. Vital signs upon arrival show blood pressure 95/63, heart rate 60, respiratory rate 16, temp 97.6 F, and SpO2 of 98% on room air. EKG was completed showing sinus bradycardia at 59 bpm with no noted T wave or ST abnormalities showing no signs of acute ischemia upon personal review and interpretation. CT brain showing nonspecific white matter changes consistent with chronic small vessel ischemic disease but negative for acute intracranial process. Chest x-ray showing chronic changes with flattening of the diaphragm and increased lucency of the lungs but negative for acute cardiopulmonary proce ss. Labs were completed and reviewed. CBC was unremarkable. Coagulation profile showing slightly elevated INR of 1.2 otherwise normal findings. BMP showing hyperchloremia with chloride of 110 and glucose of 119. Magnesium was 1.8. Liver profile unremarkable with the exception of low albumin of 3.3. Troponin was elevated at 0.401. Patient was started on heparin infusion for treatment of NSTEMI and admitted under our services with consultation to cardiology. Per cardiology the elevated troponin is of no clinical significance. Patient completed 24 hours of heparin drip. Echocardiogram shows normal EF. When patient initially came in his blood pressure was on the low side. Likely etiology is dehydration. Patient does have a history of Parkinson's disease and may not be drinking adequately. Sister said that she will inform the staff at his assisted living facility to ensure that the patient drinks at least 3 L/day. During the hospitalization he was slightly hypotensive. He was started on normal saline 100 cc an hour. He was also started on midodrine 5 mg 3 times daily but did not require that upon discharge due to normalization of the BP. patient was seen and examined on the day of discharge, physical exam essentially normal except for some confusion. time for discharge 35 minutes. Patient Condition at Discharge: Serious Plan - Discharge Summary Discharge Rx Participant: Yes New Discharge Prescriptions: Continue Folic Acid 1 mg PO DAILY@0700 Multivitamins, Thera [Multivitamin (formulary)] 1 tab PO DAILY@0700 Aspirin EC [Ecotrin Low Dose] 81 mg PO DAILY@0700 Isosorbide Mononitrate ER [Imdur] 30 mg PO DAILY@0700 Ascorbic Acid [Vitamin C] 1,000 mg PO DAILY@0700 Citalopram Hydrobromide [CeleXA] 10 mg PO HS@1900 Donepezil HCl [Aricept] 10 mg PO DAILY@0700 Levothyroxine Sodium [Synthroid] 150 mcg PO DAILY@0700 Bismuth Subsalicylate [Pepto-Bismol] 524 mg PO Q30M PRN MDD 8 doses PRN Reason: Gi Upset Nitroglycerin Sl Tabs [Nitrostat] 0.4 mg SUBLINGUAL Q5M PRN PRN Reason: Chest Pain Loperamide [Imodium] 2 - 4 mg PO DIRECTED PRN MDD 4 caps PRN Reason: Loose Stool Sodium Chloride [[place]] 2 spray EA NOSTRIL DIRECTED PRN PRN Reason: nasal dryness Cough Drops 1 lozenge PO DIRECTED Psyllium Husk (with Sugar) [Fiber Powder] 1 tsp PO BID@0700,1600 guaiFENesin-DM 100-10MG/5ML [Robitussin DM] 10 ml PO QID PRN PRN Reason: Cough Cholecalciferol [Vitamin D3 (25 Mcg = 1000 Iu)] 50 mcg PO DAILY@0700 Atorvastatin [Lipitor] 40 mg PO HS@1900 Carbidopa-Levodopa 25-100 mg [Sinemet 25-100 mg] 1 tab PO BID@0700,1700 Carbidopa-Levodopa ER 50-200Mg [Sinemet CR 50-200 mg] 1 tab PO BID@0700,1200 Cetirizine HCl 10 mg PO HS@1900 Melatonin 10 mg PO HS PRN PRN Reason: sleep Cholestyramine/Aspartame [Cholestyramine Light Packet] 4 gm PO AC-TID PRN PRN Reason: Diarrhea Acetaminophen Tab [Tylenol] 1,000 mg PO Q6H PRN PRN Reason: Pain Or Fever > 100.5 QUEtiapine FUMARATE [SEROquel] 200 mg PO HS@1700 Discharge Medication List Aspirin EC [Ecotrin Low Dose] 81 mg PO DAILY@0700 04/21/19 [History] Folic Acid 1 mg PO DAILY@0700 04/21/19 [History] Multivitamins, Thera [Multivitamin (formulary)] 1 tab PO DAILY@0704/21/19 [History] Cholecalciferol [Vitamin D3 (25 Mcg = 1000 Iu)] 50 mcg PO DAILY@0700 10/26/20 [History] Isosorbide Mononitrate ER [Imdur] 30 mg PO DAILY@0710/26/20 [History] Ascorbic Acid [Vitamin C] 1,000 mg PO DAILY@0700 06/22/21 [History] Atorvastatin [Lipitor] 40 mg PO HS@1900 07/29/21 [History] Carbidopa-Levodopa 25-100 mg [Sinemet 25-100 mg] 1 tab PO BID@0700,1700 02/26/23 [History] Carbidopa-Levodopa ER 50-200Mg [Sinemet CR 50-200 mg] 1 tab PO BID@0700,1200 02/26/23 [History] Cetirizine HCl 10 mg PO HS@1900 02/26/23 [History] Citalopram Hydrobromide [CeleXA] 10 mg PO HS@1900 08/29/23 [History] Donepezil HCl [Aricept] 10 mg PO DAILY@0700 08/29/23 [History] Levothyroxine Sodium [Synthroid] 150 mcg PO DAILY@0700 08/29/23 [History] Acetaminophen Tab [Tylenol] 1,000 mg PO Q6H PRN 11/19/23 [History] Bismuth Subsalicylate [Pepto-Bismol] 524 mg PO Q30M PRN MDD 8 doses 11/19/23 [History] Cholestyramine/Aspartame [Cholestyramine Light Packet] 4 gm PO AC-TID PRN 11/19/23 [History] Cough Drops 1 lozenge PO DIRECTED 11/19/23 [History] Loperamide [Imodium] 2 - 4 mg PO DIRECTED PRN MDD 4 caps 11/19/23 [History] Melatonin 10 mg PO HS PRN 11/19/23 [History] Nitroglycerin Sl Tabs [Nitrostat] 0.4 mg SUBLINGUAL Q5M PRN 11/19/23 [History] Psyllium Husk (with Sugar) [Fiber Powder] 1 tsp PO BID@0700,1600 11/19/23 [History] QUEtiapine FUMARATE [SEROquel] 200 mg PO HS@1700 11/19/23 [History] Sodium Chloride [[place]] 2 spray EA NOSTRIL DIRECTED PRN 11/19/23 [History] guaiFENesin-DM 100-10MG/5ML [Robitussin DM] 10 ml PO QID PRN 11/19/23 [History] Follow up Appointment(s)/Referral(s): Alex Elizabeth MD [Primary Care Provider] - 1-2 days Sanju Iverson MD [REFERRING] - 11/28/23 2:00 pm
== END 2023-11-22 15:29 | disposition home health service (06) | DRG 281 ==
LOC: EC 08:34 → 3SCARD 12:09
PROVIDERS: ADMIT Student in an Organized Health Care Education/Training Program; ATTEND Student in an Organized Health Care Education/Training Program
DX: I21.4 Non-ST elevation (NSTEMI) myocardial infarction (principal); F02.83 Dementia in other diseases classified elsewhere, unspecified severity, with mood disturbance; R00.1 Bradycardia, unspecified; I10 Essential (primary) hypertension; E03.9 Hypothyroidism, unspecified; Z79.890 Hormone replacement therapy; G31.83 Neurocognitive disorder with Lewy bodies; E78.5 Hyperlipidemia, unspecified; G20.A1 Parkinson's disease without dyskinesia, without mention of fluctuations; F88 Other disorders of psychological development; Z95.5 Presence of coronary angioplasty implant and graft; E86.0 Dehydration; E86.1 Hypovolemia; E87.8 Other disorders of electrolyte and fluid balance, not elsewhere classified; I08.3 Combined rheumatic disorders of mitral, aortic and tricuspid valves; I25.10 Atherosclerotic heart disease of native coronary artery without angina pectoris; R79.1 Abnormal coagulation profile; Z79.82 Long term (current) use of aspirin; Z79.899 Other long term (current) drug therapy; Z82.49 Family history of ischemic heart disease and other diseases of the circulatory system; Z85.850 Personal history of malignant neoplasm of thyroid; Z95.1 Presence of aortocoronary bypass graft; E55.9 Vitamin D deficiency, unspecified
CPT/HCPCS: 36415; 70450; 71046; 80048; 80053; 80061; 81001; 83735; 84484; 85025; 85610; 85730; 93005; 93306; 96361; 96365; 96366; 99291

== ENCOUNTER 2023-12-08 09:46 | Inpatient (IN) | payer MEDICARE, BC ==
--- NOTE | 2023-12-08 10:31 | ED ---
General Adult HPI - General Chief complaint: Syncope Stated complaint: Syncope Time Seen by Provider: 12/08/23 09:47 Source: patient, EMS, RN notes reviewed Mode of arrival: EMS Limitations: no limitations - History of Present Illness Initial comments: Patient is a 68-year-old male presenting to the emergency department with reported syncopal episode. Patient states he is feels fine and has no complaints. Patient does not recall the episode. No chest pain. No dyspnea. No abdominal pain. No back pain. No headache or confusion. - Related Data Home Medications Medication Instructions Recorded Confirmed Aspirin EC [Ecotrin Low Dose] 81 mg PO DAILY@0700 04/21/19 11/19/23 Folic Acid 1 mg PO DAILY@00 04/21/19 11/19/23 Multivitamins, Thera [Multivitamin 1 tab PO DAILY@00 04/21/19 11/19/23 (formulary)] Cholecalciferol [Vitamin D3 (25 50 mcg PO DAILY@00 10/26/20 11/19/23 Mcg = 1000 Iu)] Isosorbide Mononitrate ER [Imdur] 30 mg PO DAILY@00 10/26/20 11/19/23 Ascorbic Acid [Vitamin C] 1,000 mg PO DAILY@0700 06/22/21 11/19/23 Atorvastatin [Lipitor] 40 mg PO HS@1900 07/29/21 11/19/23 Carbidopa-Levodopa 25-100 mg 1 tab PO BID@0700,1700 02/26/23 11/19/23 [Sinemet 25-100 mg] Carbidopa-Levodopa ER 50-200Mg 1 tab PO BID@0700,1200 02/26/23 11/19/23 [Sinemet CR 50-200 mg] Cetirizine HCl 10 mg PO HS@1900 02/26/23 11/19/23 Citalopram Hydrobromide [CeleXA] 10 mg PO HS@1900 08/29/23 11/19/23 Donepezil HCl [Aricept] 10 mg PO DAILY@0700 08/29/23 11/19/23 Levothyroxine Sodium [Synthroid] 150 mcg PO DAILY@0700 08/29/23 11/19/23 Acetaminophen Tab [Tylenol] 1,000 mg PO Q6H PRN 11/19/23 11/19/23 Bismuth Subsalicylate 524 mg PO Q30M PRN MDD 8 doses 11/19/23 11/19/23 [Pepto-Bismol] Cholestyramine/Aspartame 4 gm PO AC-TID PRN 11/19/23 11/19/23 [Cholestyramine Light Packet] Cough Drops 1 lozenge PO DIRECTED 11/19/23 11/19/23 Loperamide [Imodium] 2 - 4 mg PO DIRECTED PRN MDD 4 11/19/23 11/19/23 caps Melatonin 10 mg PO HS PRN 11/19/23 11/19/23 Nitroglycerin Sl Tabs [Nitrostat] 0.4 mg SUBLINGUAL Q5M PRN 11/19/23 11/19/23 Psyllium Husk (with Sugar) [Fiber 1 tsp PO BID@0700,1600 11/19/23 11/19/23 Powder] QUEtiapine FUMARATE [SEROquel] 200 mg PO HS@1700 11/19/23 11/19/23 Sodium Chloride [[place]] 2 spray EA NOSTRIL DIRECTED PRN 11/19/23 11/19/23 guaiFENesin-DM 100-10MG/5ML 10 ml PO QID PRN 11/19/23 11/19/23 [Robitussin DM] Allergies Allergy/AdvReac Type Severity Reaction Status Date / Time No Known Allergies Allergy Verified 11/19/23 11:24 Review of Systems ROS Statement: Those systems with pertinent positive or pertinent negative responses have been documented in the HPI. ROS Other: All systems not noted in ROS Statement are negative. Constitutional: Denies: fever Eyes: Denies: eye pain ENT: Denies: ear pain Respiratory: Denies: cough Cardiovascular: Denies: chest pain Endocrine: Denies: fatigue Gastrointestinal: Denies: abdominal pain Musculoskeletal: Denies: back pain Neurological: Denies: headache, weakness, confusion Past Medical History Past Medical History: Coronary Artery Disease (CAD), Cancer, Dementia, Diabetes Mellitus, Hyperlipidemia, Hypertension, Thyroid Disorder Additional Past Medical History / Comment(s): Parkinson's, developmental delay, vitamin D deficiency, thyroid CA, diet controlled DM (since weight loss) History of Any Multi-Drug Resistant Organisms: None Reported Past Surgical History: Coronary Bypass/CABG, Heart Catheterization With Stent Additional Past Surgical History / Comment(s): 4 vessel CABG, thyroidectomy, cardiac stenting 2 in 2009, esophageal foreign body removal Past Anesthesia/Blood Transfusion Reactions: No Reported Reaction Date of Last Stent Placement:: 2009 Past Psychological History: Anxiety Smoking Status: Never smoker Past Alcohol Use History: None Reported Past Drug Use History: None Reported - Past Family History Father Family Medical History: No Reported History Mother History Unknown: Yes Family Medical History: Coronary Artery Disease (CAD) Sister(s) Family Medical History: Cancer Additional Family Medical History / Comment(s): Breast Brother(s) Family Medical History: Cancer Additional Family Medical History / Comment(s): Prostate General Exam Limitations: no limitations General appearance: alert, in no apparent distress Head exam: Present: atraumatic, normocephalic Eye exam: Present: normal appearance, PERRL, EOMI ENT exam: Present: normal oropharynx Neck exam: Present: normal inspection Respiratory exam: Present: normal lung sounds bilaterally Cardiovascular Exam: Present: regular rate, normal rhythm, normal heart sounds GI/Abdominal exam: Present: soft. Absent: tenderness Extremities exam: Present: normal inspection, full ROM. Absent: pedal edema, calf tenderness Neurological exam: Present: alert, oriented X3, CN II-XII intact. Absent: motor sensory deficit Psychiatric exam: Present: flat affect Skin exam: Present: normal color Course Vital Signs 12/08/23 12/08/23 09:47 10:43 Temperature 97.7 F Pulse Rate 53 L Pulse Rate [ 59 L Sitting] Pulse Rate [ 64 Standing] Pulse Rate [ 51 L Supine] Respiratory 18 Rate Blood Pressure 153/75 Blood Pressure 152/79 [Sitting] Blood Pressure 162/85 [Standing] Blood Pressure 150/81 [Supine] O2 Sat by Pulse 98 Oximetry EKG Findings - EKG Results: EKG: interpreted by ERMD, sinus rhythm, normal axis, normal QRS, normal ST/T EKG shows: bradycardia Medical Decision Making - Medical Decision Making Was pt. sent in by a medical professional or institution (, PA, OUTREACH CONSULTANT, urgent care, hospital, or chcf...) When possible be specific @ -Patient sent from [facility] home Did you speak to anyone other than the patient for history (EMS, parent, family, police, friend...)? What history was obtained from this source @ -No Did you review nursing and triage notes (agree or disagree)? Why? @ -I reviewed and agree with nursing and triage notes Were old charts reviewed (outside hosp., previous admission, EMS record, old EKG, old radiological studies, urgent care reports/EKG's, chcf records)? Report findings @ -Previous admission reviewed Differential Diagnosis (chest pain, altered mental status, abdominal pain women, abdominal pain men, vaginal bleeding, weakness, fever, dyspnea, syncope, headache, dizziness, GI bleed, back pain, seizure, CVA, palpatations, mental health, musculoskeletal)? @Differential Syncope: Valvular disease, hypertrophic cardiomyopathy, pulmonary embolism, tamponade, tachycardia, bradycardia, NM, hypovolemia, hemorrhage, dissection, anemia, intracranial hemorrhage, seizure, hypoglycemia, carbon monoxide poisoning, this is not meant to be an all-inclusive list. EKG interpreted by me (3pts min.). @ -As above X-rays interpreted by me (1pt min.). @ -Chest x-ray shows no acute process CT interpreted by me (1pt min.). @ -CT brain shows no acute process U/S interpreted by me (1pt. min.). @ -None done What testing was considered but not performed or refused? (CT, X-rays, U/S, labs )? Why? @ -None What meds were considered but not given or refused? Why? @ -None Did you discuss the management of the patient with other professionals (professionals i.e. , PA, OUTREACH CONSULTANT, lab, RT, psych nurse, public health social worker, steam clean machine operator, teacher, loan officer assistant, ed case manager)? Give summary @ -Case was discussed with Dr. Leyva will admit covering Dr. Sanchez Was smoking cessation discussed for >3mins.? @ -No Was critical care preformed (if so, how long)? @ -No Were there social determinants of health that impacted care today? How? (Homelessness, low income, unemployed, alcoholism, drug addiction, tra nsportation, low edu. Level, literacy, decrease access to med. care, fpc, rehab)? @ -No Was there de-escalation of care discussed even if they declined (Discuss DNR or withdrawal of care, Hospice)? DNR status @ -No What co-morbidities impacted this encounter? (DM, HTN, Smoking, COPD, CAD, Cancer, CVA, ARF, Chemo, Hep., AIDS, mental health diagnosis, sleep apnea, morbid obesity)? @ -None Was patient admitted / discharged? Hospital course, mention meds given and route, prescriptions, significant lab abnormalities, going to OR and other pertinent info. @ -Patient presents with syncopal episode. Troponin 0.05. Patient will be admitted with cardiac consult and repeat testing. Admission orders written. Undiagnosed new problem with uncertain prognosis? @ -No Drug Therapy requiring intensive monitoring for toxicity (Heparin, Nitro, Insulin, Cardizem)? @ -No Were any procedures done? @ -No Diagnosis/symptom? @ -Syncope Acute, or Chronic, or Acute on Chronic? @ -Acute Uncomplicated (without systemic symptoms) or Complicated (systemic symptoms)? @ -Complicated with borderline troponin Side effects of treatment? @ -No Exacerbation, Progression, or Severe Exacerbation? @ -No Poses a threat to life or bodily function? How? (Chest pain, USA, NM, pneumonia, PE, COPD, DKA, ARF, appy, cholecystitis, CVA, Diverticulitis, Homicidal, Suicidal, threat to staff... and all critical care pts) @ -Threat to cardiac function and other - Lab Data Result diagrams: 12/08/23 11:00 12/08/23 11:00 Lab Results 12/08/23 12/08/23 12/08/23 Range/Units 11:00 11:00 11:00 WBC 10.0 (3.8-10.6) k/uL RBC 4.90 (4.30-5.90) m/uL Hgb 14.8 (13.0-17.5) gm/dL Hct 44.4 (39.0-53.0) % MCV 90.7 (80.0-100.0) fL MCH 30.1 (25.0-35.0) pg MCHC 33.2 (31.0-37.0) g/dL RDW 15.4 (11.5-15.5) % Plt Count 198 (150-450) k/uL MPV 8.3 Neutrophils % 79 % Lymphocytes % 11 % Monocytes % 6 % Eosinophils % 2 % Basophils % 1 % Neutrophils # 8.0 H (1.3-7.7) k/uL Lymphocytes # 1.1 (1.0-4.8) k/uL Monocytes # 0.6 (0-1.0) k/uL Eosinophils # 0.2 (0-0.7) k/uL Basophils # 0.1 (0-0.2) k/uL Hypochromasia Slight PT 11.7 (10.0-12.5) sec INR 1.1 (<1.2) APTT 27.3 (22.0-30.0) sec Sodium 140 (137-145) mmol/L Potassium 4.6 (3.5-5.1) mmol/L Chloride 106 (98-107) mmol/L Carbon Dioxide 26 (22-30) mmol/L Anion Gap 8 mmol/L BUN 17 (9-20) mg/dL Creatinine 0.69 (0.66-1.25) mg/dL Est GFR (CKD-EPI)AfAm >90 (>60 ml/min/1.73 sqM) Est GFR (CKD-EPI)NonAf >90 (>60 ml/min/1.73 sqM) Glucose 85 (74-99) mg/dL Calcium 9.8 (8.4-10.2) mg/dL Magnesium 2.0 (1.6-2.3) mg/dL Total Bilirubin 0.9 (0.2-1.3) mg/dL AST 32 (17-59) U/L ALT 10 (4-49) U/L Alkaline Phosphatase 69 (38-126) U/L Troponin I (0.000-0.034) ng/mL Total Protein 7.6 (6.3-8.2) g/dL Albumin 4.2 (3.5-5.0) g/dL 12/08/23 Range/Units 11:00 WBC (3.8-10.6) k/uL RBC (4.30-5.90) m/uL Hgb (13.0-17.5) gm/dL Hct (39.0-53.0) % MCV (80.0-100.0) fL MCH (25.0-35.0) pg MCHC (31.0-37.0) g/dL RDW (11.5-15.5) % Plt Count (150-450) k/uL MPV Neutrophils % % Lymphocytes % % Monocytes % % Eosinophils % % Basophils % % Neutrophils # (1.3-7.7) k/uL Lymphocytes # (1.0-4.8) k/uL Monocytes # (0-1.0) k/uL Eosinophils # (0-0.7) k/uL Basophils # (0-0.2) k/uL Hypochromasia PT (10.0-12.5) sec INR (<1.2) APTT (22.0-30.0) sec Sodium (137-145) mmol/L Potassium (3.5-5.1) mmol/L Chloride (98-107) mmol/L Carbon Dioxide (22-30) mmol/L Anion Gap mmol/L BUN (9-20) mg/dL Creatinine (0.66-1.25) mg/dL Est GFR (CKD-EPI)AfAm (>60 ml/min/1.73 sqM) Est GFR (CKD-EPI)NonAf (>60 ml/min/1.73 sqM) Glucose (74-99) mg/dL Calcium (8.4-10.2) mg/dL Magnesium (1.6-2.3) mg/dL Total Bilirubin (0.2-1.3) mg/dL AST (17-59) U/L ALT (4-49) U/L Alkaline Phosphatase (38-126) U/L Troponin I 0.051 H* (0.000-0.034) ng/mL Total Protein (6.3-8.2) g/dL Albumin (3.5-5.0) g/dL Disposition Clinical Impression: Syncope Disposition: ADMITTED IP TO THIS [facility] Is patient prescribed a controlled substance at d/c from ED?: No Referrals: Alex Elizabeth MD [Primary Care Provider] - 1-2 days Time of Disposition: 12:19
--- NOTE | 2023-12-08 11:16 | CT ---
EXAMINATION TYPE: CT brain wo con DATE OF EXAM: 12/08/2023 History: AMS COMPARISON: 11/19/2023 Findings: Technique: Multiple axial images obtained from the skull base to vertex without use of IV contrast ma terial. FINDINGS: The ventricles, basal cisterns and sulci over the convexities are within normal limits for the patien t's age and there is no mass effect or shift of midline structures. No abnormal density is seen throughout the brain parenchyma and there is no acute intra or extra-axia l hemorrhage. The posterior fossa including the brainstem, fourth ventricle and cerebellar pontine angles appear no rmal. Intraorbital contents appear normal and symmetric. Visualized paranasal sinuses and mastoid air cells are well aerated. The calvarium is intact. IMPRESSION: No significant abnormality seen. There is no acute bleed or mass effect.
--- NOTE | 2023-12-08 11:21 | XR ---
EXAMINATION TYPE: XR chest 2V DATE OF EXAM: 12/08/2023 COMPARISON: 11/19/2023 HISTORY: Syncope TECHNIQUE: Frontal and lateral views of the chest are obtained. FINDINGS: There is colonic interposition. The heart size is normal and the pulmonary vasculature is not congest ed. There is no airspace consolidation. There is no pleural effusion or pneumothorax. There are median sternotomy wires and anterior metallic lower cervical fusion otherwise the osseous s tructures are intact IMPRESSION: No acute cardiopulmonary process.
[2023-12-08 11:40] LABS: INR 1.1 (<1.2); Partial Thromboplastin Time 27.3 sec (22.0-30.0); Prothrombin Time 11.7 sec (10.0-12.5)
[2023-12-08 11:49] LABS: Basophils # (A) 0.1 k/uL (0-0.2); Basophils % (A) 1 %; Eosinophils # (A) 0.2 k/uL (0-0.7); Eosinophils % (A) 2 %; HCT 44.4 % (39.0-53.0); HGB 14.8 gm/dL (13.0-17.5); Hypochromasia Slight; Lymphocytes # (A) 1.1 k/uL (1.0-4.8); Lymphocytes % (A) 11 %; MCH 30.1 pg (25.0-35.0); MCHC 33.2 g/dL (31.0-37.0); MCV 90.7 fL (80.0-100.0); Mean Platelet Volume 8.3; Monocytes # (A) 0.6 k/uL (0-1.0); Monocytes % (A) 6 %; Neutrophils % (A) 79 %; Platelet Count 198 k/uL (150-450); RDW 15.4 % (11.5-15.5)
[2023-12-08 11:58] LABS: ALT 10 U/L (4-49); AST 32 U/L (17-59); African American GFR (CKD) >90 (>60 ml/min/1.73 sqM); Albumin 4.2 g/dL (3.5-5.0); Alkaline Phosphatase 69 U/L (38-126); Anion Gap 8 mmol/L; Blood Urea Nitrogen 17 mg/dL (9-20); Calcium 9.8 mg/dL (8.4-10.2); Carbon Dioxide 26 mmol/L (22-30); Chloride 106 mmol/L (98-107); Glucose 85 mg/dL (74-99); Non-African American GFR(CKD) >90 (>60 ml/min/1.73 sqM); Potassium 4.6 mmol/L (3.5-5.1); Sodium 140 mmol/L (137-145); Total Bilirubin 0.9 mg/dL (0.2-1.3); Total Protein 7.6 g/dL (6.3-8.2)
[2023-12-08] MEDS ORDERED: NALOXONE 0.4 MG/ML 1 ML VIAL IV PRN (12:20)
[2023-12-08] MEDS ORDERED: MELATONIN 5 MG TABLET PO PRN (16:10)
[2023-12-08] MEDS ORDERED: ACETAMINOPHEN TAB 325 MG TAB PO PRN (16:10)
[2023-12-08] MEDS ORDERED: NITROGLYCERIN SL TABS 0.4 MG TAB SUBLINGUAL PRN (16:10)
[2023-12-08] MEDS: QUEtiapine 200 MG TAB PO SCH (17:13)
[2023-12-08] MEDS: CARBIDOPA-LEVODOPA 25-100 MG 1 EACH TAB PO SCH (17:13)
[2023-12-08] MEDS: ATORVASTATIN 40 MG TAB PO SCH (20:54)
[2023-12-08] MEDS: CITALOPRAM HYDROBROMIDE 10 MG TAB PO SCH (20:54)
[2023-12-08] MEDS: LORATADINE 10 MG TAB PO SCH (20:54)
--- NOTE | 2023-12-08 22:25 | P.HPIM ---
History of Present Illness H&P Date: 12/08/23 Chief Complaint: Passed out 68-year-old patient who follows with Dr. Islas. Chronic stable medical conditions include CAD with history of bypass and stent, diabetes, hypertension, hyperlipidemia, Parkinson's, hypothyroid vitamin D deficiency. thyroid cancer with thyroidectomy. underlying intellectual disability. Does use a walker to get about. His sister Farrah is POA. resident of [facility] Patient was brought in by the EMS to the hospital. As per the report they were called out when patient was sitting at the kitchen table any loss consciousness. Lasted about 5 minutes. Blood pressure this morning was about 137 systolic. Blood pressure recorded by EMS was 61 x 35. Accu-Cheks was 149. No focal weakness. This evening for myself patient rather sleepy. Patient reported to have all his dinner tonight Review of systems: Patient able to answer other sleepy Past medical history to include: CAD with history of bypass and stent, diabetes, hyperlipidemia, hypertension, thyroid cancer with thyroidectomy now hypothyroid, Parkinson's disease, developmental delay vitamin D deficiency Social history: Lives at [facility]. No smoking or alcohol. Does use a walker. POA: Sister Farrah Physical examination: VITAL SIGNS: 97.4, 63, 18, 84/56, 94% room air GENERAL: Reclining in bed, sleepy EYES: Pupils equal. Conjunctiva normal. HEENT: External appearance of nose and ears normal, oral cavity grossly normal some loss of muscles on the temporal. NECK: JVD not raised; masses not palpable. HEART: First and second heart sounds are normal; no edema. LUNGS: Respiratory rate normal; clear to auscultation. ABDOMEN: Soft, nontender, liver spleen not palpable, no masses palpable. PSYCH: Sleepy MUSCULOSKELETAL:No Clubbing/cyanosis;muscles-grossly intact NEUROLOGICAL: Cranial nerves grossly intact; no facial asymmetry, power and sensation grossly intact. e. Bradykinesia. LYMPHATICS: No lymph nodes palpable in the axilla and neck INVESTIGATIONS, reviewed in the clinical context: December 07: White count 10 hemoglobin 14.8 platelets 198 sodium 140 potassium 4.6 creatinine 0.69 Troponin I 0.051, 0.037, 0.040 Assessment and plan: -Patient is at least 2 syncopal episodes at home. Blood pressure recorded to be low. Element of orthostatic. Which is quite likely from underlying Parkinson's. -Idiopathic Parkinson's disease Sinemet ER 50/200 twice a day. Sinemet 25/100 twice daily -Chronic gait dysfunction secondary to Parkinson's disease Fall precautions -Hypothyroid from prior thyroidectomy for thyroid cancer: Synthroid 150 -CAD with a prior history of bypass and stent Aspirin 81 mg a day -Hyperlipidemia Lipitor 40 mg daily at bedtime -Developmental delay -Power of civil rights attorney: Sister./Farrah Celexa, Aricept, Claritin.-These could need PT OT. Given the complexity and severity of patient's condition expect the patient to be in the hospital at least for 2 overnights Past Medical History Past Medical History: Coronary Artery Disease (CAD), Cancer, Dementia, Diabetes Mellitus, Hyperlipidemia, Hypertension, Thyroid Disorder Additional Past Medical History / Comment(s): Parkinson's, developmental delay, vitamin D deficiency, thyroid CA, diet controlled DM (since weight loss) History of Any Multi-Drug Resistant Organisms: None Reported Past Surgical History: Coronary Bypass/CABG, Heart Catheterization With Stent Additional Past Surgical History / Comment(s): 4 vessel CABG, thyroidectomy, cardiac stenting 2 in 2009, esophageal foreign body removal Past Anesthesia/Blood Transfusion Reactions: No Reported Reaction Date of Last Stent Placement:: 2009 Past Psychological History: Anxiety Additional Psychological History / Comment(s): Intellectual Disability. Smoking Status: Never smoker Past Alcohol Use History: None Reported Past Drug Use History: None Reported - Past Family History Father Family Medical History: No Reported History Mother History Unknown: Yes Family Medical History: Coronary Artery Disease (CAD) Sister(s) Family Medical History: Cancer Additional Family Medical History / Comment(s): Breast Brother(s) Family Medical History: Cancer Additional Family Medical History / Comment(s): Prostate Medications and Allergies Home Medications Medication Instructions Recorded Confirmed Type Aspirin EC [Ecotrin Low Dose] 81 mg PO DAILY@0700 04/21/19 12/08/23 History Folic Acid 1 mg PO DAILY@69904/21/19 12/08/23 History Multivitamins, Thera [Multivitamin 1 tab PO DAILY@0700 04/21/19 12/08/23 History (formulary)] Cholecalciferol [Vitamin D3 (25 50 mcg PO DAILY@0700 10/26/20 12/08/23 History Mcg = 1000 Iu)] Isosorbide Mononitrate ER [Imdur] 30 mg PO DAILY@0700 10/26/20 12/08/23 History Ascorbic Acid [Vitamin C] 1,000 mg PO DAILY@0700 06/22/21 12/08/23 History Atorvastatin [Lipitor] 40 mg PO HS@1900 07/29/21 12/08/23 History Carbidopa-Levodopa 25-100 mg 1 tab PO BID@0700,1700 02/26/23 12/08/23 History [Sinemet 25-100 mg] Carbidopa-Levodopa ER 50-200Mg 1 tab PO BID@0700,1200 02/26/23 12/08/23 History [Sinemet CR 50-200 mg] Cetirizine HCl 10 mg PO HS@1900 02/26/23 12/08/23 History Citalopram Hydrobromide [CeleXA] 10 mg PO HS@1900 08/29/23 12/08/23 History Donepezil HCl [Aricept] 10 mg PO DAILY@0700 08/29/23 12/08/23 History Levothyroxine Sodium [Synthroid] 150 mcg PO DAILY@0700 08/29/23 12/08/23 History Acetaminophen Tab [Tylenol] 1,000 mg PO Q6H PRN 11/19/23 12/08/23 History Bismuth Subsalicylate 524 mg PO Q30M PRN MDD 8 doses 11/19/23 12/08/23 History [Pepto-Bismol] Cholestyramine/Aspartame 4 gm PO AC-TID PRN 11/19/23 12/08/23 History [Cholestyramine Light Packet] Cough Drops 1 lozenge PO DIRECTED 11/19/23 12/08/23 History Loperamide [Imodium] 2 - 4 mg PO DIRECTED PRN MDD 4 11/19/23 12/08/23 History caps Melatonin 10 mg PO HS PRN 11/19/23 12/08/23 History Nitroglycerin Sl Tabs [Nitrostat] 0.4 mg SUBLINGUAL Q5M PRN 11/19/23 12/08/23 History Psyllium Husk (with Sugar) [Fiber 1 tsp PO BID@0700,1600 11/19/23 12/08/23 History Powder] QUEtiapine FUMARATE [SEROquel] 200 mg PO HS@1700 11/19/23 12/08/23 History Sodium Chloride [[place]] 2 spray EA NOSTRIL DIRECTED PRN 11/19/23 12/08/23 History guaiFENesin-DM 100-10MG/5ML 10 ml PO QID PRN 11/19/23 12/08/23 History [Robitussin DM] Allergies Allergy/AdvReac Type Severity Reaction Status Date / Time No Known Allergies Allergy Verified 12/08/23 14:29 Physical Exam Vitals: Vital Signs Temp Pulse Pulse Pulse Pulse Resp BP 12/08/23 19:52 97.4 F L 63 18 12/08/23 15:40 97.6 F 63 18 12/08/23 10:43 59 L 64 51 L 12/08/23 09:47 97.7 F 53 L 18 153/75 BP BP BP Pulse Ox 12/08/23 19:52 84/56 94 L 12/08/23 15:40 144/80 94 L 12/08/23 10:43 152/79 162/85 150/81 12/08/23 09:47 98 Intake and Output 12/08/23 12/08/23 12/08/23 06:59 14:59 22:59 Intake Total 260 Output Total 200 Balance 60 Intake: IV 20 Invasive Line 1 20 Oral 240 Output: Urine 200 Other: Voiding Method Urinal Weight 79.379 kg 79.379 kg Results CBC & Chem 7: 12/08/23 11:00 12/08/23 11:00 Labs: Abnormal Lab Results - Last 24 Hours (Table) 12/08/23 12/08/23 12/08/23 Range/Units 11:00 11:00 14:10 Neutrophils # 8.0 H (1.3-7.7) k/uL Troponin I 0.051 H* 0.037 H* (0.000-0.034) ng/mL 12/08/23 Range/Units 17:50 Neutrophils # (1.3-7.7) k/uL Troponin I 0.040 H* (0.000-0.034) ng/mL Thrombosis Risk Factor Assmnt - Choose All That Apply Any of the Below Risk Factors Present?: No Other Risk Factors: Yes Each Risk Factor Represents 2 Points: Age 61-74 years Other congenital or acquired thrombophilia - If yes, enter type in comment: No Thrombosis Risk Factor Assessment Total Risk Factor Score: 2 Thrombosis Risk Factor Assessment Level: Low Risk
[2023-12-09] MEDS: CARBIDOPA-LEVODOPA ER 50-200MG 1 EACH TABLET.ER PO SCH (06:32)
[2023-12-09] MEDS: LEVOTHYROXINE 75 MCG TAB PO SCH (06:32)
[2023-12-09] MEDS: PSYLLIUM HUSK 100% 6 GM PACKET PO SCH (06:33)
[2023-12-09] MEDS ORDERED: DONEPEZIL 10 MG TAB PO SCH (07:00)
[2023-12-09] MEDS: ASCORBIC ACID 500 MG TAB PO SCH (09:24)
[2023-12-09] MEDS: CHOLECALCIFEROL 25 MCG (1000 IU) TABLET PO SCH (09:24)
[2023-12-09] MEDS: MULTIVITAMINS, THERA 1 EACH TAB PO SCH (09:24)
[2023-12-09] MEDS: ASPIRIN 81 MG PO SCH (09:24)
[2023-12-09] MEDS: ENOXAPARIN 40 MG/0.4 ML SYRINGE SQ SCH (09:25)
[2023-12-09] MEDS: ISOSORBIDE MONONITRATE ER 30 MG TAB.ER.24H PO SCH (09:25)
[2023-12-09] MEDS: FOLIC ACID 1 MG TAB PO SCH (09:25)
[2023-12-09 09:43] VITALS: RESP 16
--- NOTE | 2023-12-09 10:14 | P.PN ---
Progress Note - Text Progress Note Date: 12/09/23 Chief Complaint: Passed out 68-year-old patient who follows with Dr. Islas. Chronic stable medical conditions include CAD with history of bypass and stent, diabetes, hypertension, hyperlipidemia, Parkinson's, hypothyroid vitamin D deficiency. thyroid cancer with thyroidectomy. underlying intellectual disability. Does use a walker to get about. His sister Farrah is POA. resident of [facility] Patient was brought in by the EMS to the hospital. As per the report they were called out when patient was sitting at the kitchen table any loss consciousness. Lasted about 5 minutes. Blood pressure this morning was about 137 systolic. Blood pressure recorded by EMS was 61 x 35. Accu-Cheks was 149. No focal weakness. This evening for myself patient rather sleepy. Patient reported to have all his dinner tonight December 08: More awake. Reclining in bed. Had his breakfast. Answering simple questions. Had positive troponin. 2D echo ordered. Pending cardiology input. Patient also found to be hypotensive with initial presentation Active Medications Acetaminophen (Acetaminophen Tab 325 Mg Tab) 650 mg PO Q6H PRN PRN Reason: Mild Pain or Fever > 100.5 Ascorbic Acid (Ascorbic Acid 500 Mg Tab) 1,000 mg PO DAILY@0700 [facility] Last Admin: 12/09/23 09:24 Dose: 1,000 mg Aspirin (Aspirin 81 Mg) 81 mg PO DAILY@0700 [facility] Last Admin: 12/09/23 09:24 Dose: 81 mg Atorvastatin Calcium (Atorvastatin 40 Mg Tab) 40 mg PO HS@1900 [facility] Last Admin: 12/08/23 20:54 Dose: 40 mg Carbidopa/Levodopa (Carbidopa-Levodopa 25-100 Mg 1 Each Tab) 1 each PO BID@0700,1700 [facility] Last Admin: 12/09/23 06:32 Dose: 1 each Carbidopa/Levodopa (Carbidopa-Levodopa Er 50-200mg 1 Each Tablet.Er) 1 each PO BID@0700,1200 [facility] Last Admin: 12/09/23 06:32 Dose: 1 each Cholecalciferol (Cholecalciferol 25 Mcg (1000 Iu) Tablet) 50 mcg PO DAILY@0700 [facility] Last Admin: 12/09/23 09:24 Dose: 50 mcg Enoxaparin Sodium (Enoxaparin 40 Mg/0.4 Ml Syringe) 40 mg SQ DAILY [facility] Last Admin: 12/09/23 09:25 Dose: 40 mg Folic Acid (Folic Acid 1 Mg Tab) 1 mg PO DAILY@0700 [facility] Last Admin: 12/09/23 09:25 Dose: 1 mg Isosorbide Mononitrate (Isosorbide Mononitrate Er 30 Mg Tab.Er.24h) 30 mg PO DAILY@0700 [facility] Last Admin: 12/09/23 09:25 Dose: 30 mg Levothyroxine Sodium (Levothyroxine 75 Mcg Tab) 150 mcg PO DAILY@0700 [facility] Last Admin: 12/09/23 06:32 Dose: 150 mcg Melatonin (Melatonin 5 Mg Tablet) 10 mg PO HS PRN PRN Reason: sleep Multivitamins (Multivitamins, Thera 1 Each Tab) 1 each PO DAILY@0700 [facility] Last Admin: 12/09/23 09:24 Dose: 1 each Naloxone HCl (Naloxone 0.4 Mg/Ml 1 Ml Vial) 0.2 mg IV Q2M PRN PRN Reason: Opioid Reversal Nitroglycerin (Nitroglycerin Sl Tabs 0.4 Mg Tab) 0.4 mg SUBLINGUAL Q5M PRN PRN Reason: Chest Pain Psyllium Hydrophilic Mucilloid (Psyllium Husk 100% 6 Gm Packet) 6 gm PO BID@0700,1600 [facility] Last Admin: 12/09/23 06:33 Dose: 6 gm Quetiapine Fumarate (Quetiapine 200 Mg Tab) 200 mg PO HS@1700 [facility] Last Admin: 12/08/23 17:13 Dose: 200 mg Past medical history to include: CAD with history of bypass and stent, diabetes, hyperlipidemia, hypertension, thyroid cancer with thyroidectomy now hypothyroid, Parkinson's disease, developmental delay vitamin D deficiency Social history: Lives at [facility]. No smoking or alcohol. Does use a walker. POA: Sister Farrah Physical examination: VITAL SIGNS: 97.9, 67, 16, 164/78, 99% room air GENERAL: Reclining in bed, more EYES: Pupils equal. Conjunctiva normal. HEENT: External appearance of nose and ears normal, oral cavity grossly normal some loss of muscles on the temporal. NECK: JVD not raised; masses not palpable. HEART: First and second heart sounds are normal; no edema. LUNGS: Respiratory rate normal; clear to auscultation. ABDOMEN: Soft, nontender, liver spleen not palpable, no masses palpable. PSYCH: Answering simple questions MUSCULOSKELETAL:No Clubbing/cyanosis;muscles-grossly intact NEUROLOGICAL: Cranial nerves grossly intact; no facial asymmetry, power and sensation grossly intact. e. Bradykinesia. INVESTIGATIONS, reviewed in the clinical context: December 07: White count 10 hemoglobin 14.8 platelets 198 sodium 140 potassium 4.6 creatinine 0.69 Troponin I 0.051, 0.037, 0.040 Assessment and plan: -Patient is at least 2 syncopal episodes at home. Blood pressure recorded to be low. Element of orthostatic. Which is quite likely from underlying Parkinson's. -Troponinemia. No cardiac symptoms. 2D echo. Cardiology consulted. -Idiopathic Parkinson's disease Sinemet ER 50/200 twice a day. Sinemet 25/100 twice daily -Chronic gait dysfunction secondary to Parkinson's disease Fall precautions -Hypothyroid from prior thyroidectomy for thyroid cancer: Synthroid 150 -CAD with a prior history of bypass and stent Aspirin 81 mg a day -Hyperlipidemia Lipitor 40 mg daily at bedtime -Developmental delay -Power of litigation attorney: Sister./Farrah 2D echo. Await cardiology input. Past Medical History Past Medical History: Coronary Artery Disease (CAD), Cancer, Dementia, Diabetes Mellitus, Hyperlipidemia, Hypertension, Thyroid Disorder Additional Past Medical History / Comment(s): Parkinson's, developmental delay, vitamin D deficiency, thyroid CA, diet controlled DM (since weight loss) History of Any Multi-Drug Resistant Organisms: None Reported Past Surgical History: Coronary Bypass/CABG, Heart Catheterization With Stent Additional Past Surgical History / Comment(s): 4 vessel CABG, thyroidectomy, cardiac stenting 2 in 2009, esophageal foreign body removal Past Anesthesia/Blood Transfusion Reactions: No Reported Reaction Date of Last Stent Placement:: 2009 Past Psychological History: Anxiety Additional Psychological History / Comment(s): Intellectual Disability. Smoking Status: Never smoker Past Alcohol Use History: None Reported Past Drug Use History: None Reported
[2023-12-09] MEDS: amLODIPine 5 MG TAB PO SCH (12:49)
--- NOTE | 2023-12-10 14:57 | P.PN ---
Progress Note - Text Progress Note Date: 12/10/23 Chief Complaint: Passed out 68-year-old patient who follows with Dr. Islas. Chronic stable medical conditions include CAD with history of bypass and stent, diabetes, hypertension, hyperlipidemia, Parkinson's, hypothyroid vitamin D deficiency. thyroid cancer with thyroidectomy. underlying intellectual disability. Does use a walker to get about. His sister Farrah is POA. resident of [facility] Patient was brought in by the EMS to the hospital. As per the report they were called out when patient was sitting at the kitchen table any loss consciousness. Lasted about 5 minutes. Blood pressure this morning was about 137 systolic. Blood pressure recorded by EMS was 61 x 35. Accu-Cheks was 149. No focal weakness. This evening for myself patient rather sleepy. Patient reported to have all his dinner tonight December 08: More awake. Reclining in bed. Had his breakfast. Answering simple questions. Had positive troponin. 2D echo ordered. Pending cardiology input. Patient also found to be hypotensive with initial presentation December 09: Comfortable. Tolerating diet. No chest pain. Echocardiogram 3 weeks ago showed a EF of 55 to 60%. Dr. Hall communicated to me that syncope likely from autonomic dysfunction. Active Medications Acetaminophen (Acetaminophen Tab 325 Mg Tab) 650 mg PO Q6H PRN PRN Reason: Mild Pain or Fever > 100.5 Amlodipine Besylate (Amlodipine 5 Mg Tab) 5 mg PO DAILY [facility] Last Admin: 12/10/23 09:09 Dose: 5 mg Ascorbic Acid (Ascorbic Acid 500 Mg Tab) 1,000 mg PO DAILY@0700 [facility] Last Admin: 12/10/23 06:23 Dose: 1,000 mg Aspirin (Aspirin 81 Mg) 81 mg PO DAILY@0700 [facility] Last Admin: 12/10/23 06:24 Dose: 81 mg Atorvastatin Calcium (Atorvastatin 40 Mg Tab) 40 mg PO HS@1900 [facility] Last Admin: 12/09/23 20:41 Dose: 40 mg Carbidopa/Levodopa (Carbidopa-Levodopa 25-100 Mg 1 Each Tab) 1 each PO BID@0700,1700 [facility] Last Admin: 12/10/23 06:23 Dose: 1 each Carbidopa/Levodopa (Carbidopa-Levodopa Er 50-200mg 1 Each Tablet.Er) 1 each PO BID@0700,1200 [facility] Last Admin: 12/10/23 12:26 Dose: 1 each Cholecalciferol (Cholecalciferol 25 Mcg (1000 Iu) Tablet) 50 mcg PO DAILY@0700 [facility] Last Admin: 12/10/23 06:24 Dose: 50 mcg Enoxaparin Sodium (Enoxaparin 40 Mg/0.4 Ml Syringe) 40 mg SQ DAILY [facility] Last Admin: 12/10/23 09:09 Dose: 40 mg Folic Acid (Folic Acid 1 Mg Tab) 1 mg PO DAILY@0700 [facility] Last Admin: 12/10/23 06:23 Dose: 1 mg Levothyroxine Sodium (Levothyroxine 75 Mcg Tab) 150 mcg PO DAILY@0700 [facility] Last Admin: 12/10/23 06:24 Dose: 150 mcg Melatonin (Melatonin 5 Mg Tablet) 10 mg PO HS PRN PRN Reason: sleep Multivitamins (Multivitamins, Thera 1 Each Tab) 1 each PO DAILY@0700 [facility] Last Admin: 12/10/23 06:24 Dose: 1 each Naloxone HCl (Naloxone 0.4 Mg/Ml 1 Ml Vial) 0.2 mg IV Q2M PRN PRN Reason: Opioid Reversal Nitroglycerin (Nitroglycerin Sl Tabs 0.4 Mg Tab) 0.4 mg SUBLINGUAL Q5M PRN PRN Reason: Chest Pain Psyllium Hydrophilic Mucilloid (Psyllium Husk 100% 6 Gm Packet) 6 gm PO BID@0700,1600 [facility] Last Admin: 12/10/23 06:23 Dose: 6 gm Quetiapine Fumarate (Quetiapine 200 Mg Tab) 200 mg PO HS@1700 [facility] Last Admin: 12/09/23 16:51 Dose: 200 mg Past medical history to include: CAD with history of bypass and stent, diabetes, hyperlipidemia, hypertension, thyroid cancer with thyroidectomy now hypothyroid, Parkinson's disease, developmental delay vitamin D deficiency Social history: Lives at [facility]. No smoking or alcohol. Does use a walker. POA: Sister Farrah Physical examination: VITAL SIGNS: 96.9, 60, 16, 105/58, 96% room air GENERAL: Reclining in bed, comfortable EYES: Pupils equal. Conjunctiva normal. HEENT: External appearance of nose and ears normal, oral cavity grossly normal some loss of muscles on the temporal. NECK: JVD not raised; masses not palpable. HEART: First and second heart sounds are normal; no edema. LUNGS: Respiratory rate normal; clear to auscultation. ABDOMEN: Soft, nontender, liver spleen not palpable, no masses palpable. PSYCH: Answering simple questions MUSCULOSKELETAL:No Clubbing/cyanosis;muscles-grossly intact NEUROLOGICAL: Cranial nerves grossly intact; no facial asymmetry, power and sensation grossly intact. . Bradykinesia. Answering questions slowly INVESTIGATIONS, reviewed in the clinical context: December 07: White count 10 hemoglobin 14.8 platelets 198 sodium 140 potassium 4.6 creatinine 0.69 Troponin I 0.051, 0.037, 0.040 Recent testinD echo [November 20, 2023] EF 55 to 60%. Assessment and plan: -Syncope felt to be from autonomic dysfunction from underlying Parkinson disease. -Troponinemia. No rise and fall. No cardiac symptoms. Cardiology consulted -Idiopathic Parkinson's disease Sinemet ER 50/200 twice a day. Sinemet 25/100 twice daily -Chronic gait dysfunction secondary to Parkinson's disease Fall precautions -Hypothyroid from prior thyroidectomy for thyroid cancer: Synthroid 150 -CAD with a prior history of bypass and stent Aspirin 81 mg a day -Hyperlipidemia Lipitor 40 mg daily at bedtime -Developmental delay -Power of regulatory attorney: Sister./Farrah Continue current treatment plan. Past Medical History Past Medical History: Coronary Artery Disease (CAD), Cancer, Dementia, Diabetes Mellitus, Hyperlipidemia, Hypertension, Thyroid Disorder Additional Past Medical History / Comment(s): Parkinson's, developmental delay, vitamin D deficiency, thyroid CA, diet controlled DM (since weight loss) History of Any Multi-Drug Resistant Organisms: None Reported Past Surgical History: Coronary Bypass/CABG, Heart Catheterization With Stent Additional Past Surgical History / Comment(s): 4 vessel CABG, thyroidectomy, cardiac stenting 2 in 2009, esophageal foreign body removal Past Anesthesia/Blood Transfusion Reactions: No Reported Reaction Date of Last Stent Placement:: 2009 Past Psychological History: Anxiety Additional Psychological History / Comment(s): Intellectual Disability. Smoking Status: Never smoker Past Alcohol Use History: None Reported Past Drug Use History: None Reported
--- NOTE | 2023-12-10 21:42 | P.CRDCN ---
History of Present Illness Consult date: 12/09/23 History of present illness: HISTORY OF PRESENTING ILLNESS Patient is a 68-year-old male with past medical history of CAD status post bypass and PCI, type 2 diabetes, hypertension dyslipidemia, Parkinson's disease managed on levodopa carbidopa, thyroid cancer with thyroidectomy and underlying intellectual disability. Patient's sister is the DPOA and patient uses a walker to get about Patient presented to the hospital because of concerns of a syncopal episode. As per the report patient was sitting in the kitchen table where he was found to have lost consciousness for about 5 minutes. REVIEW OF SYSTEMS 14 point review of system is negative except what is mentioned above in HPI. PHYSICAL EXAMINATION Vital signs reviewed. Head: Normocephalic. Eyes: Sclerae nonicteric. Neck: Brisk carotid upstroke, no jugular venous distention. Lungs: Clear to auscultation. Heart: Regular rate and rhythm, S1-S2, no S3, no murmur or rub. Abdomen: Soft nontender, positive bowel sounds. Extremities: No edema, intact distal pulses. Neuro: Alert, oritented, has Parkinson's feature, resting tremor, masklike face , detailed neuro exam was not performed. ASSESSMENT Recurrent syncope, most likely due to autonomic dysfunction Parkinson's disease Concerns of on and off phenomena while on Sinemet Hypothyroidism CAD s/p CABG and PCI in the past Hypertension Dyslipidemia Intellectual disability Normal TSH PLAN Patient most likely passed out because of neurocardiogenic syncope from autonomic dysfunction from his Parkinson's disease. Patient is on levodopa and carbidopa and is most likely manifesting on and off phenomena. During hospital stay it is noted that patient has labile blood pressure and is managed on Imdur. I will discontinue his Imdur as it is more of an arterial dilator and can cause orthostasis. I will start him on amlodipine 5 mg instead for blood pressure optimization. Obtain echocardiogram Continue aspirin, statin Carrillo Hall MD, FACC, RPVI Thank you for allowing [facility] to participate in this patient's care. Feel free to reach out in case of any followup questions. Past Medical History Past Medical History: Coronary Artery Disease (CAD), Cancer, Dementia, Diabetes Mellitus, Hyperlipidemia, Hypertension, Thyroid Disorder Additional Past Medical History / Comment(s): Parkinson's, developmental delay, vitamin D deficiency, thyroid CA, diet controlled DM (since weight loss) History of Any Multi-Drug Resistant Organisms: None Reported Past Surgical History: Coronary Bypass/CABG, Heart Catheterization With Stent Additional Past Surgical History / Comment(s): 4 vessel CABG, thyroidectomy, cardiac stenting 2 in 2009, esophageal foreign body removal Past Anesthesia/Blood Transfusion Reactions: No Reported Reaction Date of Last Stent Placement:: 2009 Past Psychological History: Anxiety Additional Psychological History / Comment(s): Intellectual Disability. Smoking Status: Never smoker Past Alcohol Use History: None Reported Past Drug Use History: None Reported - Past Family History Father Family Medical History: No Reported History Mother History Unknown: Yes Family Medical History: Coronary Artery Disease (CAD) Sister(s) Family Medical History: Cancer Additional Family Medical History / Comment(s): Breast Brother(s) Family Medical History: Cancer Additional Family Medical History / Comment(s): Prostate Medications and Allergies Home Medications Medication Instructions Recorded Confirmed Type Aspirin EC [Ecotrin Low Dose] 81 mg PO DAILY@0700 04/21/19 12/08/23 History Folic Acid 1 mg PO DAILY@0700 04/21/19 12/08/23 History Multivitamins, Thera [Multivitamin 1 tab PO DAILY@0700 04/21/19 12/08/23 History (formulary)] Cholecalciferol [Vitamin D3 (25 50 mcg PO DAILY@0700 10/26/20 12/08/23 History Mcg = 1000 Iu)] Isosorbide Mononitrate ER [Imdur] 30 mg PO DAILY@0700 10/26/20 12/08/23 History Ascorbic Acid [Vitamin C] 1,000 mg PO DAILY@0700 06/22/21 12/08/23 History Atorvastatin [Lipitor] 40 mg PO HS@1900 07/29/21 12/08/23 History Carbidopa-Levodopa 25-100 mg 1 tab PO BID@0700,1700 02/26/23 12/08/23 History [Sinemet 25-100 mg] Carbidopa-Levodopa ER 50-200Mg 1 tab PO BID@0700,1200 02/26/23 12/08/23 History [Sinemet CR 50-200 mg] Cetirizine HCl 10 mg PO HS@1900 02/26/23 12/08/23 History Citalopram Hydrobromide [CeleXA] 10 mg PO HS@1900 08/29/23 12/08/23 History Donepezil HCl [Aricept] 10 mg PO DAILY@0700 08/29/23 12/08/23 History Levothyroxine Sodium [Synthroid] 150 mcg PO DAILY@0700 08/29/23 12/08/23 History Acetaminophen Tab [Tylenol] 1,000 mg PO Q6H PRN 11/19/23 12/08/23 History Bismuth Subsalicylate 524 mg PO Q30M PRN MDD 8 doses 11/19/23 12/08/23 History [Pepto-Bismol] Cholestyramine/Aspartame 4 gm PO AC-TID PRN 11/19/23 12/08/23 History [Cholestyramine Light Packet] Cough Drops 1 lozenge PO DIRECTED 11/19/23 12/08/23 History Loperamide [Imodium] 2 - 4 mg PO DIRECTED PRN MDD 4 11/19/23 12/08/23 History caps Melatonin 10 mg PO HS PRN 11/19/23 12/08/23 History Nitroglycerin Sl Tabs [Nitrostat] 0.4 mg SUBLINGUAL Q5M PRN 11/19/23 12/08/23 History Psyllium Husk (with Sugar) [Fiber 1 tsp PO BID@0700,1600 11/19/23 12/08/23 History Powder] QUEtiapine FUMARATE [SEROquel] 200 mg PO HS@1700 11/19/23 12/08/23 History Sodium Chloride [[place]] 2 spray EA NOSTRIL DIRECTED PRN 11/19/23 History guaiFENesin-DM 100-10MG/5ML 10 ml PO QID PRN 11/19/23 12/08/23 History [Robitussin DM] Allergies Allergy/AdvReac Type Severity Reaction Status Date / Time No Known Allergies Allergy Verified 12/08/23 14:29 Physical Exam Vitals: Vital Signs Temp Pulse Pulse Resp BP BP Pulse Ox 12/10/23 19:44 98.1 F 60 16 109/55 95 12/10/23 16:00 98.0 F 82 16 113/56 97 12/10/23 14:00 60 16 12/10/23 08:00 97.9 F 60 16 105/58 96 12/10/23 04:12 97.8 F 83 16 120/71 98 12/10/23 00:30 90 16 100/63 96 Intake and Output 12/10/23 12/10/23 12/10/23 06:59 14:59 22:59 Intake Total 118 118 Output Total 1300 Balance -1300 118 118 Intake: Oral 118 118 Output: Urine 1300 Other: Voiding Method External Catheter External Catheter # Bowel Movements 1 1 Weight 112.5 kg Results 12/08/23 11:00 12/08/23 11:00 Current Medications Generic Name Dose Route Start Last Admin Trade Name Freq PRN Reason Stop Dose Admin Acetaminophen 650 mg 12/08/23 16:10 Acetaminophen Tab 325 Mg Tab PO Q6H PRN Mild Pain or Fever > 100.5 Amlodipine Besylate 5 mg 12/09/23 11:45 12/10/23 09:09 Amlodipine 5 Mg Tab PO 5 mg DAILY ROXANN Administration Ascorbic Acid 1,000 mg 12/09/23 09:00 12/10/23 06:23 Ascorbic Acid 500 Mg Tab PO 1,000 mg DAILY@07 ROXANN Administration Aspirin 81 mg 12/09/23 09:00 12/10/23 06:24 Aspirin 81 Mg PO 81 mg DAILY@0700 ROXANN Administration Atorvastatin Calcium 40 mg 12/08/23 21:00 12/10/23 17:40 Atorvastatin 40 Mg Tab PO 40 mg HS@1900 ROXANN Administration Carbidopa/Levodopa 1 each 12/08/23 17:00 12/10/23 17:40 Carbidopa-Levodopa 25-100 Mg 1 Each Tab PO 1 each BID@0700,1700 ROXANN Administration Carbidopa/Levodopa 1 each 12/09/23 07:00 12/10/23 12:26 Carbidopa-Levodopa Er 50-200mg 1 Each Tablet.Er PO 1 each BID@0700,1200 ROXANN Administration Cholecalciferol 50 mcg 12/09/23 09:00 12/10/23 06:24 Cholecalciferol 25 Mcg (1000 Iu) Tablet PO 50 mcg DAILY@0700 ROXANN Administration Enoxaparin Sodium 40 mg 12/09/23 09:00 12/10/23 09:09 Enoxaparin 40 Mg/0.4 Ml Syringe SQ 40 mg DAILY ROXANN Administration Folic Acid 1 mg 12/09/23 09:00 07/30/24 06:23 Folic Acid 1 Mg Tab PO 1 mg DAILY@07 ROXANN Administration Levothyroxine Sodium 150 mcg 12/09/23 07:00 12/10/23 06:24 Levothyroxine 75 Mcg Tab PO 150 mcg DAILY@07 ROXANN Administration Melatonin 10 mg 12/08/23 16:10 Melatonin 5 Mg Tablet PO HS PRN sleep Multivitamins 1 each 12/09/23 09:00 12/10/23 06:24 Multivitamins, Thera 1 Each Tab PO 1 each DAILY@07 ROXANN Administration Naloxone HCl 0.2 mg 12/08/23 12:20 Naloxone 0.4 Mg/Ml 1 Ml Vial IV Q2M PRN Opioid Reversal Nitroglycerin 0.4 mg 12/08/23 16:10 Nitroglycerin Sl Tabs 0.4 Mg Tab SUBLINGUAL Q5M PRN Chest Pain Psyllium Hydrophilic Mucilloid 6 gm 12/09/23 07:00 12/10/23 17:40 Psyllium Husk 100% 6 Gm Packet PO 6 gm BID@0700,1600 ROXANN Administration Quetiapine Fumarate 200 mg 12/08/23 17:00 12/10/23 17:39 Quetiapine 200 Mg Tab PO 200 mg HS@1700 ROXANN Administration Intake and Output 12/10/23 12/10/23 12/10/23 06:59 14:59 22:59 Intake Total 118 118 Output Total 1300 Balance -1300 118 118 Intake: Oral 118 118 Output: Urine 1300 Other: Voiding Method External Catheter External Catheter # Bowel Movements 1 1 Weight 112.5 kg 12/08/23 11:00 12/08/23 11:00
--- NOTE | 2023-12-10 21:44 | P.PN ---
Subjective Progress Note Date: 12/10/23 HISTORY OF PRESENTING ILLNESS Patient is a 68-year-old male with past medical history of CAD status post b ypass and PCI, type 2 diabetes, hypertension dyslipidemia, Parkinson's disease managed on levodopa carbidopa, thyroid cancer with thyroidectomy and underlying intellectual disability. Patient's sister is the DPOA and patient uses a walker to get about Patient presented to the hospital because of concerns of a syncopal episode. As per the report patient was sitting in the kitchen table where he was found to have lost consciousness for about 5 minutes. ECG showed sinus bradycardia on admission December 10, 2023 Patient did not have any further syncopal episodes or passing out spells. Hemodynamically stable, tolerating amlodipine better than Imdur. Telemetry shows sinus bradycardia. PHYSICAL EXAMINATION Vital signs reviewed. Head: Normocephalic. Eyes: Sclerae nonicteric. Neck: Brisk carotid upstroke, no jugular venous distention. Lungs: Clear to auscultation. Heart: Regular rate and rhythm, S1-S2, no S3, no murmur or rub. Abdomen: Soft nontender, positive bowel sounds. Extremities: No edema, intact distal pulses. Neuro: Alert, oritented, has Parkinson's feature, resting tremor, masklike face , detailed neuro exam was not performed. ASSESSMENT Recurrent syncope, most likely due to autonomic dysfunction Parkinson's disease Concerns of on and off phenomena while on Sinemet Hypothyroidism CAD s/p CABG and PCI in the past Hypertension Dyslipidemia Intellectual disability Normal TSH Echocardiogram from November 2023 shows an EF of 55%, mild mitral regurgitation, mild aortic regurgitation PLAN Patient most likely passed out because of neurocardiogenic syncope from autonomic dysfunction from his Parkinson's disease. Patient is on levodopa and carbidopa and is most likely manifesting on and off phenomena. During hospital stay it is noted that patient has labile blood pressure and is managed on Imdur. I will discontinue his Imdur as it is more of an arterial dilator and can cause orthostasis. I will start him on amlodipine 5 mg instead for blood pressure optimization. Perform orthostatic vital signs prior to discharge 14-day event monitor prior to discharge Anticipate discharge tomorrow. Patient is otherwise cleared from cardiology. Cardiology team will sign off. Please reconsult us in case of any question. Objective - Vital Signs Vital signs: Vital Signs Temp 98.1 F 12/10/23 19:44 Pulse 60 12/10/23 19:44 Resp 16 12/10/23 19:44 BP 109/55 12/10/23 19:44 Pulse Ox 95 12/10/23 19:44 FiO2 Intake & Output 12/10/23 12/10/23 12/11/23 06:59 18:59 06:59 Intake Total 236 Output Total 1300 Balance -1300 236 Weight 112.5 kg Intake: Oral 236 Output: Urine 1300 Other: Voiding Method External Catheter External Catheter # Bowel Movements 1 - Labs CBC & Chem 7: 12/08/23 11:00 12/08/23 11:00
[2023-12-11 09:12] VITALS: BP 110/70; PULSE 74; TEMP 97.5
--- NOTE | 2023-12-11 22:12 | P.DS ---
Providers Date of admission: 12/08/23 22:24 Expected date of discharge: 12/11/23 Attending physician: Ed Leyva Consults: 12/08/23 12:20 Consult Physician Routine Consulting Provider: Billy Barrera Consult Reason/Comments: syncope Do you want consulting provider notified?: Yes Primary care physician: Alex Elizabeth MD Hospital Course: Chief Complaint: Passed out 68-year-old patient who follows with Dr. Islas. Chronic stable medical conditions include CAD with history of bypass and stent, diabetes, hypertension, hyperlipidemia, Parkinson's, hypothyroid vitamin D deficiency. thyroid cancer with thyroidectomy. underlying intellectual disability. Does use a walker to get about. His sister Farrah is POA. resident of [facility] Patient was brought in by the EMS to the hospital. As per the report they were called out when patient was sitting at the kitchen table any loss consciousness. Lasted about 5 minutes. Blood pressure this morning was about 137 systolic. Blood pressure recorded by EMS was 61 x 35. Accu-Cheks was 149. No focal weakness. This evening for myself patient rather sleepy. Patient reported to have all his dinner tonight December 08: More awake. Reclining in bed. Had his breakfast. Answering simple questions. Had positive troponin. 2D echo ordered. Pending cardiology input. Patient also found to be hypotensive with initial presentation December 09: Comfortable. Tolerating diet. No chest pain. Echocardiogram 3 weeks ago showed a EF of 55 to 60%. Dr. Hall communicated to me that syncope likely from autonomic dysfunction. December 10: Laying in bed. Comfortable. Cleared by cardiology for discharge. 14- day event monitor ordered per cardiology. Past medical history to include: CAD with history of bypass and stent, diabetes, hyperlipidemia, hypertension, thyroid cancer with thyroidectomy now hypothyroid, Parkinson's disease, developmental delay vitamin D deficiency Social history: Lives at [facility]. No smoking or alcohol. Does use a walker. POA: Sister Farrah Physical examination: VITAL SIGNS: 97.5, 74, 16, 110 x 70, 98% room air GENERAL: Comfortable EYES: Pupils equal. Conjunctiva normal. HEENT: External appearance of nose and ears normal, oral cavity grossly normal some loss of muscles on the temporal. NECK: JVD not raised; masses not palpable. HEART: First and second heart sounds are normal; no edema. LUNGS: Respiratory rate normal; clear to auscultation. ABDOMEN: Soft, nontender, liver spleen not palpable, no masses palpable. PSYCH: Answering simple questions MUSCULOSKELETAL:No Clubbing/cyanosis;muscles-grossly intact NEUROLOGICAL: Cranial nerves grossly intact; no facial asymmetry, power and sensation grossly intact. . Bradykinesia. Answering questions slowly INVESTIGATIONS, reviewed in the clinical context: December 07: White count 10 hemoglobin 14.8 platelets 198 sodium 140 potassium 4.6 creatinine 0.69 Troponin I 0.051, 0.037, 0.040 Recent testinD echo [November 20, 2023] EF 55 to 60%. Assessment and plan: -Syncope felt to be from autonomic dysfunction from underlying Parkinson disease. -Troponinemia. No rise and fall. No cardiac symptoms. Seen by cardiology. No further workup. -Idiopathic Parkinson's disease Sinemet ER 50/200 twice a day. Sinemet 25/100 twice daily -Chronic gait dysfunction secondary to Parkinson's disease Fall precautions -Hypothyroid from prior thyroidectomy for thyroid cancer: Synthroid 150 -CAD with a prior history of bypass and stent Aspirin 81 mg a day -Essential hypertension Amlodipine 10 mg -Hyperlipidemia Lipitor 40 mg daily at bedtime -Developmental delay -Power of spot washer: Sister./Farrah Disposition: [facility] Past Medical History Past Medical History: Coronary Artery Disease (CAD), Cancer, Dementia, Diabetes Mellitus, Hyperlipidemia, Hypertension, Thyroid Disorder Additional Past Medical History / Comment(s): Parkinson's, developmental delay, vitamin D deficiency, thyroid CA, diet controlled DM (since weight loss) History of Any Multi-Drug Resistant Organisms: None Reported Past Surgical History: Coronary Bypass/CABG, Heart Catheterization With Stent Additional Past Surgical History / Comment(s): 4 vessel CABG, thyroidectomy, cardiac stenting 2 in 2009, esophageal foreign body removal Past Anesthesia/Blood Transfusion Reactions: No Reported Reaction Date of Last Stent Placement:: 2009 Past Psychological History: Anxiety Additional Psychological History / Comment(s): Intellectual Disability. Smoking Status: Never smoker Past Alcohol Use History: None Reported Past Drug Use History: None Reported Plan - Discharge Summary Discharge Rx Participant: No New Discharge Prescriptions: New amLODIPine [Norvasc] 5 mg PO DAILY #30 tab Continue Folic Acid 1 mg PO DAILY@0700 Multivitamins, Thera [Multivitamin (formulary)] 1 tab PO DAILY@0700 Aspirin EC [Ecotrin Low Dose] 81 mg PO DAILY@0700 Ascorbic Acid [Vitamin C] 1,000 mg PO DAILY@0700 Levothyroxine Sodium [Synthroid] 150 mcg PO DAILY@0700 Bismuth Subsalicylate [Pepto-Bismol] 524 mg PO Q30M PRN MDD 8 doses PRN Reason: Gi Upset Nitroglycerin Sl Tabs [Nitrostat] 0.4 mg SUBLINGUAL Q5M PRN PRN Reason: Chest Pain Loperamide [Imodium] 2 - 4 mg PO DIRECTED PRN MDD 4 caps PRN Reason: Loose Stool Sodium Chloride [[place]] 2 spray EA NOSTRIL DIRECTED PRN PRN Reason: nasal dryness Cough Drops 1 lozenge PO DIRECTED Psyllium Husk (with Sugar) [Fiber Powder] 1 tsp PO BID@0700,1600 guaiFENesin-DM 100-10MG/5ML [Robitussin DM] 10 ml PO QID PRN PRN Reason: Cough Cholecalciferol [Vitamin D3 (25 Mcg = 1000 Iu)] 50 mcg PO DAILY@0700 Atorvastatin [Lipitor] 40 mg PO HS@1900 Carbidopa-Levodopa 25-100 mg [Sinemet 25-100 mg] 1 tab PO BID@0700,1700 Carbidopa-Levodopa ER 50-200Mg [Sinemet CR 50-200 mg] 1 tab PO BID@0700,1200 Melatonin 10 mg PO HS PRN PRN Reason: sleep Cholestyramine/Aspartame [Cholestyramine Light Packet] 4 gm PO AC-TID PRN PRN Reason: Diarrhea Acetaminophen Tab [Tylenol] 1,000 mg PO Q6H PRN PRN Reason: Pain Or Fever > 100.5 QUEtiapine FUMARATE [SEROquel] 200 mg PO HS@1700 Discontinued Isosorbide Mononitrate ER [Imdur] 30 mg PO DAILY@0700 Citalopram Hydrobromide [CeleXA] 10 mg PO HS@1900 Donepezil HCl [Aricept] 10 mg PO DAILY@0700 Cetirizine HCl 10 mg PO HS@1900 Discharge Medication List Aspirin EC [Ecotrin Low Dose] 81 mg PO DAILY@0700 04/21/19 [History] Folic Acid 1 mg PO DAILY@0700 04/21/19 [History] Multivitamins, Thera [Multivitamin (formulary)] 1 tab PO DAILY@0700 04/21/19 [History] Cholecalciferol [Vitamin D3 (25 Mcg = 1000 Iu)] 50 mcg PO DAILY@0700 10/26/20 [History] Ascorbic Acid [Vitamin C] 1,000 mg PO DAILY@0700 06/22/21 [History] Atorvastatin [Lipitor] 40 mg PO HS@1900 07/29/21 [History] Carbidopa-Levodopa 25-100 mg [Sinemet 25-100 mg] 1 tab PO BID@0700,1700 02/26/23 [History] Carbidopa-Levodopa ER 50-200Mg [Sinemet CR 50-200 mg] 1 tab PO BID@0700,1200 02/26/23 [History] Levothyroxine Sodium [Synthroid] 150 mcg PO DAILY@0700 08/29/23 [History] Acetaminophen Tab [Tylenol] 1,000 mg PO Q6H PRN 11/19/23 [History] Bismuth Subsalicylate [Pepto-Bismol] 524 mg PO Q30M PRN MDD 8 doses 11/19/23 [History] Cholestyramine/Aspartame [Cholestyramine Light Packet] 4 gm PO AC-TID PRN 11/19/23 [History] Cough Drops 1 lozenge PO DIRECTED 11/19/23 [History] Loperamide [Imodium] 2 - 4 mg PO DIRECTED PRN MDD 4 caps 11/19/23 [History] Melatonin 10 mg PO HS PRN 11/19/23 [History] Nitroglycerin Sl Tabs [Nitrostat] 0.4 mg SUBLINGUAL Q5M PRN 11/19/23 [History] Psyllium Husk (with Sugar) [Fiber Powder] 1 tsp PO BID@0700,1600 11/19/23 [History] QUEtiapine FUMARATE [SEROquel] 200 mg PO HS@1700 11/19/23 [History] Sodium Chloride [[place]] 2 spray EA NOSTRIL DIRECTED PRN 11/19/23 [History] guaiFENesin-DM 100-10MG/5ML [Robitussin DM] 10 ml PO QID PRN 11/19/23 [History] amLODIPine [Norvasc] 5 mg PO DAILY #30 tab 12/11/23 [Rx] Follow up Appointment(s)/Referral(s): Alex Elizabeth MD [Primary Care Provider] - 1-2 days Patient Instructions/Handouts: Syncope (DC) Discharge Disposition: HOME WITH HOME HEALTH SERVICES
== END 2023-12-11 13:20 | disposition home health service (06) | DRG 57 ==
LOC: EC 09:46 → 3SCARD 12:20 → OBSVTOIN 22:24
PROVIDERS: ADMIT Hospitalist; ATTEND Hospitalist
DX: G20.A1 Parkinson's disease without dyskinesia, without mention of fluctuations (principal); F02.84 Dementia in other diseases classified elsewhere, unspecified severity, with anxiety; R55 Syncope and collapse; E11.9 Type 2 diabetes mellitus without complications; F79 Unspecified intellectual disabilities; I10 Essential (primary) hypertension; I25.10 Atherosclerotic heart disease of native coronary artery without angina pectoris; E55.9 Vitamin D deficiency, unspecified; R79.89 Other specified abnormal findings of blood chemistry; E03.9 Hypothyroidism, unspecified; Z79.890 Hormone replacement therapy; E78.5 Hyperlipidemia, unspecified; Z95.5 Presence of coronary angioplasty implant and graft; Z79.82 Long term (current) use of aspirin; F32.9 Major depressive disorder, single episode, unspecified; Z79.899 Other long term (current) drug therapy; Z82.49 Family history of ischemic heart disease and other diseases of the circulatory system; Z95.1 Presence of aortocoronary bypass graft; Z85.850 Personal history of malignant neoplasm of thyroid
CPT/HCPCS: 36415; 70450; 71046; 80053; 83735; 84484; 85025; 85610; 85730; 87324; 93005; 93270; 94760; 99285